=== PATIENT | male | born 1960 | race Caucasian/White ===

== ENCOUNTER 2017-10-31 10:41 | Emergency (ER) | payer OTHER ==
[~2017-10-31] VITALS: Ht 179.1 cm; Wt 84.4 kg
[~2017-10-31 10:41] MED LIST: MULT-506 PO
[2017-10-31 10:49] VITALS: TEMP 36.4; Ht 179.1 cm; Wt 84.4 kg
--- NOTE | 2017-10-31 12:04 | DIAGNOSTIC IMAGING REPORT ---
CHEST ONE VIEW PORTABLE CLINICAL HISTORY: Leg edema COMPARISON STUDY: No previous studies for comparison. FINDINGS: The heart is normal in size. There is left-sided pleural diaphragmatic scarring. There is no failure. There is no focal pulmonary consolidation. There are no significant pleural effusions.[ IMPRESSION: Left-sided pleural diaphragmatic scarring, likely chronic. No evidence of focal pulmonary consolidation Electronically signed by: Pankaj Mccallum M.D. 10/31/2017 12:03 PM Dictated Date/Time: 10/31/2017 12:02 PM
[2017-10-31 12:32] LABS: ALBUMIN 2.7 gm/dl (3.4-5.0); CREATININE 0.52 mg/dl (0.60-1.40); POTASSIUM 3.3 mmol/L (3.5-5.1)
[2017-10-31 12:34] LABS: HEMATOCRIT 33.5 % (42-52); HEMOGLOBIN 11.5 g/dL (14.0-18.0); MEAN CELL VOLUME 90.5 fL (80-100); MEAN CORPUSCULAR HEMOGLOBIN 31.1 pg (25-34); RED CELL DISTRIBUTION WIDTH CV 14.8 % (11.5-14.5); RED CELL DISTRIBUTION WIDTH SD 48.7 fL (36.4-46.3)
[2017-10-31 12:42] LABS: MEAN CORPUSCULAR HGB CONC 34.3 g/dl (32-36)
[2017-10-31 12:54] LABS: MEAN PLATELET VOLUME 8.6 fL (7.4-10.4); PLATELET COUNT 57 K/uL (130-400)
[2017-10-31 12:55] LABS: TOTAL PROTEIN 7.9 gm/dl (6.4-8.2)
--- NOTE | 2017-10-31 12:59 | EMERGENCY ROOM VISIT NOTE ---
History First contact with patient: 11:20 Chief Complaint: SWELLING TO EXTREMITY Stated Complaint: SWELLING FEET LEGS History of Present Illness The patient is a 56 year old male who presents to the Emergency Room with complaints of swelling of bilateral legs. The patient states that he has had intermittent swelling of the legs for the past 6 months. He states that typically this goes away on its own. He reports for the past 2 weeks, he has had constant swelling which has not improved. He has tried elevating his legs and soaking them in Epsom salts without relief. He states that the feet and calves are painful and rates his discomfort a 10/10. He states that the legs "feel like they are going to burst." The pain is worse with touching the legs and feet. The patient states that he has not seen a primary care provider in a few years. He has a history of hepatitis C. He denies any other medical problems. He denies chest pain, shortness of breath, abdominal pain, nausea, vomiting or fevers. He denies any drug use. He states that he drinks alcohol socially, but denies excessive alcohol use. Review of Systems A complete 10 point review of systems was reviewed with the patient with pertinent positives and negatives as per history of present illness. All else were negative. Past Medical/Surgical History Medical Problems: (1) Hepatitis C Family History Cancer Diabetes mellitus Hypertension Lung disease Seizures Social History Smoking Status: Current Every Day Smoker Alcohol Use: occasionally Housing Status: other (transition home) Occupation Status: disabled Current/Historical Medications Scheduled Cephalexin Monohydrate (Keflex), 500 MG PO QID Physical Exam Vital Signs Date Time Temp Pulse Resp B/P (MAP) Pulse Ox O2 Delivery O2 Flow Rate FiO2 10/31/17 13:11 90 18 141/76 95 Room Air 10/31/17 10:49 36.4 90 18 171/77 94 Room Air Physical Exam VITALS: Vitals are noted on the nurse's note and reviewed by myself. Vital signs stable. GENERAL: This is a 56-year-old male, in no acute distress, nondiaphoretic, well- developed well-nourished. HEAD: Normocephalic atraumatic. EARS: External auditory canals clear, tympanic membranes pearly simpson without erythema or effusion bilaterally. EYES: Pupils equal round and reactive to light and accommodation. MOUTH: Mucous membranes moist. NECK: Supple without nuchal rigidity. No lymphadenopathy. HEART: Regular rate and rhythm without murmurs gallops or rubs. LUNGS: Mild expiratory wheezes throughout. Otherwise clear to auscultation. ABDOMEN: Positive bowel sounds x 4. Soft, nontender without palpable masses. EXTREMITIES: 1+ pitting edema to bilateral lower extremities. Tenderness to palpation with light touch of bilateral feet and calves. There is mild erythema and warmth to bilateral lower legs. NEURO: Patient was alert and oriented to person place and time. Medical Decision & Procedures ER Provider Diagnostic Interpretation: CHEST ONE VIEW PORTABLE FINDINGS: The heart is normal in size. There is left-sided pleural diaphragmatic scarring. There is no failure. There is no focal pulmonary consolidation. There are no significant pleural effusions.[ IMPRESSION: Left-sided pleural diaphragmatic scarring, likely chronic. No evidence of focal pulmonary consolidation VENOUS DOPPLER LWR EXT BILA FINDINGS: Right: Common femoral vein: Patent. Greater saphenous vein: Patent. Deep femoral vein: Patent. Femoral vein: Patent. Popliteal vein: Patent. Calf veins: Patent. Left: Common femoral vein: Patent. Greater saphenous vein: Patent. Deep femoral vein: Patent. Femoral vein: Patent. Popliteal vein: Patent. Calf veins: Patent. Other: None. IMPRESSION: No evidence of deep venous thrombosis. Laboratory Results 10/31/17 12:00 Red Blood Count 3.70, Mean Corpuscular Volume 90.5, Mean Corpuscular Hemoglobin 31.1, Mean Corpuscular Hemoglobin Concent 34.3, Mean Platelet Volume 8.6, Neutrophils (%) (Auto) 45.0, Lymphocytes (%) (Auto) 39.4, Monocytes (%) (Auto) 12.2, Eosinophils (%) (Auto) 2.8, Basophils (%) (Auto) 0.6, Neutrophils # (Auto ) 0.81, Lymphocytes # (Auto) 0.71, Monocytes # (Auto) 0.22, Eosinophils # (Auto ) 0.05, Basophils # (Auto) 0.01 10/31/17 12:00 Test 10/31/17 12:00 10/31/17 14:15 White Blood Count 1.80 K/uL (4.8-10.8) Red Blood Count 3.70 M/uL (4.7-6.1) Hemoglobin 11.5 g/dL (14.0-18.0) Hematocrit 33.5 % (42-52) Mean Corpuscular Volume 90.5 fL (80-100) Mean Corpuscular Hemoglobin 31.1 pg (25-34) Mean Corpuscular Hemoglobin Concent 34.3 g/dl (32-36) Platelet Count 57 K/uL (130-400) Mean Platelet Volume 8.6 fL (7.4-10.4) Neutrophils (%) (Auto) 45.0 % Lymphocytes (%) (Auto) 39.4 % Monocytes (%) (Auto) 12.2 % Eosinophils (%) (Auto) 2.8 % Basophils (%) (Auto) 0.6 % Neutrophils # (Auto) 0.81 K/uL (1.4-6.5) Lymphocytes # (Auto) 0.71 K/uL (1.2-3.4) Monocytes # (Auto) 0.22 K/uL (0.11-0.59) Eosinophils # (Auto) 0.05 K/uL (0-0.5) Basophils # (Auto) 0.01 K/uL (0-0.2) RDW Standard Deviation 48.7 fL (36.4-46.3) RDW Coefficient of Variation 14.8 % (11.5-14.5) Immature Granulocyte % (Auto) 0.0 % Immature Granulocyte # (Auto) 0.00 K/uL (0.00-0.02) Platelet Estimate DECREASED Large Platelets 1+ Prothrombin Time 12.7 SECONDS (9.0-12.0) Prothromb Time International Ratio 1.2 (0.9-1.1) Activated Partial Thromboplast Time 30.8 SECONDS (21.0-31.0) Partial Thromboplastin Ratio 1.2 Anion Gap 8.0 mmol/L (3-11) Est Creatinine Clear Calc Drug Dose 164.4 ml/min Estimated GFR () 137.2 Estimated GFR (Non- 118.4 BUN/Creatinine Ratio 10.6 (10-20) Calcium Level 8.0 mg/dl (8.5-10.1) Total Bilirubin 2.1 mg/dl (0.2-1) Direct Bilirubin 0.8 mg/dl (0-0.2) Aspartate Amino Transf (AST/SGOT) 106 U/L (15-37) Alanine Aminotransferase (ALT/SGPT) 61 U/L (12-78) Alkaline Phosphatase 98 U/L (45-117) Pro-B-Type Natriuretic Peptide 27 pg/ml (0-900) Total Protein 7.9 gm/dl (6.4-8.2) Albumin 2.7 gm/dl (3.4-5.0) Lyme Disease IgG Antibody NEG (NEG) Lyme Disease IgM Antibody NEG (NEG) Medical Decision Differential diagnosis includes DVT, cellulitis, liver disease, kidney disease, peripheral vascular disease, among others. The patient is a 56-year-old male who presents today complaining of swelling of both of his legs. Labs revealed pancytopenia with ANC of 0.81. LFTs mildly elevated consistent with patient's history of hepatitis C. Labs are otherwise fairly unremarkable. BNP was negative. Ultrasound of bilateral legs was performed and shows no evidence of DVT. Patient does report that in the past he has seen "a cancer doctor" for low blood counts. He will certainly need close follow-up with primary care provider and hematology. Case management spoke with the patient and scheduled him an appointment within the next week with PCP. They will be able to make referral for hematology. He will be placed on Keflex in case the swelling is due to cellulitis, although I suspect it is more likely secondary to stasis dermatitis. He was instructed to return here for worsening or new/concerning symptoms. The patient was independently evaluated by Dr. Patrick, ED attending physician, who agreed with my assessment and treatment plan. Based on the patient's presentation and work up, I feel the patient is stable for outpatient treatment. The patient was educated to return to the emergency department for any worsening of their current condition or new/concerning symptoms. He will follow up with primary care. Medication Reconcilliation Current Medication List: was personally reviewed by me Blood Pressure Screening Patient's blood pressure: Elevated blood pressure Blood pressure disposition: Elevated BP felt to be situational Impression Primary Impression: Swelling of both lower extremities Departure Information Dispostion Home / Self-Care Condition GOOD Prescriptions Cephalexin Monohydrate (Keflex) 500 Mg Cap 500 MG PO QID for 10 Days, #40 CAP Prov: Tiffany Valdez .TANJA 10/31/17 Referrals No Doctor, Assigned (PCP) Patient Instructions My [facility] Additional Instructions You were prescribed Keflex to be taken as prescribed. This is an antibiotic. All antibiotics have the potential to cause diarrhea. Stop this medication and contact a medical provider if you were to develop any significant adverse side effects including: wheezing, shortness of breath, passing out, vomiting, or a diffuse rash. Always take antibiotics as directed and COMPLETE the ENTIRE course regardless of the improvement of your symptoms. Follow-up with the primary care provider as scheduled for you. Return to the emergency room with any fevers, worsening redness, or other worsening or new/concerning symptoms.
--- NOTE | 2017-10-31 13:00 | DIAGNOSTIC IMAGING REPORT ---
VENOUS DOPPLER LWR EXT BILA CLINICAL HISTORY: 56 years-old Male presenting with b/l leg swelling, calf pain. TECHNIQUE: Real-time grayscale and color and spectral Doppler ultrasound imaging of the veins of the bilateral lower extremities was performed. Compression and augmentation were also utilized. COMPARISON: None. FINDINGS: Right: Common femoral vein: Patent. Greater saphenous vein: Patent. Deep femoral vein: Patent. Femoral vein: Patent. Popliteal vein: Patent. Calf veins: Patent. Left: Common femoral vein: Patent. Greater saphenous vein: Patent. Deep femoral vein: Patent. Femoral vein: Patent. Popliteal vein: Patent. Calf veins: Patent. Other: None. IMPRESSION: No evidence of deep venous thrombosis. Electronically signed by: Rupesh Carvalho M.D. 10/31/2017 12:58 PM Dictated Date/Time: 10/31/2017 12:58 PM
[2017-10-31 13:01] LABS: BASO % 0.6 %; BASO ABS # 0.01 K/uL (0-0.2); EOS % 2.8 %; EOS ABS # 0.05 K/uL (0-0.5); LYMPH % 39.4 %; LYMPH ABS # 0.71 K/uL (1.2-3.4); MONO % 12.2 %; MONO ABS # 0.22 K/uL (0.11-0.59); NEUT ABS # 0.81 K/uL (1.4-6.5)
[2017-10-31 13:11] VITALS: BP 141/76; PULSE 90; O2SAT 95
[2017-10-31 13:36] LABS: INR 1.2 (0.9-1.1); PTT PATIENT 30.8 SECONDS (21.0-31.0)
--- NOTE | 2017-10-31 14:02 | EMERGENCY ROOM VISIT NOTE ---
ED Visit Note First contact with patient: 11:20 The patient was seen and examined with Tiffany Graves PA-C. I agree with the history, physical and findings. Please see the note for disposition and details.
[2017-10-31] MEDS ORDERED: CEPH500C PO (14:20)
== END 2017-10-31 14:46 | disposition home or self-care (01) ==
LOC: C.EDB 10:44 → C.EDC 14:46
DX: M79.89 Other specified soft tissue disorders (principal); B19.20 Unspecified viral hepatitis C without hepatic coma; Z80.9 Family history of malignant neoplasm, unspecified; Z83.3 Family history of diabetes mellitus; Z82.49 Family history of ischemic heart disease and other diseases of the circulatory system; Z83.6 Family history of other diseases of the respiratory system; F17.210 Nicotine dependence, cigarettes, uncomplicated

== ENCOUNTER 2018-11-05 18:06 | Inpatient (IN) ==
[2018-11-05] MEDS ORDERED: SODIUM CHLORIDE 0.9% 1000ML 1,000 ML IV SCH (19:00)
--- NOTE | 2018-11-05 19:15 | Emergency Department Note ---
Entered by Isis Vivar acting as a scribe for Reginaldo Teran DO History of Present Illness General Chief complaint: Weakness Stated complaint: WEAK, NOSE BLEEDS Time Seen by Provider: 11/05/18 18:48 Source: patient History of Present Illness Onset (ago): month(s) 1 Location: lower extremity (Weakness) Radiation: extremity Severity: similar to prior episodes Pain Consistency: + other (Worsening) Maximum Pain Intensity: 0 Quality: + other (Weakness) Exacerbated By: + movement Associated symptoms: + weakness and + other (Positive nosebleeds, abdominal pain, dizziness, insomnia. Negative black or bloody stool.) Treatments prior to arrival: none The patient is a 57 year old male who presents to the Emergency Room with complaints of worsening weakness starting 1 month ago. The patient reports that he has lower extremity weakness. He states that both of his legs hurt when he walks. He notes that he often has been walking up with nose bleeds in the morning. He adds that he is dizzy and has abdominal pain. The patient reports that he has been losing sleep at night because of his symptoms. He states that his appetite has been normal but that he has not been eating red meat. He notes that he last drank alcohol 4 days ago. He adds that exerting himself worsens his symptoms. He denies black or bloody schools. He denies taking any daily medications. 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 and A total of 10 systems reviewed and were otherwise negative Physical Exam Vital Signs Vital Signs - 24 hr 11/05/18 18:09 11/05/18 19:00 11/05/18 19:02 Temperature 36.8 C Temperature Source Oral Sepsis Recent Fever Within 48 Hours No Sepsis New/Unexplained Change in Mental Status No Sepsis Action Taken by Nursing No Action Required Pulse Rate 119 H 106 H Pulse Rate [Apical] 108 H Pulse Rate [Left Finger] Pulse Rate from SpO2 Sensor 107 H Pulse Rhythm [Left Finger] Pulse Strength [Left Finger] Respiratory Rate 20 18 17 Respiratory Effort / Characteristics Non-Labored Spontaneous Respiratory Depth Normal Respiratory Pattern Regular Blood Pressure 194/89 H 164/96 H Blood Pressure [Right Arm] 164/96 H Blood Pressure Mean 124 118 Blood Pressure Mean [Right Arm] 118 Blood Pressure Position [Right Arm] Pulse Oximetry 98 96 95 Oxygen Delivery Method Room Air Room Air 11/05/18 19:11 11/05/18 19:20 11/05/18 19:30 Temperature Temperature Source Sepsis Recent Fever Within 48 Hours Sepsis New/Unexplained Change in Mental Status Sepsis Action Taken by Nursing Pulse Rate 116 H 105 H 108 H Pulse Rate [Apical] Pulse Rate [Left Finger] Pulse Rate from SpO2 Sensor 113 H 106 H 110 H Pulse Rhythm [Left Finger] Pulse Strength [Left Finger] Respiratory Rate 18 23 22 Respiratory Effort / Characteristics Respiratory Depth Respiratory Pattern Blood Pressure 169/93 H Blood Pressure [Right Arm] Blood Pressure Mean 118 Blood Pressure Mean [Right Arm] Blood Pressure Position [Right Arm] Pulse Oximetry 98 96 96 Oxygen Delivery Method 11/05/18 19:57 11/05/18 20:00 11/05/18 20:10 Temperature Temperature Source Sepsis Recent Fever Within 48 Hours Sepsis New/Unexplained Change in Mental Status Sepsis Action Taken by Nursing Pulse Rate 112 H 107 H 107 H Pulse Rate [Apical] Pulse Rate [Left Finger] Pulse Rate from SpO2 Sensor 111 H 107 H 105 H Pulse Rhythm [Left Finger] Pulse Strength [Left Finger] Respiratory Rate 8 L 24 15 Respiratory Effort / Characteristics Respiratory Depth Respiratory Pattern Blood Pressure 177/92 H Blood Pressure [Right Arm] Blood Pressure Mean 120 Blood Pressure Mean [Right Arm] Blood Pressure Position [Right Arm] Pulse Oximetry 97 95 95 Oxygen Delivery Method 11/05/18 20:20 11/05/18 20:30 11/05/18 20:40 Temperature Temperature Source Sepsis Recent Fever Within 48 Hours Sepsis New/Unexplained Change in Mental Status Sepsis Action Taken by Nursing Pulse Rate 107 H 109 H 103 H Pulse Rate [Apical] Pulse Rate [Left Finger] Pulse Rate from SpO2 Sensor 107 H Pulse Rhythm [Left Finger] Pulse Strength [Left Finger] Respiratory Rate 15 24 17 Respiratory Effort / Characteristics Respiratory Depth Respiratory Pattern Blood Pressure 160/91 H Blood Pressure [Right Arm] Blood Pressure Mean 114 Blood Pressure Mean [Right Arm] Blood Pressure Position [Right Arm] Pulse Oximetry 95 Oxygen Delivery Method 11/05/18 20:50 11/05/18 21:00 11/05/18 21:10 Temperature Temperature Source Sepsis Recent Fever Within 48 Hours Sepsis New/Unexplained Change in Mental Status Sepsis Action Taken by Nursing Pulse Rate 100 H 103 H 103 H Pulse Rate [Apical] Pulse Rate [Left Finger] Pulse Rate from SpO2 Sensor 103 H 104 H Pulse Rhythm [Left Finger] Pulse Strength [Left Finger] Respiratory Rate 19 15 15 Respiratory Effort / Characteristics Respiratory Depth Respiratory Pattern Blood Pressure 177/98 H Blood Pressure [Right Arm] Blood Pressure Mean 124 Blood Pressure Mean [Right Arm] Blood Pressure Position [Right Arm] Pulse Oximetry 94 96 Oxygen Delivery Method 11/05/18 22:59 11/05/18 23:07 11/06/18 00:05 Temperature Temperature Source Sepsis Recent Fever Within 48 Hours Sepsis New/Unexplained Change in Mental Status Sepsis Action Taken by Nursing Pulse Rate Pulse Rate [Apical] 104 H 102 H 93 H Pulse Rate [Left Finger] Pulse Rate from SpO2 Sensor Pulse Rhythm [Left Finger] Pulse Strength [Left Finger] Respiratory Rate 13 16 16 Respiratory Effort / Characteristics Respiratory Depth Respiratory Pattern Blood Pressure Blood Pressure [Right Arm] 162/89 H 170/92 H 157/90 H Blood Pressure Mean Blood Pressure Mean [Right Arm] 113 118 112 Blood Pressure Position [Right Arm] Pulse Oximetry 96 97 96 Oxygen Delivery Method Room Air Room Air Room Air 11/06/18 01:30 Temperature 37.0 C Temperature Source Oral Sepsis Recent Fever Within 48 Hours Sepsis New/Unexplained Change in Mental Status Sepsis Action Taken by Nursing Pulse Rate Pulse Rate [Apical] Pulse Rate [Left Finger] 102 H Pulse Rate from SpO2 Sensor Pulse Rhythm [Left Finger] Regular Pulse Strength [Left Finger] Normal Respiratory Rate 18 Respiratory Effort / Characteristics Non-Labored Respiratory Depth Normal Respiratory Pattern Regular Blood Pressure Blood Pressure [Right Arm] 133/86 Blood Pressure Mean Blood Pressure Mean [Right Arm] 101 Blood Pressure Position [Right Arm] Lying Pulse Oximetry 96 Oxygen Delivery Method Room Air GENERAL: Patient is awake alert in no acute distress patient is resting comfortably and showing no signs of anxiety. There is an odor of alcohol in the room. EYES: The conjunctivae are injected bilaterally. The pupils are round and reactive. EARS, NOSE, MOUTH AND THROAT: The nose is without any evidence of any deformity. Mucous membranes are moist tongue is midline NECK: The neck is nontender and supple. RESPIRATORY: Normal respiratory effort is noted there is no evidence of wheezing rhonchi or rales CARDIOVASCULAR: Regular rate and rhythm noted there no murmurs rubs or gallops normal S1 normal S2 GASTROINTESTINAL: The abdomen is soft. Bowel sounds are present in all quadrants. Abdomen is nontender MUSCULOSKELETAL/EXTREMITIES: There is no evidence of gross deformity full range of motion is noted in the hips and shoulders SKIN: There is no obvious evidence of any rash. There are no petechiae, pallor or cyanosis noted. NEUROLOGIC: Patient is awake alert and oriented x3 strength is symmetric patellar reflexes are 2+ bilaterally Course 1849: Past medical records reviewed. The patient was evaluated in room A10, and a complete history and physical examination were performed. 2009: updated the patient at this time about his lab results and notified him that his magnesium is low. 2233: I reviewed the patient's case with Dr. Jesus Daniel hospitalist. He will evaluate the patient for further management. Reevaluation(s) Reevaluation #1: I reviewed the patient's case with Dr. Jesus Daniel hospi talist. He will evaluate the patient for further management. Time: 22:33 Administered Medications Lorazepam (Ativan) 2 mg in 4 mls @ 4 mls/min IV UD PRN; Protocol PRN Reason: EtOH Withdrawl AWSS Score 8,9 Stop: 12/05/18 22:51 Last Admin: 11/06/18 02:13 Dose: 4 mls/min Documented by: [id number] Magnesium Sulfate/Dextrose (Magnesium Sulfate / D5w) 1 gm in 100 mls @ 100 mls/hr IV Q1H CINDY Stop: 11/06/18 04:44 Last Admin: 11/06/18 02:13 Dose: 100 mls/hr Documented by: [id number] Multivitamins 10 ml/ Thiamine HCl 100 mg/ Folic Acid 1 mg/Potassium Chloride 20 meq/Sodium Chloride 1,021.2 mls @ 75 mls/hr IV .[id number] ONE Stop: 11/06/18 15:21 Last Admin: 11/06/18 02:15 Dose: 75 mls/hr Documented by: [id number] Nicotine (Nicoderm Cq) 14 mg TD QAM [facility] Stop: 12/06/18 00:00 Last Admin: 11/06/18 02:21 Dose: 14 mg Documented by: [id number] Discontinued Medications Clonidine HCl (Catapres) 0.1 mg PO NOW ONE Stop: 11/05/18 23:20 Last Admin: 11/05/18 23:57 Dose: 0.1 mg Documented by: [id number] Gabapentin (Neurontin) 1,200 mg PO TODAY@0200 [facility] Stop: 11/06/18 02:01 Last Admin: 11/06/18 02:18 Dose: 1,200 mg Documented by: [id number] Sodium Chloride (Nss 1000ml) 1,000 mls @ 999 mls/hr IV .Q1H1M CINDY Stop: 11/05/18 20:00 Last Infusion: 11/05/18 20:05 Dose: 0 mls/hr Documented by: [id number] Admin: 11/05/18 19:03 Dose: 999 mls/hr Documented by: [id number] Thiamine HCl 100 mg/ Syringe 10 mls @ 2 mls/min IV NOW STA Stop: 11/05/18 20:53 Last Admin: 11/05/18 21:36 Dose: 2 mls/min Documented by: [id number] Magnesium Sulfate/Dextrose (Magnesium Sulfate / D5w) 1 gm in 100 mls @ 100 mls/hr IV ONE ONE Stop: 11/05/18 21:48 Last Infusion: 11/05/18 22:11 Dose: 0 mls/hr Documented by: [id number] Admin: 11/05/18 21:07 Dose: 100 mls/hr Documented by: [id number] Lorazepam (Ativan) 2 mg in 4 mls @ 4 mls/min IV NOW STA Stop: 11/05/18 22:27 Last Admin: 11/05/18 22:37 Dose: 4 mls/min Documented by: [id number] Magnesium Oxide (Mag-Ox) 800 mg PO ONE ONE Stop: 11/06/18 20:51 Last Admin: 11/05/18 22:11 Dose: 800 mg Documented by: [id number] Admin: 11/05/18 21:36 Dose: 800 mg Documented by: [id number] Potassium Chloride (Klor-Con M20) 40 meq PO NOW STA Stop: 11/05/18 22:50 Last Admin: 11/05/18 23:24 Dose: Not Given Documented by: [id number] Potassium Chloride (Klor-Con M10) Confirm Administered Dose 40 meq PO .STK-MED ONE Stop: 11/05/18 23:05 Last Admin: 11/05/18 23:05 Dose: 40 meq Documented by: [id number] Medical Decision Making Differential Diagnosis Differential includes acute coronary syndrome, myocardial infarction, CVA, TIA, anemia, infection, pneumonia, UTI, pyelonephritis, poor nutrition, dehydration, electrolyte disturbance,hypoglycemia. Medical Records Attestation: I reviewed the patient's medical records. Home Medications Current Medication List: was personally reviewed by me Laboratory Data Attestation: I reviewed the patient's lab results. Result diagrams: 11/05/18 19:03 11/05/18 19:03 Lab Results 11/05/18 11/05/18 11/05/18 Range/Units 19:03 19:03 19:03 WBC 1.93 L (4.8-10.8) K/uL RBC 3.74 L (4.7-6.1) M/uL Hgb 11.0 L (14.0-18.0) g/dL Hct 33.0 L (42-52) % MCV 88.2 (80-100) fL MCH 29.4 (25-34) pg MCHC 33.3 (32-36) g/dL RDW Std Deviation 56.9 H (36.4-46.3) fL RDW Coeff of Jarrell 17.6 H (11.5-14.5) % Plt Count 20 L* (130-400) K/uL Immature Gran % (Auto) 0.5 % Neut % (Auto) 65.3 % Lymph % (Auto) 24.4 % [place] % (Auto) 8.3 % Eos % (Auto) 1.0 % Baso % (Auto) 0.5 % Immature Gran # (Auto) 0.01 (0.00-0.02) K/uL Neut # (Auto) 1.26 L (1.4-6.5) K/uL Lymph # (Auto) 0.47 L (1.2-3.4) K/uL [place] # (Auto) 0.16 (0.11-0.59) K/uL Eos # (Auto) 0.02 (0-0.5) K/uL Baso # (Auto) 0.01 (0-0.2) K/uL Platelet Estimate SIGNIFIC DECREASED (Normal) RBC Morphology Unremarkable PT 13.4 H (9.0-12.0) Seconds INR 1.3 H (0.9-1.1) Sodium (136-145) mmol/L Potassium (3.5-5.1) mmol/L Chloride (98-107) mmol/L Carbon Dioxide (21-32) mmol/L Anion Gap (3-11) BUN (7-18) mg/dl Creatinine (0.6-1.4) mg/dl Est Cr Clr Drug Dosing ml/min Est GFR ( Amer) Est GFR (Non-Af Amer) BUN/Creatinine Ratio (10-20) Glucose (70-99) mg/dl Calcium (8.5-10.1) mg/dl Magnesium (1.8-2.4) mg/dl Total Bilirubin (0.2-1) mg/dl AST (15-37) U/L ALT (12-78) U/L Alkaline Phosphatase (45-117) U/L Troponin I (0-0.045) ng/ml Total Protein (6.4-8.2) gm/dl Albumin (3.4-5.0) gm/dl Globulin (2.5-4.0) gm/dl Albumin/Globulin Ratio (0.9-2) TSH (0.300-4.500) uIu/ml Urine Color Urine Appearance (Clear) Urine pH (4.5-7.5) Ur Specific Eugene (1.000-1.030) Urine Protein (Negative) Urine Glucose (UA) (Negative) Urine Ketones (Negative) Urine Blood (Negative) Urine Nitrite (Negative) Urine Bilirubin (Negative) Urine Urobilinogen (Negative) Ur Leukocyte Esterase (Negative) Urine WBC (Auto) (0-5) /hpf Urine RBC (Auto) (0-4) /hpf U Hyaline Cast (Auto) (0-5) /lpf U Epithel Cells (Auto) (0-5) /lpf Urine Bacteria (Auto) (Negative) Ethyl Alcohol mg/dL 118.0 H (0-3) mg/dl 11/05/18 11/05/18 Range/Units 19:03 19:55 WBC (4.8-10.8) K/uL RBC (4.7-6.1) M/uL Hgb (14.0-18.0) g/dL Hct (42-52) % MCV (80-100) fL MCH (25-34) pg MCHC (32-36) g/dL RDW Std Deviation (36.4-46.3) fL RDW Coeff of Jarrell (11.5-14.5) % Plt Count (130-400) K/uL Immature Gran % (Auto) % Neut % (Auto) % Lymph % (Auto) % [place] % (Auto) % Eos % (Auto) % Baso % (Auto) % Immature Gran # (Auto) (0.00-0.02) K/uL Neut # (Auto) (1.4-6.5) K/uL Lymph # (Auto) (1.2-3.4) K/uL [place] # (Auto) (0.11-0.59) K/uL Eos # (Auto) (0-0.5) K/uL Baso # (Auto) (0-0.2) K/uL Platelet Estimate (Normal) RBC Morphology PT (9.0-12.0) Seconds INR (0.9-1.1) Sodium 141 (136-145) mmol/L Potassium 3.2 L (3.5-5.1) mmol/L Chloride 109 H (98-107) mmol/L Carbon Dioxide 24 (21-32) mmol/L Anion Gap 8.0 (3-11) BUN 7 (7-18) mg/dl Creatinine 0.54 L (0.6-1.4) mg/dl Est Cr Clr Drug Dosing 166.6 ml/min Est GFR ( Amer) 134.1 Est GFR (Non-Af Amer) 115.7 BUN/Creatinine Ratio 13.0 (10-20) Glucose 101 H (70-99) mg/dl Calcium 7.7 L (8.5-10.1) mg/dl Magnesium 1.1 L (1.8-2.4) mg/dl Total Bilirubin 2.6 H (0.2-1) mg/dl AST 178 H (15-37) U/L ALT 72 (12-78) U/L Alkaline Phosphatase 91 (45-117) U/L Troponin I < 0.015 (0-0.045) ng/ml Total Protein 8.6 H (6.4-8.2) gm/dl Albumin 2.8 L (3.4-5.0) gm/dl Globulin 5.8 H (2.5-4.0) gm/dl Albumin/Globulin Ratio 0.5 L (0.9-2) TSH 1.320 (0.300-4.500) uIu/ml Urine Color Dark Yellow Urine Appearance Clear (Clear) Urine pH 8.5 H (4.5-7.5) Ur Specific Eugene 1.019 (1.000-1.030) Urine Protein Negative (Negative) Urine Glucose (UA) Negative (Negative) Urine Ketones Trace H (Negative) Urine Blood Trace H (Negative) Urine Nitrite Negative (Negative) Urine Bilirubin Negative (Negative) Urine Urobilinogen Negative (Negative) Ur Leukocyte Esterase Negative (Negative) Urine WBC (Auto) 1-5 (0-5) /hpf Urine RBC (Auto) 10-30 H (0-4) /hpf U Hyaline Cast (Auto) 1-5 (0-5) /lpf U Epithel Cells (Auto) 0-5 (0-5) /lpf Urine Bacteria (Auto) Negative (Negative) Ethyl Alcohol mg/dL (0-3) mg/dl Imaging Data Radiologist's Impression: Radiology results as stated below per my review and the radiologist's interpretation: HEAD CT NONCONTRAST CT DOSE: 638.56 mGycm HISTORY: weakness TECHNIQUE: Multiaxial CT images of the head were performed without the use of intravenous contrast. Automated exposure control was utilized for this study. A dose lowering technique was utilized adhering to the principles of ALARA. Comparison: Near complete opacification of the right maxillary sinus. Mild mucosal thickening within the right ethmoid air cells and left maxillary sinus. The mastoid air cells are clear. Findings: The paranasal sinuses and mastoid air cells are clear. The calvarium and skull base are intact. The ventricles and sulci are within normal limits. There is no mass, hematoma, midline shift, or acute infarct. Impression: No acute intracranial abnormality. Electronically signed by: Paul Fox M.D. 11/05/2018 8:28 PM A[address]OMEN AND PELVIS CT WITHOUT CONTRAST CT DOSE: 951.22 mGycm HISTORY: Right and left flank pain. TECHNIQUE: Multiaxial CT images of the abdomen and pelvis were performed without contrast. A dose lowering technique was utilized adhering to the principles of ALARA. COMPARISON STUDY: None. FINDINGS: The lung bases are clear. No pneumoperitoneum. No pneumatosis. No acute fractures within the visualized osseous structures. Nodular contour to the liver consistent with cirrhosis. There is associated splenomegaly and upper abdominal varices consistent with portal hypertension. Layering hyperdense material within the gallbladder suggestive of sludge or small stones. The adrenal glands and pancreas are unremarkable. Calcified plaque within the normal caliber abdominal aorta. No retroperitoneal lymphadenopathy. There are few punctate stones within the lower poles of the kidneys. No hydronephrosis. No ure teral stones. No hydronephrosis. Normal bladder. Suboptimal evaluation for bowel pathology due to the lack of intravenous and oral contrast. However, there is no definite bowel wall thickening or obstruction. Normal appendix. IMPRESSION: 1. No definite bowel wall thickening or obstruction. 2. Normal appendix. 3. Bilateral nephrolithiasis. No ureteral stones. No hydronephrosis. 4. Cirrhosis with splenomegaly and upper abdominal varices. 5. Small amount of gallbladder sludge versus small stones. No gallbladder wall thickening. Electronically signed by: Paul Fox M.D. 11/05/2018 8:27 PM XR chest 1V portable HISTORY: weakness COMPARISON: Chest 09/12/2018. FINDINGS: No pneumothorax. No pleural effusions. The lungs are clear. The heart is normal in size. IMPRESSION: No acute process. Electronically signed by: Paul Fox M.D. 11/05/2018 8:30 PM ECG Data Attestation: I personally reviewed and interpreted this ECG as follows: Indication: weakness Rate (beats per minute): 107 Rhythm: sinus tachycardia Findings: no ST depression, no ST elevation and no ectopy Comparison ECG Date: from (09/12/18) Change: no significant change Blood Pressure Blood Pressure Findings: Elevated blood pressure Blood Pressure Disposition: further management by hospitalist LAURI Fine The patient is a 57-year-old male who presented to the emergency department for an evaluation of generalized weakness. The patient has a history of alcoholism and cirrhosis. He does have underlying pancytopenia. He denies having any falls but does have underlying thrombocytopenia. The patient was treated with IV fluids as well as Ativan. He was also treated with IV magnesium and IV thiamine. I discussed the patient's laboratory and radiographic studies with him. While he was in the emergency department he started to have signs of early alcohol withdrawal. The patient at this time does not have a formal place that he lives. I am very concerned with his overall disposition once he leaves our emergency department. For this reason I discussed his case with the on-call [facility] hospitalist. They have agreed to evaluate the patient in the emergency department for further management and disposition. The patient was reevaluated multiple times. Impression & Plan Weakness, Hypomagnesemia, Alcohol abuse, Pancytopenia Discharge Plan Visit Data *Final* Discharge Date/Time: 11/06/18 00:34 Chief Complaint: Weakness Stated Complaint: WEAK, NOSE BLEEDS ED Provider: Reginaldo Teran Discharge Problem: Weakness, Hypomagnesemia, Alcohol abuse, Pancytopenia Patient Disposition: Admitted As Inpatient Condition: Good Discharge Instructions Interventions: ED Discharge Assessment Last Done: 11/06/18 00:34 The scribe's documentation has been prepared under my direction and personally reviewed by me in its entirety. I confirm that the note above accurately reflects all work, treatment, procedures, and medical decision making performed by me.
[2018-11-05 19:26] LABS: INR 1.3 (0.9-1.1); Prothrombin Time 13.4 Seconds (9.0-12.0)
[2018-11-05 19:35] LABS: Alanine Aminotransferase 72 U/L (12-78); Albumin Level 2.8 gm/dl (3.4-5.0); Aspartate Aminotransferase 178 U/L (15-37); Blood Urea Nitrogen 7 mg/dl (7-18); Calcium 7.7 mg/dl (8.5-10.1); Carbon Dioxide 24 mmol/L (21-32); Chloride 109 mmol/L (98-107); Creatinine Clr Calc Pharmacy 166.6 ml/min; Est GFR (African American) 134.1; Est GFR (Non-African American) 115.7; Glucose 101 mg/dl (70-99); Magnesium 1.1 mg/dl (1.8-2.4); Potassium 3.2 mmol/L (3.5-5.1); Sodium 141 mmol/L (136-145)
[2018-11-05 19:46] LABS: Albumin Globulin Ratio 0.5 (0.9-2); Alkaline Phosphatase 91 U/L (45-117); Bilirubin,Total 2.6 mg/dl (0.2-1); Globulin 5.8 gm/dl (2.5-4.0); Total Protein 8.6 gm/dl (6.4-8.2); Troponin I < 0.015 ng/ml (0-0.045)
[2018-11-05 20:04] LABS: Mean Corpuscular Hgb Conc 33.3 g/dL (32-36); Mean Corpuscular Volume 88.2 fL (80-100); Platelet Count 20 K/uL (130-400); RDW Coefficient of Variation 17.6 % (11.5-14.5); RDW Standard Deviation 56.9 fL (36.4-46.3); Red Blood Count 3.74 M/uL (4.7-6.1); White Blood Count 1.93 K/uL (4.8-10.8)
[2018-11-05 20:09] LABS: Basophils # (auto) 0.01 K/uL (0-0.2); Basophils % (auto) 0.5 %; Eosinophils # (auto) 0.02 K/uL (0-0.5); Immature Granulocytes # (auto) 0.01 K/uL (0.00-0.02); Immature Granulocytes % (auto) 0.5 %; Lymphocytes # (auto) 0.47 K/uL (1.2-3.4); Lymphocytes % (auto) 24.4 %; Monocytes # (auto) 0.16 K/uL (0.11-0.59); Monocytes % (auto) 8.3 %; Neutrophils # (auto) 1.26 K/uL (1.4-6.5); Neutrophils % (auto) 65.3 %; Platelet Estimate SIGNIFIC DECREASED (Normal); RBC Morphology Unremarkable
[2018-11-05 20:23] LABS: Appearance Urine Clear (Clear); Bacteria Urine Automated Negative (Negative); Bilirubin Urine Negative (Negative); Blood Urine Trace (Negative); Color Urine Dark Yellow; Epithelial Cell Urine Auto 0-5 /lpf (0-5); Glucose Urine UA Negative (Negative); Ketones Urine Trace (Negative); Leukocyte Esterase Urine Negative (Negative); Nitrite Urine Negative (Negative); Protein Urine Negative (Negative); Specific Gravity Urine 1.019 (1.000-1.030); Urobilinogen Urine Negative (Negative); pH Urine 8.5 (4.5-7.5)
--- NOTE | 2018-11-05 20:28 | CT Scan Report ---
ABDOMEN AND PELVIS CT WITHOUT CONTRAST CT DOSE: 951.22 mGycm HISTORY: Right and left flank pain. TECHNIQUE: Multiaxial CT images of the abdomen and pelvis were performed without contrast. A dose lo wering technique was utilized adhering to the principles of ALARA. COMPARISON STUDY: None. FINDINGS: The lung bases are clear. No pneumoperitoneum. No pneumatosis. No acute fractures within th e visualized osseous structures. Nodular contour to the liver consistent with cirrhosis. There is ass ociated splenomegaly and upper abdominal varices consistent with portal hypertension. Layering hyperd ense material within the gallbladder suggestive of sludge or small stones. The adrenal glands and miller creas are unremarkable. Calcified plaque within the normal caliber abdominal aorta. No retroperitonea l lymphadenopathy. There are few punctate stones within the lower poles of the kidneys. No hydronephr osis. No ureteral stones. No hydronephrosis. Normal bladder. Suboptimal evaluation for bowel patholog y due to the lack of intravenous and oral contrast. However, there is no definite bowel wall thickeni ng or obstruction. Normal appendix. IMPRESSION: 1. No definite bowel wall thickening or obstruction. 2. Normal appendix. 3. Bilateral nephrolithiasis. No ureteral stones. No hydronephrosis. 4. Cirrhosis with splenomegaly and upper abdominal varices. 5. Small amount of gallbladder sludge versus small stones. No gallbladder wall thickening. Electronically signed by: Paul Fox M.D. 11/05/2018 8:27 PM
--- NOTE | 2018-11-05 20:30 | CT Scan Report ---
HEAD CT NONCONTRAST CT DOSE: 638.56 mGycm HISTORY: weakness TECHNIQUE: Multiaxial CT images of the head were performed without the use of intravenous contrast. A utomated exposure control was utilized for this study. A dose lowering technique was utilized adheri ng to the principles of ALARA. Comparison: Near complete opacification of the right maxillary sinus. Mild mucosal thickening within the right ethmoid air cells and left maxillary sinus. The mastoid air cells are clear. Findings: The paranasal sinuses and mastoid air cells are clear. The calvarium and skull base are int act. The ventricles and sulci are within normal limits. There is no mass, hematoma, midline shift, or acute infarct. Impression: No acute intracranial abnormality. Electronically signed by: Paul Fox M.D. 11/05/2018 8:28 PM
--- NOTE | 2018-11-05 20:32 | XRay Report ---
XR chest 1V portable HISTORY: weakness COMPARISON: Chest 09/12/2018. FINDINGS: No pneumothorax. No pleural effusions. The lungs are clear. The heart is normal in size. IMPRESSION: No acute process. Electronically signed by: Paul Fox M.D. 11/05/2018 8:30 PM
[2018-11-05] MEDS ORDERED: THIAMINE HCL 100 MG in SYRINGE 9 ML IV STA (20:49)
[2018-11-05] MEDS ORDERED: MAGNESIUM SULFATE / D5W 1 GM/100 ML BAG IV ONE (20:49)
[2018-11-05] MEDS: MAGNESIUM OXIDE 400 MG TAB PO ONE ×2 (21:36→22:11)
[2018-11-05] MEDS ORDERED: LORazepam 2 MG/4 ML VIAL IV STA (22:26)
[2018-11-05] MEDS ORDERED: POTASSIUM CHLORIDE 20 MEQ TABCR PO STA (22:49)
[2018-11-05] MEDS ORDERED: GABAPENTIN 1200MG ALCOHOL WITHDRAWAL LOAD PO STA (22:52)
[2018-11-05] MEDS ORDERED: LORazepam 3 MG/6 ML VIAL IV PRN (22:52)
[2018-11-05] MEDS ORDERED: LORazepam 2 MG/4 ML VIAL IV PRN (22:52)
[2018-11-05] MEDS ORDERED: LORazepam 1 MG/2 ML VIAL IV PRN (22:52)
[2018-11-05] MEDS ORDERED: ATIVAN IV ALCOHOL WITHDRAWL IV SCH (23:00)
[2018-11-05] MEDS ORDERED: POTASSIUM CHLORIDE 10 MEQ TABCR PO ONE (23:04)
[2018-11-05] MEDS ORDERED: cloNIDine HCl 0.1 MG TAB PO ONE (23:19)
--- NOTE | 2018-11-05 23:19 | History & Physical Report ---
Date of Service November 05, 2018 Assessment & Plan (1) Alcohol withdrawal: hypertension, not on home meds BP markedly elevated secondary to alcohol withdrawal hx HCV, from IVDU as per records Patient following with [facility]. New diagnosis of cirrhosis on CT likely secondary to HCV/alcohol abuse Epistaxis from chronic thrombocytopenia History chronic pancytopenia likely secondary to alcoholic cirrhosis Hemoglobin at baseline Hypokalemia, hypomagnesemia LE Claudication symptoms possibly from hypokalemia rule out PVD ongoing tobacco abuse Medical telemetry DT precautions Clonidine 1 dose now given elevated BP, tachycardia Initiate maintenance Lisinopril for BP control Platelet transfusion for severe thrombocytopenia causing epistaxis. Outpatient GI follow-up visit for new diagnosis of cirrhosis Replace electrolytes Nicotine patch [facility] PT OT eval DVT prophylaxis. SCDs RE thrombocytopenia, epistaxis Full code History of Present Illness Chief Complaint: Weakness, epistaxis Primary Care Provider: Dr. Moore History obtained from patient and records. Medical history significant for hypertension, HCV, chronic pancytopenia, ongoing tobacco/alcohol abuse, hx IVDU as per records. One month history of generalized weakness worsening in the last week. Patient complaining of generalized headache symptoms. Intermittent epistaxis episodes. No emesis. Generalized achy abdominal pain. No black/no bloody stools. Patient also complaining of bilateral achy leg pain especially on ambulation. Medical History as above History of alcohol withdrawal seizures, intubation for alcohol withdrawal as per patient Surgical History : Right wrist ganglion surgery, vasectomy, chest tube insertion Family History : Diabetes Personal/Social history : 1/2 pack daily, daily alcohol intake, past history IVDU, disabled Allergies Allergy/AdvReac Type Severity Reaction Status Date / Time No Known Allergies Allergy Unverified 11/05/18 21:08 Home Medications Home Medications Medication Instructions Recorded Confirmed Type magnesium oxide [MagOx] 400 mg PO BID #60 tab 11/05/18 Rx Past Med/Surg History Medical History Cirrhosis Hepatitis C (Acute) Social History Preferred Language: [place] 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 Beliefs That Will Affect Care: None Current Living Situation: Homeless Other Information That Helps Us Care for You: No Feels Safe at Home: Yes Safety Concerns: Feels Safe At This Time Smoking Status: Current every day smoker Hx Alcohol Use: Yes Hx Substance Use: No Review of Systems As per HPI, all 10 systems reviewed, all other ROS negative Physical Exam Vital Signs (Past 24 Hours): Last Vital Signs Temp 36.8 C 11/05/18 18:09 Pulse 102 H 11/05/18 23:07 Resp 16 11/05/18 23:07 BP 170/92 H 11/05/18 23:07 Pulse Ox 97 11/05/18 23:07 Physical Exam: GENERAL: Uncomfortable,, no respiratory distress, tremulous, alcoholic fetor SKIN: Pallor, warm, spider angiomata HEENT: Pale palpebral conjunctivae, no ptosis, dry buccal mucosa, dried clots per nostril NECK : Supple, no tenderness CHEST : CTA, no tenderness HEART : Tachycardic, no obvious murmurs ABDOMEN: Some distention, minimal epigastric tenderness EXTREMITIES : No LE swelling/tenderness, no other conspicuous deformities noted NEUROLOGIC : Coherent, no facial asymmetry, tremulous, gait and stance not assessed Results & Data Laboratory Results Laboratory Results WBC 1.93 K/uL (4.8-10.8) L 11/05/18 19:03 RBC 3.74 M/uL (4.7-6.1) L 11/05/18 19:03 Hgb 11.0 g/dL (14.0-18.0) L 11/05/18 19:03 Hct 33.0 % (42-52) L 11/05/18 19:03 MCV 88.2 fL (80-100) 11/05/18 19:03 MCH 29.4 pg (25-34) 11/05/18 19:03 MCHC 33.3 g/dL (32-36) 11/05/18 19:03 RDW Std Deviation 56.9 fL (36.4-46.3) H 11/05/18 19:03 RDW Coeff of Jarrell 17.6 % (11.5-14.5) H 11/05/18 19:03 Plt Count 20 K/uL (130-400) L* 11/05/18 19:03 Immature Gran % (Auto) 0.5 % 11/05/18 19:03 Neut % (Auto) 65.3 % 11/05/18 19:03 Lymph % (Auto) 24.4 % 11/05/18 19:03 [place] % (Auto) 8.3 % 11/05/18 19:03 Eos % (Auto) 1.0 % 11/05/18 19:03 Baso % (Auto) 0.5 % 11/05/18 19:03 Immature Gran # (Auto) 0.01 K/uL (0.00-0.02) 11/05/18 19:03 Neut # (Auto) 1.26 K/uL (1.4-6.5) L 11/05/18 19:03 Lymph # (Auto) 0.47 K/uL (1.2-3.4) L 11/05/18 19:03 [place] # (Auto) 0.16 K/uL (0.11-0.59) 11/05/18 19:03 Eos # (Auto) 0.02 K/uL (0-0.5) 11/05/18 19:03 Baso # (Auto) 0.01 K/uL (0-0.2) 11/05/18 19:03 Platelet Estimate SIGNIFIC DECREASED (Normal) 11/05/18 19:03 RBC Morphology Unremarkable 11/05/18 19:03 PT 13.4 Seconds (9.0-12.0) H 11/05/18 19:03 INR 1.3 (0.9-1.1) H 11/05/18 19:03 Sodium 141 mmol/L (136-145) 11/05/18 19:03 Potassium 3.2 mmol/L (3.5-5.1) L 11/05/18 19:03 Chloride 109 mmol/L (98-107) H 11/05/18 19:03 Carbon Dioxide 24 mmol/L (21-32) 11/05/18 19:03 Anion Gap 8.0 (3-11) 11/05/18 19:03 BUN 7 mg/dl (7-18) 11/05/18 19:03 Creatinine 0.54 mg/dl (0.6-1.4) L 11/05/18 19:03 Est Cr Clr Drug Dosing 166.6 ml/min 11/05/18 19:03 Est GFR ( Amer) 134.1 11/05/18 19:03 Est GFR (Non-Af Amer) 115.7 11/05/18 19:03 BUN/Creatinine Ratio 13.0 (10-20) 11/05/18 19:03 Glucose 101 mg/dl (70-99) H 11/05/18 19:03 Calcium 7.7 mg/dl (8.5-10.1) L 11/05/18 19:03 Magnesium 1.1 mg/dl (1.8-2.4) L 11/05/18 19:03 Total Bilirubin 2.6 mg/dl (0.2-1) H 11/05/18 19:03 AST 178 U/L (15-37) H 11/05/18 19:03 ALT 72 U/L (12-78) 11/05/18 19:03 Alkaline Phosphatase 91 U/L (45-117) 11/05/18 19:03 Troponin I < 0.015 ng/ml (0-0.045) 11/05/18 19:03 Total Protein 8.6 gm/dl (6.4-8.2) H 11/05/18 19:03 Albumin 2.8 gm/dl (3.4-5.0) L 11/05/18 19:03 Globulin 5.8 gm/dl (2.5-4.0) H 11/05/18 19:03 Albumin/Globulin Ratio 0.5 (0.9-2) L 11/05/18 19:03 TSH 1.320 uIu/ml (0.300-4.500) 11/05/18 19:03 Urine Color Dark Yellow 11/05/18 19:55 Urine Appearance Clear (Clear) 11/05/18 19:55 Urine pH 8.5 (4.5-7.5) H 11/05/18 19:55 Ur Specific [place] 1.019 (1.000-1.030) 11/05/18 19:55 Urine Protein Negative (Negative) 11/05/18 19:55 Urine Glucose (UA) Negative (Negative) 11/05/18 19:55 Urine Ketones Trace (Negative) H 11/05/18 19:55 Urine Blood Trace (Negative) H 11/05/18 19:55 Urine Nitrite Negative (Negative) 11/05/18 19:55 Urine Bilirubin Negative (Negative) 11/05/18 19:55 Urine Urobilinogen Negative (Negative) 11/05/18 19:55 Ur Leukocyte Esterase Negative (Negative) 11/05/18 19:55 Urine WBC (Auto) 1-5 /hpf (0-5) 11/05/18 19:55 Urine RBC (Auto) 10-30 /hpf (0-4) H 11/05/18 19:55 U Hyaline Cast (Auto) 1-5 /lpf (0-5) 11/05/18 19:55 U Epithel Cells (Auto) 0-5 /lpf (0-5) 11/05/18 19:55 Urine Bacteria (Auto) Negative (Negative) 11/05/18 19:55 Ethyl Alcohol mg/dL 118.0 mg/dl (0-3) H 11/05/18 19:03 Diagnostic Findings Chest x-ray: No acute process CT head: No acute intracranial process CT abdomen pelvis: 1. No definite bowel wall thickening or obstruction. 2. Normal appendix. 3. Bilateral nephrolithiasis. No ureteral stones. No hydronephrosis. 4. Cirrhosis with splenomegaly and upper abdominal varices. 5. Small amount of gallbladder sludge versus small stones. No gallbladder wall thickening. EKG as per my interpretation rate 105, sinus tachycardia, T wave flattening septal leads, PRWP
[2018-11-05] MEDS ORDERED: MoRPHine SULFATE 4 MG/ML 1 ML CARP\\VIAL IV PRN (23:23)
[2018-11-05] MEDS ORDERED: OXYCODONE HCL IR 5 MG TAB (IMMEDIATE RELEASE) PO PRN (23:23)
[2018-11-05] MEDS ORDERED: PROCHLORPERAZINE 5 MG in SYRINGE 4 ML IV PRN (23:23)
[2018-11-05] MEDS ORDERED: ACETAMINOPHEN 325 MG TAB PO PRN (23:23)
[2018-11-06] MEDS ORDERED: MULTI-VITAMIN INFUSION 10 ML, THIAMINE HCL 100 MG, FOLIC ACID 1 MG, POTASSIUM CHLORIDE ... IV ONE (01:45)
[2018-11-06] MEDS ORDERED: GABAPENTIN 600 MG TAB PO SCH (02:00)
[2018-11-06] MEDS: MAGNESIUM SULFATE / D5W 1 GM/100 ML BAG IV SCH ×3 (02:13→04:38)
[2018-11-06] MEDS: NICOTINE 14 MG/24 HR PATCH TD SCH (02:21)
[2018-11-06] MEDS ORDERED: SODIUM CHLORIDE 0.9% 250 ML IV PRN ×2 (03:52→08:44)
[2018-11-06] MEDS: LISINOPRIL 2.5 MG TAB PO SCH (04:43)
--- NOTE | 2018-11-06 06:49 | Ultrasound Report ---
BILATERAL ANKLE TO BRACHIAL INDICES CLINICAL HISTORY: Claudication. COMPARISON STUDY: No previous studies for comparison. TECHNIQUE: Bilateral ankle to brachial indices were obtained. FINDINGS: The right ankle to brachial index measured 1.18 when using posterior tibial artery and 1.09 when using the dorsalis pedis. The left ankle to brachial index measured 1.28 when using posterior t ibial artery 1.18 when using the dorsalis pedis. IMPRESSION: Normal bilateral ankle to brachial indices. Electronically signed by: Abraham Mar M.D. 11/06/2018 6:48 AM
[2018-11-06] MEDS: GABAPENTIN 600 MG TAB PO SCH ×3 (07:31→22:45)
[2018-11-06 08:01] LABS: Platelet Count 13 K/uL (130-400)
[2018-11-06 08:06] LABS: Est GFR (African American) 137.3; Est GFR (Non-African American) 118.5; Potassium 3.4 mmol/L (3.5-5.1)
[2018-11-06 08:07] LABS: Albumin Level 2.5 gm/dl (3.4-5.0); BUN Creatinine Ratio 13.6 (10-20); Calcium 7.6 mg/dl (8.5-10.1); Creatinine Clr Calc Pharmacy 168.7 ml/min; Eosinophils # (auto) 0.04 K/uL (0-0.5); Hematocrit (blood only) 30.8 % (42-52); Lymphocytes # (auto) 0.49 K/uL (1.2-3.4); Lymphocytes % (auto) 36.8 %; Magnesium 2.1 mg/dl (1.8-2.4); Mean Corpuscular Hgb Conc 32.5 g/dL (32-36); Mean Corpuscular Volume 88.5 fL (80-100); Monocytes # (auto) 0.24 K/uL (0.11-0.59); Neutrophils # (auto) 0.56 K/uL (1.4-6.5); Neutrophils % (auto) 42.2 %; Platelet Estimate SIGNIFIC DECREASED (Normal); RDW Coefficient of Variation 17.8 % (11.5-14.5); RDW Standard Deviation 57.3 fL (36.4-46.3); Red Blood Count 3.48 M/uL (4.7-6.1); White Blood Count 1.33 K/uL (4.8-10.8)
[2018-11-06 08:13] LABS: Albumin Globulin Ratio 0.4 (0.9-2); Bilirubin,Total 3.3 mg/dl (0.2-1); Globulin 5.7 gm/dl (2.5-4.0); Total Protein 8.2 gm/dl (6.4-8.2)
[2018-11-06] MEDS ORDERED: POTASSIUM CHLORIDE 10 MEQ TABCR PO STA (08:39)
[2018-11-06] MEDS ORDERED: MULTIVITAMIN TAB PO SCH (09:00)
[2018-11-06] MEDS ORDERED: FOLIC ACID 1 MG TAB PO SCH (09:00)
[2018-11-06] MEDS ORDERED: THIAMINE HCL 100 MG TAB PO SCH (09:00)
[2018-11-06] MEDS ORDERED: LACTATED RINGER'S 1,000 ML IV ONE (15:30)
--- NOTE | 2018-11-06 15:32 | Hospitalist Progress Note ---
Date of Service November 06, 2018 Assessment & Plan (1) Alcohol withdrawal: Alcohol use disorder Alcohol Withdrawal CT head:No acute intracranial abnormality. 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 Patient not interested in rehab placement Hypertension BP elevated likely secondary to alcohol withdrawal CT head:No acute intracranial abnormality Started on lisinopril Monitor BP H/O HCV due to IVDU as per records New diagnosis of cirrhosis on CT likely secondary to HCV/alcohol abuse Patient following with [facility] FU with GI upon discharge Pancytopenia Epistaxis due to chronic thrombocytopenia Likely due to alcoholic cirrhosis Monitor CBC Transfuse Platelets/PRBCs as needed Consider Hematology consult if needed Hypokalemia Hypomagnesemia Replace electrolytes as needed LE Claudication Normal bilateral ankle to brachial indices. 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 DVT Px: SCDs: Re: thrombocytopenia, epistaxis Code Status Full code Subjective Patient is seen and examined at bedside States feeling tired Drowsy this morning Denies chest pain, SOB, dizziness, nausea No bleeding issues currently Plan to transfuse 1 unit platelets Physical Exam Vital Signs (Past 24 Hours): Last Vital Signs Temp 36.8 C 11/06/18 11:41 Pulse 87 11/06/18 11:41 Resp 22 11/06/18 11:41 BP 155/73 H 11/06/18 11:41 Pulse Ox 95 11/06/18 11:41 Physical Exam: Physical Exam: Vitals signs as noted above General Appearance:Moderately built and nourished, no apparent distress Head: normocephalic, Atraumatic Eyes: normal inspection, EOMI Neck: supple, Trachea midline Respiratory/Chest: Normal breath sounds, CTA Cardiovascular: S1, S2, No murmur Abdomen/GI:Soft, Non tender, Bowel sounds present Extremities/Musculoskelatal:normal inspection, no edema Neurologic/Psych:AAOX3, grossly no focal neurological deficits Skin: normal color, warm Results & Data Laboratory Results Short CBC 11/05/18 11/06/18 Range/Units 19:03 07:12 WBC 1.93 L 1.33 L (4.8-10.8) K/uL Hgb 11.0 L 10.0 L (14.0-18.0) g/dL Hct 33.0 L 30.8 L (42-52) % Plt Count 20 L* 13 L* (130-400) K/uL BMP 11/05/18 11/06/18 19:03 07:12 Sodium 141 141 Potassium 3.2 L 3.4 L Chloride 109 H 109 H Carbon Dioxide 24 26 BUN 7 7 Creatinine 0.54 L 0.51 L Glucose 101 H 112 H Calcium 7.7 L 7.6 L Cardiac Enzymes 11/05/18 Range/Units 19:03 Troponin I < 0.015 (0-0.045) ng/ml Liver Function 11/05/18 11/06/18 Range/Units 19:03 07:12 Total Bilirubin 2.6 H 3.3 H (0.2-1) mg/dl AST 178 H 149 H (15-37) U/L ALT 72 63 (12-78) U/L Alkaline Phosphatase 91 82 (45-117) U/L Albumin 2.8 L 2.5 L (3.4-5.0) gm/dl Urine 11/05/18 Range/Units 19:55 Urine Color Dark Yellow Urine Appearance Clear (Clear) Urine pH 8.5 H (4.5-7.5) Ur Specific [place] 1.019 (1.000-1.030) Urine Protein Negative (Negative) Urine Glucose (UA) Negative (Negative)
[2018-11-07] MEDS: GABAPENTIN 600 MG TAB PO SCH ×2 (05:54→13:58)
[2018-11-07] MEDS: LISINOPRIL 2.5 MG TAB PO SCH (07:41)
[2018-11-07] MEDS: NICOTINE 14 MG/24 HR PATCH TD SCH (07:41)
[2018-11-07] MEDS: FOLIC ACID 1 MG TAB PO SCH (07:41)
[2018-11-07] MEDS: THIAMINE HCL 100 MG TAB PO SCH (07:41)
[2018-11-07] MEDS: MULTIVITAMIN TAB PO SCH (07:41)
[2018-11-07 08:29] LABS: Hematocrit (blood only) 32.3 % (42-52); Hemoglobin 10.7 g/dL (14.0-18.0); Mean Corpuscular Hgb Conc 33.1 g/dL (32-36); Mean Corpuscular Volume 89.2 fL (80-100); Platelet Count 20 K/uL (130-400); RDW Coefficient of Variation 17.9 % (11.5-14.5); RDW Standard Deviation 58.6 fL (36.4-46.3); Red Blood Count 3.62 M/uL (4.7-6.1); White Blood Count 1.67 K/uL (4.8-10.8)
[2018-11-07 08:31] LABS: Basophils # (auto) 0.01 K/uL (0-0.2); Basophils % (auto) 0.6 %; Eosinophils # (auto) 0.06 K/uL (0-0.5); Eosinophils % (auto) 3.6 %; Immature Granulocytes # (auto) 0.01 K/uL (0.00-0.02); Immature Granulocytes % (auto) 0.6 %; Lymphocytes # (auto) 0.51 K/uL (1.2-3.4); Lymphocytes % (auto) 30.5 %; Monocytes # (auto) 0.26 K/uL (0.11-0.59); Monocytes % (auto) 15.6 %; Neutrophils # (auto) 0.82 K/uL (1.4-6.5); Neutrophils % (auto) 49.1 %; Platelet Estimate SIGNIFIC DECREASED (Normal); RBC Morphology Unremarkable
[2018-11-07 08:32] LABS: BUN Creatinine Ratio 18.7 (10-20); Calcium 7.9 mg/dl (8.5-10.1); Creatinine Clr Calc Pharmacy 141.4 ml/min; Est GFR (African American) 132.1; Magnesium 1.6 mg/dl (1.8-2.4); Potassium 3.7 mmol/L (3.5-5.1)
[2018-11-07] MEDS ORDERED: MAGNESIUM SULFATE / D5W 1 GM/100 ML BAG IV ONE (10:00)
--- NOTE | 2018-11-07 15:51 | Hospitalist Progress Note ---
Date of Service November 07, 2018 Assessment & Plan (1) Alcohol withdrawal: Alcohol use disorder Alcohol Withdrawal CT head:No acute intracranial abnormality. 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 Patient not interested in rehab placement Monitor for withdrawal Hypertension BP elevated likely secondary to alcohol withdrawal CT head:No acute intracranial abnormality Continue lisinopril Monitor BP H/O HCV due to IVDU as per records New diagnosis of cirrhosis on CT likely secondary to HCV/alcohol abuse Patient following with [facility] FU with GI upon discharge Pancytopenia Chronic Epistaxis likely due to chronic thrombocytopenia Likely due to alcoholic cirrhosis Monitor CBC Transfuse Platelets/PRBCs as needed Consider Hematology consult if needed Hypokalemia Hypomagnesemia Replace electrolytes as needed LE Claudication Normal bilateral ankle to brachial indices. 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 DVT Px: SCDs: Re: thrombocytopenia, epistaxis Code Status Full code Disposition: PT/OT prior to discharge Subjective Patient is seen and examined at bedside More alert, awake today Reports intermittent abdominal cramps Reports chronic epistaxis Denies chest pain, SOB, dizziness No other complaints Physical Exam Vital Signs (Past 24 Hours): Last Vital Signs Temp 37.3 C 11/07/18 15:35 Pulse 93 H 11/07/18 15:35 Resp 18 11/07/18 15:35 BP 139/82 11/07/18 15:35 Pulse Ox 95 11/07/18 15:35 Constitutional: Physical Exam: Vitals signs as noted above General Appearance:Moderately built and nourished, no apparent distress Head: normocephalic, Atraumatic Eyes: normal inspection, EOMI Neck: supple, Trachea midline Respiratory/Chest: Normal breath sounds, CTA Cardiovascular: S1, S2, + murmur Abdomen/GI:Soft, Non tender, Bowel sounds present Extremities/Musculoskelatal:normal inspection, no edema Neurologic/Psych:AAOX3, grossly no focal neurological deficits Skin: normal color, warm Results & Data Laboratory Results Short CBC 11/07/18 Range/Units 07:33 WBC 1.67 L (4.8-10.8) K/uL Hgb 10.7 L (14.0-18.0) g/dL Hct 32.3 L (42-52) % Plt Count 20 L* D (130-400) K/uL BMP 11/07/18 07:33 Sodium 136 Potassium 3.7 Chloride 106 Carbon Dioxide 23 BUN 10 Creatinine 0.56 L Glucose 108 H Calcium 7.9 L
[2018-11-08] MEDS: GABAPENTIN 600 MG TAB PO SCH ×2 (05:35→17:30)
[2018-11-08] MEDS: NICOTINE 14 MG/24 HR PATCH TD SCH (08:56)
[2018-11-08] MEDS: FOLIC ACID 1 MG TAB PO SCH (08:57)
[2018-11-08] MEDS: LISINOPRIL 2.5 MG TAB PO SCH (08:57)
[2018-11-08] MEDS: MULTIVITAMIN TAB PO SCH (08:57)
[2018-11-08] MEDS: THIAMINE HCL 100 MG TAB PO SCH (08:57)
[2018-11-08 09:58] LABS: BUN Creatinine Ratio 17.9 (10-20); Calcium 8.1 mg/dl (8.5-10.1); Creatinine Clr Calc Pharmacy 116.5 ml/min; Est GFR (Non-African American) 105.3; Magnesium 1.5 mg/dl (1.8-2.4); Potassium 3.6 mmol/L (3.5-5.1)
[2018-11-08 10:02] LABS: Basophils # (auto) 0.01 K/uL (0-0.2); Basophils % (auto) 0.6 %; Eosinophils # (auto) 0.09 K/uL (0-0.5); Eosinophils % (auto) 5.1 %; Hematocrit (blood only) 33.2 % (42-52); Hemoglobin 11.2 g/dL (14.0-18.0); Lymphocytes % (auto) 28.2 %; Mean Corpuscular Hgb Conc 33.7 g/dL (32-36); Monocytes # (auto) 0.29 K/uL (0.11-0.59); Monocytes % (auto) 16.4 %; Neutrophils # (auto) 0.88 K/uL (1.4-6.5); Neutrophils % (auto) 49.7 %; Platelet Count 24 K/uL (130-400); Platelet Estimate Decreased (Normal); RDW Standard Deviation 58.2 fL (36.4-46.3); Red Blood Count 3.73 M/uL (4.7-6.1); White Blood Count 1.77 K/uL (4.8-10.8)
[2018-11-08] MEDS: MAGNESIUM SULFATE / D5W 1 GM/100 ML BAG IV SCH ×2 (12:20→13:27)
[2018-11-08] MEDS ORDERED: OXYMETAZOLINE 0.05% 30 ML BTL PRN (15:22)
[2018-11-08] MEDS ORDERED: MoRPHine SULFATE 4 MG/ML 1 ML CARP\\VIAL IV PRN (15:27)
[2018-11-08] MEDS ORDERED: OXYCODONE HCL IR 5 MG TAB (IMMEDIATE RELEASE) PO PRN (15:28)
--- NOTE | 2018-11-08 15:34 | Hospitalist Progress Note ---
Date of Service November 08, 2018 Assessment & Plan (1) Alcohol withdrawal: Alcohol use disorder Alcohol Withdrawal CT head:No acute intracranial abnormality. 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 Patient not interested in rehab placement Monitor for withdrawal Currently no signs of withdrawal Hypertension BP elevated likely secondary to alcohol withdrawal CT head:No acute intracranial abnormality Continue lisinopril Monitor BP H/O HCV due to IVDU as per records New diagnosis of cirrhosis on CT likely secondary to HCV/alcohol abuse Patient [place] [facility] [place] [facility] [place]U with GI upon discharge Pancytopenia Chronic Epistaxis likely due to chronic thrombocytopenia Likely due to alcoholic cirrhosis Monitor CBC Transfuse Platelets/PRBCs as needed Consider Hematology consult if needed Hb stable WBC and Platelet count slowly improving Hypokalemia Hypomagnesemia Replace electrolytes as needed LE Claudication Normal bilateral ankle to brachial indices. 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 DVT Px: SCDs: Re: thrombocytopenia, epistaxis Code Status Full code Disposition: PT/OT prior to discharge Subjective Patient is seen and examined at bedside Abdominal cramps improved Has intermittent nose bleeds Hb stable States feeling tired Denies chest pain, SOB, dizziness Physical Exam Vital Signs (Past 24 Hours): Last Vital Signs Temp 36.8 C 11/08/18 12:04 Pulse 85 11/08/18 12:04 Resp 16 11/08/18 12:04 BP 129/66 11/08/18 12:04 Pulse Ox 94 11/08/18 12:04 Physical Exam: Physical Exam: Vitals signs as noted above General Appearance:Moderately built and nourished, no apparent distress Head: normocephalic, Atraumatic Eyes: normal inspection, EOMI Neck: supple, Trachea midline Respiratory/Chest: Normal breath sounds, CTA Cardiovascular: S1, S2, + murmur Abdomen/GI:Soft, Non tender, Bowel sounds present Extremities/Musculoskelatal:normal inspection, no edema Neurologic/Psych:AAOX3, grossly no focal neurological deficits Skin: normal color, warm Results & Data Laboratory Results Short CBC 11/08/18 Range/Units 09:22 WBC 1.77 L (4.8-10.8) K/uL Hgb 11.2 L (14.0-18.0) g/dL Hct 33.2 L (42-52) % Plt Count 24 L* (130-400) K/uL BMP 11/08/18 09:22 Sodium 136 Potassium 3.6 Chloride 106 Carbon Dioxide 23 BUN 12 Creatinine 0.68 Glucose 208 H Calcium 8.1 L
[2018-11-09] MEDS: FOLIC ACID 1 MG TAB PO SCH (07:09)
[2018-11-09] MEDS: NICOTINE 14 MG/24 HR PATCH TD SCH (07:09)
[2018-11-09] MEDS: THIAMINE HCL 100 MG TAB PO SCH (07:09)
[2018-11-09] MEDS: LISINOPRIL 2.5 MG TAB PO SCH (07:09)
[2018-11-09] MEDS: MULTIVITAMIN TAB PO SCH (07:10)
[2018-11-09 07:24] LABS: Hematocrit (blood only) 34.9 % (42-52); Hemoglobin 11.4 g/dL (14.0-18.0); Mean Corpuscular Hgb Conc 32.7 g/dL (32-36); Mean Corpuscular Volume 89.7 fL (80-100); RDW Coefficient of Variation 18.7 % (11.5-14.5); RDW Standard Deviation 60.1 fL (36.4-46.3); Red Blood Count 3.89 M/uL (4.7-6.1); White Blood Count 2.45 K/uL (4.8-10.8)
[2018-11-09 07:46] LABS: Basophils # (auto) 0.01 K/uL (0-0.2); Basophils % (auto) 0.4 %; Eosinophils # (auto) 0.09 K/uL (0-0.5); Eosinophils % (auto) 3.7 %; Lymphocytes # (auto) 0.68 K/uL (1.2-3.4); Lymphocytes % (auto) 27.8 %; Mean Platelet Volume 8.5 fL (7.4-10.4); Monocytes # (auto) 0.52 K/uL (0.11-0.59); Monocytes % (auto) 21.2 %; Neutrophils # (auto) 1.15 K/uL (1.4-6.5); Neutrophils % (auto) 46.9 %; Platelet Count 33 K/uL (130-400); Rouleaux 1+
[2018-11-09 07:58] LABS: BUN Creatinine Ratio 22.6 (10-20); Calcium 8.4 mg/dl (8.5-10.1); Est GFR (African American) 131.2; Est GFR (Non-African American) 113.2; Magnesium 1.5 mg/dl (1.8-2.4); Potassium 3.6 mmol/L (3.5-5.1)
[2018-11-09] MEDS: MAGNESIUM SULFATE / D5W 1 GM/100 ML BAG IV SCH ×2 (09:17→10:18)
--- NOTE | 2018-11-09 13:29 | Hospitalist Progress Note ---
Date of Service November 09, 2018 Assessment & Plan (1) Alcohol withdrawal: Alcohol use disorder Alcohol Withdrawal CT head:No acute intracranial abnormality. Completed Gabapentin protocol Continue thiamine, folic acid Counselled to quit alcohol use Patient not interested in rehab placement Monitor for withdrawal Currently no signs of withdrawal Hypertension BP elevated likely secondary to alcohol withdrawal CT head:No acute intracranial abnormality Continue lisinopril BP stable now H/O HCV due to IVDU as per records New diagnosis of cirrhosis on CT likely secondary to HCV/alcohol abuse Patient following with [facility] [place] [facility] FU with GI upon discharge Pancytopenia Chronic Epistaxis likely due to chronic thrombocytopenia Likely due to alcoholic cirrhosis Monitor CBC Transfuse Platelets/PRBCs as needed Consider Hematology consult if needed Hb stable WBC and Platelet count slowly improving Hypokalemia Hypomagnesemia Replace electrolytes as needed LE Claudication Normal bilateral ankle to brachial indices. 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 DVT Px: SCDs: Re: thrombocytopenia, epistaxis Code Status Full code Disposition: Plan to discharge home today Subjective Patient is seen and examined at bedside Doing better today No new complaints Abdominal cramps resolved Nose bleeds improved Hb stable Denies chest pain, SOB, dizziness Physical Exam Vital Signs (Past 24 Hours): Last Vital Signs Temp 36.9 C 11/09/18 11:20 Pulse 69 11/09/18 11:20 Resp 20 11/09/18 11:20 BP 133/66 11/09/18 11:20 Pulse Ox 97 11/09/18 11:20 Physical Exam: Physical Exam: Vitals signs as noted above General Appearance:Moderately built and nourished, no apparent distress Head: normocephalic, Atraumatic Eyes: normal inspection, EOMI Neck: supple, Trachea midline Respiratory/Chest: Normal breath sounds, CTA Cardiovascular: S1, S2, + murmur Abdomen/GI:Soft, Non tender, Bowel sounds present Extremities/Musculoskelatal:normal inspection, no edema Neurologic/Psych:AAOX3, grossly no focal neurological deficits Skin: normal color, warm Results & Data Laboratory Results Short CBC 11/09/18 Range/Units 06:45 WBC 2.45 L (4.8-10.8) K/uL Hgb 11.4 L (14.0-18.0) g/dL Hct 34.9 L (42-52) % Plt Count 33 L (130-400) K/uL BMP 11/09/18 06:45 Sodium 135 L Potassium 3.6 Chloride 106 Carbon Dioxide 25 BUN 13 Creatinine 0.57 L Glucose 124 H Calcium 8.4 L
--- NOTE | 2018-11-09 13:55 | Discharge Summary ---
Date of Service November 09, 2018 Admission HPI Per Admitting Provider History obtained from patient and records. Medical history significant for hypertension, HCV, chronic pancytopenia, ongoing tobacco/alcohol abuse, hx IVDU as per records. One month history of generalized weakness worsening in the last week. Patient complaining of generalized headache symptoms. Intermittent epistaxis episodes. No emesis. Generalized achy abdominal pain. No black/no bloody stools. Patient also complaining of bilateral achy leg pain especially on ambulation. Medical History as above History of alcohol withdrawal seizures, intubation for alcohol withdrawal as per patient Surgical History : Right wrist ganglion surgery, vasectomy, chest tube insertion Family History : Diabetes Personal/Social history : 1/2 pack daily, daily alcohol intake, past history IVDU, disabled Admission Exam Per Admitting Provider GENERAL: Uncomfortable,, no respiratory distress, tremulous, alcoholic fetor SKIN: Pallor, warm, spider angiomata HEENT: Pale palpebral conjunctivae, no ptosis, dry buccal mucosa, dried clots per nostril NECK : Supple, no tenderness CHEST : CTA, no tenderness HEART : Tachycardic, no obvious murmurs ABDOMEN: Some distention, minimal epigastric tenderness EXTREMITIES : No LE swelling/tenderness, no other conspicuous deformities noted NEUROLOGIC : Coherent, no facial asymmetry, tremulous, gait and stance not assessed Principal Diagnosis Discharge Information Discharge Diagnosis Alcohol Withdrawal Pancytopenia Epistaxis Hypomagnesemia Discharge Goals Decrease discomfort,Improve disease control, Improve function Discharge Activity Limitations Resume your previous activity Discharge Data Allergies Allergy/AdvReac Type Severity Reaction Status Date / Time No Known Allergies Allergy Unverified 11/05/18 21:08 Consultations 11/05/18 22:27 ED Decision to Admit Stat 11/05/18 23:24 Consult Case Management - Discharge Planning Routine Procedures Performed CT ABD: 1. No definite bowel wall thickening or obstruction. 2. Normal appendix. 3. Bilateral nephrolithiasis. No ureteral stones. No hydronephrosis. 4. Cirrhosis with splenomegaly and upper abdominal varices. 5. Small amount of gallbladder sludge versus small stones. No gallbladder wall thickening. CT head: No acute intracranial abnormality. CXR: No acute process. Ankle Brachial Index: Normal bilateral ankle to brachial indices. Ordered Studies 11/05/18 18:51 CT abd pelvis wo con Stat CT head/brain wo con Stat 11/05/18 23:23 US ankle/brachial index comp Routine Hospital Course (1) Alcohol withdrawal: Alcohol use disorder Alcohol Withdrawal CT head:No acute intracranial abnormality. Completed Gabapentin protocol Continue thiamine, folic acid Counselled to quit alcohol use Patient not interested in rehab placement Monitor for withdrawal Currently no signs of withdrawal Hypertension BP elevated likely secondary to alcohol withdrawal CT head:No acute intracranial abnormality Continue lisinopril BP stable now H/O HCV due to IVDU as per records New diagnosis of cirrhosis on CT likely secondary to HCV/alcohol abuse Patient following with [facility] FU with GI upon discharge Pancytopenia Chronic Epistaxis likely due to chronic thrombocytopenia Likely due to alcoholic cirrhosis Monitor CBC Transfuse Platelets/PRBCs as needed Consider Hematology consult if needed Hb stable WBC and Platelet count slowly improving Hypokalemia Hypomagnesemia Replace electrolytes as needed LE Claudication Normal bilateral ankle to brachial indices. 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 DVT Px: SCDs: Re: thrombocytopenia, epistaxis Code Status Full code Disposition: Plan to discharge home today Total Time Total Time Spent Total Time Spent (In Minutes): 37 minutes Total Time Includes: Examination of the Patient, Discharge Planning, Medication Reconciliation, Communication With Other Providers and Other Discharge Plan Discharge Items Patient Disposition: Home - Self-Care Reason For Visit: ETOH WITHDRAWAL Discharge Diagnosis: Alcohol Withdrawal Pancytopenia Epistaxis Hypomagnesemia Condition: Good Discharge Goals: Decrease discomfort, Improve disease control and Improve function Activity: Resume your previous activity Exercise/Sports: Gradually increase as tolerated Non-emergency contact: Primary Care Provider Call non-emergency contact if: you have any medication questions, your symptoms worsen, your pain is not controlled, your pain is worsening, your pain is unusual for you, your pain is concerning for you and you have a fever Follow-up/Referrals: PCP,NO [Primary Care Provider] - Diet: Heart Healthy Other Ambulatory Orders: Complete Blood Count with Diff (Routine) Timeframe: 1 Week Location: Determined by Patient Ordered By: Philip Wellington Addtl Provider Instructions: Follow up with your Primary Care Physician on November 14, 2018 at 10:45AM 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 with your Weather[employer] Machine Operator for management of your Hepatitis C/Cirrhosis Follow up with your [employer] Manager as outpatient as advised Get blood test (Complete blood Count with differential) in 1 week and follow up with your Physician Seek immediate medical attention if your symptoms reoccur or worsen Prescriptions: New lisinopril 2.5 mg Tablet 2.5 mg PO QAM 30 Days Qty: 30 RF: 0 multivitamin [Daily-Liliana] Tablet 1 tab PO QAM 30 Days Qty: 30 RF: 0 thiamine HCl (vitamin B1) [Vitamin B-1] 100 mg Tablet 100 mg PO QAM 30 Days Qty: 30 RF: 0 magnesium oxide 400 mg (241.3 mg magnesium) Tablet 400 mg PO BID 14 Days Qty: 28 RF: 0 folic acid 1 mg Tablet 1 mg PO QAM 30 Days Qty: 30 RF: 0 Stand-Alone Forms: [facility] Discharge Orders: Discharge Order (Routine); Ordered 11/09/18 Ordered By: Philip Wellington Admission Data Admit Date/Time: 11/05/18 23:21 Attending Provider: Philip Welilngton Admit Provider: Duong Lee Primary Care Provider: PCP,NO Other Providers: Duong Lee Service: Telemetry Medical Other Interventions: Discharge Summary Assessment (RN) Last Done: 11/09/18 14:03 Pending Studies at Discharge: No DC Date/Time DO NOT enter until pt leaves facility: 11/09/18 15:05
[2018-11-09] MEDS ORDERED: GABAPENTIN 600 MG TAB PO SCH (18:00)
[2018-11-09] MEDS ORDERED: MAGNESIUM OXIDE 400 MG TAB PO SCH (21:00)
== END 2018-11-09 15:05 | disposition home or self-care (01) | DRG 809 ==
LOC: ED 18:06 → SUATTDRO 23:21 → 2N 23:21

== ENCOUNTER 2019-06-23 07:29 | Inpatient (IN) ==
--- OUTSIDE RECORDS SUMMARY | 2019-06-23 07:32 | External Medical Summary | Continuity of Care Document ---
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
[2019-06-23] MEDS ORDERED: ALBUT/IPRATROP 3MG/0.5MG NEB 3 ML VIAL INH STA (08:18)
[2019-06-23 08:34] LABS: Mean Corpuscular Hgb Conc 30.4 g/dL (32-36); Mean Platelet Volume 8.6 fL (7.4-10.4); Platelet Count 66 K/uL (130-400)
[2019-06-23 08:37] LABS: Hematocrit (blood only) 19.4 % (42-52); Hemoglobin 5.9 g/dL (14.0-18.0); Mean Corpuscular Hemoglobin 27.1 pg (25-34); RDW Coefficient of Variation 17.2 % (11.5-14.5); Red Blood Count 2.18 M/uL (4.7-6.1); White Blood Count 3.56 K/uL (4.8-10.8)
[2019-06-23] MEDS ORDERED: SODIUM CHLORIDE 0.9% 250 ML IV PRN ×2 (08:37→18:03)
--- NOTE | 2019-06-23 08:39 | XRay Report ---
XR chest 1V portable HISTORY: Dyspnea COMPARISON: Chest 11/05/2018. FINDINGS: Suture material within the left lung apex is again noted. There is mild elevation of the ri ght hemidiaphragm. There are low lung volumes. The heart is normal in size. No pleural effusions. No pneumothorax. No evidence for pulmonary edema. No focal lung consolidations to suggest pneumonia. IMPRESSION: Low lung volumes with mild elevation of the right hemidiaphragm. Otherwise, no acute process within t he chest. Electronically signed by: Paul Fox M.D. 06/23/2019 8:37 AM
[2019-06-23] MEDS ORDERED: PANTOprazole 80 MG in DEXTROSE 5% 100 ML IV STA (08:42)
[2019-06-23 08:43] LABS: Albumin Level 2.5 gm/dl (3.4-5.0); BUN Creatinine Ratio 15.9 (10-20); Calcium 7.8 mg/dl (8.5-10.1); Creatinine Clr Calc Pharmacy 163.1 ml/min; Est GFR (African American) 129.3; Est GFR (Non-African American) 111.6; INR 1.3 (0.9-1.1); Magnesium 1.7 mg/dl (1.8-2.4); Partial Thromboplastin Ratio 1.1; Partial Thromboplastin Time 28.9 Seconds (21.0-31.0); Potassium 3.5 mmol/L (3.5-5.1); Prothrombin Time 13.5 Seconds (9.0-12.0)
[2019-06-23 08:48] LABS: Albumin Globulin Ratio 0.5 (0.9-2); Bilirubin,Total 1.6 mg/dl (0.2-1); Globulin 4.9 gm/dl (2.5-4.0); Total Protein 7.4 gm/dl (6.4-8.2); Troponin I 0.022 ng/ml (0-0.045)
[2019-06-23 08:50] LABS: Basophils # (auto) 0.02 K/uL (0-0.2); Basophils % (auto) 0.6 %; Eosinophils # (auto) 0.09 K/uL (0-0.5); Eosinophils % (auto) 2.5 %; Immature Granulocytes # (auto) 0.01 K/uL (0.00-0.02); Immature Granulocytes % (auto) 0.3 %; Lymphocytes % (auto) 25.3 %; Monocytes # (auto) 0.53 K/uL (0.11-0.59); Monocytes % (auto) 14.9 %; Neutrophils # (auto) 2.01 K/uL (1.4-6.5); Neutrophils % (auto) 56.4 %; Polychromasia 1+
[2019-06-23] MEDS: PANTOprazole 40 MG in DEXTROSE 5% 100 ML IV SCH ×3 (09:25→18:51)
[2019-06-23] MEDS ORDERED: FUROSEMIDE 40 MG in SYRINGE 0 ML IV ONE (10:08)
--- NOTE | 2019-06-23 11:01 | History & Physical Report ---
Date of Service June 23, 2019 Assessment & Plan (1) Abdominal pain: This is a 58-year-old male who has a significant past medical history of chronic hepatitis C, alcohol abuse and dependence with history of withdrawal, pancytopenia, tobacco abuse, hypertension who presents to [facility] ED secondary to shortness of breath and 30 pound weight gain x2 days. In ED patient remained hemodynamically stable H&H 5.9 and 19.4, otherwise pancytopenic with W BC 3.56, platelets 66, INR 1.3 CMP reveals sodium 137, K3.5, BUN 9, creatinine 0.58, glucose 128, magnesium 1.7, albumin 2.5, corrected calcium 9.2 LFTs reveal total bili 1.6, AST 62, ALT 37, alk phos 106, ammonia 43.6, troponin 0.022 CXR: No acute abnormalities In ED pt started on protonix bolus & gtt, ordered transfusion 2 units PRBC On exam pt with significant abdominal distension, abdominal pain CT abdomen/pelvis ordrered: results reviewed 1. Cirrhotic liver disease with splenomegaly and stigmata of portal venous hypertension. 2. Interval development of moderate abdominal pelvic ascites. 3. 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 4. Multifocal wall thickening throughout the colon may be secondary to portal colopathy versus a nonspecific colitis. Correlate clinically. 5. Nonobstructing bilateral nephrolithiasis. 6. Additional findings as above. ddx: decompensated cirrhosis, SBO, acute appendicitis, ruptured/perf diverticulitis, pancreatitis, variceal bleed, PUD, perforated ulcer admit to PCU GI consulted - appreciate their input await results of CT abd/pelvis obtain Hep C RNA, UA and drug tox screen, lipase Empirically tx with IV rocephin 2g daily GI to perform therapeutic and diagnostic paracentesis with albumin to initiate diuresis after SBP r/o (2) Decompensated hepatic cirrhosis: Decompensated in setting of Chronic Hepatitis C, ETOH abuse, IVDA CT scan abd/pelvis pending GI on board with elevated INR 1.3, T bili 1.6, AST 62 NH3 43.6 - no s/sx of hepatic encephalopathy Meld 11 low NA diet (3) Anemia: H/H 5.9 & 19.4 likely in setting of UGIB vs variceal bleed given report of melena, black emesis 1 week ago continue protonix bolus/gtt Octreotide gtt Transfuse 2 units PRBC with Lasix 40mg IV in between units repeat H/H GI consulted keep npo for now (4) Superior mesenteric vein thrombosis: Per CT Scan Nonocclusive thrombus of the superior mesenteric vein. Will discuss case with vascular; however pt poor candidate for any intervention given presumed GIB/low plt (5) Anasarca: pt with multi comorbidities including cirrhosis, hypoalbuminemia ? if in setting of decompensated cirrhosis vs acute abd process vs lymphatic obs process CT scan abd/pelvis pending obtain echocardiogram (6) Pancytopenia: this is not new for pt he has not followed up with out pt referral WBC 3.56, H&H 5.9 and 19.4, platelets 66 WBC and platelets improved from prior Need to address acute issues as above; however he will need hematology evaluation eventually or at discharge (7) HTN (hypertension): blood pressure stable previously on lisinopril, but has discontinued on own past 3 weeks (8) Hypomagnesemia: replete with IV mag sulfate repeat mag in a.m. (9) Alcohol abuse: Daily ETOH Use hx of withdrawl AWSS protocol with gabapentin taper prn lorazepam (10) Hyperglycemia: glucose 127 in ED obtain A1C in am (11) Hepatitis C: Hepatitis C pt noncompliant with outpatient follow up GI consulted (12) History of drug use: last used Methamphetamines 3 weeks ago hx of IVDA and cocaine use (13) Tobacco abuse: nicotine patch smoking cessation encouraged (14) DVT prophylaxis: SCD/TEDS no chemical prophlyaxis in setting of thrombocytopenia and GIB concerns Disposition: admit to PCU Follow up: PCP Dr. Moore upon discharge, he will also need appropriate GI follow up and Hematology Pt was seen and examined in collaboration with Dr. Nunez please see addendum Starting 06/24/19 pt will be followed by Dr. Boyle History of Present Illness Chief Complaint: Shortness of breath and 30 pound weight gain x2 days. Primary Care Provider: Harrison Moore MD This is a 58-year-old male who has a significant past medical history of c hronic hepatitis C, alcohol abuse and dependence with history of withdrawal, pancytopenia, tobacco abuse, hypertension who presents to [facility] ED secondary to shortness of breath and 30 pound weight gain x2 days. Patient has been unwell over the past 1 week. Approximately 1 week ago he developed nausea, vomiting and diarrhea that lasted 2 days. His vomiting was black in nature and diarrhea was dark and tarry. Symptoms resolved mostly after 2 days. Significant decreased appetite during that time, but this has since resolved. Since then he has been experiencing significant lower extremity, scrotal and abdominal swelling. Further complains of shortness of breath at rest and with exertion secondary to the swelling. Over the past 2 days he noticed a 30 pound weight gain. Baseline weight is 178, and states this morning he was 208. Complains of significant diffuse abdominal pain, 5/10 at rest, 8/10 with movement, worse with walking, touch, improved with rest. States he has to shuffle his gait because of pain. Complains of significant scrotal swelling, "I can't see my penis." Denies any recent fever, but is always chilled. Denies any lightheadedness, dizziness, syncope, chest pain, hemoptysis, cough, current nausea, vomiting, diarrhea. Over the past 5 days he has been having intermittent constipation and diarrhea, but stool is normal color. He has been taking magnesium citrate or Imodium based on symptoms. Complains of decreased urinary output, but denies dysuria, hematuria, increased urgency with urination. He has not been compliant with medical follow-up with GI or PCP. Last hospitalized October/2018 secondary to alcohol withdrawal. During the hospitalization he was noted to be pancytopenic and was referred to outpatient heme/onc evaluation. He did not follow through with this. Currently has not been taking any medications, including his prescribed lisinopril. Has been complaining of intermittent epistaxis. Allergies Allergy/AdvReac Type Severity Reaction Status Date / Time No Known Allergies Allergy Unverified 06/23/19 08:08 Home Medications Home Medications Medication Instructions Recorded Confirmed Type folic acid 1 mg PO DAILY 06/23/19 06/23/19 History lisinopril 2.5 mg PO DAILY 06/23/19 06/23/19 History loperamide [Imodium A-D] 2 mg PO Q3H PRN 06/23/19 06/23/19 History magnesium citrate 0 ml PO DAILY PRN 06/23/19 06/23/19 History magnesium oxide 400 mg PO DAILY 06/23/19 06/23/19 History magnesium salicylate-caffeine 2 tab PO Q6H 06/23/19 06/23/19 History [Diurex] multivitamin [Daily-Liliana] 1 tab PO DAILY 06/23/19 06/23/19 History thiamine HCl (vitamin B1) [Vitamin 100 mg PO DAILY 06/23/19 06/23/19 History B-1] Past Med/Surg History Medical History Tobacco abuse (Chronic) HTN (hypertension) (Chronic) Hypomagnesemia (Acute) Alcohol abuse (Chronic) Pancytopenia (Chronic) Cirrhosis (Chronic) Hepatitis C (Chronic) Surgical History History of chest tube placement (Chronic) History of vasectomy (Chronic) History of ganglion cyst (Chronic) Family History Brother HIV (human immunodeficiency virus infection) Brother Homicide Social History Preferred Language: Thai Communication Ability: Effective Carriage Rider Required: No Beliefs That Will Affect Care: None marital status: Single Current Living Situation: Other Current Living Situation Comment: LIVES WITH "2 ROOMMATES" Other Information That Helps Us Care for You: No Feels Safe at Home: Yes Safety Concerns: Feels Safe At This Time Smoking Status: Light tobacco smoker Tobacco Type: cigarettes ; Cigarettes Per Day: 5 ; Do You Dip or Chew Tobacco: No ; Hx Alcohol Use: Yes Alcohol type: beer and hard liquor Alcohol Intake Frequency: Daily Hx Substance Use: Yes substance use type: marijuana, crack/cocaine and IV drugs Last Used Substance: Unknown Last Used Substance Other:: 2 yrs ago Review of Systems Review of Systems: All systems reviewed & are unremarkable except as noted in HPI & below Physical Exam Physical Exam: Constitutional: ill appearing, unkempt male, vitals as above, NAD, sitting up in bed, pleasant, able to conversing easily Head: Normocephalic, Atraumatic Eyes: PERRL, conjunctivae normal, anicteric sclerae ENMT: external ear and nose normal, oropharynx dry mucous membranes Neck: trachea midline, no thyromegaly normal visual inspection Respiratory: normal respiratory effort, lungs clear to auscultation, no wheeze, rales, rhonchi. Normal insp/exp effort, no accessory muscle use Cardiovascular: RRR, 2/6 GAGE precordia murmur, significant +2 b/l lower extremity edema extending to proximal thigh and groin, no erythema, warmth, negative homans sign, no edema Vessels: no JVD or carotid bruit Chest: normal inspection of chest Abdomen: Significant abdominal distension, firm, BS noted x 4, tender to palpation throughout with rigidity, rebound, RLQ worse, + s/sx of peritonitis, Musculoskeletal: no cyanosis or clubbing, extremities motor strength 5/5 Skin: no rashes, warm and dry normal turgor Neurologic: PERRL, EOMI, accommodation nl, no face palsy, no dysarthria CN's II-XI intact bilaterally and moves all extremities , no asterixis Psychiatric: A+Ox3, no signs of hepatic encephalopathy, euthymic affect Lymphatic: no cervical or axillary lymphadenopathy : + Significant b/l scrotal swelling Results & Data Vital Signs (Past 12 Hours) Vital Signs Temp Pulse Pulse Resp BP BP Pulse Ox 06/23/19 10:41 36.7 C 98 H 18 140/72 06/23/19 10:26 36.6 C 101 H 20 125/83 97 06/23/19 10:22 36.8 C 95 H 18 127/80 97 06/23/19 10:08 36.7 C 98 H 16 131/79 97 06/23/19 09:08 99 H 16 121/64 97 06/23/19 08:33 97 06/23/19 08:28 101 H 18 97 06/23/19 07:50 98 06/23/19 07:37 36.8 C 109 H 28 H 129/63 97 Laboratory Results Short CBC 06/23/19 Range/Units 07:50 WBC 3.56 L (4.8-10.8) K/uL Hgb 5.9 L* (14.0-18.0) g/dL Hct 19.4 L* (42-52) % Plt Count 66 L (130-400) K/uL BMP 06/23/19 07:50 Sodium 137 Potassium 3.5 Chloride 106 Carbon Dioxide 22 BUN 9 Creatinine 0.58 L Glucose 128 H Calcium 7.8 L Cardiac Enzymes 06/23/19 Range/Units 07:50 Troponin I 0.022 (0-0.045) ng/ml Liver Function 06/23/19 Range/Units 07:50 Total Bilirubin 1.6 H (0.2-1) mg/dl AST 62 H (15-37) U/L ALT 37 (12-78) U/L Alkaline Phosphatase 106 (45-117) U/L Albumin 2.5 L (3.4-5.0) gm/dl Diagnostic Findings CXR: IMPRESSION: Low lung volumes with mild elevation of the right hemidiaphragm. Otherwise, no acute process within the chest. CT scan abd/pelvis: IMPRESSION: 1. Cirrhotic liver disease with splenomegaly and stigmata of portal venous hypertension. 2. Interval development of moderate abdominal pelvic ascites. 3. 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 4. Multifocal wall thickening throughout the colon may be secondary to portal colopathy versus a nonspecific colitis. Correlate clinically. 5. Nonobstructing bilateral nephrolithiasis. 6. Additional findings as above. Medications Administered Short CBC 06/23/19 Range/Units 07:50 WBC 3.56 L (4.8-10.8) K/uL Hgb 5.9 L* (14.0-18.0) g/dL Hct 19.4 L* (42-52) % Plt Count 66 L (130-400) K/uL BMP 06/23/19 07:50 Sodium 137 Potassium 3.5 Chloride 106 Carbon Dioxide 22 BUN 9 Creatinine 0.58 L Glucose 128 H Calcium 7.8 L Cardiac Enzymes 06/23/19 Range/Units 07:50 Troponin I 0.022 (0-0.045) ng/ml Liver Function 06/23/19 Range/Units 07:50 Total Bilirubin 1.6 H (0.2-1) mg/dl AST 62 H (15-37) U/L ALT 37 (12-78) U/L Alkaline Phosphatase 106 (45-117) U/L Albumin 2.5 L (3.4-5.0) gm/dl Code Status & VTE Plan Code Status DNR VTE Prophylaxis Plan VTE Prophylaxis will be ordered: Yes Supervising Physician Co-Signing Physician Notes I have seen and examined the patient and have discussed the case with the provider above. I agree with the assessment and plan as stated with some exceptions. Please see my supplemental communication note for details. DO Enrique (1) Hepatitis C Hepatic coma status: without hepatic coma Viral hepatitis chronicity: chronic Qualified Code(s): B18.2 - Chronic viral hepatitis C
--- NOTE | 2019-06-23 11:23 | Gastrointestinal Consultation ---
Date of Consultation June 23, 2019 Assessment & Plan (1) Volume overload: (2) Hepatitis C: (3) History of drug use: (4) Cirrhosis: Pt is a 58 y/o male w hx of HCV, IVDU, cirrhosis who presented w volume overload, symptoms of weight gain, abd, leg, scrotum distension. He continues to drink ETOH and last used meth 3 weeks ago. He does have hx of pancytopenia, on presentation was acutely anemic and reported black emesis/stools 8 days ago. Last BM a few hours ago light brown. MELD 11. - OK for CL diet (2g Na), but keep NPO after midnight for possible EGD eval tomorrow - PPI bolus and gtt - Octreotide bolus and gtt, will DC tomorrow if no continued signs of GI bleeding - CT abd/pelvis reviewed: cirrhosis w splenomegaly, portal HTN, ascites, nonocclusive thrombus of SMV, wall thickening of colon ? non specific colitis - Monitor H/H and transfuse prn - U/S paracentesis w fluid analysis to r/o SBP; replete w Albumin 25% 50g IV. Will give Ceftriaxone IV for SBP coverage in setting of possible GI bleeding - Once SBP ruled out, will start on diuretics - Strict ETOH and illicit drugs - Will need education for 2g Na diet - Recommend Heme/Onc consult while inpt for pancytopenia eval - Will help schedule f/u GI appt upon his DC Supervising Physician Co-Signing Physician Notes Attending attestation I have seen, examined this patient, and agree with the findings and above by our mid-level provider SHA Rosen, with the following additions -Patient with with hep C/alcohol decompensated cirrhosis. -Now presenting with volume overload, abdominal pain, in the setting of pancytopenia. He denies any acute evidence of any GI bleeding, no signs of hematemesis or hematochezia. Certainly with a low blood count now but seems to be related to volume overload as well as chronic pancytopenia. -Would press forward with diagnostic paracentesis to rule out SBP, transfusion with diuresis, -Okay in the interim to continue PPI and octreotide overnight, however will need to determine timing of endoscopy based upon clinical scenario and status tomorrow. Sitting in bed watching television without distress, abdomen is distended but soft and mild tenderness. History of Present Illness Reason for Consultation: Anemia, volume overload, hx of cirrhosis, HCV Requesting Physician: Dr. Gali Lou Attending Physician: Dr. Lew Soriano History of Present Illness Pt is a 58 y/o male who presented to ED w c/o 30 lbs weight gain, leg, scrotum, abdominal swelling. He has hx of HCV Genotype 1a, cirrhosis, hx of IVDU (cocaine). He last used methamphatamine 3 weeks ago, and continues to drink ETOH on regular basis, in fact was admitted in October for ETOH withdrawal. He also has hx of pancytopenia, been referred to Heme/Onc however had not been showing for a ppts. Pt reports 8 days ago he had n/v, black emesis and stools. He denies use of iron supplements or bismuth products. He became constipated a few days ago and started to take Magnesium Citrate. Last BM few hours prior to ED visit and he report it as being light brown. He is having generalized abd pain, worse on RLQ on my exam. He hasn't had any more n/v currently. Upon eval his H/H was 5.9/19, Plt 66, INR 1.3. BUN/Cr 9/0.58, LFTs: Tbili 1.6, AST 62, ALT 37, AP 106. NH3 43. He is about to get CT abd/pelvis. He admits to be taking vitamins mostly at home. Was obtaining OTC "water pill" for his swelling. Otherwise using Imodium when he was having liquid black stools and then Mg Citrate when he was constipated. Denies NSAIDs. He is currently living in [facility] some hale inf[facility]ary. He used to live in [place], and report "may move back to the [place]". Allergies Allergy/AdvReac Type Severity Reaction Status Date / Time No Known Allergies Allergy Unverified 06/23/19 08:08 Home Medications Home Medications Medication Instructions Recorded Confirmed Type folic acid 1 mg PO DAILY 06/23/19 06/23/19 History lisinopril 2.5 mg PO DAILY 06/23/19 06/23/19 History loperamide [Imodium A-D] 2 mg PO Q3H PRN 06/23/19 06/23/19 History magnesium citrate 0 ml PO DAILY PRN 06/23/19 06/23/19 History magnesium oxide 400 mg PO DAILY 06/23/19 06/23/19 History magnesium salicylate-caffeine 2 tab PO Q6H 06/23/19 06/23/19 History [Diurex] multivitamin [Daily-Liliana] 1 tab PO DAILY 06/23/19 06/23/19 History thiamine HCl (vitamin B1) [Vitamin 100 mg PO DAILY 06/23/19 06/23/19 History B-1] Patient History Medical History Tobacco abuse (Chronic) HTN (hypertension) (Chronic) Hypomagnesemia (Acute) Alcohol abuse (Chronic) Pancytopenia (Chronic) Cirrhosis (Chronic) Hepatitis C (Chronic) Surgical History History of chest tube placement (Chronic) History of vasectomy (Chronic) History of ganglion cyst (Chronic) Family History Brother HIV (human immunodeficiency virus infection) Brother Homicide Social History Preferred Language: Albanian Communication Ability: Effective Personal Loan Specialist Required: No Beliefs That Will Affect Care: None marital status: Single Current Living Situation: Other Current Living Situation Comment: LIVES WITH "2 ROOMMATES" Other Information That Helps Us Care for You: No Feels Safe at Home: Yes Safety Concerns: Feels Safe At This Time Smoking Status: Light tobacco smoker Tobacco Type: cigarettes ; Cigarettes Per Day: 5 ; Do You Dip or Chew Tobacco: No ; Hx Alcohol Use: Yes Alcohol type: beer and hard liquor Alcohol Intake Frequency: Daily Hx Substance Use: Yes substance use type: marijuana, crack/cocaine and IV drugs Last Used Substance: Unknown Last Used Substance Other:: 2 yrs ago Review of Systems Review of Systems: All systems reviewed & are unremarkable except as noted in HPI & below Physical Exam Constitutional: WD/WN, vitals as above well groomed, cooperative and comfo rtable Eyes: PERRL, conjunctivae normal, anicteric sclerae ENMT: external ear and nose normal, oropharynx normal Respiratory: normal respiratory effort; no respiratory distress and does not use accessory muscles Cardiovascular: RRR, no murmur, no edema Gastrointestinal (Abdomen): Inspection/Auscultation: + abdomen distended and normal bowel sounds Percussion/Palpation: + abdomen tender (RLQ ) Skin: no rashes, warm and dry no jaundice Neurologic: Motor/Sensory: no asterixis Psychiatric: A+Ox3, euthymic affect Lymphatic: + lymphedema (+ 1 pitting edema bilateral LE) Results & Data Vital Signs (Past 12 Hours) Vital Signs Temp Pulse Pulse Resp BP BP Pulse Ox 06/23/19 11:11 36.7 C 100 H 20 117/66 97 06/23/19 10:41 36.7 C 98 H 18 140/72 06/23/19 10:26 36.6 C 101 H 20 125/83 97 06/23/19 10:22 36.8 C 95 H 18 127/80 97 06/23/19 10:08 36.7 C 98 H 16 131/79 97 06/23/19 09:08 99 H 16 121/64 97 06/23/19 08:33 97 06/23/19 08:28 101 H 18 97 06/23/19 07:50 98 06/23/19 07:37 36.8 C 109 H 28 H 129/63 97 (1) Hepatitis C Hepatic coma status: without hepatic coma Viral hepatitis chronicity: chronic Qualified Code(s): B18.2 - Chronic viral hepatitis C
[2019-06-23] MEDS ORDERED: IOVERSOL 100ml IV PRN (11:27)
--- NOTE | 2019-06-23 11:56 | CT Scan Report ---
ABDOMEN AND PELVIS CT WITH IV CONTRAST CT DOSE: 1121.96 mGy.cm HISTORY: Acute generalized abdominal pain with distention abd pain, distension TECHNIQUE: Multiaxial CT images of the abdomen and pelvis were performed following the IV administrat ion of 94 cc of Optiray 320, A dose lowering technique was utilized adhering to the principles of AL CECILIA. COMPARISON STUDY: CT abdomen and pelvis 11/05/2018 FINDINGS: There are a few pleural-based nodular opacities of the lingula measuring up to 4 to 5 mm suggestive o f scarring/atelectasis. No pneumatosis or pneumoperitoneum. Coronary arterial calcifications are note d. The imaged inferior cardiac chambers are mildly enlarged. Cirrhotic morphology of the liver. Splenomegaly measures up to 16.7 cm in length. Unremarkable gallbl adder. No biliary ductal dilation. Pancreas and adrenal glands are unremarkable. Upper abdominal vari neto. Recanalization of the umbilical vein. Ill-defined area of decreased attenuation involves the ant erior aspect of the superior mesenteric vein on image 40 series 2 suggestive of nonocclusive thrombus . 4 mm nonobstructing calculus of the inferior pole left kidney. 4 mm nonobstructing calculus of the interpolar right kidney. No ureteral calculi or obstructive uropathy. Circumferential wall thickening of the urinary bladder. Prostamegaly. Extensive calcified plaque of the abdominal aorta without aneu rysm. Mildly prominent bilateral inguinal chain lymph nodes. No bowel obstruction. Colonic diverticulosis without acute diverticulitis. Multifocal wall thickening throughout the colon. Noninflamed appendix. Moderate abdominopelvic ascites. Diffuse body wall edema . The bones appear to be intact. No acute fracture. IMPRESSION: 1. Cirrhotic liver disease with splenomegaly and stigmata of portal venous hypertension. 2. Interval development of moderate abdominal pelvic ascites. 3. 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 4. Multifocal wall thickening throughout the colon may be secondary to portal colopathy versus a nons pecific colitis. Correlate clinically. 5. Nonobstructing bilateral nephrolithiasis. 6. Additional findings as above. Electronically signed by: John Marshall M.D. 06/23/2019 11:55 AM
[2019-06-23] MEDS ORDERED: ALUMINUM/MAGNESIUM SUSP 30 ML UDC PO PRN (12:01)
[2019-06-23] MEDS ORDERED: LORazepam 1 MG TAB PO PRN (12:01)
[2019-06-23] MEDS ORDERED: MAGNESIUM HYDROXIDE SUSP 30 ML UDC PO PRN (12:01)
[2019-06-23] MEDS ORDERED: MAGNESIUM SULFATE / D5W 1 GM/100 ML BAG IV ONE (12:01)
[2019-06-23] MEDS ORDERED: POLYETHYLENE (MIRALAX) 17 GM PACK PO PRN (12:01)
[2019-06-23] MEDS ORDERED: ONDANSETRON INJ 2 MG/ML 2 ML VIAL IV PRN (12:01)
[2019-06-23] MEDS ORDERED: GABAPENTIN 1200MG ALCOHOL WITHDRAWAL LOAD PO STA (12:01)
[2019-06-23] MEDS ORDERED: GABAPENTIN 600 MG TAB PO ONE (12:15)
[2019-06-23] MEDS ORDERED: ALBUMIN HUMAN 25% 12.5 GM/50 ML VIAL IV ONE (12:24)
[2019-06-23] MEDS: NICOTINE 14 MG/24 HR PATCH TD SCH (12:29)
[2019-06-23] MEDS ORDERED: OCTREOTIDE ACETATE 50 MCG in SYRINGE 9.5 ML IV STA (12:33)
[2019-06-23 12:51] LABS: Thyroid Stimulating Hormone 2.23 uIu/ml (0.300-4.500)
--- NOTE | 2019-06-23 12:52 | Communication Note ---
Date of Service: June 23, 2019 58-year-old alcoholic cirrhotic with chronic hepatitis C presents with acute weight gain approximately 20 to 30 pounds in the last 5 days and abdominal pain that is generalized and is come along with the increase in abdominal girth. He denies any fevers, chills. He does report dark bloody emesis a few days ago that has resolved. Around the same time he had dark sticky black stools, also resolved. He has evidence of varices on imaging and this is chronic from his portal hypertension. He has been placed on Protonix drip for his presumed upper GI bleed. He is currently hemodynamically stable and has been tolerating food until presentation. No overt bleeding is present at this time but his H&H is down to 5.9/19.4. He has chronic leukopenia and thrombocytopenia likely related to cirrhosis and he is an alcoholic, which is toxic to the bone marrow. Bone marrow suppression may also be contributing to pancytopenia. He denies any other overt infectious symptoms, however if infection is present this may also contribute to leukopenia. He has been appropriately started on ceftriaxone to cover empiric SBP and infectious prophylaxis in the setting of recent/active variceal bleed. His INR is 1.3, bilirubin is 1.6, improved from prior measurements, AST 62, ALT 37. He is mentating normally. CT scan of the abdomen pelvis revealed cirrhosis, splenomegaly, portal venous hypertension. 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 Although anticoagulation is contraindicated at this time, appreciate vascular opinion on this thrombus. Multifocal wall thickening throughout the colon is present secondary to portal colopathy versus nonspecific colitis. His last bowel movement was yesterday and was reportedly normal by patient. Chest x-ray is clear. Physical exam reveals a hemodynamically stable patient with a blood pressure 140/78 and pulse 70. He is oxygenating 97% on room air and is afebrile. He is mentating normally. Lungs are clear to auscultation bilaterally. JVD is present. He has a diffusely tender abdomen that is distended. Heart sounds are normal with no evidence of murmur, gallops, rubs. There is 2+ pitting edema up to the level of the mid [place] bilaterally. Overall, he appears uncomfortable secondary to his distended abdomen. Exam is complicated by the fact that he has to urinate. GI is consulted and has seen the patient. He will continue on a clear diet as EGD is being considered for tomorrow. Ceftriaxone has been started for empiric coverage of SBP and in the setting of recent possible variceal bleed. He is receiving 2 units of blood with Lasix given in between units. A Mason catheter is ordered to track accurate output. Four bags of 25% albumin have been ordered. He has been placed on an alcohol withdrawal protocol including gabapentin and as needed Ativan as his last drink was yesterday. Octreotide has been started. He continues on the Protonix drip. NicoDerm patch has been placed as he is an active smoker. Magnesium supplementation is being given. He will receive a paracentesis today which will be diagnostic and therapeutic. We will reassess his pain level and treat accordingly. Max dose Tylenol this patient should be no more than 2000 mg in 24 hours. DO Enrique. Returned after repeat labwork revealed H/H with inappropriate rise after two units (02/13-->6.6/). No blood per rectum reported. Lactate remains 3.4 from 3.5. Another two units of blood ordered. Additional Lasix to give in between units as the first dose appeared to take the edge of his abdominal discomfort and the paracentesis could not be performed. Repeat H/H after next two units. Trend lactate until normal. Monitor clinical response to treatment. Pt declined Mason but is using urinal. Lungs are clear to auscultation on recheck. DO Enrique
[2019-06-23 12:53] LABS: Hematocrit (blood only) 19.4 % (42-52); Mean Corpuscular Hemoglobin 27.3 pg (25-34); Mean Corpuscular Hgb Conc 30.9 g/dL (32-36); Mean Corpuscular Volume 88.2 fL (80-100); Mean Platelet Volume 8.6 fL (7.4-10.4); Platelet Count 42 K/uL (130-400); RDW Coefficient of Variation 17.3 % (11.5-14.5); RDW Standard Deviation 55.6 fL (36.4-46.3); White Blood Count 2.05 K/uL (4.8-10.8)
[2019-06-23] MEDS ORDERED: OCTREOTIDE ACETATE 100 MCG in SYRINGE 9 ML IV ONE (13:00)
[2019-06-23 13:22] LABS: Basophils # (auto) 0.01 K/uL (0-0.2); Basophils % (auto) 0.5 %; Eosinophils # (auto) 0.05 K/uL (0-0.5); Eosinophils % (auto) 2.4 %; Immature Granulocytes # (auto) 0.01 K/uL (0.00-0.02); Immature Granulocytes % (auto) 0.5 %; Lymphocytes # (auto) 0.57 K/uL (1.2-3.4); Lymphocytes % (auto) 27.8 %; Monocytes # (auto) 0.33 K/uL (0.11-0.59); Monocytes % (auto) 16.1 %; Neutrophils # (auto) 1.08 K/uL (1.4-6.5); Neutrophils % (auto) 52.7 %; RBC Morphology Unremarkable
[2019-06-23] MEDS ORDERED: PERFLUTREN LIPID MICROSPHERE (DEFINITY) IV ONE (13:38)
[2019-06-23] MEDS: cefTRIAXone SODIUM 2,000 MG in DEXTROSE 5% 50 ML IV SCH (14:00)
[2019-06-23] MEDS: OCTREOTIDE ACETATE 500 MCG in 0.9 % SODIUM CHLORIDE 100 ML IV SCH ×2 (14:00→23:03)
[2019-06-23] MEDS: ALBUMIN 25% 50 ML IV SCH ×4 (14:09→17:02)
--- NOTE | 2019-06-23 14:17 | Emergency Department Note ---
Entered by Norm Garcia acting as a scribe for History of Present Illness General Chief complaint: Shortness of Breath/Dyspnea Stated complaint: SOB,FEVER,NAUSEA Source: patient History of Present Illness Provider complaint: Shortness of breath Onset (ago): day(s) 3 Location: chest Pain Consistency: + constant and + now resolved Maximum Pain Intensity: 8 Current Pain Intensity: 8 Associated symptoms: + denies other symptoms (Urinary symptoms), + nausea/vomiting and + other (Weight gain) The patient is a 58 year old male w/ PMHx of alcohol withdrawal, Hep C, Cirrhosis, Pancytopenia, and Alcohol abuse who presents to the ED w/ CC of constant shortness of breath that started over the past 3 days. The patient reports that 10 days ago his symptoms started with black colored emesis and black tarry stool. The patient states these symptoms lasted for a couple of days and it has since resolved. The patient adds that over the past 3 days he has gained 30 LBS of fluid, noting he normally weighs 178LBS but today upon arrival to the ED he weighed 222LBS. The patient adds that lying down is uncomfortable for him, but it does not worsen his SOB. The patient denies any history of CHF. The patient does admit to drinking alcohol occasionally, but notes when he does he only has half a beer. The patient denies any urinary symptoms. Home Medications Home Medications Medication Instructions Recorded Confirmed Type folic acid 1 mg PO DAILY 06/23/19 06/23/19 History lisinopril 2.5 mg PO DAILY 06/23/19 06/23/19 History loperamide [Imodium A-D] 2 mg PO Q3H PRN 06/23/19 06/23/19 History magnesium citrate 0 ml PO DAILY PRN 06/23/19 06/23/19 History magnesium oxide 400 mg PO DAILY 06/23/19 06/23/19 History magnesium salicylate-caffeine 2 tab PO Q6H 06/23/19 06/23/19 History [Diurex] multivitamin [Daily-Liliana] 1 tab PO DAILY 06/23/19 06/23/19 History thiamine HCl (vitamin B1) [Vitamin 100 mg PO DAILY 06/23/19 06/23/19 History B-1] Allergies Allergy/AdvReac Type Severity Reaction Status Date / Time No Known Allergies Allergy Unverified 06/23/19 08:08 Past Med/Surg History Medical History Tobacco abuse (Chronic) HTN (hypertension) (Chronic) Hypomagnesemia (Acute) Alcohol abuse (Chronic) Pancytopenia (Chronic) Cirrhosis (Chronic) Hepatitis C (Chronic) Surgical History History of chest tube placement (Chronic) History of vasectomy (Chronic) History of ganglion cyst (Chronic) Family History Brother HIV (human immunodeficiency virus infection) Brother Homicide Social History Preferred Language: Citizen Of [place] Communication Ability: Effective [employer] Required: No Beliefs That Will Affect Care: None marital status: Single Current Living Situation: Other Current Living Situation Comment: LIVES WITH "2 ROOMMATES" Other Information That Helps Us Care for You: No Feels Safe at Home: Yes Safety Concerns: Feels Safe At This Time Smoking Status: Light tobacco smoker Tobacco Type: cigarettes ; Cigarettes Per Day: 5 ; Do You Dip or Chew Tobacco: No ; Hx Alcohol Use: Yes Alcohol type: beer and hard liquor Alcohol Intake Frequency: Daily Hx Substance Use: Yes substance use type: marijuana, crack/cocaine and IV drugs Last Used Substance: Unknown Last Used Substance Other:: 2 yrs ago Review of Systems See HPI for pertinent positives & negatives. and A total of 10 systems reviewed and were otherwise negative Physical Exam Vital Signs Vital Signs - 24 hr 06/23/19 07:37 06/23/19 07:50 06/23/19 08:28 Temperature 36.8 C Temperature Source Oral Sepsis Recent Fever Within 48 Hours No Sepsis New/Unexplained Change in Mental Status No Sepsis Action Taken by Nursing No Action Required Pulse Rate 109 H Pulse Rate [Apical] 101 H Pulse Rhythm Regular Pulse Strength Normal Respiratory Rate 28 H 18 Respiratory Effort / Characteristics Non-Labored Spontaneous Non-Labored Spontaneous Respiratory Depth Normal Respiratory Pattern Regular Blood Pressure 129/63 Blood Pressure [Right Arm] Blood Pressure Mean 85 Blood Pressure Mean [Right Arm] Blood Pressure Position Sitting Pulse Oximetry 97 98 97 Oxygen Delivery Method Room Air Room Air Room Air 06/23/19 08:33 06/23/19 09:08 06/23/19 10:08 Temperature 36.7 C Temperature Source Oral Sepsis Recent Fever Within 48 Hours Sepsis New/Unexplained Change in Mental Status Sepsis Action Taken by Nursing Pulse Rate 98 H Pulse Rate [Apical] 99 H Pulse Rhythm Pulse Strength Respiratory Rate 16 16 Respiratory Effort / Characteristics Non-Labored Respiratory Depth Normal Respiratory Pattern Blood Pressure 131/79 Blood Pressure [Right Arm] 121/64 Blood Pressure Mean 96 Blood Pressure Mean [Right Arm] 83 Blood Pressure Position Pulse Oximetry 97 97 97 Oxygen Delivery Method Room Air Room Air 06/23/19 10:22 Temperature 36.8 C Temperature Source Oral Sepsis Recent Fever Within 48 Hours Sepsis New/Unexplained Change in Mental Status Sepsis Action Taken by Nursing Pulse Rate 95 H Pulse Rate [Apical] Pulse Rhythm Pulse Strength Respiratory Rate 18 Respiratory Effort / Characteristics Respiratory Depth Respiratory Pattern Blood Pressure 127/80 Blood Pressure [Right Arm] Blood Pressure Mean 95 Blood Pressure Mean [Right Arm] Blood Pressure Position Pulse Oximetry 97 Oxygen Delivery Method GENERAL: Sitting up in bed, ill appearing, disheveled, talking in full sentences. EYE EXAM: normal conjunctiva. OROPHARYNX: no exudate, no erythema, lips, buccal mucosa, and tongue normal and mucous membranes are moist NECK: supple, no nuchal rigidity, no adenopathy, non-tender. Positive JVD. LUNGS: Diminished breath sounds bilaterally. Clear to auscultation. Normal chest wall mechanics HEART: no murmurs, S1 normal and S2 normal ABDOMEN: abdomen soft but distended, non-tender, normo-active bowel, sounds, no masses, no rebound or guarding. BACK: Back is symmetrical on inspection and there is no deformity, no midline tenderness, no CVA tenderness. SKIN: no rashes and no bruising UPPER EXTREMITIES: upper extremities are grossly normal. LOWER EXTREMITIES: Pitting edema bilaterally tracking up the lower back. NEURO EXAM: Normal sensorium, cranial nerves II-XII grossly intact, normal speech, no gross weakness of arms, no gross weakness of legs. Course ED COURSE: Vital signs were reviewed and showed hypertension. The patients medical record was reviewed The above diagnostic studies were performed and reviewed. ED treatments and interventions as stated above. 0812: The patient was evaluated in room A12B. A complete history and physical examination was performed. 0903: I spoke to Dr. [facility] [place] about the patient's case. He is going to accept the patient for further evaluation. 0907: Upon reevaluation, the patient is resting in bed. The patient consented for a blood transfusion. I discussed my findings with the patient and he understands and agrees with the treatment plan. Based on the patients age, coexisting illnesses, exam and lab findings the decision to treat as an inpatient was made. The patient remained stable while under my care. The patient will be evaluated for further management. Consultations Consultation #1: I spoke to Dr. Lou [facility] about the patient's case. He is going to accept the patient for further evaluation. Time: 09:03 Administered Medications Pantoprazole Sodium 40 mg/ (Dextrose) 100 mls @ 20 mls/hr IV Q5H CINDY Stop: 06/26/19 08:59 Last Admin: 06/23/19 09:25 Dose: 20 mls/hr Documented by: [id number] Nicotine (Nicoderm Cq) 14 mg TD QAM CINDY Stop: 07/24/19 08:59 Last Admin: 06/23/19 12:29 Dose: 14 mg Documented by: [id number] Discontinued Medications Albuterol (Duoneb) 3 ml INH NOW STA Stop: 06/23/19 08:19 Last Admin: 06/23/19 08:28 Dose: 3 ml Documented by: [id number] Gabapentin (Neurontin) 1,200 mg PO TODAY@1215 ONE Stop: 06/23/19 12:16 Last Admin: 06/23/19 12:29 Dose: 1,200 mg Documented by: [id number] Pantoprazole Sodium 80 mg/ (Dextrose) 120 mls @ 480 mls/hr IV NOW STA Stop: 06/23/19 08:56 Last Infusion: 06/23/19 09:23 Dose: 0 mls/hr Documented by: [id number] Admin: 06/23/19 09:08 Dose: 480 mls/hr Documented by: [id number] Furosemide 40 mg/ Syringe 4 mls @ 4 mls/min IV ONE ONE Stop: 06/23/19 10:09 Last Admin: 06/23/19 12:28 Dose: 4 mls/min Documented by: [id number] Magnesium Sulfate/Dextrose (Magnesium Sulfate / D5w) 1 gm in 100 mls @ 100 mls/hr IV ONE ONE Stop: 06/23/19 13:00 Last Infusion: 06/23/19 13:51 Dose: 0 mls/hr Documented by: [id number] Admin: 10/28/19 12:29 Dose: 100 mls/hr Documented by: [id number] Ioversol (Optiray 320 100ml) 94 ml IV ONCE PRN PRN Reason: Interaction Checking Stop: 06/27/19 11:26 Last Admin: 06/23/19 11:28 Dose: 94 ml Documented by: [id number] Perflutren Lipid Microsphere (Definity) 2 ml IV ONCE ONE Stop: 06/23/19 13:39 Last Admin: 06/23/19 13:39 Dose: 2 ml Documented by: [id number] Medical Decision Making Differential Diagnosis Differential: Diverticulitis, AVM, Coagulopathy, Colitis, Malignancy, Upper GI bleed, Fissure, Hemorrhoids, pneumonia, bronchitis, COPD/Asthma exacerbation, pneumothorax, pulmonary embolism, congestive heart failure, acute coronary syndrome, amongst others. Medical Records Attestation: I reviewed the patient's medical records. Home Medications Current Medication List: was personally reviewed by me Laboratory Data Attestation: I reviewed the patient's lab results. Result diagrams: 06/23/19 12:24 06/23/19 07:50 Lab Results 06/23/19 06/23/19 06/23/19 Range/Units 07:50 07:50 07:50 WBC 3.56 L (4.8-10.8) K/uL RBC 2.18 L (4.7-6.1) M/uL Hgb 5.9 L* (14.0-18.0) g/dL Hct 19.4 L* (42-52) % MCV 89.0 (80-100) fL MCH 27.1 (25-34) pg MCHC 30.4 L (32-36) g/dL RDW Std Deviation 56.0 H (36.4-46.3) fL RDW Coeff of Jarrell 17.2 H (11.5-14.5) % Plt Count 66 L (130-400) K/uL MPV 8.6 (7.4-10.4) fL Immature Gran % (Auto) 0.3 % Neut % (Auto) 56.4 % Lymph % (Auto) 25.3 % [place] % (Auto) 14.9 % Eos % (Auto) 2.5 % Baso % (Auto) 0.6 % Immature Gran # (Auto) 0.01 (0.00-0.02) K/uL Neut # (Auto) 2.01 (1.4-6.5) K/uL Lymph # (Auto) 0.90 L (1.2-3.4) K/uL [place] # (Auto) 0.53 (0.11-0.59) K/uL Eos # (Auto) 0.09 (0-0.5) K/uL Baso # (Auto) 0.02 (0-0.2) K/uL Polychromasia 1+ PT 13.5 H (9.0-12.0) Seconds INR 1.3 H (0.9-1.1) APTT 28.9 (21.0-31.0) Seconds PTT Ratio 1.1 Sodium 137 (136-145) mmol/L Potassium 3.5 (3.5-5.1) mmol/L Chloride 106 (98-107) mmol/L Carbon Dioxide 22 (21-32) mmol/L Anion Gap 9.0 (3-11) BUN 9 (7-18) mg/dl Creatinine 0.58 L (0.6-1.4) mg/dl Est Cr Clr Drug Dosing 163.1 ml/min Est GFR ( Amer) 129.3 Est GFR (Non-Af Amer) 111.6 BUN/Creatinine Ratio 15.9 (10-20) Glucose 128 H (70-99) mg/dl Calcium 7.8 L (8.5-10.1) mg/dl Magnesium 1.7 L (1.8-2.4) mg/dl Total Bilirubin 1.6 H (0.2-1) mg/dl AST 62 H (15-37) U/L ALT 37 (12-78) U/L Alkaline Phosphatase 106 (45-117) U/L Ammonia (11-32) umol/L Troponin I 0.022 (0-0.045) ng/ml Total Protein 7.4 (6.4-8.2) gm/dl Albumin 2.5 L (3.4-5.0) gm/dl Globulin 4.9 H (2.5-4.0) gm/dl Albumin/Globulin Ratio 0.5 L (0.9-2) Lipase (73-393) U/L TSH (0.300-4.500) uIu/ml Blood Type Antibody Screen Crossmatch 06/23/19 06/23/19 06/23/19 Range/Units 07:50 08:45 08:45 WBC (4.8-10.8) K/uL RBC (4.7-6.1) M/uL Hgb (14.0-18.0) g/dL Hct (42-52) % MCV (80-100) fL MCH (25-34) pg MCHC (32-36) g/dL RDW Std Deviation (36.4-46.3) fL RDW Coeff of Jarrell (11.5-14.5) % Plt Count (130-400) K/uL MPV (7.4-10.4) fL Immature Gran % (Auto) % Neut % (Auto) % Lymph % (Auto) % [place] % (Auto) % Eos % (Auto) % Baso % (Auto) % Immature Gran # (Auto) (0.00-0.02) K/uL Neut # (Auto) (1.4-6.5) K/uL Lymph # (Auto) (1.2-3.4) K/uL [place] # (Auto) (0.11-0.59) K/uL Eos # (Auto) (0-0.5) K/uL Baso # (Auto) (0-0.2) K/uL Polychromasia PT (9.0-12.0) Seconds INR (0.9-1.1) APTT (21.0-31.0) Seconds PTT Ratio Sodium (136-145) mmol/L Potassium (3.5-5.1) mmol/L Chloride (98-107) mmol/L Carbon Dioxide (21-32) mmol/L Anion Gap (3-11) BUN (7-18) mg/dl Creatinine (0.6-1.4) mg/dl Est Cr Clr Drug Dosing ml/min Est GFR ( Amer) Est GFR (Non-Af Amer) BUN/Creatinine Ratio (10-20) Glucose (70-99) mg/dl Calcium (8.5-10.1) mg/dl Magnesium (1.8-2.4) mg/dl Total Bilirubin (0.2-1) mg/dl AST (15-37) U/L ALT (12-78) U/L Alkaline Phosphatase (45-117) U/L Ammonia 43.6 H (11-32) umol/L Troponin I (0-0.045) ng/ml Total Protein (6.4-8.2) gm/dl Albumin (3.4-5.0) gm/dl Globulin (2.5-4.0) gm/dl Albumin/Globulin Ratio (0.9-2) Lipase 328 (73-393) U/L TSH 2.230 (0.300-4.500) uIu/ml Blood Type A Negative Antibody Screen NEGATIVE Crossmatch See Detail Imaging Data Radiologist's Impression: Radiology results as stated below per my review and the radiologist's interpretation: XR chest 1V portable HISTORY: Dyspnea COMPARISON: Chest 11/05/2018. FINDINGS: Suture material within the left lung apex is again noted. There is mild elevation of the right hemidiaphragm. There are low lung volumes. The heart is normal in size. No pleural effusions. No pneumothorax. No evidence for pulmonary edema. No focal lung consolidations to suggest pneumonia. IMPRESSION: Low lung volumes with mild elevation of the right hemidiaphragm. Otherwise, no acute process within the chest. Electronically signed by: Paul Fox M.D. 06/23/2019 8:37 AM ABDOMEN AND PELVIS CT WITH IV CONTRAST CT DOSE: 1121.96 mGy.cm HISTORY: Acute generalized abdominal pain with distention abd pain, distension TECHNIQUE: Multiaxial CT images of the abdomen and pelvis were performed following the IV administration of 94 cc of Optiray 320, A dose lowering technique was utilized adhering to the principles of ALARA. COMPARISON STUDY: CT abdomen and pelvis 11/05/2018 FINDINGS: There are a few pleural-based nodular opacities of the lingula measuring up to 4 to 5 mm suggestive of scarring/atelectasis. No pneumatosis or pneumoperitoneum. Coronary arterial calcifications are noted. The imaged inferior cardiac chambers are mildly enlarged. Cirrhotic morphology of the liver. Splenomegaly measures up to 16.7 cm in length. Unremarkable gallbladder. No biliary ductal dilation. Pancreas and adr enal glands are unremarkable. Upper abdominal varices. Recanalization of the umbilical vein. Ill-defined area of decreased attenuation involves the anterior aspect of the superior mesenteric vein on image 40 series 2 suggestive of nonocclusive thrombus. 4 mm nonobstructing calculus of the inferior pole left kidney. 4 mm nonobstructing calculus of the interpolar right kidney. No ureteral calculi or obstructive uropathy. Circumferential wall thickening of the urinary bladder. Prostamegaly. Extensive calcified plaque of the abdominal aorta without aneurysm. Mildly prominent bilateral inguinal chain lymph nodes. No bowel obstruction. Colonic diverticulosis without acute diverticulitis. Multifocal wall thickening throughout the colon. Noninflamed appendix. Moderate abdominopelvic ascites. Diffuse body wall edema. The bones appear to be intact. No acute fracture. IMPRESSION: 1. Cirrhotic liver disease with splenomegaly and stigmata of portal venous hypertension. 2. Interval development of moderate abdominal pelvic ascites. 3. 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 4. Multifocal wall thickening throughout the colon may be secondary to portal colopathy versus a nonspecific colitis. Correlate clinically. 5. Nonobstructing bilateral nephrolithiasis. 6. Additional findings as above. Electronically signed by: John Marshall M.D. 06/23/2019 11:55 AM ECG Data Attestation: I personally reviewed and interpreted this ECG as follows: Indication: SOB/dyspnea Rate (beats per minute): 104 Rhythm: sinus tachycardia Findings: + other (Normal axis, QTC normal) and + nonspecific-ST abn (Anterior); no PVC Blood Pressure Blood Pressure Findings: Elevated blood pressure Blood Pressure Disposition: further management by hospitalist [facility] Narrative Patient is a 58-year-old male who presents the ER for vomiting blood 10 days ago followed by several days of black dark tarry stool which is now both resolved. Patient admits to previous history of alcohol abuse but nothing recently. IV was established blood work was obtained. Rectal was heme-negative although no stool obtained. Labs show pancytopenia with a hemoglobin of 5.9. Platelets were low at 66 which is actually improved from previous. INR at 1.3. BMP was unremarkable. Bilirubin was slightly elevated 1.6. Ammonia was elevated at 43. Troponin was negative. TSH and lipase is unremarkable. Patient was typed and crossed for 4 units. He was ordered 2 units while in the ER. He was placed on Protonix drip and bolus although no recent dark tarry stools, heme negative and now no vomiting of blood I do favor that this is likely an upper GI bleed secondary to cirrhosis with his anasarca. He was updated bedside and admitted to the hospitalist for further work-up. Impression & Plan Acute upper GI bleed, Anasarca, Symptomatic anemia Critical Care Time Critical Care Time: Yes Total Critical Care Time: 40 I have personally spent greater than 40 minutes of critical care time in the direct management of this patient. This includes bedside care, interpretation of diagnostic studies, and testing, discussion with consultants, patient, and family members, and other required patient management activities. This 40 minutes is in excess of all separately billable procedures. Discharge Plan Visit Data *Final* Discharge Date/Time: 06/23/19 11:02 Chief Complaint: Shortness of Breath/Dyspnea Stated Complaint: SOB,FEVER,NAUSEA ED Provider: Jassi Paul Discharge Problem: Acute upper GI bleed, Anasarca, Symptomatic anemia Patient Disposition: Admitted As Inpatient Discharge Instructions Interventions: ED Discharge Assessment Last Done: 06/23/19 11:02 The scribe's documentation has been prepared under my direction and personally reviewed by me in its entirety. I confirm that the note above accurately reflects all work, treatment, procedures, and medical decision making performed by me.
--- NOTE | 2019-06-23 15:38 | Ultrasound Report ---
US abdomen ltd ascites CLINICAL HISTORY: ascites COMPARISON STUDY: Abdomen and pelvis CT 06/23/2019. FINDINGS: Transabdominal scanning of the abdomen was performed with collections representative images submitted. Scattered ascites seen throughout the abdomen. However, the radiologist could not find an adequate wi ndow for safe access with the paracentesis catheter. Therefore, the paracentesis was not performed. IMPRESSION: Scattered ascites seen throughout the abdomen. Electronically signed by: Paul Fox M.D. 06/23/2019 3:37 PM
[2019-06-23] MEDS: GABAPENTIN 600 MG TAB PO SCH ×2 (17:03→23:04)
[2019-06-23 17:50] LABS: Hemoglobin 6.6 g/dL (14.0-18.0)
[2019-06-23 18:11] LABS: Appearance Urine Clear (Clear); Bacteria Urine Automated Negative (Negative); Bilirubin Urine Negative (Negative); Blood Urine 2+ (Negative); Color Urine Yellow; Epithelial Cell Urine Auto 0-5 /lpf (0-5); Glucose Urine UA Negative (Negative); Ketones Urine Negative (Negative); Leukocyte Esterase Urine Negative (Negative); Nitrite Urine Negative (Negative); Protein Urine Negative (Negative); Specific Gravity Urine 1.022 (1.000-1.030); Urobilinogen Urine Negative (Negative)
[2019-06-23 18:46] LABS: Amphetamines+Metham, Urine Neg (Neg); Barbiturates, Urine Neg (Neg); Benzodiazepine, Urine Neg (Neg); Cocaine, Urine Neg (Neg); MDMA (Ecstacy), Urine Neg (Neg); Methadone, Urine Neg (Neg); Opiate, Urine Neg (Neg); Phencyclidine, Urine Neg (Neg)
[2019-06-23] MEDS ORDERED: FUROSEMIDE 40 MG/4 ML VIAL IV SCH (19:30)
[2019-06-24] MEDS: PANTOprazole 40 MG in DEXTROSE 5% 100 ML IV SCH ×2 (00:33→05:07)
--- NOTE | 2019-06-24 00:50 | Surgery Consultation ---
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 was not present a month ago and will most likely will need anticoagulation but the timing of this could be reevaluated after the patient stabilizes and hopefully his parameters will improve to tolerate this there is nothing acute that needs to be done at this point I would continue with blood transfusion low clinically his color is quite good I represent a hemoglobin of 6.4 less drawn at 5:00 in the evening I would suspect that this is much higher at this time and is stated he is getting his fourth unit of blood Is abdominal ascites which is quite tight and if our radiologist are not able to create a window to sufficiently drain it may need to be transferred to a tertiary center interventional radiologist to decompress him Oncology at this time on board to evaluate his pancytopenia I try calling Dr. Nunez after my evaluation of the patient but apparently she was gone for the evening according to the nurses I will discuss the case with Dr. Gonsalez and will follow along History of Present Illness Attending Physician: Claudia Nunez, DO I was called by Dr. Nunez at approximately 11:30 at night stating that she had put a consult for general surgery approximately hour before and that had not heard back I talked to the entry service approximately 1/2-hour ago regarding a consult that they gave me for decubiti on a different patient Looking at the consultation list there is no consult placed for general surgery Schedule with Dr. Nunez was regarding an elevated lactate level and a thrombus of the superior mesenteric vein and the question was since the patient had some abdominal pain whether he may have an ischemic component on a CAT scan of the abdomen that showed some colitis I came up to set the patient 12 10 in the morning and discussed the case with the nurse who is attending him Apparently the patient has had abdominal pain since last admission off and on since he is been in this unit he has had no GI bleeding and the only abdominal complaint that he has has had is in the epigastric area Gastroenterology is on board and there considering an EGD tomorrow Laboratory studies were reviewed including the last hemoglobin which is 6.4 the patient is presently on his fourth unit of blood and there is no evidence of any active bleeding Other issues include pancytopenia platelets about 42,000 His past history is quite extensive including cirrhosis varices abdominal distention with ascites that apparently the radiologist were not able to get a a window appropriately to drain Allergies Allergy/AdvReac Type Severity Reaction Status Date / Time No Known Allergies Allergy Unverified 06/23/19 08:08 Home Medications Home Medications Medication Instructions Recorded Confirmed Type folic acid 1 mg PO DAILY 06/23/19 06/23/19 History lisinopril 2.5 mg PO DAILY 06/23/19 06/23/19 History loperamide [Imodium A-D] 2 mg PO Q3H PRN 06/23/19 06/23/19 History magnesium citrate 0 ml PO DAILY PRN 06/23/19 06/23/19 History magnesium oxide 400 mg PO DAILY 06/23/19 06/23/19 History magnesium salicylate-caffeine 2 tab PO Q6H 06/23/19 06/23/19 History [Diurex] multivitamin [Daily-Liliana] 1 tab PO DAILY 06/23/19 06/23/19 History thiamine HCl (vitamin B1) [Vitamin 100 mg PO DAILY 06/23/19 06/23/19 History B-1] Patient History Medical History Tobacco abuse (Chronic) HTN (hypertension) (Chronic) Hypomagnesemia (Acute) Alcohol abuse (Chronic) Pancytopenia (Chronic) Cirrhosis (Chronic) Hepatitis C (Chronic) Surgical History History of chest tube placement (Chronic) History of vasectomy (Chronic) History of ganglion cyst (Chronic) Family History Brother HIV (human immunodeficiency virus infection) Brother Homicide Social History Preferred Language: Slovak Communication Ability: Effective [employer] Required: No Beliefs That Will Affect Care: None marital status: Single Current Living Situation: Other Current Living Situation Comment: LIVES WITH "2 ROOMMATES" Other Information That Helps Us Care for You: No Feels Safe at Home: Yes Safety Concerns: Feels Safe At This Time Smoking Status: Light tobacco smoker Tobacco Type: cigarettes ; Cigarettes Per Day: 5 ; Do You Dip or Chew Tobacco: No ; Hx Alcohol Use: Yes Alcohol type: beer and hard liquor Alcohol Intake Frequency: Daily Hx Substance Use: Yes substance use type: marijuana, crack/cocaine and IV drugs Last Used Substance: Unknown Last Used Substance Other:: 2 yrs ago Physical Exam Physical Exam: Is asleep at this time is less pressure noted with his heart rate between 90 and 100 if he awakens when he awakens he appears coherent and is not complaining of significant abdominal pain The abdomen is diffusely distended tight but nontender no abdominal wall stigmata noted extremities +2 pedal edema Results & Data Vital Signs (Past 12 Hours) Vital Signs Temp Pulse Pulse Resp BP BP Pulse Ox 06/24/19 00:32 37.3 C 95 H 20 135/87 97 06/23/19 23:30 36.7 C 100 H 19 157/72 H 98 06/23/19 23:15 36.9 C 108 H 22 126/73 97 06/23/19 22:57 37.2 C 108 H 22 138/81 95 06/23/19 22:36 36.8 C 101 H 22 128/75 97 06/23/19 22:05 36.8 C 96 H 19 120/72 96 06/23/19 21:05 36.9 C 96 H 16 136/79 99 06/23/19 20:05 36.9 C 101 H 19 143/78 H 97 06/23/19 20:00 102 H 06/23/19 19:46 36.9 C 100 H 18 144/77 H 100 06/23/19 19:35 36.7 C 106 H 17 152/74 H 96 06/23/19 19:20 36.9 C 106 H 18 152/74 H 96 06/23/19 19:03 36.9 C 103 H 18 135/74 98 06/23/19 16:00 98 H 06/23/19 15:43 36.9 C 96 H 21 135/74 98 06/23/19 14:46 36.8 C 98 H 122/72 97 06/23/19 14:41 36.7 C 98 H 19 120/53 L 97 06/23/19 14:36 36.7 C 95 H 18 126/73 96 06/23/19 14:05 36.2 C L 105 H 19 138/78 98 06/23/19 13:41 36.7 C 100 H 20 131/77 98 06/23/19 13:36 36.8 C 104 H 19 145/72 H 99 06/23/19 13:11 36.7 C 100 H 19 142/79 H 98 06/23/19 12:56 36.7 C 92 H 18 138/79 96 06/23/19 12:40 36.8 C 70 18 139/78 97 PG Care Time/CCT Total # of Minutes Spent Total Time Spent with Patient: Total time spent is greater than 50% in coordination of care (as documented) at patient's floor/unit and/or counseling patient:
[2019-06-24] MEDS ORDERED: cloNIDine HCl 0.1 MG TAB PO ONE (02:33)
[2019-06-24] MEDS: POTASSIUM CHLORIDE / WTR 10 MEQ/100 ML PLCT IV SCH ×4 (02:58→06:01)
[2019-06-24 03:33] LABS: Hematocrit (blood only) 22.2 % (42-52); Hemoglobin 7.2 g/dL (14.0-18.0); Mean Corpuscular Hemoglobin 27.4 pg (25-34); Mean Corpuscular Hgb Conc 32.4 g/dL (32-36); Mean Corpuscular Volume 84.4 fL (80-100); RDW Coefficient of Variation 16.7 % (11.5-14.5); RDW Standard Deviation 51.5 fL (36.4-46.3); Red Blood Count 2.63 M/uL (4.7-6.1); White Blood Count 1.94 K/uL (4.8-10.8)
[2019-06-24 03:51] LABS: Albumin Level 2.6 gm/dl (3.4-5.0); BUN Creatinine Ratio 10.4 (10-20); Calcium 7.3 mg/dl (8.5-10.1); Creatinine Clr Calc Pharmacy 141.2 ml/min; Est GFR (African American) 121.9; Est GFR (Non-African American) 105.2; Magnesium 1.6 mg/dl (1.8-2.4); Potassium 3.2 mmol/L (3.5-5.1)
[2019-06-24 03:55] LABS: Albumin Globulin Ratio 0.6 (0.9-2); Bilirubin,Total 3.6 mg/dl (0.2-1); Globulin 4.6 gm/dl (2.5-4.0); Total Protein 7.2 gm/dl (6.4-8.2)
[2019-06-24] MEDS ORDERED: MAGNESIUM SULFATE / D5W 1 GM/100 ML BAG IV ONE (04:05)
[2019-06-24 04:19] LABS: Mean Platelet Volume 9.2 fL (7.4-10.4); Platelet Count 37 K/uL (130-400)
[2019-06-24] MEDS: LACTULOSE SYRUP 30 GM/45 ML UDP PO SCH ×3 (04:19→21:04)
[2019-06-24 04:22] LABS: Basophils # (auto) 0.01 K/uL (0-0.2); Basophils % (auto) 0.5 %; Eosinophils # (auto) 0.07 K/uL (0-0.5); Eosinophils % (auto) 3.6 %; Lymphocytes # (auto) 0.42 K/uL (1.2-3.4); Lymphocytes % (auto) 21.6 %; Monocytes # (auto) 0.35 K/uL (0.11-0.59); Neutrophils # (auto) 1.09 K/uL (1.4-6.5); Neutrophils % (auto) 56.3 %; RBC Morphology Unremarkable
[2019-06-24 06:21] LABS: Estimated Average Glucose 94 mg/dl; Hemoglobin A1C 4.9 % (4.5-5.6)
[2019-06-24] MEDS: GABAPENTIN 600 MG TAB PO SCH ×3 (07:20→23:36)
[2019-06-24] MEDS: MULTIVITAMIN TAB PO SCH (07:20)
[2019-06-24] MEDS: FOLIC ACID 1 MG TAB PO SCH (07:20)
[2019-06-24] MEDS: THIAMINE HCL 100 MG TAB PO SCH (07:20)
[2019-06-24] MEDS: NICOTINE 14 MG/24 HR PATCH TD SCH (07:46)
[2019-06-24] MEDS: cefTRIAXone SODIUM 2,000 MG in DEXTROSE 5% 50 ML IV SCH (08:00)
[2019-06-24 08:12] LABS: Hematocrit (blood only) 23.8 % (42-52); Hemoglobin 7.7 g/dL (14.0-18.0)
--- NOTE | 2019-06-24 09:13 | Gastroenterology Progress Note ---
Date of Service June 24, 2019 Assessment & Plan (1) Volume overload: (2) Hepatitis C: (3) History of drug use: (4) Cirrhosis: Pt is a 58 y/o male w hx of HCV, IVDU, cirrhosis who presented w volume overload, symptoms of weight gain, abd, leg, scrotum distension. He continues to drink ETOH and last used meth 3 weeks ago. He does have hx of pancytopenia, on presentation was acutely anemic and reported black emesis/stools 8 days ago. Last BM this AM claudio in color. MELD 11. He received 4U PRBC yesterday w mild response on blood ct. Remains pancytopenic w/o obvious signs of GI bleeding. He is hemodynamically stable. Abd less tender. Unfortunately paracentesis unable to be done as there wasn't a safe window for cathether placement. - OK to start CL diet today. - PPI gtt stopped, start Protonix 40mg PO BID - DC Octreotide gtt - Continue Ceftriaxone 2g IV for now - Start Lasix 40mg PO daily, Spironolactone 100mg daily - CT abd/pelvis reviewed: cirrhosis w splenomegaly, portal HTN, ascites, nonocclusive thrombus of SMV, wall thickening of colon ? non specific colitis - Monitor H/H and transfuse prn. Will continue to eval for possible endoscopic eval to r/o GI bleeding - Strict ETOH and illicit drugs - Will need education for 2g Na diet - Recommend Heme/Onc consult while inpt for pancytopenia eval - Will help schedule f/u GI appt upon his DC Supervising Physician Co-Signing Physician Notes Attending attestation I have seen, examined this patient, and agree with the findings and above by our mid-level provider SHA Rosen, with the following additions -Patient with no signs of GI bleeding. Is having brown stools. Has pancytopenia and certainly has concerns for marrow failure likely due to advanced liver disease. However, his meld is only at 14. -Now has abdominal pain, no acute abdomen, do not think is related to the small non-occlusive SMV clot at PV (typical location for Cirrhosis). -Would hold anticoagulation -Repeat Lipase -Having tachypnea, but looks comfortable, concern for possible WD -Attempt para, continue abx, repeat CT, repeat Lipase -Watch for signs of withdrawl -npo after MN, was planning on EGD/Colon for anemia, but will hold while has pain and inlight of no signs of bleeding. Subjective Pt w/o acute events overnights. Abd pain improved. He denies any n/v. He had BM this AM, stool was claudio in color. No signs of bleeding He received total of 4U PRBC, mild response on H/H 7.7/23. Noted WBC dropped to 1.9, Plt 37 U/S paracentesis not done yesterday as there wasn't a safe window in the abdomen to advance catheter Review of Systems Review of Systems: All systems reviewed & are unremarkable except as noted in HPI & below Physical Exam Constitutional: WD/WN, vitals as above well groomed, cooperative and comfortable Eyes: PERRL, conjunctivae normal, anicteric sclerae ENMT: external ear and nose normal, oropharynx normal Respiratory: normal respiratory effort; no respiratory distress and does not use accessory muscles Auscultation: + wheezes (fine expiratory wheezing) Cardiovascular: RRR, no murmur, no edema Gastrointestinal (Abdomen): Inspection/Auscultation: + abdomen distended and normal bowel sounds Percussion/Palpation: + abdomen tender (mild TTP LUQ) Skin: no rashes, warm and dry + jaundice Neurologic: Motor/Sensory: no asterixis Psychiatric: A+Ox3, euthymic affect Lymphatic: + lymphedema (+ 1 pitting edema bilateral LE) Results & Data Vital Signs (Past 12 Hours) Vital Signs Temp Pulse Pulse Resp BP BP Pulse Ox 06/24/19 07:08 36.4 C L 93 H 20 107/64 95 06/24/19 03:56 136/78 06/24/19 03:06 36.8 C 92 H 21 125/66 96 06/24/19 02:39 101 H 06/24/19 02:28 36.7 C 109 H 22 162/80 H 97 06/24/19 01:28 37.1 C 96 H 22 116/66 98 06/24/19 00:32 37.3 C 95 H 20 135/87 97 06/23/19 23:30 36.7 C 100 H 19 157/72 H 98 06/23/19 23:15 36.9 C 108 H 22 126/73 97 06/23/19 22:57 37.2 C 108 H 22 138/81 95 06/23/19 22:36 36.8 C 101 H 22 128/75 97 06/23/19 22:05 36.8 C 96 H 19 120/72 96 (1) Hepatitis C Hepatic coma status: without hepatic coma Viral hepatitis chronicity: chronic Qualified Code(s): B18.2 - Chronic viral hepatitis C
[2019-06-24] MEDS: FUROSEMIDE 40 MG TAB PO SCH (09:55)
[2019-06-24] MEDS: SPIRONOLACTONE 100 MG TAB PO SCH (09:55)
[2019-06-24] MEDS: PANTOprazole 40 MG TAB PO SCH ×2 (09:55→21:05)
--- NOTE | 2019-06-24 09:59 | Consultation ---
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 Recommend anticoagulation when able. No indications for vascular surigcal intervention at this time. Patient was seen by PA and chart reviewed. Agree with exam and treatment plan of the Vascular PA. Present on Admission?: Yes History of Present Illness Reason for Consultation: SMV thrombosis Attending Physician: Jamee Boyle MD History of Present Illness 58 yo m with multiple medical problems, including hepatic cirrhosis, Hepatitis C, ETOH abuse, HTN, and pancytopenia, admitted with acute GI bleeding and decompensation of cirrhosis, seenin consultation today for SMV thrombus noted on CT scan. Pt is poor historian. States abd pain improved, but not gone today. Denies GASPAR, fever, chills, chest pain, SOB, N/V, rest pain, claudication, other complaints. CT scan demonstrates nonocclusive thrombus of SMV. Allergies Allergy/AdvReac Type Severity Reaction Status Date / Time No Known Allergies Allergy Unverified 06/23/19 08:08 Home Medications Home Medications Medication Instructions Recorded Confirmed Type folic acid 1 mg PO DAILY 06/23/19 06/23/19 History lisinopril 2.5 mg PO DAILY 06/23/19 06/23/19 History loperamide [Imodium A-D] 2 mg PO Q3H PRN 06/23/19 06/23/19 History magnesium citrate 0 ml PO DAILY PRN 06/23/19 06/23/19 History magnesium oxide 400 mg PO DAILY 06/23/19 06/23/19 History magnesium salicylate-caffeine 2 tab PO Q6H 06/23/19 06/23/19 History [Diurex] multivitamin [Daily-Liliana] 1 tab PO DAILY 06/23/19 06/23/19 History thiamine HCl (vitamin B1) [Vitamin 100 mg PO DAILY 06/23/19 06/23/19 History B-1] Patient History Medical History Tobacco abuse (Chronic) HTN (hypertension) (Chronic) Hypomagnesemia (Acute) Alcohol abuse (Chronic) Pancytopenia (Chronic) Cirrhosis (Chronic) Hepatitis C (Chronic) Surgical History History of chest tube placement (Chronic) History of vasectomy (Chronic) History of ganglion cyst (Chronic) Family History Brother HIV (human immunodeficiency virus infection) Brother Homicide Social History Preferred Language: Zambian Communication Ability: Effective Legal Services Professional Required: No Beliefs That Will Affect Care: None marital status: Single Current Living Situation: Other Current Living Situation Comment: LIVES WITH "2 ROOMMATES" Other Information That Helps Us Care for You: No Feels Safe at Home: Yes Safety Concerns: Feels Safe At This Time Smoking Status: Light tobacco smoker Tobacco Type: cigarettes ; Cigarettes Per Day: 5 ; Do You Dip or Chew Tobacco: No ; Hx Alcohol Use: Yes Alcohol type: beer and hard liquor Alcohol Intake Frequency: Daily Hx Substance Use: Yes substance use type: marijuana, crack/cocaine and IV drugs Last Used Substance: Unknown Last Used Substance Other:: 2 yrs ago Review of Systems Review of Systems: All systems reviewed & are unremarkable except as noted in HPI & below Physical Exam Constitutional: WD/WN, vitals as above + disheveled, cooperative and comfortable; + not healthy appearing and not in distress Eyes: PERRL, conjunctivae normal, anicteric sclerae ENMT: external ear and nose normal, oropharynx normal Ears: no hearing impairment Neck: normal visual inspection and trachea midline Respiratory: normal respiratory effort, lungs clear to auscultation Cardiovascular: Rate/Rhythm: regular rate and regular rhythm Vessels: femoral pulses present, brachial pulses present and radial pulses present; no carotid bruit and + abnormal peripheral pulses Gastrointestinal (Abdomen): Inspection/Auscultation: abdomen normal to inspection and + abdomen distended Percussion/Palpation: + ascites and + abdomen firm; abdomen nontender Musculoskeletal: no cyanosis or clubbing, extremities motor strength 5/5 Skin: no rashes, warm and dry Neurologic: awake; no focal motor deficits and not confused Psychiatric: A+Ox3, euthymic affect Eye Contact: + fair eye contact Results & Data Vital Signs (Past 12 Hours) Vital Signs Temp Pulse Pulse Resp BP BP Pulse Ox 06/24/19 07:08 36.4 C L 93 H 20 107/64 95 10/29/19 03:56 136/78 06/24/19 03:06 36.8 C 92 H 21 125/66 96 06/24/19 02:39 101 H 06/24/19 02:28 36.7 C 109 H 22 162/80 H 97 06/24/19 01:28 37.1 C 96 H 22 116/66 98 06/24/19 00:32 37.3 C 95 H 20 135/87 97 06/23/19 23:30 36.7 C 100 H 19 157/72 H 98 06/23/19 23:15 36.9 C 108 H 22 126/73 97 06/23/19 22:57 37.2 C 108 H 22 138/81 95 06/23/19 22:36 36.8 C 101 H 22 128/75 97 06/23/19 22:05 36.8 C 96 H 19 120/72 96
[2019-06-24] MEDS ORDERED: SODIUM CHLORIDE 0.65% NA SOLN 45 ML (OCEAN) ONE (10:35)
[2019-06-24] MEDS ORDERED: NURSING DECISION MEDICATION ONE (10:37)
[2019-06-24] MEDS ORDERED: SODIUM CHLORIDE 0.65% NA SOLN 45 ML (OCEAN) PRN (10:39)
--- NOTE | 2019-06-24 13:17 | Hospitalist Progress Note ---
Date of Service June 24, 2019 Assessment & Plan (1) Abdominal pain: This is a 58-year-old male who has a significant past medical history of chronic hepatitis C, alcohol abuse and dependence with history of withdrawal, pancytopenia, tobacco abuse, hypertension who presents to [facility] ED secondary to shortness of breath and 30 pound weight gain x2 days. Presented with significant ascites/volume overload secondary to decompensated hepatic cirrhosis Not encephalopathic CT abdomen/pelvis ordrered: results reviewed 1. Cirrhotic liver disease with splenomegaly and stigmata of portal venous hypertension. 2. Interval development of moderate abdominal pelvic ascites. 3. 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 Abdomen ultrasound: Showed ascites, but adequate window /ascitic fluid pocket could not be found for safe access for paracenthesis catheter repeat abdomen USG ordered today (2) Decompensated hepatic cirrhosis: Decompensated in setting of Chronic Hepatitis C, ETOH abuse, IVDA presented with vol overload appreciate input from GI with elevated INR 1.3, T bili 1.6, AST 62 NH3 43.6 - no s/sx of hepatic encephalopathy Meld score [address] abdomen /pelvis as above Started on Lasix 40 mg daily, Aldactone milligrams daily Rocephin 2 g IV daily for SBP prophylaxis Patient is counseled for strict alcohol abstinence (3) Anemia: H/H 5.9 & 19.4 likely in setting of UGIB vs variceal bleed given report of melena, black emesis 1 week ago Status post 4 units of PRBC transfusion No evidence of active GI bleed noted, Appreciate input from GI Protonix drip, octreotide drip discontinued Patient is started on clear liquid diet, Monitor H&H, Plan for possible EGD during this admission (4) Superior mesenteric vein thrombosis: CT abdomen pelvis: 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 Patient is not a anticoagulation candidate secondary to coagulopathy(alcoholic liver disease)/thrombocytopenia/anemia-evidence for bleeding Vascular surgery consulted, appreciate input Recommend anticoagulation when bleeding risk is minimum No indication for vascular surgical intervention at this time (5) Anasarca: pt with multi comorbidities including cirrhosis, hypoalbuminemia in a setting of decompensated cirrhosis CT scan abd/pelvis as above Continue diuretics as per GI Echo shows hyperdynamic LV with ejection fraction more than 70%, congestive of intravascular volume depletion (6) Pancytopenia: Due to Advanced liver disease? Follow CBC daily monitor for bleeding complication Peripheral blood smear ordered (7) HTN (hypertension): blood pressure stable Added on Lasix and Aldactone for Anasarca/Volume overload from decompensated alcoholic liver disease (8) Hypomagnesemia: Replaced, continue to monitor electrolytes (9) Alcohol abuse: Daily ETOH Use No sign of withdrawal AWSS protocol with gabapentin taper-has not required any dose Patient is counseled repeatedly by myself and GI team for strict alcohol abstinence in the setting of advanced alcoholic liver disease/cirrhosis (10) Hepatitis C: hx of Hepatitis C/IVDA pt noncompliant with outpatient follow up GI consulted (11) History of drug use: last used Methamphetamines 3 weeks ago hx of IVDA and cocaine use (12) Tobacco abuse: nicotine patch smoking cessation encouraged (13) DVT prophylaxis: SCD/TEDS no chemical prophlyaxis in setting of thrombocytopenia and GIB concerns DISPOSITION : cont to monitor in telemetry increase risk for hemodynamic compromise and GI bleed due to advanced liver disease /alcoholic cirrosis Follow up: PCP Dr. Moore upon discharge, he will also need appropriate GI follow up and Hematology Subjective Patient complains of being very uncomfortable, shortness of breath secondary to distended abdomen Unable to have a paracentesis yesterday, as there was no safe pocket to introduce catheter secondary to overlying bowel loops No dark stool, no hematemesis or melena Denies of any nausea vomiting Afebrile Physical Exam Constitutional: WD/WN, vitals as above + ill appearing, + disheveled, comfortable and + in distress (Distention, shortness of) Eyes: sclerae not anicteric (Bilateral icteric sclera) ENMT: external ear and nose normal, oropharynx normal Neck: trachea midline Respiratory: Auscultation: + wheezes (fine expiratory wheezing) Cardiovascular: Rate/Rhythm: regular rate and regular rhythm Gastrointestinal (Abdomen): Inspection/Auscultation: + abdomen distended (Significantly distended with positive ascites) Percussion/Palpation: + ascites and + abdomen firm; abdomen nontender Musculoskeletal: no cyanosis or clubbing, extremities motor strength 5/5 Skin: + jaundice Neurologic: awake; no focal motor deficits and not confused Motor/Sensory: no asterixis Psychiatric: A+Ox3, euthymic affect Eye Contact: + fair eye contact Lymphatic: + lymphedema (+ 1 pitting edema bilateral LE) Results & Data Vital Signs (Past 12 Hours) Vital Signs Temp Pulse Pulse Resp BP BP Pulse Ox 06/24/19 12:51 90 132/71 97 06/24/19 11:12 36.9 C 88 19 123/83 99 06/24/19 07:08 36.4 C L 93 H 20 107/64 95 06/24/19 03:56 136/78 06/24/19 03:06 36.8 C 92 H 21 125/66 96 06/24/19 02:39 101 H 06/24/19 02:28 36.7 C 109 H 22 162/80 H 97 06/24/19 01:28 37.1 C 96 H 22 116/66 98 (1) Hepatitis C Hepatic coma status: without hepatic coma Viral hepatitis chronicity: chronic Qualified Code(s): B18.2 - Chronic viral hepatitis C
[2019-06-24 13:42] LABS: Potassium 3.1 mmol/L (3.5-5.1)
[2019-06-24 13:43] LABS: Magnesium 1.6 mg/dl (1.8-2.4)
[2019-06-24] MEDS ORDERED: POTASSIUM CHLORIDE 20 MEQ TABCR PO STA (14:24)
[2019-06-24] MEDS: MAGNESIUM SULFATE / D5W 1 GM/100 ML BAG IV SCH ×2 (16:24→17:14)
--- NOTE | 2019-06-24 16:27 | Ultrasound Report ---
PARACENTESIS UNDER ULTRASOUND GUIDANCE CLINICAL HISTORY: ALCOHOLIC CIRRHOSIS /ASCITES COMPARISON STUDY: No previous studies for comparison. FINDINGS: The risks, benefits, and alternatives to the procedure were discussed with the patient. [facility] [email or web address] informed consent was obtained. Following real-time ultrasound localization, the skin was prepped and draped. Following local anesthesia with Xylocaine, the sheath paracentesis needle was inserted a nd approximately 0.6 liters of straw-colored fluid was removed by vacuum suction. A right lower quadr ant approach was utilized. Fluid was sent for laboratory analysis. The patient tolerated the procedure well and left the department in satisfactory condition. IMPRESSION: Successful ultrasound-guided paracentesis with removal of approximately 0.6 liters of asc itic fluid. Fluid was sent for laboratory analysis as specified by the referring clinician. Electronically signed by: Pankaj Mccallum M.D. 06/24/2019 4:26 PM
[2019-06-24 16:41] LABS: Albumin Peritoneal Fluid < 0.6 g/dl; Glucose Peritoneal Fluid 122 mg/dl
[2019-06-24 16:48] LABS: LDH Peritoneal Fluid 72 U/L; Total Protein Peritoneal Fluid 0.9 g/dl; Triglyceride Peritoneal Fluid 6 mg/dl
[2019-06-24 17:17] LABS: Appearance Peritoneal Fluid CLEAR; Basophils, Fluid 0 %; Color Peritoneal Fluid YELLOW; Eosinophils, Fluid 0 %; Lymphocytes, Fluid 19 %; Mono,Macrophage,Mesothelial 76 %; Neutrophils, Fluid 5 %; RBC Peritoneal Fluid (A) < 3000 /uL; WBC Peritoneal Fluid (A) 188 /ul (0-300)
[2019-06-24] MEDS: ACETAMINOPHEN SOL 650 MG/20.3 ML UDC PO PRN ×2 (17:21→23:51)
[2019-06-24] MEDS ORDERED: LORazepam 0.5 MG TAB PO STA (22:19)
[2019-06-25 07:50] LABS: Albumin Level 2.4 gm/dl (3.4-5.0); BUN Creatinine Ratio 8.3 (10-20); Calcium 7.7 mg/dl (8.5-10.1); Creatinine Clr Calc Pharmacy 135.8 ml/min; Est GFR (African American) 120.4; Est GFR (Non-African American) 103.9; Magnesium 1.8 mg/dl (1.8-2.4); Potassium 3.2 mmol/L (3.5-5.1)
[2019-06-25 08:01] LABS: Bilirubin Direct 1.6 mg/dl (0-0.2); Bilirubin,Total 3.1 mg/dl (0.2-1); Total Protein 6.9 gm/dl (6.4-8.2)
[2019-06-25 08:46] LABS: Basophils # (auto) 0.01 K/uL (0-0.2); Basophils % (auto) 0.6 %; Eosinophils # (auto) 0.07 K/uL (0-0.5); Eosinophils % (auto) 4.3 %; Hematocrit (blood only) 23.6 % (42-52); Hemoglobin 7.4 g/dL (14.0-18.0); Lymphocytes # (auto) 0.42 K/uL (1.2-3.4); Lymphocytes % (auto) 25.6 %; Mean Corpuscular Hemoglobin 27.3 pg (25-34); Mean Corpuscular Hgb Conc 31.4 g/dL (32-36); Mean Corpuscular Volume 87.1 fL (80-100); Mean Platelet Volume 8.8 fL (7.4-10.4); Monocytes # (auto) 0.33 K/uL (0.11-0.59); Monocytes % (auto) 20.1 %; Neutrophils % (auto) 49.4 %; Platelet Count 33 K/uL (130-400); RBC Morphology Unremarkable; RDW Coefficient of Variation 16.8 % (11.5-14.5); RDW Standard Deviation 53.5 fL (36.4-46.3); Red Blood Count 2.71 M/uL (4.7-6.1); White Blood Count 1.64 K/uL (4.8-10.8)
[2019-06-25 08:54] LABS: Neutrophils # (auto) 0.81 K/uL (1.4-6.5)
--- NOTE | 2019-06-25 09:11 | Gastroenterology Progress Note ---
Date of Service June 25, 2019 Assessment & Plan (1) Volume overload: (2) Hepatitis C: (3) History of drug use: (4) Cirrhosis: Pt is a 58 y/o male w hx of HCV, IVDU, cirrhosis who presented w volume overload, symptoms of weight gain, abd, leg, scrotum distension. He continues to drink ETOH and last used meth 3 weeks ago. He does have hx of pancytopenia, on presentation was acutely anemic and reported black emesis/stools 8 days ago. MELD 11. He's passing claudio colored stools, stool occult blood negative. Blood ct stable after 4U prbc transfusion on 06/23. He is having nausea, epigastric pain and some hemoptysis this AM. Diagnostic paracentesis done yesterday w/o signs of sbp though he's been on Ceftriaxone prior. - Obtain CXR - Continue to defer endoscopic eval for now. [place] diet started. - Protonix 40mg PO BID - Continue Ceftriaxone 2g IV for now - Lasix 40mg PO daily, Spironolactone 100mg daily - CT abd/pelvis reviewed: cirrhosis w splenomegaly, portal HTN, ascites, nonocclusive thrombus of SMV, wall thickening of colon ? non specific colitis - Monitor H/H and transfuse prn. - Strict ETOH and illicit drugs - Wheel Molder consulted to provide education for 2g Na diet - Heme/Onc consulted for pancytopenia eval - Will help schedule f/u GI appt upon his DC Supervising Physician Co-Signing Physician Notes Attending attestation I have seen, examined this patient, and agree with the findings and above by our mid-level provider SHA Rosen, with the following additions -No signs of bleeding, patient doing okay, having some dyspnea and still is volume overloaded. -IV diuresis optimization for anticipated EGD for screening for varices as well as other lesions that would contribute to anemia. -On discussion with him today in regards to compliance, should likely receive anticoagulation for his SMV thrombus, however he has been quite nonadherent to medical treatment in the past, given his high risk and disease state think that proving that he can follow-up as an outpatient routinely prior to initiation of anticoagulation. This will also be decided upon after EGD tomorrow. Subjective Pt c/o hemoptysis. Having mild epigastric pain and admitted to have nausea w/o vomiting. Said mostly nauseated because he's not eating. Denies BMs. Stool occult blood negative, blood ct stable. He had diagnostic paracentesis done yesterday w 0.6L ascites fluid removed, total WBC 188 though he's been on antibx previously Review of Systems Review of Systems: All systems reviewed & are unremarkable except as noted in HPI & below Physical Exam Constitutional: WD/WN, vitals as above well groomed, cooperative and comfortable Eyes: PERRL, conjunctivae normal, anicteric sclerae ENMT: external ear and nose normal, oropharynx normal Cardiovascular: RRR, no murmur, no edema Gastrointestinal (Abdomen): Inspection/Auscultation: + abdomen distended and normal bowel sounds Percussion/Palpation: + abdomen tender (epigastric) Skin: no rashes, warm and dry + jaundice Neurologic: Motor/Sensory: no asterixis Psychiatric: A+Ox3, euthymic affect Lymphatic: + lymphedema (+ 1 pitting edema bilateral LE) Results & Data Vital Signs (Past 12 Hours) Vital Signs Temp Pulse Pulse Resp BP Pulse Ox 06/25/19 07:47 36.6 C 90 18 121/64 95 06/25/19 03:30 36.8 C 94 H 19 127/70 96 06/25/19 00:00 80 06/24/19 23:58 36.7 C 85 19 134/76 98 (1) Hepatitis C Hepatic coma status: without hepatic coma Viral hepatitis chronicity: chronic Qualified Code(s): B18.2 - Chronic viral hepatitis C
[2019-06-25] MEDS: SPIRONOLACTONE 100 MG TAB PO SCH (09:37)
[2019-06-25] MEDS: NICOTINE 14 MG/24 HR PATCH TD SCH (09:37)
[2019-06-25] MEDS: THIAMINE HCL 100 MG TAB PO SCH (09:37)
[2019-06-25] MEDS: MULTIVITAMIN TAB PO SCH (09:37)
[2019-06-25] MEDS: FUROSEMIDE 40 MG TAB PO SCH (09:38)
[2019-06-25] MEDS: PANTOprazole 40 MG TAB PO SCH ×2 (09:38→20:52)
[2019-06-25] MEDS: LACTULOSE SYRUP 30 GM/45 ML UDP PO SCH ×3 (09:38→20:52)
[2019-06-25] MEDS: FOLIC ACID 1 MG TAB PO SCH (09:38)
[2019-06-25] MEDS: cefTRIAXone SODIUM 2,000 MG in DEXTROSE 5% 50 ML IV SCH (09:49)
--- NOTE | 2019-06-25 11:07 | XRay Report ---
XR chest 2V PA/lateral CLINICAL HISTORY: hemoptysis COMPARISON STUDY: Chest CT September 12, 2018. Chest radiograph June 23, 2019. FINDINGS: There is no pneumothorax or pleural effusion. No evidence for pneumonia or pulmonary edema. Lung volumes are diminished. This is unchanged. Cardiomediastinal silhouette is stable. Appearance o f chest is unchanged. IMPRESSION: Low lung volumes. No acute cardiopulmonary findings. Electronically signed by: Abraham Mar M.D. 06/25/2019 11:05 AM
[2019-06-25] MEDS ORDERED: GABAPENTIN 600 MG TAB PO SCH (12:00)
[2019-06-25] MEDS ORDERED: FUROSEMIDE 40 MG in SYRINGE 0 ML IV ONE (13:05)
[2019-06-25] MEDS ORDERED: ALBUMIN 25% 50 ML IV ONE (13:05)
[2019-06-25] MEDS ORDERED: POTASSIUM CHLORIDE 20 MEQ TABCR PO STA (13:06)
[2019-06-25] MEDS ORDERED: SODIUM CHLORIDE 0.9% 250 ML IV PRN (13:22)
[2019-06-25] MEDS: POTASSIUM CHLORIDE / WTR 10 MEQ/100 ML PLCT IV SCH ×4 (13:53→16:57)
--- NOTE | 2019-06-25 16:43 | Hospitalist Progress Note ---
Date of Service June 25, 2019 Assessment & Plan (1) Abdominal pain: Symptom has resolved, Possible secondary to ascites/anasarca Ordered for IV Lasix with IV albumin GI following: Scheduled for EGD tomorrow for evaluation of esophageal varices/gastric ulcer- other reason that may cause potential GI bleed This is a 58-year-old male who has a significant past medical history of chronic hepatitis C, alcohol abuse and dependence with history of withdrawal, pancytopenia, tobacco abuse, hypertension who presents to [facility] ED secondary to shortness of breath and 30 pound weight gain x2 days. Presented with significant ascites/volume overload secondary to decompensated hepatic cirrhosis Not encephalopathic CT abdomen/pelvis ordrered: results reviewed 1. Cirrhotic liver disease with splenomegaly and stigmata of portal venous hypertension. 2. Interval development of moderate abdominal pelvic ascites. 3. 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 Abdomen ultrasound: Showed ascites, but adequate window /ascitic fluid pocket could not be found for safe access for paracenthesis catheter Repeat ultrasound guided paracentesis done 06/24/2019: Drainage of approximately 600 mL of ascitic fluid Patient reports of symptomatic improvement, abdominal pain and shortness of breath after paracentesis (2) Decompensated hepatic cirrhosis: Decompensated in setting of Chronic Hepatitis C, ETOH abuse, IVDA presented with vol overload appreciate input from GI with elevated INR 1.3, T bili 1.6, AST 62 NH3 43.6 - no s/sx of hepatic encephalopathy Meld score [address] abdomen /pelvis as above Started on Lasix 40 mg daily, Aldactone 100 mg daily We will order extra dose of 40 mg IV Lasix with 25% albumin Rocephin 2 g IV daily for SBP prophylaxis Patient is counseled for strict alcohol abstinence (3) Anemia: H/H 5.9 & 19.4 likely in setting of UGIB vs variceal bleed given report of melena, black emesis 1 week ago Status post 4 units of PRBC transfusion No evidence of active GI bleed noted, Appreciate input from GI Protonix drip, octreotide drip discontinued Patient is started on clear liquid diet, No further episode of active GI bleeding noted Scheduled for EGD tomorrow a.m. 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 Patient is not a anticoagulation candidate secondary to coagulopathy(alcoholic liver disease)/thrombocytopenia/anemia-evidence for bleeding Vascular surgery consulted, appreciate input No indication for vascular surgical intervention at this time (5) Anasarca: pt with multi comorbidities including cirrhosis, hypoalbuminemia in a setting of decompensated cirrhosis CT scan abd/pelvis as above Continue diuretics as per GI Echo shows hyperdynamic LV with ejection fraction more than 70%, congestive of intravascular volume depletion (6) Pancytopenia: Possible secondary to hepatitis C/with advanced alcoholic liver disease Patient been followed by hematology oncology Dr. Douglas as outpatient Does report of having intermittent blood transfusion Follow CBC (7) HTN (hypertension): blood pressure stable Added on Lasix and Aldactone for Anasarca/Volume overload from decompensated alcoholic liver disease (8) Hypomagnesemia: Replaced, continue to monitor electrolytes (9) Alcohol abuse: Daily ETOH Use No sign of withdrawal AWSS protocol with gabapentin taper-has not required any dose To discontinue gabapentin Patient is counseled repeatedly by myself and GI team for strict alcohol abstinence in the setting of advanced alcoholic liver disease/cirrhosis (10) Hepatitis C: hx of Hepatitis C/IVDA pt noncompliant with outpatient follow up GI consulted (11) History of drug use: last used Methamphetamines 3 weeks ago hx of IVDA and cocaine use History of hep C, (12) Tobacco abuse: nicotine patch smoking cessation encouraged (13) DVT prophylaxis: SCD/TEDS no chemical prophlyaxis in setting of thrombocytopenia and GIB concerns DISPOSITION : Stable to transfer to medical telemetry Will need continued cardiac monitoring as patient has increase risk for hemodynamic compromise and GI bleed due to advanced liver disease /alcoholic cirrosis Follow up: PCP Dr. Moore upon discharge, he will also need appropriate GI follow up and Hematology He needs skilled rehab after discharge to hospital, PT OT evaluation consulted Service consult for discharge plan Subjective Feels a little bit better today Status post drainage of approximately 600 mL of ascitic fluid yesterday Still have abdominal distention but less shortness of breath less discomfort No fever or chills No hematemesis or melena Physical Exam Constitutional: WD/WN, vitals as above + ill appearing, + disheveled, comfortable and + in distress (Distention, shortness of) Eyes: PERRL, conjunctivae normal, anicteric sclerae sclerae not anicteric (Bilateral icteric sclera) ENMT: external ear and nose normal, oropharynx normal Ears: no hearing impairment Neck: trachea midline Respiratory: normal respiratory effort, lungs clear to auscultation normal respiratory effort; no respiratory distress and does not use accessory muscles Auscultation: + wheezes (fine expiratory wheezing) Cardiovascular: RRR, no murmur, no edema Rate/Rhythm: regular rate and regular rhythm Vessels: femoral pulses present, brachial pulses present and radial pulses present; no carotid bruit and + abnormal peripheral pulses Gastrointestinal (Abdomen): normal bowel sounds, soft, nontender, no hepatosplenomegaly Inspection/Auscultation: + abdomen distended (Significantly distended with positive ascites) Percussion/Palpation: + ascites and + abdomen firm; abdomen nontender Musculoskeletal: no cyanosis or clubbing, extremities motor strength 5/5 Skin: no rashes, warm and dry + jaundice Neurologic: awake; no focal motor deficits and not confused Motor/Sensory: no asterixis Psychiatric: A+Ox3, euthymic affect Eye Contact: + fair eye contact Lymphatic: + lymphedema (+ 1 pitting edema bilateral LE) Results & Data Vital Signs (Past 12 Hours) Vital Signs Temp Pulse Pulse Resp BP Pulse Ox 06/25/19 15:22 36.8 C 85 18 125/64 99 06/25/19 11:47 37.0 C 90 19 151/84 H 95 06/25/19 08:00 86 06/25/19 07:47 36.6 C 90 18 121/64 95 (1) Hepatitis C Hepatic coma status: without hepatic coma Viral hepatitis chronicity: chronic Qualified Code(s): B18.2 - Chronic viral hepatitis C
[2019-06-25] MEDS ORDERED: LORazepam 0.5 MG TAB PO STA (20:17)
[2019-06-26 07:13] LABS: Albumin Level 2.5 gm/dl (3.4-5.0); BUN Creatinine Ratio 8.2 (10-20); Bilirubin Direct 1.5 mg/dl (0-0.2); Creatinine Clr Calc Pharmacy 148.7 ml/min; Est GFR (Non-African American) 107.9; Magnesium 1.6 mg/dl (1.8-2.4); Potassium 3.3 mmol/L (3.5-5.1)
[2019-06-26 07:15] LABS: Bilirubin,Total 2.7 mg/dl (0.2-1); Total Protein 6.8 gm/dl (6.4-8.2)
[2019-06-26] MEDS: FOLIC ACID 1 MG TAB PO SCH (08:12)
[2019-06-26] MEDS: PANTOprazole 40 MG TAB PO SCH ×2 (08:12→19:31)
[2019-06-26] MEDS: MULTIVITAMIN TAB PO SCH (08:12)
[2019-06-26] MEDS: NICOTINE 14 MG/24 HR PATCH TD SCH (08:12)
[2019-06-26] MEDS: LACTULOSE SYRUP 30 GM/45 ML UDP PO SCH ×3 (08:12→19:31)
[2019-06-26] MEDS: SPIRONOLACTONE 100 MG TAB PO SCH (08:12)
[2019-06-26] MEDS: FUROSEMIDE 40 MG TAB PO SCH (08:12)
[2019-06-26] MEDS: THIAMINE HCL 100 MG TAB PO SCH (08:13)
[2019-06-26] MEDS: cefTRIAXone SODIUM 2,000 MG in DEXTROSE 5% 50 ML IV SCH (08:15)
--- NOTE | 2019-06-26 10:59 | Anesthesiology Consultation ---
Date of Service June 26, 2019 The patient received a platelet transfusion preoperatively. Assessment & Plan (1) Encounter for pre-operative examination: Chart Review Chart Review: Acceptable Risk for Surgery and Patient NOT seen in Pre Admission Testing Consults Requested none History Surgery Operation Date: 06/26/19 08:30 Proposed Procedures p Esophagogastroduodenoscopy Dr Bo Soriano Height/Weight Height: 5 ft 10 in Weight: 98.7 kg Allergies Allergy/AdvReac Type Severity Reaction Status Date / Time No Known Allergies Allergy Unverified 06/23/19 08:08 Medications Home Medications Medication Instructions Recorded Confirmed Last Taken folic acid 1 mg PO DAILY 06/23/19 06/23/19 06/02/19 lisinopril 2.5 mg PO DAILY 06/23/19 06/23/19 06/02/19 loperamide [Imodium A-D] 2 mg PO Q3H PRN 06/23/19 06/23/19 06/22/19 magnesium citrate 0 ml PO DAILY PRN 06/23/19 06/23/19 06/18/19 magnesium oxide 400 mg PO DAILY 06/23/19 06/23/19 06/02/19 magnesium salicylate-caffeine 2 tab PO Q6H 06/23/19 06/23/19 06/21/19 [Diurex] multivitamin [Daily-Liliana] 1 tab PO DAILY 06/23/19 06/23/19 06/02/19 thiamine HCl (vitamin B1) [Vitamin 100 mg PO DAILY 06/23/19 06/23/19 06/02/19 B-1] Active Medications Generic Name Dose Route Start Last Admin Trade Name Gita PRN Reason Stop Dose Admin Acetaminophen 650 mg 06/24/19 12:22 06/24/19 23:51 Tylenol PO 07/24/19 12:21 650 mg Q6 PRN Administration Pain Folic Acid 1 mg 06/24/19 09:00 06/26/19 08:12 Folvite PO 07/24/19 08:59 Not Given DAILY CINDY Furosemide 40 mg 06/24/19 09:15 06/26/19 08:12 Lasix PO 07/24/19 09:14 Not Given QAM CINDY Ceftriaxone Sodium 2,000 mg/ 70 mls @ 100 mls/hr 06/23/19 13:00 06/26/19 08:59 Dextrose IV 07/03/19 12:59 Infused DAILY CINDY Infusion Protocol Lactulose 30 gm 06/24/19 04:05 06/26/19 08:12 Chronulac PO 07/24/19 04:04 Not Given TID CINDY Miscellaneous 1 ea 06/23/19 21:00 06/25/19 20:53 Remove Nicoderm Patch N/A 07/23/19 20:59 1 ea HS CINDY Administration Multivitamins 1 tab 06/24/19 09:00 06/26/19 08:12 Multivitamin Tab PO 07/24/19 08:59 Not Given DAILY CINDY Nicotine 14 mg 06/24/19 09:00 06/26/19 08:12 Nicoderm Cq TD 07/24/19 08:59 14 mg QAM CINDY Administration Pantoprazole Sodium 40 mg 06/24/19 09:15 06/26/19 08:12 Protonix PO 07/24/19 09:14 Not Given BID CINDY Spironolactone 100 mg 06/24/19 09:15 06/26/19 08:12 Aldactone PO 07/24/19 09:14 Not Given QAM CINDY Thiamine HCl 100 mg 06/24/19 09:00 06/26/19 08:13 Vitamin B-1 PO 07/24/19 08:59 Not Given DAILY CINDY NPO Date Last Intake of Fluids: 06/25/19 Time Last Intake of Fluids: 23:55 Date Last Intake of Solids: 06/25/19 Time Last Intake of Solids: 23:55 Past Medical History Medical History Tobacco abuse (Chronic) HTN (hypertension) (Chronic) Hypomagnesemia (Acute) Alcohol abuse (Chronic) Pancytopenia (Chronic) Cirrhosis (Chronic) Hepatitis C (Chronic) Thrombocytopenia Past Family History Family History Brother HIV (human immunodeficiency virus infection) Brother Homicide Past Surgical History Surgical History History of chest tube placement (Chronic) History of vasectomy (Chronic) History of ganglion cyst (Chronic) Social History Smoking Status: Light tobacco smoker tobacco type: cigarettes Smoking cigarettes per day: 5 Do You Dip or Chew Tobacco: No Hx Alcohol Use: Yes Alcohol type: beer and hard liquor alcohol intake frequency: a few times a week Hx Substance Use: Yes substance use type: marijuana, crack/cocaine and IV drugs Last Used Substance: Unknown Last Used Substance Other:: 2 yrs ago Physical Exam Vital Signs Last Vital Signs Temp 36.8 C 06/26/19 11:00 Pulse 94 H 06/26/19 11:00 Resp 18 06/26/19 11:00 BP 155/83 H 06/26/19 11:00 Pulse Ox 96 06/26/19 11:00 Testing Laboratory Results 06/25/19 07:02 06/26/19 06:15 PT 13.5 Seconds (9.0-12.0) H 06/23/19 07:50 INR 1.3 (0.9-1.1) H 06/23/19 07:50 APTT 28.9 Seconds (21.0-31.0) 06/23/19 07:50 Hemoglobin A1c 4.9 % (4.5-5.6) 06/23/19 17:07 Urine Color Yellow 06/23/19 17:40 Urine Appearance Clear (Clear) 06/23/19 17:40 Urine pH 6.0 (4.5-7.5) 06/23/19 17:40 Ur Specific Braggs 1.022 (1.000-1.030) 06/23/19 17:40 Urine Protein Negative (Negative) 06/23/19 17:40 Urine Glucose (UA) Negative (Negative) 06/23/19 17:40 Urine Ketones Negative (Negative) 06/23/19 17:40 Urine Nitrite Negative (Negative) 06/23/19 17:40 Ur Leukocyte Esterase Negative (Negative) 06/23/19 17:40 Urine WBC (Auto) 1-5 /hpf (0-5) 06/23/19 17:40 Urine RBC (Auto) 10-30 /hpf (0-4) H 06/23/19 17:40 U Hyaline Cast (Auto) 1-5 /lpf (0-5) 06/23/19 17:40 U Epithel Cells (Auto) 0-5 /lpf (0-5) 06/23/19 17:40 Urine Bacteria (Auto) Negative (Negative) 06/23/19 17:40 Blood Type A Negative 06/23/19 08:45 Antibody Screen NEGATIVE 06/23/19 08:45 06/24/19 Unknown Gram Stain - Final Peritoneal Fluid Aerobic and Anaerobic Culture - Preliminary No growth to date. Electrocardiogram Date: 06/25/19 Findings: + NSR @ (88) and + NSST changes prolong QT Chest X-Ray Date: 06/25/19 Findings: + NAD low volume Echocardiogram Date: 06/25/19 EF: 70
--- NOTE | 2019-06-26 11:30 | Gastroenterology Progress Note ---
Date of Service June 26, 2019 Assessment & Plan (1) Volume overload: (2) Hepatitis C: (3) History of drug use: (4) Cirrhosis: Pt is a 58 y/o male w hx of HCV, IVDU, ETOH cirrhosis continuing to drink ETOH who presented w abdominal pain, volume overload with SOB, pancytopenic, CT with non occlusive thrombus of the superior mesenteric vein. No gross GI bleeding. EGD today to assess risk for bleeding with anticoagulation. Supervising Physician Co-Signing Physician Notes Attending attestation I have seen, examined this patient, and agree with the findings and above by our mid-level provider SHA Neumann, with the following additions -No signs of GI bleeding. -Still not overall that net negative -EGD today after CBC results to assess varices, any signs and or concerns with anticoaguation, assuming he will show up as outpt -Continue IV diuresis, replete K and Mag -Further recs after EGD today. -Will need f/u with Hepatology at D/C Subjective Pt up walking around the room. Feels well. Anxious to go home. Pt admitted for fluid overload. Pt admits to increased alcohol intake. Imaging with cirrhosis, enlarging ascites. Imaging with Nonocclusive thrombus of the superior mesenteric vein Pancytopenic: WBC 1.64, Hb 7.4, Hct 23, BUN platelets 42. Received a unit of platelets. Will have EGD today to assess bleeding risk with anticoagulatioin. Review of Systems Constitutional: no fever, no chills, no fatigue and no weakness Eyes: no problem reported Ear, Nose, Mouth, Throat: no problem reported Respiratory: no cough, no chest congestion and no dyspnea Cardiovascular: + dyspnea (much improved after paracentesis); no chest pain and no palpitations Gastrointestinal: + abdominal pain (improved since admission) Genitourinary: no dysuria Musculoskeletal: no problem reported Integumentary: no rash and no change in skin color Neurologic: no unsteadiness, no falls and no confusion Psychiatric: no behavioral changes and no depression Endocrine: no fatigue, no polydipsia, no polyphagia and no polyuria Hematologic / Lymphatic: no easy bleeding Allergy / Immunological: no cough, no dyspnea and no rash Physical Exam Constitutional: WD/WN, vitals as above Eyes: PERRL, conjunctivae normal, anicteric sclerae ENMT: external ear and nose normal, oropharynx normal poor dentition Neck: trachea midline, no thyromegaly Respiratory: normal respiratory effort, lungs clear to auscultation Cardiovascular: Rate/Rhythm: regular rate and regular rhythm 2/6 systolic murmur Gastrointestinal (Abdomen): Inspection/Auscultation: + abdomen distended (softly) Percussion/Palpation: abdomen nontender Skin: no rashes, warm and dry Neurologic: PERRL, EOMI, accommodation nl, no face palsy, no dysarthria Psychiatric: A+Ox3, euthymic affect Lymphatic: no cervical or axillary lymphadenopathy Results & Data Vital Signs (Past 12 Hours) Vital Signs Temp Pulse Pulse Resp BP BP BP 06/26/19 11:22 36.8 C 96 H 23 120/89 06/26/19 11:00 36.8 C 94 H 18 155/83 H 06/26/19 10:30 37.0 C 85 18 106/73 06/26/19 10:00 36.8 C 83 18 113/63 06/26/19 09:45 36.8 C 87 18 127/70 06/26/19 09:30 36.8 C 85 18 115/72 06/26/19 07:47 91 H 06/26/19 07:34 36.8 C 85 18 137/76 06/26/19 05:05 92 H 06/26/19 04:40 37.2 C 92 H 20 130/68 06/26/19 00:39 36.8 C 97 H 21 153/82 H Pulse Ox 06/26/19 11:22 97 06/26/19 11:00 96 06/26/19 10:30 98 06/26/19 10:00 98 06/26/19 09:45 96 06/26/19 09:30 95 06/26/19 07:47 06/26/19 07:34 97 06/26/19 05:05 06/26/19 04:40 97 06/26/19 00:39 98 Laboratory Results Fluid analysis with 188 WBC, 5% neutrophils Diagnostic Findings CT 06/23 1. Cirrhotic liver disease with splenomegaly and stigmata of portal venous hypertension. 2. Interval development of moderate abdominal pelvic ascites. 3. 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 4. Multifocal wall thickening throughout the colon may be secondary to portal colopathy versus a nonspecific colitis. Correlate clinically. 5. Nonobstructing bilateral nephrolithiasis. 6. Additional findings as above. (1) Hepatitis C Hepatic coma status: without hepatic coma Viral hepatitis chronicity: chronic Qualified Code(s): B18.2 - Chronic viral hepatitis C
[2019-06-26 11:46] LABS: Hepatitis C Vira RNA (Log) PCR 5.75 LOG IU/ML (<1.18)
[2019-06-26 11:48] LABS: Hematocrit (blood only) 22.3 % (42-52); Hemoglobin 7.3 g/dL (14.0-18.0); Mean Corpuscular Hemoglobin 28.2 pg (25-34); Mean Corpuscular Volume 86.1 fL (80-100); RDW Coefficient of Variation 16.7 % (11.5-14.5); RDW Standard Deviation 52.1 fL (36.4-46.3); Red Blood Count 2.59 M/uL (4.7-6.1); White Blood Count 1.64 K/uL (4.8-10.8)
[2019-06-26 11:52] LABS: Mean Corpuscular Hgb Conc 32.7 g/dL (32-36); Platelet Count 32 K/uL (130-400)
[2019-06-26] MEDS ORDERED: FUROSEMIDE 40 MG in SYRINGE 0 ML IV ONE (12:20)
[2019-06-26] MEDS ORDERED: ALBUMIN 25% 50 ML IV ONE (12:22)
[2019-06-26] MEDS ORDERED: POTASSIUM CHLORIDE 20 MEQ TABCR PO STA (12:23)
--- NOTE | 2019-06-26 16:22 | Hospitalist Progress Note ---
Date of Service June 26, 2019 Assessment & Plan (1) Abdominal pain: Symptom has resolved, Possible secondary to ascites/anasarca/post paracentesis of 600 mm of ascitic fluid on 06/24 Continue IV Lasix with IV albumin GI following: Input Marked thrombocytopenia noted this morning platelet count 32 Given 1 single donor unit of platelet transfusion by GI, with no improvement of platelet count EGD was canceled secondary to high bleeding risk, no evidence of gross GI bleeding This is a 58-year-old male who has a significant past medical history of chronic hepatitis C, alcohol abuse and dependence with history of withdrawal, pancytopenia, tobacco abuse, hypertension who presents to [facility] ED secondary to shortness of breath and 30 pound weight gain x2 days. Presented with significant ascites/volume overload secondary to decompensated hepatic cirrhosis Not encephalopathic CT abdomen/pelvis ordrered: results reviewed 1. Cirrhotic liver disease with splenomegaly and stigmata of portal venous hypertension. 2. Interval development of moderate abdominal pelvic ascites. 3. 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 Abdomen ultrasound: Showed ascites, but adequate window /ascitic fluid pocket could not be found for safe access for paracenthesis catheter Repeat ultrasound guided paracentesis done 06/24/2019: Drainage of approximately 600 mL of ascitic fluid Patient reports of symptomatic improvement, abdominal pain and shortness of breath after paracentesis (2) Pancytopenia: Possible secondary to hepatitis C/with advanced alcoholic liver disease Peripheral blood film 06/25/2019: Neutropenia noted, differential does show predominance of mature segmented neutrophils without left shift or dysplasia. 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 No pathologic features suggestive of hematologic malignancy noted on peripheral smear Reviewed patient's clinic records in [facility]-referral was made to follow- up with hematology oncology clinic for pancytopenia Patient had numerous no-show Hematology oncology could not reach patient via telephone multiple times, later was sent regarding appointments-patient never replied or reached back Discussed with on-call hematology oncology team regarding patient's CBC, blood count, peripheral smear Will be a difficult treatment option secondary to noncompliance, (3) Decompensated hepatic cirrhosis: Decompensated in setting of Chronic Hepatitis C, ETOH abuse, IVDA presented with vol overload appreciate input from GI with elevated INR 1.3, T bili 1.6, AST 62 NH3 43.6 - no s/sx of hepatic encephalopathy Meld score [address] abdomen /pelvis as above , Aldactone 100 mg daily We will continue with 40 mg IV Lasix with 25% albumin Rocephin 2 g IV daily for SBP prophylaxis Patient is counseled for strict alcohol abstinence (4) Anemia: H/H 5.9 & 19.4 likely in setting of UGIB vs variceal bleed given report of melena, black emesis 1 week ago Status post 4 units of PRBC transfusion Post transfusion hemoglobin marginally improved to 7.47.3 has been stable since No evidence of active GI bleed noted, Appreciate input from GI Protonix drip, octreotide drip discontinued Diet advanced tolerating well No further episode of active GI bleeding noted Scheduled for EGD today canceled for thrombocytopenia Follow H&H (5) Superior mesenteric vein thrombosis: CT abdomen pelvis: 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 Patient is not a anticoagulation candidate secondary to coagulopathy(alcoholic liver disease)/thrombocytopenia/anemia-evidence for bleeding Vascular surgery consulted, appreciate input No indication for vascular surgical intervention at this time (6) Anasarca: pt with multi comorbidities including cirrhosis, hypoalbuminemia in a setting of decompensated cirrhosis CT scan abd/pelvis as above Continue diuresis with Aldactone 100 mg, IV Lasix with albumin daily Echo shows hyperdynamic LV with ejection fraction more than 70%, congestive of intravascular volume depletion (7) HTN (hypertension): blood pressure stable Added on Lasix and Aldactone for Anasarca/Volume overload from decompensated alcoholic liver disease (8) Hypomagnesemia: Replaced, continue to monitor electrolytes (9) Alcohol abuse: Daily ETOH Use No sign of withdrawal AWSS protocol with gabapentin taper-has not required any dose Augmentin discontinued, for concern of sedation Patient is counseled repeatedly by myself and GI team for strict alcohol abstinence in the setting of advanced alcoholic liver disease/cirrhosis (10) Hepatitis C: hx of Hepatitis C/IVDA pt noncompliant with outpatient follow up GI following (11) History of drug use: last used Methamphetamines 3 weeks ago hx of IVDA and cocaine use History of hep C, (12) Tobacco abuse: nicotine patch smoking cessation encouraged (13) DVT prophylaxis: SCD/TEDS no chemical prophlyaxis in setting of thrombocytopenia and GIB concerns DISPOSITION : Will need continued cardiac monitoring as patient has increase risk for hemodynamic compromise and GI bleed due to advanced liver disease /alcoholic cirrosis Follow up: PCP Dr. Moore upon discharge, he will also need appropriate GI follow up and Hematology He needs skilled rehab after discharge to hospital, PT OT evaluation consulted Service consult for discharge plan Subjective EGD canceled today for progressive thrombocytopenia, no improvement after giving 1 unit of platelet transfusion Diet resumed-tolerating well, No fever or chills, Patient denies of any complaint of shortness of breath, no abdominal pain, still have moderate ascites Physical Exam Constitutional: WD/WN, vitals as above + ill appearing Eyes: PERRL, conjunctivae normal, anicteric sclerae ENMT: external ear and nose normal, oropharynx normal Neck: trachea midline Respiratory: normal respiratory effort, lungs clear to auscultation normal respiratory effort; does not use accessory muscles Cardiovascular: RRR, no murmur, no edema Rate/Rhythm: regular rate and regular rhythm Vessels: radial pulses present; + abnormal peripheral pulses Gastrointestinal (Abdomen): Inspection/Auscultation: + abdomen distended (Significantly distended with positive ascites) Percussion/Palpation: + ascites and + abdomen firm; abdomen nontender Musculoskeletal: no cyanosis or clubbing, extremities motor strength 5/5 Skin: + jaundice Neurologic: awake; no focal motor deficits and not confused Motor/Sensory: no asterixis Psychiatric: A+Ox3, euthymic affect Eye Contact: + fair eye contact Lymphatic: + lymphedema (+ 1 pitting edema bilateral LE) Results & Data Vital Signs (Past 12 Hours) Vital Signs Temp Pulse Pulse Resp BP BP BP 06/26/19 15:48 36.7 C 69 18 160/78 H 06/26/19 11:39 36.8 C 94 H 18 150/80 H 06/26/19 11:22 36.8 C 96 H 23 120/89 06/26/19 11:00 36.8 C 94 H 18 155/83 H 06/26/19 10:30 37.0 C 85 18 106/73 06/26/19 10:00 36.8 C 83 18 113/63 06/26/19 09:45 36.8 C 87 18 127/70 06/26/19 09:30 36.8 C 85 18 115/72 06/26/19 07:47 91 H 06/26/19 07:34 36.8 C 85 18 137/76 06/26/19 05:05 92 H 06/26/19 04:40 37.2 C 92 H 20 130/68 Pulse Ox 06/26/19 15:48 95 06/26/19 11:39 96 06/26/19 11:22 97 06/26/19 11:00 96 06/26/19 10:30 98 06/26/19 10:00 98 06/26/19 09:45 96 06/26/19 09:30 95 06/26/19 07:47 06/26/19 07:34 97 06/26/19 05:05 06/26/19 04:40 97 (1) Hepatitis C Hepatic coma status: without hepatic coma Viral hepatitis chronicity: chronic Qualified Code(s): B18.2 - Chronic viral hepatitis C
[2019-06-26] MEDS ORDERED: DiphenhydrAMINE 2%/ZINC 0.1% CREAM 28GM TUBE EXT PRN (18:42)
[2019-06-26] MEDS ORDERED: LORazepam 0.5 MG TAB PO STA (23:28)
[2019-06-27] MEDS ORDERED: GABAPENTIN 600 MG TAB PO SCH
--- NOTE | 2019-06-27 07:25 | Gastroenterology Progress Note ---
Date of Service June 27, 2019 Assessment & Plan (1) Cirrhosis: Mr. Balbuena is a 58 yr old male with HCV/ETOH cirrhosis complicated by ascites, pancytopenia (likely from bone marrow suppression from the cirrhosis). He has a non obstructing celiac artery thrombus. Large volume paracentesis with albumin after. Needs OP hepatology f/u with Dr. Kerns. appt given for August though we are trying to move this up. When pt presents for OP f/u will consider premedication with multiplata then have pt undergo EGD and colonoscopy. If no increased risk of bleeding then could consider anticoagulation. 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 Recommend OP: Diuretics: Furosemide 20 daily, Spironolactone 100 daily. Will need OP CMP in one week to verify continued normal kidney function. Low dose betablocker for prevention of variceal bleding as upper abdomen and esophageal varices were suggested on imaging. BID PPI. No clear indication for antibiotics (no evidence of SBP in diagnostic tap). Present on Admission?: Yes (2) Hepatitis C: Present on Admission?: Yes Supervising Physician Co-Signing Physician Notes Attending attestation I have seen, examined this patient, and agree with the findings and above by our mid-level provider SHA Isidro, with the following additions. -Patient less edematous today, no signs of bleeding. Will need outpatient follow-up arranged. Subjective Mr. Montero is a 58 yr old with ETOH cirrhosis, complicated by pancytopenia, platelets 32, new ascites, nonocclusive thrombus of the superior mesenteric vein. He continues to drink alcohol and is a smoker. In the past, has not followed up for OP management. EGD was planned for anemia and to assess risk for bleeding in light of plans to start anticoagulation/screening for varices. However, EGD was canceled yesterday for progressive thrombocytopenia, no improvement after giving 1 unit of platelets. Today: Hb 5.9 + 4 RBCs ->7.3 today. BUN today 5. Pt up walking around in the room. States wants to do home but requests paracentesis prior. Review of Systems Review of Systems: ROS: Gen: Denies weakness, fevers, weight loss Eyes: No eye redness, or pain, no recent vision changes Resp: Mild, chronic cough or months, no worsening. Cardio: No palpitations/irregular beats, no chest pain GI: Mild abdominal discomfort from ascites, no pain. No nausea/vomiting. BMs are green. : Denies pain on urination, hematuria or dark urine. Skin: No jaundice, itching or new rashes Physical Exam Constitutional: WD/WN, vitals as above Eyes: PERRL, conjunctivae normal, anicteric sclerae ENMT: external ear and nose normal, oropharynx normal Neck: trachea midline, no thyromegaly Respiratory: normal respiratory effort, lungs clear to auscultation Cardiovascular: Rate/Rhythm: regular rate and regular rhythm Heart Sounds: + murmur (2-3/6 systolic) Extremities: + edema (1+ bilateral lower leg edema, improved since admisison) Gastrointestinal (Abdomen): Inspection/Auscultation: + abdomen distended (moderate ascites - similar to time of admission ) Percussion/Palpation: abdomen soft; abdomen nontender Skin: no rashes, warm and dry no jaundice Neurologic: PERRL, EOMI, accommodation nl, no face palsy, no dysarthria Psychiatric: Speech: normal rate/rhythm/volume of speech Lymphatic: no cervical or axillary lymphadenopathy Results & Data Vital Signs (Past 12 Hours) Vital Signs Temp Pulse Pulse Resp BP BP Pulse Ox 06/27/19 04:21 36.6 C 74 18 143/83 H 98 06/27/19 04:13 36.9 C 102 H 18 136/78 97 06/26/19 23:22 37.2 C 94 H 19 137/75 97 06/26/19 23:20 100 H 06/26/19 19:45 37.0 C 97 H 20 125/70 98 Laboratory Results Ascitic fluid analysis: gram stain (-), 188 WBCs, 5% neutrophils, SAAG high: 2.5-0.6 = 1.9. Hb 5.9 + 4 RBCs ->6.6 today BUN 15 today Diagnostic Findings CTA 06/23: 1. Cirrhotic liver disease with splenomegaly and stigmata of portal venous hypertension. 2. Interval development of moderate abdominal pelvic ascites. 3. 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 4. Multifocal wall thickening throughout the colon may be secondary to portal colopathy versus a nonspecific colitis. Correlate clinically. 5. Nonobstructing bilateral nephrolithiasis. 6. Additional findings as above. Abd US 06/23: Scattered ascites seen throughout the abdomen. Paracentesis US 06/24: Successful ultrasound-guided paracentesis with removal of approximately 0.6 liters of ascitic fluid. Medications Administered Cefrtriaxone Pantoprazole 40 po BID (1) Hepatitis C Hepatic coma status: without hepatic coma Viral hepatitis chronicity: chronic Qualified Code(s): B18.2 - Chronic viral hepatitis C
[2019-06-27] MEDS: POTASSIUM CHLORIDE 20 MEQ TABCR PO SCH (08:30)
[2019-06-27] MEDS: PANTOprazole 40 MG TAB PO SCH ×2 (08:30→20:48)
[2019-06-27] MEDS: NICOTINE 14 MG/24 HR PATCH TD SCH (08:30)
[2019-06-27] MEDS: LACTULOSE SYRUP 30 GM/45 ML UDP PO SCH ×3 (08:30→20:48)
[2019-06-27] MEDS: MULTIVITAMIN TAB PO SCH (08:30)
[2019-06-27] MEDS: SPIRONOLACTONE 100 MG TAB PO SCH (08:30)
[2019-06-27] MEDS: FOLIC ACID 1 MG TAB PO SCH (08:30)
[2019-06-27] MEDS: THIAMINE HCL 100 MG TAB PO SCH (08:30)
[2019-06-27] MEDS: cefTRIAXone SODIUM 2,000 MG in DEXTROSE 5% 50 ML IV SCH (08:34)
[2019-06-27] MEDS: MAGNESIUM SULFATE / D5W 1 GM/100 ML BAG IV SCH ×2 (13:42→14:41)
--- NOTE | 2019-06-27 16:11 | Ultrasound Report ---
US paracentesis abd w/image CLINICAL HISTORY: 58 years-old Male with ascites. Cirrhosis with recurrent ascites COMPARISON: Ultrasound-guided paracentesis 06/24/2019 PROCEDURE: The procedure was explained to the patient in the care including the benefits and possible risks/complications. The patient gave verbal understanding and written consent was obtained. A time -out was performed prior to the start of the procedure. The patient was placed on the ultrasound table in the supine position. Using ultrasound guidance, an appropriate procedure site in the right lower abdomen was marked. This area was then prepped and drap ed in the usual sterile fashion. Local anesthesia was achieved within 1% lidocaine. An 8-Maori cente sis catheter was then inserted. Approximately 2.5 liters of clear, yellowish fluid was removed for th erapeutic purposes only. The catheter was removed and external pressure was held to achieve hemostasis. A sterile dressing was applied to the procedure site. The patient tolerated the procedure well without immediate complicati ons. IMPRESSION: Successful ultrasound-guided paracentesis with removal of 2.5 L ascitic fluid. The above report was generated using voice recognition software. It may contain grammatical, syntax o r spelling errors. Electronically signed by: John Marshall M.D. 06/27/2019 4:10 PM
[2019-06-27] MEDS: ALBUMIN 25% 50 ML IV SCH ×2 (16:20→17:43)
[2019-06-27] MEDS ORDERED: ALBUMIN 25% 50 ML IV SCH (17:30)
--- NOTE | 2019-06-27 18:34 | Hospitalist Progress Note ---
Date of Service June 27, 2019 Assessment & Plan (1) Abdominal pain: Symptom has resolved, Repeat paracentesis today with removal of 2.5 L of ascitic fluid Patient is given IV albumin post paracentesis Possible secondary to ascites/anasarca/post paracentesis of 600 mm of ascitic fluid on 06/24 We will repeat another dose of IV Lasix 40 mg with IV albumin in the morning GI following: Input No plan for EGD this admission secondary to thrombocytopenia, increased bleeding risk Meant to add beta-yehuda/and gonadal 40 mg daily added to prevent variceal bleed: As upper abdomen and esophageal varices are suggested in CT abdomen pelvis Continue Protonix 40 mg twice daily Patient will be discharged with Lasix, Aldactone 100 mg daily Outpatient follow-up with pathology scheduled This is a 58-year-old male who has a significant past medical history of chronic hepatitis C, alcohol abuse and dependence with history of withdrawal, pancytopenia, tobacco abuse, hypertension who presents to [facility] ED secondary to shortness of breath and 30 pound weight gain x2 days. Presented with significant ascites/volume overload secondary to decompensated hepatic cirrhosis Not encephalopathic CT abdomen/pelvis ordrered: results reviewed 1. Cirrhotic liver disease with splenomegaly and stigmata of portal venous hypertension. 2. Interval development of moderate abdominal pelvic ascites. 3. 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 Abdomen ultrasound: Showed ascites, but adequate window /ascitic fluid pocket could not be found for safe access for paracenthesis catheter ascitic fluid analysis shows no evidence of SBP IV Rocephin discontinued Discussed with GI Patient will not need to be on antibiotics/rifaximin for SBP prophylaxis (2) Pancytopenia: Possible secondary to hepatitis C/with advanced alcoholic liver disease Peripheral blood film 06/25/2019: Neutropenia noted, differential does show predominance of mature segmented neutrophils without left shift or dysplasia. 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 No pathologic features suggestive of hematologic malignancy noted on peripheral smear Reviewed patient's clinic records in [facility]-referral was made to follow- up with hematology oncology clinic for pancytopenia Patient had numerous no-show Hematology oncology could not reach patient via telephone multiple times, later was sent regarding appointments-patient never replied or reached back Discussed with on-call hematology oncology team regarding patient's CBC, blood count, peripheral smear Will be a difficult treatment option secondary to noncompliance, (3) Decompensated hepatic cirrhosis: Decompensated in setting of Chronic Hepatitis C, ETOH abuse, IVDA presented with vol overload appreciate input from GI with elevated INR 1.3, T bili 1.6, AST 62 NH3 43.6 - no s/sx of hepatic encephalopathy Meld score [address] abdomen /pelvis as above , Aldactone 100 mg daily We will continue with 40 mg IV Lasix with 25% albumin Patient is counseled for strict alcohol abstinence Will be discussed with Lasix, Aldactone, low-dose beta-yehuda for variceal bleeding prophylaxis Will need close follow-up with pathologist as an outpatient (4) Anemia: H/H 5.9 & 19.4 likely in setting of UGIB vs variceal bleed given report of melena, black emesis 1 week ago Status post 4 units of PRBC transfusion Post transfusion hemoglobin marginally improved to 7.47.3 has been stable since No evidence of active GI bleed noted, Appreciate input from GI Protonix drip, octreotide drip discontinued Diet advanced tolerating well No further episode of active GI bleeding noted Continue PPI twice daily (5) Superior mesenteric vein thrombosis: CT abdomen pelvis: 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 Patient is not a anticoagulation candidate secondary to coagulopathy(alcoholic liver disease)/thrombocytopenia/anemia-evidence for bleeding Vascular surgery consulted, appreciate input No indication for vascular surgical intervention at this time (6) Anasarca: pt with multi comorbidities including cirrhosis, hypoalbuminemia in a setting of decompensated cirrhosis CT scan abd/pelvis as above Continue diuresis with Aldactone 100 mg, IV Lasix with albumin daily Echo shows hyperdynamic LV with ejection fraction more than 70%, congestive of intravascular volume depletion (7) HTN (hypertension): blood pressure stable Added on Lasix and Aldactone for Anasarca/Volume overload from decompensated alcoholic liver disease (8) Hypomagnesemia: Replaced, continue to monitor electrolytes (9) Alcohol abuse: Daily ETOH Use No sign of withdrawal AWSS protocol with gabapentin taper-has not required any dose Augmentin discontinued, for concern of sedation Patient is counseled repeatedly by myself and GI team for strict alcohol abstinence in the setting of advanced alcoholic liver disease/cirrhosis (10) Hepatitis C: hx of Hepatitis C/IVDA pt noncompliant with outpatient follow up GI following (11) History of drug use: last used Methamphetamines 3 weeks ago hx of IVDA and cocaine use History of hep C, (12) Tobacco abuse: nicotine patch smoking cessation encouraged (13) DVT prophylaxis: SCD/TEDS no chemical prophlyaxis in setting of thrombocytopenia and GIB concerns DISPOSITION : Follow up: PCP Dr. Moore upon discharge, he will also need appropriate GI follow up and Hematology Patient refuses to go to skilled rehab, wants to return home with home health when medically stable Subjective Status post paracentesis with removal of 2.5 L of ascitic fluid Feels much better today, abdominal less distended Movement of shortness of breath, no orthopnea no dyspnea on exertion No nausea vomiting no cough Tolerating diet well Not have any fever or chills Patient is adamant about not going to any rehab Wants to be discharged home when medically stable Physical Exam Constitutional: WD/WN, vitals as above + ill appearing Eyes: PERRL, conjunctivae normal, anicteric sclerae sclerae not anicteric (Bilateral icteric sclera) ENMT: external ear and nose normal, oropharynx normal Ears: no hearing impairment Neck: trachea midline Respiratory: normal respiratory effort, lungs clear to auscultation does not use accessory muscles Cardiovascular: RRR, no murmur, no edema Rate/Rhythm: regular rate and regular rhythm Vessels: radial pulses present; + abnormal peripheral pulses Gastrointestinal (Abdomen): normal bowel sounds, soft, nontender, no hepatosplenomegaly Percussion/Palpation: + ascites and + abdomen firm; abdomen nontender Musculoskeletal: no cyanosis or clubbing, extremities motor strength 5/5 Skin: no rashes, warm and dry + jaundice Neurologic: awake; no focal motor deficits and not confused Motor/Sensory: no asterixis Psychiatric: A+Ox3, euthymic affect Eye Contact: + fair eye contact Lymphatic: + lymphedema (+ 1 pitting edema bilateral LE) Results & Data Vital Signs (Past 12 Hours) Vital Signs Temp Pulse Pulse Resp BP BP Pulse Ox 06/27/19 16:49 37.1 C 95 H 20 142/74 H 100 06/27/19 14:00 98 H 06/27/19 12:00 36.8 C 90 20 153/74 H 99 06/27/19 10:18 100 H 06/27/19 08:00 37.1 C 98 H 20 122/72 97 (1) Hepatitis C Hepatic coma status: without hepatic coma Viral hepatitis chronicity: chronic Qualified Code(s): B18.2 - Chronic viral hepatitis C
[2019-06-27] MEDS ORDERED: LOPERAMIDE HCL 2 MG CAP PO PRN (18:37)
[2019-06-27] MEDS ORDERED: [UNRECOGNIZED DRUG - OTHER] PO SCH (18:45)
[2019-06-27] MEDS ORDERED: ALBUMIN 25% 50 ML IV ONE (18:45)
[2019-06-27] MEDS ORDERED: FUROSEMIDE 40 MG in SYRINGE 0 ML IV ONE (18:45)
[2019-06-27] MEDS ORDERED: LORazepam 0.5 MG TAB PO STA (21:10)
[2019-06-28 06:02] LABS: Hemoglobin 7.4 g/dL (14.0-18.0); Mean Corpuscular Hemoglobin 28.5 pg (25-34); Mean Corpuscular Hgb Conc 32.2 g/dL (32-36); Mean Corpuscular Volume 88.5 fL (80-100); RDW Coefficient of Variation 16.9 % (11.5-14.5); RDW Standard Deviation 54.1 fL (36.4-46.3); White Blood Count 1.51 K/uL (4.8-10.8)
[2019-06-28 06:45] LABS: Albumin Level 2.3 gm/dl (3.4-5.0); BUN Creatinine Ratio 10.8 (10-20); Calcium 7.8 mg/dl (8.5-10.1); Creatinine Clr Calc Pharmacy 144.1 ml/min; Est GFR (African American) 123.4; Est GFR (Non-African American) 106.5; Magnesium 1.5 mg/dl (1.8-2.4); Potassium 3.6 mmol/L (3.5-5.1)
[2019-06-28 06:48] LABS: Mean Platelet Volume 9.3 fL (7.4-10.4); Platelet Count 33 K/uL (130-400)
[2019-06-28 06:50] LABS: Albumin Globulin Ratio 0.5 (0.9-2); Bilirubin,Total 1.8 mg/dl (0.2-1); Globulin 4.2 gm/dl (2.5-4.0); Total Protein 6.5 gm/dl (6.4-8.2)
[2019-06-28] MEDS: POTASSIUM CHLORIDE 20 MEQ TABCR PO SCH (08:17)
[2019-06-28] MEDS: THIAMINE HCL 100 MG TAB PO SCH (08:17)
[2019-06-28] MEDS: FOLIC ACID 1 MG TAB PO SCH (08:17)
[2019-06-28] MEDS: LACTULOSE SYRUP 30 GM/45 ML UDP PO SCH ×2 (08:17→12:56)
[2019-06-28] MEDS: SPIRONOLACTONE 100 MG TAB PO SCH (08:17)
[2019-06-28] MEDS: NICOTINE 14 MG/24 HR PATCH TD SCH (08:18)
[2019-06-28] MEDS: PANTOprazole 40 MG TAB PO SCH (08:18)
[2019-06-28] MEDS: MULTIVITAMIN TAB PO SCH (08:18)
[2019-06-28] MEDS ORDERED: ALBUMIN 25% 50 ML IV ONE (09:00)
[2019-06-28] MEDS ORDERED: FUROSEMIDE 40 MG in SYRINGE 0 ML IV ONE (09:00)
[2019-06-28] MEDS ORDERED: NADOLOL 40 MG TAB PO SCH (09:00)
[2019-06-28] MEDS ORDERED: MAGNESIUM OXIDE 400 MG TAB PO SCH (09:00)
[2019-06-28] MEDS ORDERED: MAGNESIUM OXIDE 400 MG TAB PO ONE (13:25)
--- NOTE | 2019-06-28 13:26 | Discharge Summary ---
Date of Service June 28, 2019 Admission HPI Per Admitting Provider This is a 58-year-old male who has a significant past medical history of chronic hepatitis C, alcohol abuse and dependence with history of withdrawal, pancytopenia, tobacco abuse, hypertension who presents to [facility] ED secondary to shortness of breath and 30 pound weight gain x2 days. Patient has been unwell over the past 1 week. Approximately 1 week ago he developed nausea, vomiting and diarrhea that lasted 2 days. His vomiting was black in nature and diarrhea was dark and tarry. Symptoms resolved mostly after 2 days. Significant decreased appetite during that time, but this has since resolved. Since then he has been experiencing significant lower extremity, scrotal and abdominal swelling. Further complains of shortness of breath at rest and with exertion secondary to the swelling. Over the past 2 days he noticed a 30 pound weight gain. Baseline weight is 178, and states this morning he was 208. Complains of significant diffuse abdominal pain, 5/10 at rest, 8/10 with movement, worse with walking, touch, improved with rest. States he has to shuffle his gait because of pain. Complains of significant scrotal swelling, "I can't see my penis." Denies any recent fever, but is always chilled. Denies any lightheadedness, dizziness, syncope, chest pain, hemoptysis, cough, current nausea, vomiting, diarrhea. Over the past 5 days he has been having intermittent constipation and diarrhea, but stool is normal color. He has been taking magnesium citrate or Imodium based on symptoms. Complains of decreased urinary output, but denies dysuria, hematuria, increased urgency with urination. He has not been compliant with medical follow-up with GI or PCP. Last hospitalized October/2018 secondary to alcohol withdrawal. During the hospitalization he was noted to be pancytopenic and was referred to outpatient heme/onc evaluation. He did not follow through with this. Currently has not been taking any medications, including his prescribed lisinopril. Has been complaining of intermittent epistaxis. Principal Diagnosis Alcoholic Liver Disease/Anemia/Volume Overload Ascites(fluid in the abdomen) - Secondary to Cirrhosis of Liver Discharge Exam Constitutional WD/WN, vitals as above + ill appearing Eyes PERRL, conjunctivae normal, anicteric sclerae sclerae not anicteric (Bilateral icteric sclera) ENMT external ear and nose normal, oropharynx normal Ears: no hearing impairment Neck trachea midline Respiratory normal respiratory effort, lungs clear to auscultation does not use accessory muscles Auscultation: + wheezes (fine expiratory wheezing) Cardiovascular RRR, no murmur, no edema Rate/Rhythm: regular rate and regular rhythm Vessels: radial pulses present; + abnormal peripheral pulses Gastrointestinal (Abdomen) normal bowel sounds, soft, nontender, no hepatosplenomegaly Inspection/Auscultation: + abdomen distended (Significantly distended with positive ascites) Percussion/Palpation: + ascites and + abdomen firm; abdomen nontender Musculoskeletal no cyanosis or clubbing, extremities motor strength 5/5 Skin no rashes, warm and dry + jaundice Neurologic awake; no focal motor deficits and not confused Motor/Sensory: no asterixis Psychiatric A+Ox3, euthymic affect Eye Contact: + fair eye contact Lymphatic + lymphedema (+ 1 pitting edema bilateral LE) Discharge Data Allergies Allergy/AdvReac Type Severity Reaction Status Date / Time No Known Allergies Allergy Unverified 06/23/19 08:08 Consultations 06/23/19 09:02 ED Decision to Admit Stat 06/23/19 12:01 Consult Case Management - Discharge Planning Routine Consult Gastroenterology Routine 06/23/19 15:10 Consult Vascular Surgery Routine 06/24/19 11:28 Consult General Surgery Routine 06/25/19 09:11 Consult Hematology Routine Procedures Performed Operation Date: 06/26/19 08:30 <No data on this case meets the specified criteria> Ordered Studies 06/23/19 09:53 CT abd pelvis IV con only Stat 06/23/19 12:24 US abdomen ltd ascites Routine 06/24/19 13:11 US paracentesis abd w/image Routine 06/27/19 14:35 US paracentesis abd w/image Routine Hospital Course (1) Abdominal pain: Symptom has resolved, Repeat paracentesis today with removal of 2.5 L of ascitic fluid Patient is given IV albumin post paracentesis Presents with volume overload/anasarca/tense ascites possible secondary to ascites/anasarca/post paracentesis of 600 mm of ascitic fluid on 06/24 GI following: Input No plan for EGD this admission secondary to thrombocytopenia, increased bleeding risk beta-yehuda/Nadolol 40 mg daily added to prevent variceal bleed: As upper abdomen and esophageal varices are suggested in CT abdomen pelvis Continue Protonix 40 mg twice daily Patient will be discharged with Lasix, Aldactone 100 mg daily Outpatient follow-up with pathology scheduled This is a 58-year-old male who has a significant past medical history of chronic hepatitis C, alcohol abuse and dependence with history of withdrawal, pancytopenia, tobacco abuse, hypertension who presents to [facility] ED secondary to shortness of breath and 30 pound weight gain x2 days. Presented with significant ascites/volume overload secondary to decompensated hepatic cirrhosis Not encephalopathic CT abdomen/pelvis ordrered: results reviewed 1. Cirrhotic liver disease with splenomegaly and stigmata of portal venous hypertension. 2. Interval development of moderate abdominal pelvic ascites. 3. 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 Abdomen ultrasound: Showed ascites, but adequate window /ascitic fluid pocket could not be found for safe access for paracenthesis catheter ascitic fluid analysis shows no evidence of SBP IV Rocephin discontinued Discussed with GI Patient will not need to be on antibiotics/rifaximin for SBP prophylaxis (2) Pancytopenia: Possible secondary to hepatitis C/with advanced alcoholic liver disease Peripheral blood film 06/25/2019: Neutropenia noted, differential does show predominance of mature segmented neutrophils without left shift or dysplasia. 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 No pathologic features suggestive of hematologic malignancy noted on peripheral smear Reviewed patient's clinic records in [facility]-referral was made to follow- up with hematology oncology clinic for pancytopenia Patient had numerous no-show Hematology oncology could not reach patient via telephone multiple times, later was sent regarding appointments-patient never replied or reached back Discussed with on-call hematology oncology team regarding patient's CBC, blood count, peripheral smear Will be a difficult treatment option secondary to noncompliance, Stable to be discharged home today, patient is advised to avoid aspirin, NSAIDs, for bleeding risk Outpatient lab work CBC in 1 week (3) Decompensated hepatic cirrhosis: Decompensated in setting of Chronic Hepatitis C, ETOH abuse, IVDA presented with vol overload appreciate input from GI with elevated INR 1.3, T bili 1.6, AST 62 NH3 43.6 - no s/sx of hepatic encephalopathy Meld score [address] abdomen /pelvis as above , And is discharged home today with Aldactone 100 mg daily/Lasix 40 mg daily Patient is counseled for strict alcohol abstinence Will be discussed with Lasix, Aldactone, low-dose beta-yehuda for variceal bleeding prophylaxis Will need close follow-up with pathologist as an outpatient (4) Anemia: H/H 5.9 & 19.4 likely in setting of UGIB vs variceal bleed given report of melena, black emesis 1 week ago Status post 4 units of PRBC transfusion Post transfusion hemoglobin marginally improved to 7.47.3 has been stable since No evidence of active GI bleed noted, Appreciate input from GI Protonix drip, octreotide drip discontinued Diet advanced tolerating well No further episode of active GI bleeding noted Continue PPI twice daily (5) Superior mesenteric vein thrombosis: CT abdomen pelvis: 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 Patient is not a anticoagulation candidate secondary to coagulopathy(alcoholic liver disease)/thrombocytopenia/anemia-evidence for bleeding Vascular surgery consulted, appreciate input No indication for vascular surgical intervention at this time (6) Anasarca: pt with multi comorbidities including cirrhosis, hypoalbuminemia in a setting of decompensated cirrhosis CT scan abd/pelvis as above Continue diuresis with Aldactone 100 mg, 640 mg daily Echo shows hyperdynamic LV with ejection fraction more than 70%, congestive of intravascular volume depletion (7) HTN (hypertension): blood pressure stable Added on Lasix and Aldactone for Anasarca/Volume overload from decompensated alcoholic liver disease (8) Hypomagnesemia: Replaced, continue to monitor electrolytes (9) Alcohol abuse: Daily ETOH Use No sign of withdrawal AWSS protocol with gabapentin taper-has not required any dose Augmentin discontinued, for concern of sedation Patient is counseled repeatedly by myself and GI team for strict alcohol abstinence in the setting of advanced alcoholic liver disease/cirrhosis (10) Hepatitis C: hx of Hepatitis C/IVDA pt noncompliant with outpatient follow up GI following (11) History of drug use: last used Methamphetamines 3 weeks ago hx of IVDA and cocaine use History of hep C, (12) Tobacco abuse: nicotine patch smoking cessation encouraged (13) DVT prophylaxis: SCD/TEDS no chemical prophlyaxis in setting of thrombocytopenia and GIB concerns DISPOSITION : Follow up: PCP Dr. Moore upon discharge, he will also need appropriate GI follow up and Hematology Patient refuses to go to skilled rehab, wants to return home with home health Patient is stable to be discharged home today Total Time Total Time Spent Total Time Spent (In Minutes): Approximately 45 minutes Total Time Includes: Examination of the Patient, Discharge Planning and Medication Reconciliation Discharge Plan Discharge Items Patient Disposition: Home - Home Health Services Reason For Visit: UGIB, DECOMPENSATED CIRRHOSIS Discharge Diagnosis: Alcoholic Liver Disease/Anemia/Volume Overload Ascites(fluid in the abdomen) - Secondary to Cirrhosis of Liver Activity: Resume your previous activity Non-emergency contact: Primary Care Provider Call non-emergency contact if: you have any medication questions Follow-up/Referrals: Lew Soriano [Physician] - (Follow-up with metal grinder in 2-3 weeks) Harrison Moore MD [Primary Care Provider] - (HOSPITAL FOLLOW UP WITH DR MOORE IN A WEEK , OFFICE WILL CALL WITH APPOINTMENT ) Diet: Low Sodium (2gm) Ambulatory Orders: Complete Blood Count no Diff (Routine) Timeframe: 1 Week Location: Determined by Patient Ordered By: Jamee Boyle Comprehensive Metabolic Panel (Routine) Timeframe: 1 Day Location: Determined by Patient Ordered By: Jamee Boyle Prothrombin Time INR (Routine) Timeframe: 1 Week Location: Determined by Patient Ordered By: Jamee Boyle Addtl Attending Provider Instructions: You have very advanced liver disease for prolonged alcohol abuse/hepatitis C -Causing you to decrease all your blood cell counts-put you at risk for increased bleeding/infection due to immunocompromised status It is very important for you to completely quit drinking alcohol Complete abstinence-to preserve remaining liver function Avoid sodium in your diet: Will cause worsening of your abdominal swelling, lower extremity swelling Is very important for you to follow-up with gastroenterology/leasing assistant(liver specialist) for further management of your liver failure Do not take aspirin-will cause you to have increased bleeding risk Not to take Advil Aleve/ibuprofen/Motrin/meloxicam/naproxen-cause you to have gastric ulcer, bleeding renal failure Pending Studies at Discharge: Yes Studies:: Lab work: Complete blood count in 1 week Comprehensive metabolic panel: Includes your chemistry and liver function test in 1 week Anticoagulation profile in 1 week to assess for your bleeding risk Is very important for you to quit smoking to prevent further lungs complication- COPD/coronary artery disease-heart attack New medications: 1. Lasix 40 mg by mouth daily: Water pill to reduce disposition of your abdomen, lower extremity swelling 2. Potassium tablet 20 M EQ daily 3. Lactulose 30 mL by mouth 3 times daily-adjust dose to have 23 soft bowel movement a day(prevents you to have toxic chemicals/ammonia buildup-which can cause confusion/coma -1 of the serious symptom of worsening of liver function/liver failure 4. Nadolol 40 mg 1 tablet daily-for high blood pressure/prevention of GI bleed 5. Protonix 40 mg 1 tablet twice daily-for acid reflux/prevention of gastric ulcer, GI bleed 6. Aldactone 100 mg 1 tablet daily-WATER PILL -to reduce abdominal and lower extremity swelling 7. Nicotine patch, apply daily Stand-Alone Forms: My [facility] [employer], Smoking Cessation Medications and DC Order Prescriptions: New spironolactone 100 mg Tablet 100 mg PO QAM 30 Days Qty: 30 RF: 0 pantoprazole 40 mg Tablet,Delayed Release (Dr/Ec) 40 mg PO BID 30 Days Qty: 60 RF: 0 nadolol 40 mg Tablet 40 mg PO QAM 30 Days Qty: 30 RF: 0 nicotine 7 mg/24 hr Patch 24 Hour 14 mg transdermal QAM 30 Days Qty: 30 RF: 0 lactulose 20 gram/30 mL Solution 30 ml PO TID 30 Days Qty: 2700 RF: 0 furosemide [Lasix] 40 mg tablet 40 mg PO DAILY Qty: 30 RF: 3 potassium chloride 20 mEq tablet extended release 20 meq PO DAILY Qty: 30 RF: 3 Continued multivitamin [Daily-Liliana] tablet 1 tab PO DAILY RF: 0 loperamide [Imodium A-D] 2 mg Capsule 2 mg PO Q3H PRN (Reason: Diarrhea) RF: 0 thiamine HCl (vitamin B1) [Vitamin B-1] 100 mg tablet 100 mg PO DAILY RF: 0 magnesium oxide 400 mg (241.3 mg magnesium) tablet 400 mg PO DAILY RF: 0 folic acid 1 mg tablet 1 mg PO DAILY RF: 0 Discontinued magnesium citrate Solution PO DAILY PRN (Reason: Constipation) RF: 0 lisinopril 2.5 mg tablet 2.5 mg PO DAILY RF: 0 Diurex 162.5-50 mg Tablet 2 tab PO Q6H RF: 0 Discharge Orders: Discharge Order (Routine); Ordered 06/28/19 Ordered By: Jamee Boyle Admission Data Admit Date/Time: 06/23/19 10:23 Attending Provider: Jamee Boyle Admit Provider: Claudia Nunez Primary Care Provider: Harrison Moore Other Providers: Lew Soriano ; Hi Sharp ; Kameron Douglas Eugene J ; Gali Lou I. Other Interventions: Discharge Summary Assessment (RN) Last Done: 06/28/19 13:41 DC Date/Time DO NOT enter until pt leaves facility: 06/28/19 14:08
[2019-06-28] MEDS ORDERED: MAGNESIUM SULFATE / D5W 1 GM/100 ML BAG IV ONE (13:33)
== END 2019-06-28 14:08 | disposition home health service (06) | DRG 432 ==
LOC: ED 07:29 → SUATTDRO 10:23 → 2S 10:23 → 2N 06-25 16:17

== ENCOUNTER 2020-06-20 09:41 | Inpatient (IN) ==
[2020-06-20] MEDS ORDERED: FUROSEMIDE 40 MG/4 ML VIAL IV STA (09:56)
[2020-06-20 10:51] LABS: Appearance Urine Cloudy (Clear); Bacteria Urine Automated Negative (Negative); Bilirubin Urine Negative (Negative); Blood Urine Negative (Negative); Color Urine Yellow; Epithelial Cell Urine Auto 0-5 /lpf (0-5); Glucose Urine UA Negative (Negative); Ketones Urine Negative (Negative); Leukocyte Esterase Urine Negative (Negative); Nitrite Urine Negative (Negative); Protein Urine Negative (Negative); RBC Urine Automated 0-4 /hpf (0-4); Specific Gravity Urine 1.008 (1.000-1.030); Urobilinogen Urine Negative (Negative); WBC Urine Automated 0 /hpf (0-5); pH Urine 7.5 (4.5-7.5)
[2020-06-20 10:52] LABS: INR 1.3 (0.9-1.1); Partial Thromboplastin Time 26.8 Seconds (21.0-31.0); Prothrombin Time 13.4 Seconds (9.0-12.0)
[2020-06-20 10:57] LABS: Alanine Aminotransferase 44 U/L (12-78); Albumin Level 2.3 gm/dl (3.4-5.0); Aspartate Aminotransferase 82 U/L (15-37); BUN Creatinine Ratio 13.3 (10-20); Blood Urea Nitrogen 7 mg/dl (7-18); Calcium 7.8 mg/dl (8.5-10.1); Carbon Dioxide 32 mmol/L (21-32); Chloride 99 mmol/L (98-107); Creatinine Clr Calc Pharmacy 161.1 ml/min; Est GFR (African American) 132.3; Est GFR (Non-African American) 114.1; Glucose 125 mg/dl (70-99); Magnesium 1.5 mg/dl (1.8-2.4); Potassium 2.5 mmol/L (3.5-5.1); Sodium 137 mmol/L (136-145)
[2020-06-20 11:00] LABS: Albumin Globulin Ratio 0.4 (0.9-2); Alkaline Phosphatase 143 U/L (45-117); Bilirubin,Total 1.7 mg/dl (0.2-1); Globulin 5.3 gm/dl (2.5-4.0); Total Protein 7.6 gm/dl (6.4-8.2); Troponin I < 0.015 ng/ml (0-0.045)
[2020-06-20 11:02] LABS: Anisocytosis Present; Basophils # (auto) 0.01 K/uL (0-0.2); Basophils % (auto) 0.5 %; Eosinophils # (auto) 0.07 K/uL (0-0.5); Eosinophils % (auto) 3.3 %; Hemoglobin 7.7 g/dL (14.0-18.0); Lymphocytes # (auto) 0.44 K/uL (1.2-3.4); Lymphocytes % (auto) 20.6 %; Mean Corpuscular Hemoglobin 30.4 pg (25-34); Mean Corpuscular Hgb Conc 32.1 g/dL (32-36); Mean Corpuscular Volume 94.9 fL (80-100); Mean Platelet Volume 9.2 fL (7.4-10.4); Monocytes # (auto) 0.53 K/uL (0.11-0.59); Monocytes % (auto) 24.8 %; Neutrophils # (auto) 1.09 K/uL (1.4-6.5); Neutrophils % (auto) 50.8 %; Platelet Count 52 K/uL (130-400); Platelet Estimate Decreased (Normal); Polychromasia 1+; RDW Coefficient of Variation 17.7 % (11.5-14.5); RDW Standard Deviation 61.4 fL (36.4-46.3); Red Blood Count 2.53 M/uL (4.7-6.1); White Blood Count 2.14 K/uL (4.8-10.8)
--- NOTE | 2020-06-20 11:09 | XRay Report ---
XR chest 1V portable HISTORY: Dyspnea COMPARISON: Chest 06/25/2019. FINDINGS: There are low lung volumes. No pneumothorax. No pleural effusions. Suture material within t he left lung apex is again noted. The heart remains stable in size. No new focal lung consolidations to suggest pneumonia. No evidence for pulmonary edema. IMPRESSION: No significant change compared to the prior study. No acute process. ACT 112: Negative or not required by law. Electronically signed by: Paul Fox M.D. 06/20/2020 11:08 AM
[2020-06-20] MEDS: POTASSIUM CHLORIDE / WTR 10 MEQ/100 ML PLCT IV SCH ×2 (11:32→12:46)
[2020-06-20] MEDS: MAGNESIUM SULFATE / D5W 1 GM/100 ML BAG IV SCH ×3 (11:46→22:31)
--- NOTE | 2020-06-20 13:12 | History & Physical Report ---
Date of Service June 20, 2020 Assessment & Plan (1) Ascites: Admission and Anticipated Discharge Date Admission Date: 59-year-old male with history of liver cirrhosis with portal hypertension bicytopenia, chronic hepatitis C, alcoholism, smoker Presenting with abdominal distention and weight gain of 30 pounds x 3 days. Ascites history of liver cirrhosis with portal hypertension and pancytopenia Patient missed his diuretics for the past week due to problems with feeling his medicines with the pharmacy Usually on Lasix 40 mg daily, spironolactone 100 mg daily Start Lasix 40 mg IV twice a day, resume usual spironolactone 100 mg daily Magnesium and potassium replacement noted below Paracentesis scheduled for tomorrow-5 L, with albumin 5% 50 mg 1 hour before, and 1 hour after GI service consulted, discussed case with Dr. Danilo Holcomb Pancytopenia Currently patient's WBC, hemoglobin, platelet count seems to be at baseline ANC is 1500, neutropenic precautions Hypokalemia and hypomagnesemia Likely secondary to alcoholism Replace with IV potassium and magnesium Repeat at 4 PM Possible Covid exposure Covid screen Alcoholism Last drink was last night Alcohol level 111 Start alcohol withdrawal protocol, with as needed Ativan start Gabapentin taper tomorrow Smoker Nicotine patch ordered Nebs q6h DVT prophylaxis SCDs for now given history of portal hypertension, GI bleed CODE STATUS Full code per patient Disposition Patient lives in an apartment Plan of care discussed with patient in detail at length All questions were answered He is understanding, agreeable, comfortable with the plan of care Juno Marrero MD History of Present Illness 59-year-old male with history of liver cirrhosis with portal hypertension, pancytopenia, chronic hepatitis C, alcoholism, smoking Presenting with abdominal distention and weight gain times few days. Patient follows with [facility] gastroenterology clinic and is usually on Lasix 40 mg daily, spironolactone 1 mg daily with potassium and magnesium supplementation. Since last week, the patient had problems filling his medications including his diuretics. Patient noted progressive abdominal distention for the past few days and has gained 30 pounds within the past few days based on his daily weights. Denies confusion, excessive sleeping, abdominal pain, nausea vomiting, problems with urination or bowel movement. Because of increasing abdominal distention and 30 pound weight gain, patient proceeded to the ER for evaluation. At the ER, patient was received with stable vital signs, saturating well on room air. Potassium noted to be 2.5 and magnesium 1.5 and was given IV potassium and magnesium. On exam patient seen sitting up in bed, comfortable, not in distress, cheerful, speaking sentences with no accessory muscle use or effort. He is saturating 97% on room air. Reports mild dyspnea, which he attributes to the abdominal distention. He adds that there was a person who tested positive for COVID-19 in his apartment building, and that he has been feeling occasional subjective fevers, and some body aches for the past 3 days. Denies other symptoms Admits to drinking 2-3 bottles of beer about 2-3 times per week. Last drink was last night. He also admits to smoking 6 cigarettes/day. Denies illicit drug use. Primary Care Provider: Harrison Moore MD Allergies Allergy/AdvReac Type Severity Reaction Status Date / Time No Known Allergies Allergy Unverified 06/20/20 11:11 Home Medications Home Medications Medication Instructions Recorded Confirmed Type folic acid 1 mg PO QAM 06/23/19 06/20/20 History loperamide [Imodium A-D] 2 mg PO Q3H PRN 06/23/19 06/20/20 History magnesium oxide 400 mg PO QAM 06/23/19 06/20/20 History multivitamin [Daily-Liliana] 1 tab PO QAM 06/23/19 06/20/20 History cyanocobalamin (vitamin B-12) 1,000 mcg PO QAM 06/20/20 06/20/20 History [Vitamin B-12] furosemide [Lasix] 40 mg PO QAM 06/20/20 06/20/20 History nadolol 40 mg PO QAM 06/20/20 06/20/20 History pantoprazole 40 mg PO QAM 06/20/20 06/20/20 History potassium chloride 20 meq PO QAM 06/20/20 06/20/20 History spironolactone 100 mg PO QAM 06/20/20 06/20/20 History Past Med/Surg History Medical History (Updated 06/20/20 @ 13:06 by Juno Marrero MD) Alcohol abuse Cirrhosis Hepatitis C HTN (hypertension) Hypomagnesemia Pancytopenia Thrombocytopenia Tobacco abuse Surgical History History of chest tube placement History of ganglion cyst History of vasectomy Family History Brother HIV (human immunodeficiency virus infection) Brother Homicide Social History Smoking Status: Light tobacco smoker Cigarettes Per Day: 5; Second Hand Exposure: No; Do You Dip or Chew Tobacco: No; Tobacco Cessation Education Requested by Patient: No Hx Alcohol Use: Yes Alcohol type: beer and hard liquor Hx Substance Use: Yes Last Used Substance: Unknown Last Used Substance Other:: 2 yrs ago Preferred Language: Sami Communication Ability: Effective Director Microbiology Required: No Beliefs That Will Affect Care: None marital status: Single Current Living Situation: Other Current Living Situation Comment: 2 roommates Other Information That Helps Us Care for You: No Feels Safe at Home: Yes Safety Concerns: Feels Safe At This Time Assistive Devices: Glasses Review of Systems Review of Systems: All systems reviewed & are unremarkable except as noted in Subjective Physical Exam Physical Exam: General- oriented x 3, not in distress, speaks in sentences with no effort or accessory muscle use Head- atraumatic Eyes- PERRL, EOMI, anicteric ENT- oropharynx clear Neck- supple, no JVD, no adenopathy, no thyromegaly; carotids +2/2, no bruits appreciated Lungs-mild scattered wheeze bilaterally, but with good air entry bilaterally, no crackles Heart- normal rate, regular rhythm; no murmur, no gallop, no rub appreciated Abdomen- normal bowel sounds, distended with significant ascites, but not tense, soft, nontender, no masses or hepatosplenomegaly Extremities- no pretibial edema, no calf tenderness; peripheral pulses intact Neuro- alert, oriented x 3; CN 2-12 grossly intact; motor 5/5 bilaterally;sensation 100% on all extremities; no other gross focal neurologic deficits Skin- warm & dry Results & Data Results & Data ([facility]) Vital Signs (Past 12 Hours) Vital Signs Temp Pulse Resp BP BP Pulse Ox 06/20/20 11:53 97 06/20/20 11:30 134/68 94 06/20/20 11:20 103 H 23 06/20/20 11:10 104 H 26 H 06/20/20 11:00 107 H 17 96 06/20/20 10:50 105 H 22 95 06/20/20 10:40 106 H 20 96 06/20/20 10:30 109 H 20 94 06/20/20 10:20 108 H 21 96 06/20/20 10:10 109 H 23 95 06/20/20 10:00 108 H 18 96 06/20/20 09:55 111 H 21 97 06/20/20 09:46 36.7 C 111 H 23 160/88 H 97 Laboratory Results Laboratory Results - last 24 hr 06/20/20 06/20/20 06/20/20 10:10 10:10 10:10 WBC 2.14 L RBC 2.53 L Hgb 7.7 L Hct 24.0 L MCV 94.9 MCH 30.4 MCHC 32.1 RDW Std Deviation 61.4 H RDW Coeff of Jarrell 17.7 H Plt Count 52 L MPV 9.2 Immature Gran % (Auto) 0.0 Neut % (Auto) 50.8 Lymph % (Auto) 20.6 [place] % (Auto) 24.8 Eos % (Auto) 3.3 Baso % (Auto) 0.5 Neut # (Auto) 1.09 L Lymph # (Auto) 0.44 L [place] # (Auto) 0.53 Eos # (Auto) 0.07 Baso # (Auto) 0.01 Immature Gran # (Auto) 0.00 Platelet Estimate Decreased L Polychromasia 1+ Anisocytosis Present PT 13.4 H INR 1.3 H APTT 26.8 PTT Ratio 1.0 Sodium 137 Potassium 2.5 L* Chloride 99 Carbon Dioxide 32 Anion Gap 5.0 BUN 7 Creatinine 0.54 L Est Cr Clr Drug Dosing 161.1 Est GFR ( Amer) 132.3 Est GFR (Non-Af Amer) 114.1 BUN/Creatinine Ratio 13.3 Glucose 125 H Lactate Calcium 7.8 L Magnesium 1.5 L Total Bilirubin 1.7 H AST 82 H ALT 44 Alkaline Phosphatase 143 H Troponin I < 0.015 Total Protein 7.6 Albumin 2.3 L Globulin 5.3 H Albumin/Globulin Ratio 0.4 L Urine Color Urine Appearance Urine pH Ur Specific [place] Urine Protein Urine Glucose (UA) Urine Ketones Urine Blood Urine Nitrite Urine Bilirubin Urine Urobilinogen Ur Leukocyte Esterase Urine WBC (Auto) Urine RBC (Auto) U Hyaline Cast (Auto) U Epithel Cells (Auto) Urine Bacteria (Auto) Ethyl Alcohol mg/dL 06/20/20 06/20/20 06/20/20 10:18 10:39 11:42 WBC RBC Hgb Hct MCV MCH MCHC RDW Std Deviation RDW Coeff of Jarrell Plt Count MPV Immature Gran % (Auto) Neut % (Auto) Lymph % (Auto) [place] % (Auto) Eos % (Auto) Baso % (Auto) Neut # (Auto) Lymph # (Auto) [place] # (Auto) Eos # (Auto) Baso # (Auto) Immature Gran # (Auto) Platelet Estimate Polychromasia Anisocytosis PT INR APTT PTT Ratio Sodium Potassium Chloride Carbon Dioxide Anion Gap BUN Creatinine Est Cr Clr Drug Dosing Est GFR ( Amer) Est GFR (Non-Af Amer) BUN/Creatinine Ratio Glucose Lactate 1.9 Calcium Magnesium Total Bilirubin AST ALT Alkaline Phosphatase Troponin I Total Protein Albumin Globulin Albumin/Globulin Ratio Urine Color Yellow Urine Appearance Cloudy A Urine pH 7.5 Ur Specific [place] 1.008 Urine Protein Negative Urine Glucose (UA) Negative Urine Ketones Negative Urine Blood Negative Urine Nitrite Negative Urine Bilirubin Negative Urine Urobilinogen Negative Ur Leukocyte Esterase Negative Urine WBC (Auto) 0 Urine RBC (Auto) 0-4 U Hyaline Cast (Auto) 1-5 U Epithel Cells (Auto) 0-5 Urine Bacteria (Auto) Negative Ethyl Alcohol mg/dL 111.0 H Code Status & VTE Plan Code Status Full code as per patient VTE Prophylaxis Plan VTE Prophylaxis will be ordered: Yes
--- NOTE | 2020-06-20 15:25 | Emergency Department Note ---
History of Present Illness General Chief complaint: Shortness of Breath/Dyspnea Stated complaint: sob Time Seen by Provider: 06/20/20 09:43 Source: patient and EMS Mode of arrival: ambulatory Limitations: no limitations History of Present Illness Provider complaint: Shortness of breath, weight gain Maximum Pain Intensity: 5 This patient is a 59-year-old male who presents to the emergency department with complaints of increasing abdominal girth, fluid retention. Patient states he has a history of liver failure and has not had his diuretics or other medicines for about 6 days. He states he called his primary care physician for refills but has not heard back. The patient states he "had a moura beer today" but did not have any significant alcohol intake otherwise. He states it is becoming hard to breathe. He thinks he may have had a fever but has not checked his temperature. He denies any sweats or chills. Patient denies any vomiting or bleeding from the rectum. Patient denies cough. Patient states he follows with [facility] gastro[facility]ology. Home Medications Home Medications Medication Instructions Recorded Confirmed Type loperamide [Imodium A-D] 2 mg PO Q3H PRN 06/23/19 06/20/20 History multivitamin [Daily-Liliana] 1 tab PO QAM 06/23/19 06/20/20 History cyanocobalamin (vitamin B-12) 1,000 mcg PO QAM 06/20/20 06/20/20 History [Vitamin B-12] doxycycline hyclate 100 mg PO BID #14 cap 06/22/20 Rx folic acid 1 mg PO QAM #30 tab 06/22/20 Rx furosemide [Lasix] 40 mg PO QAM #30 tab 06/22/20 Rx magnesium oxide 400 mg PO QAM #60 tab 06/22/20 Rx nadolol 40 mg PO QAM #30 tab 06/22/20 Rx pantoprazole 40 mg PO QAM #30 tab 06/22/20 Rx potassium chloride 20 meq PO DAILY #30 tab 06/22/20 Rx spironolactone 100 mg PO QAM #30 tab 06/22/20 Rx Allergies Allergy/AdvReac Type Severity Reaction Status Date / Time No Known Allergies Allergy Unverified 06/20/20 11:11 Past Med/Surg History Medical History Alcohol abuse Cirrhosis Hepatitis C HTN (hypertension) Hypomagnesemia Pancytopenia Thrombocytopenia Tobacco abuse Surgical History History of chest tube placement History of ganglion cyst History of vasectomy Family History Brother HIV (human immunodeficiency virus infection) Brother Homicide Social History Smoking Status: Light tobacco smoker Cigarettes Per Day: 5; Second Hand Exposure: No; Do You Dip or Chew Tobacco: No; Tobacco Cessation Education Requested by Patient: No Hx Alcohol Use: Yes Alcohol type: beer and hard liquor Hx Substance Use: Yes Last Used Substance: Unknown Last Used Substance Other:: 2 yrs ago Preferred Language: Slovenian Communication Ability: Effective Director Dietetics Department Required: No Beliefs That Will Affect Care: None marital status: Single Current Living Situation: Other Current Living Situation Comment: 2 roommates Other Information That Helps Us Care for You: No Feels Safe at Home: Yes Safety Concerns: Feels Safe At This Time Assistive Devices: None Review of Systems See HPI for pertinent positives & negatives. and A total of 10 systems reviewed and were otherwise negative Physical Exam Vital Signs Vital Signs - 24 hr 06/20/20 09:46 06/20/20 09:55 06/20/20 10:00 Temperature 36.7 C Temperature Source Oral Pulse Rate 111 H 111 H 108 H Pulse Rate from SpO2 Sensor 113 H 111 H 108 H Pulse Rhythm Regular Pulse Strength Normal Respiratory Rate 23 21 18 Respiratory Effort / Characteristics Grunting Short of Breath SOB on Exertion Respiratory Depth Shallow Respiratory Pattern Grunting Blood Pressure 160/88 H Blood Pressure [Right Arm] Blood Pressure Mean 94 Blood Pressure Mean [Right Arm] Blood Pressure Position Sitting Blood Pressure Position [Right Arm] Pulse Oximetry 97 97 96 Oxygen Delivery Method Room Air Oxygen Flow Rate 98 Sepsis Recent Fever Within 48 Hours No Sepsis New/Unexplained Change in Mental Status No Sepsis Action Taken by Nursing No Action Required 06/20/20 10:10 06/20/20 10:20 06/20/20 10:30 Temperature Temperature Source Pulse Rate 109 H 108 H 109 H Pulse Rate from SpO2 Sensor 109 H 108 H 109 H Pulse Rhythm Pulse Strength Respiratory Rate 23 21 20 Respiratory Effort / Characteristics Respiratory Depth Respiratory Pattern Blood Pressure Blood Pressure [Right Arm] Blood Pressure Mean Blood Pressure Mean [Right Arm] Blood Pressure Position Blood Pressure Position [Right Arm] Pulse Oximetry 95 96 94 Oxygen Delivery Method Oxygen Flow Rate Sepsis Recent Fever Within 48 Hours Sepsis New/Unexplained Change in Mental Status Sepsis Action Taken by Nursing 06/20/20 10:40 06/20/20 10:50 06/20/20 11:00 Temperature Temperature Source Pulse Rate 106 H 105 H 107 H Pulse Rate from SpO2 Sensor 106 H 106 H 106 H Pulse Rhythm Pulse Strength Respiratory Rate 20 22 17 Respiratory Effort / Characteristics Respiratory Depth Respiratory Pattern Blood Pressure Blood Pressure [Right Arm] Blood Pressure Mean Blood Pressure Mean [Right Arm] Blood Pressure Position Blood Pressure Position [Right Arm] Pulse Oximetry 96 95 96 Oxygen Delivery Method Oxygen Flow Rate Sepsis Recent Fever Within 48 Hours Sepsis New/Unexplained Change in Mental Status Sepsis Action Taken by Nursing 06/20/20 11:10 06/20/20 11:20 06/20/20 11:29 Temperature Temperature Source Pulse Rate 104 H 103 H 109 H Pulse Rate from SpO2 Sensor 109 H Pulse Rhythm Pulse Strength Respiratory Rate 26 H 23 16 Respiratory Effort / Characteristics Respiratory Depth Respiratory Pattern Blood Pressure 134/68 Blood Pressure [Right Arm] Blood Pressure Mean 81 Blood Pressure Mean [Right Arm] Blood Pressure Position Blood Pressure Position [Right Arm] Pulse Oximetry 94 Oxygen Delivery Method Oxygen Flow Rate Sepsis Recent Fever Within 48 Hours Sepsis New/Unexplained Change in Mental Status Sepsis Action Taken by Nursing 06/20/20 11:30 06/20/20 11:31 06/20/20 11:40 Temperature Temperature Source Pulse Rate 109 H 108 H Pulse Rate from SpO2 Sensor 109 H 108 H Pulse Rhythm Pulse Strength Respiratory Rate 18 21 Respiratory Effort / Characteristics Respiratory Depth Respiratory Pattern Blood Pressure Blood Pressure [Right Arm] 134/68 Blood Pressure Mean Blood Pressure Mean [Right Arm] 90 Blood Pressure Position Blood Pressure Position [Right Arm] Lying Pulse Oximetry 94 96 97 Oxygen Delivery Method Room Air Oxygen Flow Rate Sepsis Recent Fever Within 48 Hours Sepsis New/Unexplained Change in Mental Status Sepsis Action Taken by Nursing 06/20/20 11:50 06/20/20 11:53 06/20/20 12:00 Temperature Temperature Source Pulse Rate 102 H 104 H Pulse Rate from SpO2 Sensor 105 H 104 H Pulse Rhythm Pulse Strength Respiratory Rate 18 25 H Respiratory Effort / Characteristics Respiratory Depth Respiratory Pattern Blood Pressure Blood Pressure [Right Arm] Blood Pressure Mean Blood Pressure Mean [Right Arm] Blood Pressure Position Blood Pressure Position [Right Arm] Pulse Oximetry 97 97 96 Oxygen Delivery Method Room Air Oxygen Flow Rate Sepsis Recent Fever Within 48 Hours Sepsis New/Unexplained Change in Mental Status Sepsis Action Taken by Nursing 06/20/20 12:10 06/20/20 12:20 06/20/20 12:30 Temperature Temperature Source Pulse Rate 105 H 109 H 108 H Pulse Rate from SpO2 Sensor 105 H 109 H 108 H Pulse Rhythm Pulse Strength Respiratory Rate 19 22 20 Respiratory Effort / Characteristics Respiratory Depth Respiratory Pattern Blood Pressure Blood Pressure [Right Arm] Blood Pressure Mean Blood Pressure Mean [Right Arm] Blood Pressure Position Blood Pressure Position [Right Arm] Pulse Oximetry 95 96 96 Oxygen Delivery Method Oxygen Flow Rate Sepsis Recent Fever Within 48 Hours Sepsis New/Unexplained Change in Mental Status Sepsis Action Taken by Nursing 06/20/20 12:40 06/20/20 12:50 06/20/20 13:00 Temperature Temperature Source Pulse Rate 113 H 113 H 115 H Pulse Rate from SpO2 Sensor Pulse Rhythm Pulse Strength Respiratory Rate 28 H 27 H 25 H Respiratory Effort / Characteristics Respiratory Depth Respiratory Pattern Blood Pressure Blood Pressure [Right Arm] Blood Pressure Mean Blood Pressure Mean [Right Arm] Blood Pressure Position Blood Pressure Position [Right Arm] Pulse Oximetry Oxygen Delivery Method Oxygen Flow Rate Sepsis Recent Fever Within 48 Hours Sepsis New/Unexplained Change in Mental Status Sepsis Action Taken by Nursing 06/20/20 13:10 06/20/20 13:20 06/20/20 13:30 Temperature Temperature Source Pulse Rate 107 H 105 H 105 H Pulse Rate from SpO2 Sensor 107 H 105 H 105 H Pulse Rhythm Pulse Strength Respiratory Rate 29 H 21 23 Respiratory Effort / Characteristics Respiratory Depth Respiratory Pattern Blood Pressure Blood Pressure [Right Arm] Blood Pressure Mean Blood Pressure Mean [Right Arm] Blood Pressure Position Blood Pressure Position [Right Arm] Pulse Oximetry 93 94 96 Oxygen Delivery Method Oxygen Flow Rate Sepsis Recent Fever Within 48 Hours Sepsis New/Unexplained Change in Mental Status Sepsis Action Taken by Nursing 06/20/20 13:40 06/20/20 13:44 06/20/20 13:50 Temperature Temperature Source Pulse Rate 105 H 108 H 110 H Pulse Rate from SpO2 Sensor 105 H 111 H Pulse Rhythm Pulse Strength Respiratory Rate 31 H 16 21 Respiratory Effort / Characteristics Respiratory Depth Respiratory Pattern Blood Pressure 128/64 Blood Pressure [Right Arm] Blood Pressure Mean 74 Blood Pressure Mean [Right Arm] Blood Pressure Position Blood Pressure Position [Right Arm] Pulse Oximetry 92 98 Oxygen Delivery Method Oxygen Flow Rate Sepsis Recent Fever Within 48 Hours Sepsis New/Unexplained Change in Mental Status Sepsis Action Taken by Nursing 06/20/20 14:00 06/20/20 14:10 06/20/20 14:20 Temperature Temperature Source Pulse Rate 108 H 103 H 103 H Pulse Rate from SpO2 Sensor 108 H 104 H 103 H Pulse Rhythm Pulse Strength Respiratory Rate 22 22 28 H Respiratory Effort / Characteristics Respiratory Depth Respiratory Pattern Blood Pressure Blood Pressure [Right Arm] Blood Pressure Mean Blood Pressure Mean [Right Arm] Blood Pressure Position Blood Pressure Position [Right Arm] Pulse Oximetry 95 94 94 Oxygen Delivery Method Oxygen Flow Rate Sepsis Recent Fever Within 48 Hours Sepsis New/Unexplained Change in Mental Status Sepsis Action Taken by Nursing 06/20/20 14:30 06/20/20 14:40 06/20/20 14:50 Temperature Temperature Source Pulse Rate 104 H 106 H 106 H Pulse Rate from SpO2 Sensor 104 H 98 H 106 H Pulse Rhythm Pulse Strength Respiratory Rate 28 H 23 20 Respiratory Effort / Characteristics Respiratory Depth Respiratory Pattern Blood Pressure Blood Pressure [Right Arm] Blood Pressure Mean Blood Pressure Mean [Right Arm] Blood Pressure Position Blood Pressure Position [Right Arm] Pulse Oximetry 92 95 93 Oxygen Delivery Method Oxygen Flow Rate Sepsis Recent Fever Within 48 Hours Sepsis New/Unexplained Change in Mental Status Sepsis Action Taken by Nursing 06/20/20 15:00 06/20/20 15:10 Temperature Temperature Source Pulse Rate 107 H 110 H Pulse Rate from SpO2 Sensor 107 H 110 H Pulse Rhythm Pulse Strength Respiratory Rate 25 H 22 Respiratory Effort / Characteristics Respiratory Depth Respiratory Pattern Blood Pressure Blood Pressure [Right Arm] Blood Pressure Mean Blood Pressure Mean [Right Arm] Blood Pressure Position Blood Pressure Position [Right Arm] Pulse Oximetry 96 95 Oxygen Delivery Method Oxygen Flow Rate Sepsis Recent Fever Within 48 Hours Sepsis New/Unexplained Change in Mental Status Sepsis Action Taken by Nursing Vital signs reviewed. General: Chronically ill-appearing 59-year-old male, in no significant distress. HEENT: Minimal if any scleral icterus, PERRLA, neck supple. Atraumatic. Cardiovascular: Regular rate and rhythm, no extra sounds. Pulmonary: Breath sounds at the bases bilaterally, increased work of breathing. Abdomen: Distended, firm, nontender, nondistended, positive bowel sounds. Musculoskeletal: Atraumatic, moderate peripheral edema. Neurologic: Patient awake alert and oriented x 3 Skin: Warm, dry, no rash Course Administered Medications Cyanocobalamin (Cyanocobalamin 500 Mcg Tablet (Vitamin B-12)) 1,000 mcg PO [facility] Stop: 07/21/20 08:59 Last Admin: 06/22/20 08:48 Dose: 1,000 mcg Documented by: [id number] Admin: 06/21/20 11:41 Dose: 1,000 mcg Documented by: [id number] Folic Acid (Folic Acid 1 Mg Tab) 1 mg PO [facility] Stop: 07/20/20 16:35 Last Admin: 06/22/20 08:46 Dose: 1 mg Documented by: [id number] Admin: 06/21/20 09:10 Dose: 1 mg Documented by: [id number] Admin: 06/20/20 17:24 Dose: 1 mg Documented by: [id number] Furosemide (Furosemide 40 Mg Tab) 40 mg PO [facility] Stop: 07/22/20 08:59 Last Admin: 06/22/20 08:47 Dose: 40 mg Documented by: [id number] Gabapentin (Gabapentin 400 Mg Cap) 400 mg PO Q8H [facility] Stop: 06/22/20 22:01 Last Admin: 06/22/20 13:10 Dose: 400 mg Documented by: [id number] Admin: 06/22/20 06:44 Dose: 400 mg Documented by: [id number] Ipratropium Simpson (Ipratropium Simpson Neb Soln 0.02% 2.5 Ml Vial) 0.5 mg INH Q6R [facility] Stop: 07/21/20 00:59 Last Admin: 06/22/20 13:27 Dose: 0.5 mg Documented by: [id number] Admin: 06/22/20 07:04 Dose: 0.5 mg Documented by: [id number] Admin: 06/22/20 00:37 Dose: 0.5 mg Documented by: [id number] Admin: 06/21/20 19:46 Dose: 0.5 mg Documented by: [id number] Admin: 06/21/20 14:02 Dose: 0.5 mg Documented by: [id number] Admin: 06/21/20 07:27 Dose: 0.5 mg Documented by: [id number] Admin: 06/21/20 00:38 Dose: 0.5 mg Documented by: [id number] Ipratropium Simpson (Ipratropium Simpson Neb Soln 0.02% 2.5 Ml Vial) 0.5 mg INH Q4H PRN PRN Reason: Shortness Of Breath Or Wheezing Stop: 07/20/20 19:44 Last Admin: 06/20/20 20:35 Dose: 0.5 mg Documented by: [id number] Levalbuterol HCl (Levalbuterol 1.25mg/0.5ml Neb) 1.25 mg INH Q6R [facility] Stop: 07/21/20 00:59 Last Admin: 06/22/20 13:27 Dose: 1.25 mg Documented by: [id number] Admin: 06/22/20 07:05 Dose: 1.25 mg Documented by: [id number] Admin: 06/22/20 00:36 Dose: 1.25 mg Documented by: [id number] Admin: 06/21/20 19:46 Dose: 1.25 mg Documented by: [id number] Admin: 06/21/20 14:03 Dose: 1.25 mg Documented by: [id number] Admin: 06/21/20 07:27 Dose: 1.25 mg Documented by: [id number] Admin: 06/21/20 00:38 Dose: 1.25 mg Documented by: [id number] Levalbuterol HCl (Levalbuterol 1.25mg/0.5ml Neb) 1.25 mg INH Q4H PRN PRN Reason: Shortness Of Breath Or Wheezing Stop: 07/20/20 19:44 Last Admin: 06/20/20 20:35 Dose: 1.25 mg Documented by: [id number] Magnesium Oxide (Magnesium Oxide 400 Mg Tab) 400 mg PO BID [facility] Stop: 07/20/20 16:35 Last Admin: 06/22/20 08:48 Dose: 400 mg Documented by: [id number] Admin: 06/21/20 20:59 Dose: 400 mg Documented by: [id number] Admin: 06/21/20 09:09 Dose: 400 mg Documented by: [id number] Admin: 06/20/20 20:25 Dose: 400 mg Documented by: [id number] Admin: 06/20/20 17:24 Dose: 400 mg Documented by: [id number] Miscellaneous (Remove Nicoderm Patch) 1 ea N/A DAILY@[id number] [facility] Stop: 07/21/20 08:58 Last Admin: 06/22/20 08:49 Dose: 1 ea Documented by: [id number] Admin: 06/21/20 09:08 Dose: 1 ea Documented by: [id number] [facility]: 07/20/20 16:35 Last Admin: 06/22/20 08:46 Dose: 1 tab Documented by: [id number] Admin: 06/21/20 09:09 Dose: 1 tab Documented by: [id number] Admin: 06/20/20 17:24 Dose: 1 tab Documented by: [id number] Nadolol (Nadolol 40 Mg Tab) 40 mg PO [facility] Stop: 07/20/20 16:35 Last Admin: 06/22/20 08:46 Dose: 40 mg Documented by: [id number] Admin: 06/21/20 09:10 Dose: 40 mg Documented by: [id number] Admin: 06/20/20 17:24 Dose: 40 mg Documented by: [id number] Nicotine (Nicotine 14 Mg/24 Hr Patch) 14 mg TD [facility] Stop: 07/20/20 16:35 Last Admin: 06/22/20 08:45 Dose: 14 mg Documented by: [id number] Admin: 06/21/20 09:10 Dose: 14 mg Documented by: [id number] Admin: 06/20/20 17:26 Dose: 14 mg Documented by: [id number] Pantoprazole Sodium (Pantoprazole 40 Mg Tab) 40 mg PO [facility] Stop: 07/20/20 16:35 Last Admin: 06/22/20 08:45 Dose: 40 mg Documented by: [id number] Admin: 06/21/20 09:09 Dose: 40 mg Documented by: [id number] Admin: 06/20/20 17:24 Dose: 40 mg Documented by: [id number] Potassium Chloride (Potassium Chloride 20 Meq Tabcr) 20 meq PO [facility] Stop: 07/22/20 08:59 Last Admin: 06/22/20 08:47 Dose: 20 meq Documented by: [id number] Spironolactone (Spironolactone 100 Mg Tab) 100 mg PO [facility] Stop: 07/20/20 16:35 Last Admin: 06/22/20 08:46 Dose: 100 mg Documented by: [id number] Admin: 06/21/20 09:10 Dose: 100 mg Documented by: [id number] Admin: 06/20/20 17:25 Dose: 100 mg Documented by: [id number] Thiamine HCl (Thiamine Hcl 100 Mg Tab) 100 mg PO QAM [facility] Stop: 07/21/20 08:59 Last Admin: 06/22/20 08:47 Dose: 100 mg Documented by: [id number] Admin: 06/21/20 09:56 Dose: 100 mg Documented by: [id number] Discontinued Medications Cyanocobalamin (Cyanocobalamin 500 Mcg Tablet (Vitamin B-12)) 1,000 mcg PO 1700 ONE Stop: 06/20/20 17:01 Last Admin: 06/20/20 17:25 Dose: 1,000 mcg Documented by: [id number] Furosemide (Furosemide 40 Mg/4 Ml Vial) 40 mg IV NOW STA Stop: 06/20/20 09:57 Last Admin: 06/20/20 10:29 Dose: 40 mg Documented by: [id number] Gabapentin (Gabapentin 400 Mg Cap) 800 mg PO NOW ONE Stop: 06/21/20 09:31 Last Admin: 06/21/20 09:56 Dose: 800 mg Documented by: [id number] Gabapentin (Gabapentin 400 Mg Cap) 400 mg PO Q6H [facility] Stop: 06/21/20 22:01 Last Admin: 06/21/20 20:59 Dose: 400 mg Documented by: [id number] Admin: 06/21/20 16:14 Dose: 400 mg Documented by: [id number] Potassium Chloride (K Abdi / Wtr) 10 meq in 100 mls @ 100 mls/hr IV Q1H [facility] Stop: 06/20/20 13:14 Last Infusion: 06/20/20 13:52 Dose: 0 mls/hr Documented by: [id number] Admin: 06/20/20 12:46 Dose: 100 mls/hr Documented by: [id number] Infusion: 06/20/20 12:32 Dose: 100 mls/hr Documented by: [id number] Admin: 06/20/20 11:32 Dose: 100 mls/hr Documented by: [id number] Magnesium Sulfate/Dextrose (Magnesium Sulfate / D5w) 1 gm in 100 mls @ 100 mls/hr IV Q1H [facility] Stop: 06/20/20 13:10 Last Infusion: 06/20/20 13:52 Dose: 0 mls/hr Documented by: [id number] Admin: 06/20/20 12:50 Dose: 100 mls/hr Documented by: [id number] Infusion: 06/20/20 12:46 Dose: 100 mls/hr Documented by: [id number] Admin: 06/20/20 11:46 Dose: 100 mls/hr Documented by: [id number] Albumin Human (Albumin 25%) 12.5 gm in 50 mls @ 75 mls/hr IV Q1H [facility] Stop: 06/21/20 11:39 Last Admin: 06/21/20 11:18 Dose: Not Given Documented by: [id number] Admin: 06/21/20 11:18 Dose: Not Given Documented by: [id number] Infusion: 06/21/20 10:49 Dose: 0 mls/hr Documented by: [id number] Infusion: 06/21/20 10:10 Dose: 75 mls/hr Documented by: [id number] Admin: 06/21/20 10:05 Dose: 50 mls/hr Documented by: [id number] Infusion: 06/21/20 10:05 Dose: 50 mls/hr Documented by: [id number] Admin: 06/21/20 09:13 Dose: 50 mls/hr Documented by: [id number] Furosemide 40 mg/ Syringe 4 mls @ 4 mls/min IV [id number] [facility] Stop: 07/20/20 16:59 Last Admin: 06/21/20 09:29 Dose: 4 mls/min Documented by: [id number] Admin: 06/20/20 17:29 Dose: 4 mls/min Documented by: [id number] Albumin Human (Albumin 25%) 12.5 gm in 50 mls @ 50 mls/hr IV Q1H [facility] Stop: 06/21/20 13:59 Last Infusion: 06/21/20 13:42 Dose: 0 mls/hr Documented by: [id number] Admin: 06/21/20 12:41 Dose: 50 mls/hr Documented by: [id number] Infusion: 06/21/20 12:38 Dose: 50 mls/hr Documented by: [id number] Admin: 06/21/20 11:38 Dose: 50 mls/hr Documented by: [id number] Magnesium Sulfate/Dextrose (Magnesium Sulfate / D5w) 1 gm in 100 mls @ 50 mls/hr IV Q2H [facility] Stop: 06/21/20 02:29 Last Infusion: 06/21/20 02:28 Dose: 0 mls/hr Documented by: [id number] Admin: 06/21/20 00:27 Dose: 50 mls/hr Documented by: [id number] Infusion: 06/21/20 00:27 Dose: 50 mls/hr Documented by: [id number] Admin: 06/20/20 22:31 Dose: 50 mls/hr Documented by: [id number] Potassium Chloride (K Abdi / Wtr) 10 meq in 100 mls @ 100 mls/hr IV Q1H [facility] Stop: 06/21/20 10:59 Last Infusion: 06/21/20 12:02 Dose: 0 mls/hr Documented by: [id number] Admin: 06/21/20 10:32 Dose: 100 mls/hr Documented by: [id number] Infusion: 06/21/20 10:29 Dose: 100 mls/hr Documented by: [id number] Admin: 06/21/20 09:29 Dose: 100 mls/hr Documented by: [id number] Lorazepam (Lorazepam 1 Mg Tab) 1 mg PO ONE PRN; Protocol PRN Reason: EtoH Withdrawal AWSS 6-10 Last Admin: 06/20/20 20:30 Dose: 1 mg Documented by: [id number] Magnesium Oxide (Magnesium Oxide 400 Mg Tab) 400 mg PO BID [facility] Stop: 07/20/20 20:59 Last Admin: 06/20/20 21:05 Dose: 400 mg Documented by: [id number] Potassium Chloride (Potassium Chloride 20 Meq Tabcr) 60 meq PO NOW STA Stop: 06/20/20 16:37 Last Admin: 06/20/20 17:25 Dose: 60 meq Documented by: [id number] Potassium Chloride (Potassium Chloride 20 Meq Tabcr) 60 meq PO NOW STA Stop: 06/20/20 20:41 Last Admin: 06/20/20 21:05 Dose: 60 meq Documented by: [id number] Potassium Chloride (Potassium Chloride 20 Meq Tabcr) 40 meq PO BID [facility] Stop: 07/21/20 08:59 Last Admin: 06/21/20 09:10 Dose: 40 meq Documented by: [id number] Potassium Chloride (Potassium Chloride 20 Meq Tabcr) 20 meq PO ONE ONE Stop: 06/22/20 09:30 Last Admin: 06/22/20 13:09 Dose: 20 meq Documented by: [id number] Medical Decision Making Differential Diagnosis The differential diagnosis of this patient's presentation includes decompensated ESLD, portal vein thrombosis, renal failure, SBP, fluid overload, medication noncompliance, alcohol intoxication, electrolyte disturbance, thrombocytopenia Medical Records Attestation: I reviewed the patient's medical records. Home Medications Current Medication List: was personally reviewed by me Laboratory Data Attestation: I reviewed the patient's lab results. Result diagrams: 06/22/20 06:23 06/22/20 06:23 Lab Results 06/20/20 06/20/20 06/20/20 Range/Units 10:10 10:10 10:10 WBC 2.14 L (4.8-10.8) K/uL RBC 2.53 L (4.7-6.1) M/uL Hgb 7.7 L (14.0-18.0) g/dL Hct 24.0 L (42-52) % MCV 94.9 (80-100) fL MCH 30.4 (25-34) pg MCHC 32.1 (32-36) g/dL RDW Std Deviation 61.4 H (36.4-46.3) fL RDW Coeff of Jarrell 17.7 H (11.5-14.5) % Plt Count 52 L (130-400) K/uL MPV 9.2 (7.4-10.4) fL Immature Gran % (Auto) 0.0 % Neut % (Auto) 50.8 % Lymph % (Auto) 20.6 % [place] % (Auto) 24.8 % Eos % (Auto) 3.3 % Baso % (Auto) 0.5 % Neut # (Auto) 1.09 L (1.4-6.5) K/uL Lymph # (Auto) 0.44 L (1.2-3.4) K/uL [place] # (Auto) 0.53 (0.11-0.59) K/uL Eos # (Auto) 0.07 (0-0.5) K/uL Baso # (Auto) 0.01 (0-0.2) K/uL Immature Gran # (Auto) 0.00 (0.00-0.02) K/uL Platelet Estimate Decreased L (Normal) Polychromasia 1+ Anisocytosis Present PT 13.4 H (9.0-12.0) Seconds INR 1.3 H (0.9-1.1) APTT 26.8 (21.0-31.0) Seconds PTT Ratio 1.0 Sodium 137 (136-145) mmol/L Potassium 2.5 L* (3.5-5.1) mmol/L Chloride 99 (98-107) mmol/L Carbon Dioxide 32 (21-32) mmol/L Anion Gap 5.0 (3-11) BUN 7 (7-18) mg/dl Creatinine 0.54 L (0.6-1.4) mg/dl Est Cr Clr Drug Dosing 161.1 ml/min Est GFR ( Amer) 132.3 Est GFR (Non-Af Amer) 114.1 BUN/Creatinine Ratio 13.3 (10-20) Glucose 125 H (70-99) mg/dl Lactate (0.4-2.0) mmol/L Calcium 7.8 L (8.5-10.1) mg/dl Magnesium 1.5 L (1.8-2.4) mg/dl Total Bilirubin 1.7 H (0.2-1) mg/dl AST 82 H (15-37) U/L ALT 44 (12-78) U/L Alkaline Phosphatase 143 H (45-117) U/L Troponin I < 0.015 (0-0.045) ng/ml Total Protein 7.6 (6.4-8.2) gm/dl Albumin 2.3 L (3.4-5.0) gm/dl Globulin 5.3 H (2.5-4.0) gm/dl Albumin/Globulin Ratio 0.4 L (0.9-2) Urine Color Urine Appearance (Clear) Urine pH (4.5-7.5) Ur Specific [place] (1.000-1.030) Urine Protein (Negative) Urine Glucose (UA) (Negative) Urine Ketones (Negative) Urine Blood (Negative) Urine Nitrite (Negative) Urine Bilirubin (Negative) Urine Urobilinogen (Negative) Ur Leukocyte Esterase (Negative) Urine WBC (Auto) (0-5) /hpf Urine RBC (Auto) (0-4) /hpf U Hyaline Cast (Auto) (0-5) /lpf U Epithel Cells (Auto) (0-5) /lpf Urine Bacteria (Auto) (Negative) Ethyl Alcohol mg/dL (0-3) mg/dl 06/20/20 06/20/20 06/20/20 Range/Units 10:18 10:39 11:42 WBC (4.8-10.8) K/uL RBC (4.7-6.1) M/uL Hgb (14.0-18.0) g/dL Hct (42-52) % MCV (80-100) fL MCH (25-34) pg MCHC (32-36) g/dL RDW Std Deviation (36.4-46.3) fL RDW Coeff of Jarrell (11.5-14.5) % Plt Count (130-400) K/uL MPV (7.4-10.4) fL Immature Gran % (Auto) % Neut % (Auto) % Lymph % (Auto) % [place] % (Auto) % Eos % (Auto) % Baso % (Auto) % Neut # (Auto) (1.4-6.5) K/uL Lymph # (Auto) (1.2-3.4) K/uL [place] # (Auto) (0.11-0.59) K/uL Eos # (Auto) (0-0.5) K/uL Baso # (Auto) (0-0.2) K/uL Immature Gran # (Auto) (0.00-0.02) K/uL Platelet Estimate (Normal) Polychromasia Anisocytosis PT (9.0-12.0) Seconds INR (0.9-1.1) APTT (21.0-31.0) Seconds PTT Ratio Sodium (136-145) mmol/L Potassium (3.5-5.1) mmol/L Chloride (98-107) mmol/L Carbon Dioxide (21-32) mmol/L Anion Gap (3-11) BUN (7-18) mg/dl Creatinine (0.6-1.4) mg/dl Est Cr Clr Drug Dosing ml/min Est GFR ( Amer) Est GFR (Non-Af Amer) BUN/Creatinine Ratio (10-20) Glucose (70-99) mg/dl Lactate 1.9 (0.4-2.0) mmol/L Calcium (8.5-10.1) mg/dl Magnesium (1.8-2.4) mg/dl Total Bilirubin (0.2-1) mg/dl AST (15-37) U/L ALT (12-78) U/L Alkaline Phosphatase (45-117) U/L Troponin I (0-0.045) ng/ml Total Protein (6.4-8.2) gm/dl Albumin (3.4-5.0) gm/dl Globulin (2.5-4.0) gm/dl Albumin/Globulin Ratio (0.9-2) Urine Color Yellow Urine Appearance Cloudy A (Clear) Urine pH 7.5 (4.5-7.5) Ur Specific [place] 1.008 (1.000-1.030) Urine Protein Negative (Negative) Urine Glucose (UA) Negative (Negative) Urine Ketones Negative (Negative) Urine Blood Negative (Negative) Urine Nitrite Negative (Negative) Urine Bilirubin Negative (Negative) Urine Urobilinogen Negative (Negative) Ur Leukocyte Esterase Negative (Negative) Urine WBC (Auto) 0 (0-5) /hpf Urine RBC (Auto) 0-4 (0-4) /hpf U Hyaline Cast (Auto) 1-5 (0-5) /lpf U Epithel Cells (Auto) 0-5 (0-5) /lpf Urine Bacteria (Auto) Negative (Negative) Ethyl Alcohol mg/dL 111.0 H (0-3) mg/dl Imaging Data Radiologist's Impression: XR chest 1V portable HISTORY: Dyspnea COMPARISON: Chest 06/25/2019. FINDINGS: There are low lung volumes. No pneumothorax. No pleural effusions. Suture material within the left lung apex is again noted. The heart remains stable in size. No new focal lung consolidations to suggest pneumonia. No evidence for pulmonary edema. IMPRESSION: No significant change compared to the prior study. No acute process. ACT 112: Negative or not required by law. Electronically signed by: Paul Fox M.D. 06/20/2020 11:08 AM Dictated: 06/20/20 1106 Transcribed: 06/20/20 110 ECG Data Attestation: I personally reviewed and interpreted this ECG as follows: Indication: + SOB/dyspnea and + tachycardia Rate (beats per minute): 108 Rhythm: + sinus tachycardia ECG Intervals/blocks: + Prolonged QT (482) ECG [place]: + Normal ECG ST segments: + Nonspecific ST abnormalities (lateral) Blood Pressure Blood Pressure Findings: Elevated blood pressure Blood Pressure Disposition: further management by hospitalist LAURI Narrative This pt was evaluated and appeared to be in no significant distress. IV access was obtained and lab work was drawn. An order was placed for cardiac monitoring and the pt is noted to be in a ST at 108 bpm. Pt is clearly fluid overloaded, as he noted no diuretics for several days. He was given 40 mg IV lasix. Lab work reveals a creat of 0.54 with K of 2.5. IV potassium was initiated. Pt case was d/w the hospitalist service for further management. Impression & Plan Decompensation of cirrhosis of liver, Fluid excess, Abdominal ascites Discharge Plan Visit Data Chief Complaint: Shortness of Breath/Dyspnea Stated Complaint: sob ED Provider: Shey Larson Discharge Problem: Decompensation of cirrhosis of liver, Fluid excess, Abdominal ascites Patient Disposition: Admitted As Inpatient Discharge Instructions Interventions: ED Discharge Assessment Last Done: 06/20/20 17:41 Discharge Problem: Fluid excess Qualifiers: Hypervolemia type: other Qualified Code(s): E87.79 - Other fluid overload Abdominal ascites Qualifiers: Ascites type: due to alcoholic cirrhosis Qualified Code(s): K70.31 - Alcoholic cirrhosis of liver with ascites
[2020-06-20] MEDS ORDERED: LORazepam 1 MG TAB PO PRN (16:36)
[2020-06-20] MEDS ORDERED: FUROSEMIDE 40 MG/4 ML VIAL IV SCH (16:36)
[2020-06-20] MEDS ORDERED: POTASSIUM CHLORIDE 20 MEQ TABCR PO STA ×2 (16:36→20:40)
[2020-06-20] MEDS ORDERED: CYANOCOBALAMIN 500 MCG TABLET (VITAMIN B-12) PO ONE (17:00)
[2020-06-20 17:23] LABS: Potassium 2.7 mmol/L (3.5-5.1)
[2020-06-20] MEDS: PANTOprazole 40 MG TAB PO SCH (17:24)
[2020-06-20] MEDS: MAGNESIUM OXIDE 400 MG TAB PO SCH ×2 (17:24→20:25)
[2020-06-20] MEDS: FOLIC ACID 1 MG TAB PO SCH (17:24)
[2020-06-20] MEDS: MULTIVITAMIN TAB PO SCH (17:24)
[2020-06-20] MEDS: nadoloL 40 MG TAB PO SCH (17:24)
[2020-06-20 17:25] LABS: Magnesium 1.7 mg/dl (1.8-2.4)
[2020-06-20] MEDS: SPIRONOLACTONE 100 MG TAB PO SCH (17:25)
[2020-06-20] MEDS: NICOTINE 14 MG/24 HR PATCH TD SCH (17:26)
[2020-06-20] MEDS: FUROSEMIDE 40 MG in SYRINGE 0 ML IV SCH (17:29)
--- NOTE | 2020-06-20 18:01 | History & Physical Report ---
Date of Service June 20, 2020 Assessment & Plan (1) Ascites: Admission and Anticipated Discharge Date Admission Date: June 20, 2020 History of Present Illness 59-year-old male with history of cirrhosis, portal hypertension, # Primary Care Provider: Harrison Moore MD Allergies Allergy/AdvReac Type Severity Reaction Status Date / Time No Known Allergies Allergy Unverified 06/20/20 11:11 Home Medications Home Medications Medication Instructions Recorded Confirmed Type folic acid 1 mg PO QAM 06/23/19 06/20/20 History loperamide [Imodium A-D] 2 mg PO Q3H PRN 06/23/19 06/20/20 History magnesium oxide 400 mg PO QAM 06/23/19 06/20/20 History multivitamin [Daily-Liliana] 1 tab PO QAM 06/23/19 06/20/20 History cyanocobalamin (vitamin B-12) 1,000 mcg PO QAM 06/20/20 06/20/20 History [Vitamin B-12] furosemide [Lasix] 40 mg PO QAM 06/20/20 06/20/20 History nadolol 40 mg PO QAM 06/20/20 06/20/20 History pantoprazole 40 mg PO QAM 06/20/20 06/20/20 History potassium chloride 20 meq PO QAM 06/20/20 06/20/20 History spironolactone 100 mg PO QAM 06/20/20 06/20/20 History Past Med/Surg History Medical History Alcohol abuse Cirrhosis Hepatitis C HTN (hypertension) Hypomagnesemia Pancytopenia Thrombocytopenia Tobacco abuse Surgical History History of chest tube placement History of ganglion cyst History of vasectomy Family History Brother HIV (human immunodeficiency virus infection) Brother Homicide Social History Smoking Status: Light tobacco smoker Cigarettes Per Day: 5; Second Hand Exposure: No; Do You Dip or Chew Tobacco: No; Tobacco Cessation Education Requested by Patient: No Hx Alcohol Use: Yes Alcohol type: beer and hard liquor Hx Substance Use: Yes Last Used Substance: Unknown Last Used Substance Other:: 2 yrs ago Preferred Language: Croatian Communication Ability: Effective Electric Organ Checker Required: No Beliefs That Will Affect Care: None marital status: Single Current Living Situation: Other Current Living Situation Comment: 2 roommates Other Information That Helps Us Care for You: No Feels Safe at Home: Yes Safety Concerns: Feels Safe At This Time Assistive Devices: Glasses Results & Data Results & Data ([facility]) Vital Signs (Past 12 Hours) Vital Signs Temp Pulse Pulse Resp BP BP Pulse Ox 06/20/20 17:31 37.1 C 105 H 18 164/74 H 96 06/20/20 16:05 84 22 134/85 97 06/20/20 16:00 108 H 24 95 06/20/20 15:50 106 H 18 92 06/20/20 15:40 106 H 23 06/20/20 15:30 95 H 19 93 06/20/20 15:20 101 H 32 H 96 06/20/20 15:10 110 H 22 95 06/20/20 15:00 107 H 25 H 96 06/20/20 14:50 106 H 20 93 06/20/20 14:40 106 H 23 95 06/20/20 14:30 104 H 28 H 92 06/20/20 14:20 103 H 28 H 94 06/20/20 14:10 103 H 22 94 06/20/20 14:00 108 H 22 95 06/20/20 13:50 110 H 21 98 06/20/20 13:44 108 H 16 128/64 06/20/20 13:40 105 H 31 H 92 06/20/20 13:30 105 H 23 96 06/20/20 13:20 105 H 21 94 06/20/20 13:10 107 H 29 H 93 06/20/20 13:00 115 H 25 H 06/20/20 12:50 113 H 27 H 06/20/20 12:40 113 H 28 H 06/20/20 12:30 108 H 20 96 06/20/20 12:20 109 H 22 96 06/20/20 12:10 105 H 19 95 06/20/20 12:00 104 H 25 H 96 06/20/20 11:53 97 06/20/20 11:50 102 H 18 97 06/20/20 11:40 108 H 21 97 06/20/20 11:31 109 H 18 96 06/20/20 11:30 134/68 94 06/20/20 11:29 109 H 16 134/68 94 06/20/20 11:20 103 H 23 06/20/20 11:10 104 H 26 H 06/20/20 11:00 107 H 17 96 06/20/20 10:50 105 H 22 95 06/20/20 10:40 106 H 20 96 06/20/20 10:30 109 H 20 94 06/20/20 10:20 108 H 21 96 06/20/20 10:10 109 H 23 95 06/20/20 10:00 108 H 18 96 06/20/20 09:55 111 H 21 97 06/20/20 09:46 36.7 C 111 H 23 160/88 H 97 Code Status & VTE Plan VTE Prophylaxis Plan VTE Prophylaxis will be ordered: Yes
[2020-06-20] MEDS ORDERED: XOPENEX/ATROVENT 1.25mg/0.5MG NEB COMBO NEB PRN (19:35)
[2020-06-20] MEDS ORDERED: IPRATROPIUM BROMIDE NEB SOLN 0.02% 2.5 ML VIAL INH PRN (19:45)
[2020-06-20] MEDS ORDERED: XOPENEX/ATROVENT 1.25mg/0.5MG NEB COMBO NEB SCH (19:45)
[2020-06-20] MEDS ORDERED: LEVALBUTEROL 1.25MG/0.5ML NEB INH PRN (19:45)
[2020-06-20] MEDS ORDERED: MAGNESIUM OXIDE 400 MG TAB PO SCH (21:00)
[2020-06-21] MEDS: MAGNESIUM SULFATE / D5W 1 GM/100 ML BAG IV SCH (00:27)
[2020-06-21] MEDS: LEVALBUTEROL 1.25MG/0.5ML NEB INH SCH ×4 (00:38→19:46)
[2020-06-21] MEDS: IPRATROPIUM BROMIDE NEB SOLN 0.02% 2.5 ML VIAL INH SCH ×4 (00:38→19:46)
--- NOTE | 2020-06-21 06:19 | Electrocardiogram Report ---
Test Reason : Blood Pressure : / mmHG Vent. Rate : 108 BPM Atrial Rate : 108 BPM P-R Int : 190 ms QRS Dur : 086 ms QT Int : 360 ms P-R-T Axes : 058 020 054 degrees QTc Int : 482 ms Sinus tachycardia Prolonged QT When compared with ECG of 25-JUN-2019 06:44, Nonspecific T wave abnormality no longer evident in Anterolateral leads Confirmed by Zaid Piper ([id number]) on 06/21/2020 6:18:45 AM Referred By: REFERRED SELF Confirmed By:Zaid Piper
[2020-06-21 07:22] LABS: Hematocrit (blood only) 22.8 % (42-52); Hemoglobin 7.1 g/dL (14.0-18.0); Mean Corpuscular Hemoglobin 29.6 pg (25-34); Mean Corpuscular Hgb Conc 31.1 g/dL (32-36); RDW Coefficient of Variation 17.3 % (11.5-14.5); RDW Standard Deviation 60.6 fL (36.4-46.3); White Blood Count 1.71 K/uL (4.8-10.8)
[2020-06-21 07:57] LABS: Mean Platelet Volume 9.8 fL (7.4-10.4); Platelet Count 48 K/uL (130-400)
[2020-06-21 08:00] LABS: Albumin Level 1.9 gm/dl (3.4-5.0); BUN Creatinine Ratio 18.7 (10-20); Bilirubin Direct 1.4 mg/dl (0-0.2); Calcium 7.5 mg/dl (8.5-10.1); Creatinine Clr Calc Pharmacy 174.6 ml/min; Est GFR (African American) 137.7; Est GFR (Non-African American) 118.8; Magnesium 2.1 mg/dl (1.8-2.4); Potassium 3.2 mmol/L (3.5-5.1)
[2020-06-21 08:05] LABS: Bilirubin,Total 3.2 mg/dl (0.2-1); Total Protein 6.7 gm/dl (6.4-8.2)
[2020-06-21 08:34] LABS: Basophils # (auto) 0.01 K/uL (0-0.2); Basophils % (auto) 0.6 %; Eosinophils # (auto) 0.08 K/uL (0-0.5); Eosinophils % (auto) 4.7 %; Lymphocytes # (auto) 0.38 K/uL (1.2-3.4); Lymphocytes % (auto) 22.2 %; Monocytes % (auto) 23.4 %; Neutrophils # (auto) 0.84 K/uL (1.4-6.5); Neutrophils % (auto) 49.1 %; RBC Morphology Unremarkable
[2020-06-21] MEDS ORDERED: GABAPENTIN 800MG ALCOHOL WITHDRAWAL LOAD PO STA (08:48)
[2020-06-21] MEDS ORDERED: POTASSIUM CHLORIDE 20 MEQ TABCR PO SCH (09:00)
[2020-06-21] MEDS: MAGNESIUM OXIDE 400 MG TAB PO SCH ×2 (09:09→20:59)
[2020-06-21] MEDS: PANTOprazole 40 MG TAB PO SCH (09:09)
[2020-06-21] MEDS: MULTIVITAMIN TAB PO SCH (09:09)
[2020-06-21] MEDS: NICOTINE 14 MG/24 HR PATCH TD SCH (09:10)
[2020-06-21] MEDS: FOLIC ACID 1 MG TAB PO SCH (09:10)
[2020-06-21] MEDS: nadoloL 40 MG TAB PO SCH (09:10)
[2020-06-21] MEDS: SPIRONOLACTONE 100 MG TAB PO SCH (09:10)
[2020-06-21] MEDS: ALBUMIN 25% 12.5 GM/50 ML VIAL IV SCH ×5 (09:13→12:41)
[2020-06-21] MEDS: FUROSEMIDE 40 MG in SYRINGE 0 ML IV SCH (09:29)
[2020-06-21] MEDS: POTASSIUM CHLORIDE / WTR 10 MEQ/100 ML PLCT IV SCH ×2 (09:29→10:32)
[2020-06-21] MEDS ORDERED: GABAPENTIN 400 MG CAP PO ONE (09:30)
--- NOTE | 2020-06-21 09:33 | Gastrointestinal Consultation ---
Date of Consultation June 21, 2020 Assessment & Plan (1) Cirrhosis: (2) Hepatitis C: (3) Alcohol abuse: (4) Ascites: Pt is a 59 y/o male w HCV, ETOH abuse, cirrhosis currently presented w volume overload + ascites secondary to missing diuretics. MELD 15. - Restart diuretics: currently on Lasix IV 40mg BID + Spironolactone 100mg daily - U/S guided paracentesis w fluid analysis, cx - 2g Na diet - ETOH cessation advised - He had several no shows to GI appt; will offer f/u after he is discharged home - GI to sign off; pls recall prn Supervising Physician Co-Signing Physician Notes I performed a history and physical examination of the patient today, including specifically on physical exam - soft abdomen. I have discussed the patient's management with the advanced practitioner. Please refer to the nurse practitioner's note for the documented findings and plan of care. Patient with fluid overload and decompensated cirrhosis with ascites due to missing PO diuretics. Feels better now and had a tap done. Resume PO meds. Follow up as OP. Recall Gi if needed. History of Present Illness Reason for Consultation: Cirrhosis, volume overload/ascites Requesting Physician: Dr. Philip Wellington Attending Physician: Dr. Raysa Cabrera History of Present Illness Pt is a 59 y/o male w hx of HCV, ETOH abuse, cirrhosis w portal HTN, ascites, pancytopenia who presented w c/o abd distension and weight gain of 30 lbs in last 3-4 days. He admitted to have missed taking his diuretics and anti hypertensive meds for about a week. He does have some trouble breathing due to abd distension. Last paracentesis I have on records was about 1 year ago. He continues to drink small amt of beer, smokes tobacco, ? marijuana uses. He tries to avoid sodium in diet, using Mrs. Clemens. He denies other symptoms such as confusion, CP, SOB, abd pain, n/v, fever, chills, leg edema. Bowels move 1-2x a day w/o rectal bleeding or dark tarry stools. Allergies Allergy/AdvReac Type Severity Reaction Status Date / Time No Known Allergies Allergy Unverified 06/20/20 11:11 Home Medications Home Medications Medication Instructions Recorded Confirmed Type folic acid 1 mg PO QAM 06/23/19 06/20/20 History loperamide [Imodium A-D] 2 mg PO Q3H PRN 06/23/19 06/20/20 History magnesium oxide 400 mg PO QAM 06/23/19 06/20/20 History multivitamin [Daily-Liliana] 1 tab PO QAM 06/23/19 06/20/20 History cyanocobalamin (vitamin B-12) 1,000 mcg PO QAM 06/20/20 06/20/20 History [Vitamin B-12] furosemide [Lasix] 40 mg PO QAM 06/20/20 06/20/20 History nadolol 40 mg PO QAM 06/20/20 06/20/20 History pantoprazole 40 mg PO QAM 06/20/20 06/20/20 History potassium chloride 20 meq PO QAM 06/20/20 06/20/20 History spironolactone 100 mg PO QAM 06/20/20 06/20/20 History Patient History Medical History Alcohol abuse Cirrhosis Hepatitis C HTN (hypertension) Hypomagnesemia Pancytopenia Thrombocytopenia Tobacco abuse Surgical History History of chest tube placement History of ganglion cyst History of vasectomy Family History Brother HIV (human immunodeficiency virus infection) Brother Homicide Social History Smoking Status: Light tobacco smoker Cigarettes Per Day: 5; Second Hand Exposure: No; Do You Dip or Chew Tobacco: No; Tobacco Cessation Education Requested by Patient: No Hx Alcohol Use: Yes Alcohol type: beer and hard liquor Hx Substance Use: Yes Last Used Substance: Unknown Last Used Substance Other:: 2 yrs ago Preferred Language: Greenlandic Communication Ability: Effective Tool Planer Set Up Operator Required: No Beliefs That Will Affect Care: None marital status: Single Current Living Situation: Other Current Living Situation Comment: 2 roommates Other Information That Helps Us Care for You: No Feels Safe at Home: Yes Safety Concerns: Feels Safe At This Time Assistive Devices: None Review of Systems Review of Systems: All systems reviewed & are unremarkable except as noted in HPI & below Physical Exam Constitutional: WD/WN, vitals as above well groomed, cooperative and comfortable Eyes: PERRL, conjunctivae normal, anicteric sclerae ENMT: external ear and nose normal, oropharynx normal Respiratory: normal respiratory effort, lungs clear to auscultation Cardiovascular: RRR, no murmur, no edema Gastrointestinal (Abdomen): Inspection/Auscultation: + abdomen distended and + hypoactive bowel sounds Percussion/Palpation: abdomen nontender Skin: no rashes, warm and dry no jaundice Neurologic: Motor/Sensory: no asterixis Psychiatric: A+Ox3, euthymic affect Lymphatic: no lymphedema Results & Data ([facility]) Vital Signs (Past 12 Hours) Vital Signs Temp Pulse Pulse Resp BP Pulse Ox 06/21/20 07:46 36.7 C 75 19 104/55 L 92 06/21/20 07:29 77 81 18 92 06/21/20 04:00 36.6 C 81 18 94/54 L 92 06/21/20 00:38 83 20 90 06/20/20 23:34 36.7 C 83 18 95/51 L 91 06/20/20 22:47 85 (1) Hepatitis C Hepatic coma status: without hepatic coma Viral hepatitis chronicity: chronic Qualified Code(s): B18.2 - Chronic viral hepatitis C
[2020-06-21] MEDS: THIAMINE HCL 100 MG TAB PO SCH (09:56)
[2020-06-21] MEDS ORDERED: Nursing to Pharmacy Communication SCH (10:45)
[2020-06-21] MEDS: CYANOCOBALAMIN 500 MCG TABLET (VITAMIN B-12) PO SCH (11:41)
--- NOTE | 2020-06-21 12:06 | Ultrasound Report ---
ULTRASOUND GUIDED DIAGNOSTIC AND THERAPEUTIC PARACENTESIS CLINICAL HISTORY: Ascites. COMPARISON STUDY: Ultrasound guided paracentesis June 27, 2019. PROCEDURE: The risks, benefits, and alternatives to the procedure were discussed with the patient inc luding the risk of bleeding, infection and injury to adjacent structures. The patient agreed to the procedure and informed written consent was obtained. Following real-time ultrasound localization, the skin of the right lower quadrant was prepped and draped. Following local anesthesia with Xylocaine, the sheath paracentesis needle was inserted and approximately 2 liters of straw-colored fluid was rem zachary by vacuum suction. The patient tolerated the procedure well and no immediate complications were evident. IMPRESSION: Ultrasound-guided paracentesis with removal of 2 liters of ascites. 1 L of ascites was s ent to the laboratory for analysis as ordered. ACT 112: Negative or not required by law. Electronically signed by: Abraham Mar M.D. 06/21/2020 12:04 PM
[2020-06-21 12:42] LABS: Albumin Peritoneal Fluid < 0.6 g/dl; Glucose Peritoneal Fluid 152 mg/dl
[2020-06-21 12:47] LABS: LDH Peritoneal Fluid 62 U/L
[2020-06-21 13:19] LABS: Appearance Peritoneal Fluid HAZY; Basophils, Fluid 1 %; Color Peritoneal Fluid YELLOW; Eosinophils, Fluid 0 %; Lymphocytes, Fluid 24 %; Mono,Macrophage,Mesothelial 72 %; Neutrophils, Fluid 3 %; RBC Peritoneal Fluid (A) < 3000 /uL; WBC Peritoneal Fluid (A) 311 /ul (0-300)
--- NOTE | 2020-06-21 15:36 | Hospitalist Progress Note ---
Date of Service June 21, 2020 Assessment & Plan (1) Ascites: Ascites/Volume overload H/O liver cirrhosis with portal hypertension H/O Hepatitis C H/O Alcohol use disorder Missed home diuretics for about a week. S/P abdominal paracentesis--2 liters removed Cultures:pending Received IV Lasix and Albumin Resume home diuretics--Lasix, Spironolactone Low sodium diet, fluid restriction Continue nadolol Appreciate GI Input Table Saw Operator to quit alcohol use Needs follow up with GI upon discharge Pancytopenia Secondary to above Monitor CBC No acute bleeding issues Neutropenic precautions Consider antibiotics if develops fever Hypokalemia Hypomagnesemia Likely secondary to alcoholism Replace electrolytes as needed Alcoholism Alcohol level 111 On gabapentin protocol Continue thiamine, folic acid Monitor for withdrawal Counseled to quit drinking Tobacco use disorder Nicotine patch Table Saw Operator to quit smoking DVT Px: SCDs Re: Thrombocytopenia, H/O GI bleed CODE STATUS Full code Disposition Expect to discharge home when medically stable Admission and Anticipated Discharge Date Admission Date: June 20, 2020 Subjective Patient is seen and examined at bedside Reports abdominal discomfort and bloating associated with dyspnea Also states having generalized weakness Denies chest pain, nausea, vomiting, dizziness Had Abd paracentesis today Review of Systems Review of Systems: All systems reviewed & are unremarkable except as noted in HPI & below Physical Exam Physical Exam: Physical Exam: Vitals signs as noted above General Appearance:Moderately built and nourished, no apparent distress Head: normocephalic, Atraumatic Eyes: normal inspection, EOMI Neck: supple, Trachea midline Respiratory/Chest: Normal breath sounds, CTA Cardiovascular: S1, S2, + murmur Abdomen/GI:Soft, mild tender, distended, Bowel sounds present Extremities/Musculoskelatal:normal inspection, no edema Neurologic/Psych:AAOX3, grossly no focal neurological deficits Skin: normal color, warm Results & Data Results & Data ([facility]) Vital Signs (Past 12 Hours) Vital Signs Temp Pulse Pulse Resp BP Pulse Ox 06/21/20 15:16 36.6 C 71 20 99/59 L 96 06/21/20 14:48 71 06/21/20 14:03 73 18 96 06/21/20 11:49 36.6 C 72 14 103/65 96 06/21/20 07:46 36.7 C 75 19 104/55 L 92 06/21/20 07:29 77 81 18 92 06/21/20 04:00 36.6 C 81 18 94/54 L 92 Laboratory Results Short CBC 06/21/20 Range/Units 06:54 WBC 1.71 L (4.8-10.8) K/uL Hgb 7.1 L (14.0-18.0) g/dL Hct 22.8 L (42-52) % Plt Count 48 L (130-400) K/uL BMP 06/20/20 06/20/20 06/21/20 16:49 19:50 06:54 Sodium 136 Potassium 2.7 L 2.9 L 3.2 L Chloride 100 Carbon Dioxide 33 H BUN 9 Creatinine 0.49 L Glucose 107 H Calcium 7.5 L Liver Function 06/21/20 Range/Units 06:54 Total Bilirubin 3.2 H D (0.2-1) mg/dl Direct Bilirubin 1.4 H (0-0.2) mg/dl AST 66 H (15-37) U/L ALT 35 (12-78) U/L Alkaline Phosphatase 106 (45-117) U/L Albumin 1.9 L (3.4-5.0) gm/dl
[2020-06-21] MEDS: GABAPENTIN 400 MG CAP PO SCH ×2 (16:14→20:59)
[2020-06-22] MEDS: LEVALBUTEROL 1.25MG/0.5ML NEB INH SCH ×3 (00:36→13:27)
[2020-06-22] MEDS: IPRATROPIUM BROMIDE NEB SOLN 0.02% 2.5 ML VIAL INH SCH ×3 (00:37→13:27)
[2020-06-22] MEDS ORDERED: BENZONATATE 100 MG CAPSULE PO PRN (02:57)
[2020-06-22] MEDS: GABAPENTIN 400 MG CAP PO SCH ×2 (06:44→13:10)
[2020-06-22 06:48] LABS: Hematocrit (blood only) 22.5 % (42-52); Hemoglobin 7.2 g/dL (14.0-18.0); Mean Corpuscular Hemoglobin 30.1 pg (25-34); Mean Corpuscular Volume 94.1 fL (80-100); RDW Coefficient of Variation 17.1 % (11.5-14.5); RDW Standard Deviation 59.2 fL (36.4-46.3); Red Blood Count 2.39 M/uL (4.7-6.1); White Blood Count 1.68 K/uL (4.8-10.8)
[2020-06-22 07:00] LABS: Mean Platelet Volume 10.1 fL (7.4-10.4); Platelet Count 50 K/uL (130-400)
[2020-06-22 07:12] LABS: BUN Creatinine Ratio 20.5 (10-20); Calcium 7.6 mg/dl (8.5-10.1); Creatinine Clr Calc Pharmacy 157.6 ml/min; Est GFR (African American) 132.3; Est GFR (Non-African American) 114.1; Magnesium 1.8 mg/dl (1.8-2.4); Potassium 3.4 mmol/L (3.5-5.1)
[2020-06-22 07:26] LABS: Basophils # (auto) 0.01 K/uL (0-0.2); Basophils % (auto) 0.6 %; Eosinophils # (auto) 0.06 K/uL (0-0.5); Eosinophils % (auto) 3.6 %; Giant Platelets 1+; Lymphocytes # (auto) 0.48 K/uL (1.2-3.4); Lymphocytes % (auto) 28.6 %; Monocytes # (auto) 0.35 K/uL (0.11-0.59); Monocytes % (auto) 20.8 %; Neutrophils # (auto) 0.78 K/uL (1.4-6.5); Neutrophils % (auto) 46.4 %; Polychromasia 1+
[2020-06-22] MEDS: NICOTINE 14 MG/24 HR PATCH TD SCH (08:45)
[2020-06-22] MEDS: PANTOprazole 40 MG TAB PO SCH (08:45)
[2020-06-22] MEDS: SPIRONOLACTONE 100 MG TAB PO SCH (08:46)
[2020-06-22] MEDS: nadoloL 40 MG TAB PO SCH (08:46)
[2020-06-22] MEDS: FOLIC ACID 1 MG TAB PO SCH (08:46)
[2020-06-22] MEDS: MULTIVITAMIN TAB PO SCH (08:46)
[2020-06-22] MEDS: THIAMINE HCL 100 MG TAB PO SCH (08:47)
[2020-06-22] MEDS: CYANOCOBALAMIN 500 MCG TABLET (VITAMIN B-12) PO SCH (08:48)
[2020-06-22] MEDS: MAGNESIUM OXIDE 400 MG TAB PO SCH (08:48)
[2020-06-22] MEDS ORDERED: COUGH DROP (SUGAR FREE) LOZ 24 LOZ/1 BOX BUCCAL PRN (08:50)
[2020-06-22] MEDS ORDERED: FUROSEMIDE 40 MG TAB PO SCH (09:00)
[2020-06-22] MEDS ORDERED: POTASSIUM CHLORIDE 20 MEQ TABCR PO SCH (09:00)
[2020-06-22] MEDS ORDERED: POTASSIUM CHLORIDE 20 MEQ TABCR PO ONE (09:29)
--- NOTE | 2020-06-22 14:45 | Hospitalist Progress Note ---
Date of Service June 22, 2020 Assessment & Plan (1) Ascites: Ascites/Volume overload H/O liver cirrhosis with portal hypertension H/O Hepatitis C H/O Alcohol use disorder Missed home diuretics for about a week. 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 to quit alcohol use Needs follow up with GI upon discharge Continue current management Acute bronchitis Pancytopenia Secondary to above Monitor CBC No acute bleeding issues Neutropenic precautions Started on doxycycline Hypokalemia Hypomagnesemia Likely secondary to alcoholism Replace electrolytes as needed Alcoholism Alcohol level 111 On gabapentin protocol Continue thiamine, folic acid Monitor for withdrawal Counseled to quit drinking Tobacco use disorder Nicotine patch Chief Sustainability Officer to quit smoking DVT Px: SCDs Re: Thrombocytopenia, H/O GI bleed CODE STATUS Full code Disposition Plan to discharge home today Admission and Anticipated Discharge Date Admission Date: June 20, 2020 Subjective Patient is seen and examined at bedside Reports having cough with yellowish expectoration Abdominal distention, bloating improved Prefers to pick get discharged Discussed with gastroenterology today Denies chest pain, nausea, vomiting, dizziness Review of Systems Review of Systems: All systems reviewed & are unremarkable except as noted in HPI & below Physical Exam Physical Exam: Physical Exam: Vitals signs as noted above General Appearance:Moderately built and nourished, no apparent distress Head: normocephalic, Atraumatic Eyes: normal inspection, EOMI Neck: supple, Trachea midline Respiratory/Chest: Normal breath sounds, CTA Cardiovascular: S1, S2, + murmur Abdomen/GI:Soft, non tender, mildly distended, Bowel sounds present Extremities/Musculoskelatal:normal inspection, no edema Neurologic/Psych:AAOX3, grossly no focal neurological deficits Skin: normal color, warm Results & Data Results & Data ([facility]) Vital Signs (Past 12 Hours) Vital Signs Temp Pulse Pulse Resp BP Pulse Ox 06/22/20 13:27 72 16 97 06/22/20 11:35 36.7 C 78 16 100/62 98 06/22/20 07:44 83 06/22/20 07:06 80 18 99 06/22/20 07:05 37.2 C 82 20 132/70 97 06/22/20 03:24 37.0 C 81 20 100/67 95 Laboratory Results Short CBC 06/22/20 Range/Units 06:23 WBC 1.68 L (4.8-10.8) K/uL Hgb 7.2 L (14.0-18.0) g/dL Hct 22.5 L (42-52) % Plt Count 50 L (130-400) K/uL BMP 06/22/20 06:23 Sodium 137 Potassium 3.4 L Chloride 103 Carbon Dioxide 30 BUN 11 Creatinine 0.54 L Glucose 108 H Calcium 7.6 L
--- NOTE | 2020-06-22 14:53 | Discharge Summary ---
Date of Service June 22, 2020 Admission HPI Per Admitting Provider History of Present Illness 59-year-old male with history of liver cirrhosis with portal hypertension, pancytopenia, chronic hepatitis C, alcoholism, smoking Presenting with abdominal distention and weight gain times few days. Patient follows with [facility] gastroenterology clinic and is usually on Lasix 40 mg daily, spironolactone 1 mg daily with potassium and magnesium supplementation. Since last week, the patient had problems filling his medications including his diuretics. Patient noted progressive abdominal distention for the past few days and has gained 30 pounds within the past few days based on his daily weights. Denies confusion, excessive sleeping, abdominal pain, nausea vomiting, problems with urination or bowel movement. Because of increasing abdominal distention and 30 pound weight gain, patient proceeded to the ER for evaluation. At the ER, patient was received with stable vital signs, saturating well on room air. Potassium noted to be 2.5 and magnesium 1.5 and was given IV potassium and magnesium. On exam patient seen sitting up in bed, comfortable, not in distress, cheerful, speaking sentences with no accessory muscle use or effort. He is saturating 97% on room air. Reports mild dyspnea, which he attributes to the abdominal distention. He adds that there was a person who tested positive for COVID-19 in his apartment building, and that he has been feeling occasional subjective fevers, and some body aches for the past 3 days. Denies other symptoms Admits to drinking 2-3 bottles of beer about 2-3 times per week. Last drink was last night. He also admits to smoking 6 cigarettes/day. Denies illicit drug use. Admission Exam Per Admitting Provider Physical Exam Physical Exam: General- oriented x 3, not in distress, speaks in sentences with no effort or accessory muscle use Head- atraumatic Eyes- PERRL, EOMI, anicteric ENT- oropharynx clear Neck- supple, no JVD, no adenopathy, no thyromegaly; carotids +2/2, no bruits appreciated Lungs-mild scattered wheeze bilaterally, but with good air entry bilaterally, no crackles Heart- normal rate, regular rhythm; no murmur, no gallop, no rub appreciated Abdomen- normal bowel sounds, distended with significant ascites, but not tense, soft, nontender, no masses or hepatosplenomegaly Extremities- no pretibial edema, no calf tenderness; peripheral pulses intact Neuro- alert, oriented x 3; CN 2-12 grossly intact; motor 5/5 bilaterally;sensation 100% on all extremities; no other gross focal neurologic deficits Skin- warm & dry Principal Diagnosis Ascites/Volume overload Pancytopenia Acute bronchitis Hypokalemia Hypomagnesemia Alcohol use Discharge Data Allergies Allergy/AdvReac Type Severity Reaction Status Date / Time No Known Allergies Allergy Unverified 06/20/20 11:11 Consultations 06/20/20 11:19 ED Decision to Admit Stat 06/20/20 16:36 Consult Gastroenterology Routine Procedures Performed CXR No significant change compared to the prior study. No acute process. Paracentesis Ultrasound-guided paracentesis with removal of 2 liters of ascites. 1 L of ascites was sent to the laboratory for analysis as ordered. Ordered Studies 06/21/20 09:00 US paracentesis abd w/image Routine Hospital Course (1) Ascites: Ascites/Volume overload H/O liver cirrhosis with portal hypertension H/O Hepatitis C H/O Alcohol use disorder Missed home diuretics for about a week. S/P abdominal paracentesis--2 liters removed Cultures:pending Received IV Lasix and Albumin Resume home diuretics--Lasix, Spironolactone Low sodium diet, fluid restriction Continue nadolol Appreciate GI Input Client Consultant to quit alcohol use Needs follow up with GI upon discharge Continue current management Acute bronchitis Pancytopenia Secondary to above Monitor CBC No acute bleeding issues Neutropenic precautions Started on doxycycline Hypokalemia Hypomagnesemia Likely secondary to alcoholism Replace electrolytes as needed Alcoholism Alcohol level 111 On gabapentin protocol Continue thiamine, folic acid Monitor for withdrawal Counseled to quit drinking Tobacco use disorder Nicotine patch Client Consultant to quit smoking DVT Px: SCDs Re: Thrombocytopenia, H/O GI bleed CODE STATUS Full code Disposition Plan to discharge home today Total Time Total Time Spent Total Time Spent (In Minutes): 40 minutes Total Time Includes: Examination of the Patient, Discharge Planning, Medication Reconciliation, Communication With Other Providers and Other Discharge Plan Discharge Items Patient Disposition: Home - Home Health Services Reason For Visit: VOLUME OVERLOAD - ASCITES, HYPOKALEMIA Discharge Diagnosis: Ascites/Volume overload Pancytopenia Acute bronchitis Hypokalemia Hypomagnesemia Alcohol use Activity: Resume your previous activity Exercise/Sports: Gradually increase as tolerated Non-emergency contact: Primary Care Provider and Operating Room Surgical Technician Call non-emergency contact if: you have any medication questions, your symptoms worsen, your pain is not controlled, your pain is worsening, your pain is unusual for you, your pain is concerning for you and you have a fever Follow-up/Referrals: Harrison Moore MD [Primary Care Provider] - (Date & Time 06/28/2020 3:00 PM Provider Harrison Moore MD [facility] ) Diet: Low Sodium (2gm) Fluids: 2000ml (8 cups) Addtl Attending Provider Instructions: Follow-up with your primary care physician Dr. Moore on 06/28/2020 3:00 PM Follow-up with your bed operator as recommended Complete antibiotic course doxycycline as prescribed Take your medications regularly Quit drinking alcohol as advised Seek immediate medical attention if your symptoms reoccur or worsen Pending Studies at Discharge: No Stand-Alone Forms: My [facility], Smoking Cessation Medications and DC Order Prescriptions: New doxycycline hyclate 100 mg Capsule 100 mg PO BID Qty: 14 RF: 0 potassium chloride 20 mEq tablet extended release 20 meq PO DAILY Qty: 30 RF: 0 Continued multivitamin [Daily-Liliana] tablet 1 tab PO QAM RF: 0 loperamide [Imodium A-D] 2 mg Capsule 2 mg PO Q3H PRN (Reason: Diarrhea) RF: 0 cyanocobalamin (vitamin B-12) [Vitamin B-12] 1,000 mcg Tablet 1,000 mcg PO QAM RF: 0 furosemide [Lasix] 40 mg tablet 40 mg PO QAM Qty: 30 RF: 0 spironolactone 100 mg tablet 100 mg PO QAM Qty: 30 RF: 0 magnesium oxide 400 mg (241.3 mg magnesium) tablet 400 mg PO QAM Qty: 60 RF: 0 pantoprazole 40 mg tablet,delayed release (DR/EC) 40 mg PO QAM Qty: 30 RF: 0 nadolol 40 mg tablet 40 mg PO QAM Qty: 30 RF: 0 folic acid 1 mg tablet 1 mg PO QAM Qty: 30 RF: 0 Discontinued potassium chloride 20 mEq tablet extended release 20 meq PO QAM RF: 0 Discharge Orders: Discharge Order (Routine); Ordered 06/22/20 Ordered By: Philip Wellington Admission Data Admit Date/Time: 06/20/20 12:51 Attending Provider: Philip Wellington Admit Provider: Juno Marrero Primary Care Provider: Harrison Moore Other Providers: Juno Marrero ; Raysa Cabrera ; [facility] Other Interventions: Discharge Summary Assessment (RN) Last Done: 06/22/20 15:10
[2020-06-22] MEDS ORDERED: DOXYCYCLINE HYCLATE 100 MG CAP PO SCH (21:00)
[2020-06-23] MEDS ORDERED: GABAPENTIN 400 MG CAP PO SCH (10:00)
[2020-06-24 12:12] LABS: Albumin 2.5 g/dL (3.8-4.8); Alpha 1 Globulin 0.3 g/dL (0.2-0.3); Alpha 2 Globulin 0.5 g/dL (0.5-0.9); Beta-1-Globulin 0.4 g/dL (0.4-0.6); Beta-2-Globulin 0.2 g/dL (0.2-0.5); Gamma Globulin 2.3 g/dL (0.8-1.7); Monoclonal Protein Band 1 DNR g/dL (NONE DETECTED); Monoclonal Protein Band 2 DNR g/dL (NONE DETECTED); Monoclonal Protein Band 3 DNR g/dL (NONE DETECTED); Total Protein 6.1 g/dL (6.1-8.1)
[2020-06-24] MEDS ORDERED: GABAPENTIN 400 MG CAP PO SCH (22:00)
== END 2020-06-22 16:30 | disposition home health service (06) | DRG 948 ==
LOC: ED 09:41 → 2S 12:51 → SUATTDRO 12:51 → 2S 17:41 → 2W 06-21 15:01

== ENCOUNTER 2021-01-24 03:42 | Inpatient (IN) ==
[2021-01-24] MEDS ORDERED: PANTOprazole 80 MG in DEXTROSE 5% 100 ML IV ONE (03:51)
[2021-01-24] MEDS ORDERED: FAMOTIDINE 20MG IV PUSH 20 MG/5 ML SYR IV STA (03:51)
[2021-01-24] MEDS ORDERED: OCTREOTIDE ACETATE 50 MCG in SYRINGE 9.5 ML IV STA (03:59)
[2021-01-24] MEDS ORDERED: SODIUM CHLORIDE 0.9% 1000ML 1,000 ML IV SCH ×2 (04:00)
[2021-01-24] MEDS ORDERED: PIPERACILL/TAZOBAC CONSULT ACTIVE PRN (04:02)
[2021-01-24] MEDS ORDERED: PIPERACILLIN/TAZOBACTAM 4.5 GM/120 ML BAG IV ONE (04:02)
[2021-01-24] MEDS ORDERED: SODIUM CHLORIDE 0.9% 1000ML 1,000 ML IV ONE (04:04)
[2021-01-24] MEDS ORDERED: MULTI-VITAMIN INFUSION 10 ML, THIAMINE HCL 100 MG, FOLIC ACID 1 MG in SODIUM CHLORIDE 0... IV ONE (04:10)
[2021-01-24] MEDS ORDERED: VANCOMYCIN CONSULT ACTIVE PRN (04:25)
[2021-01-24 04:28] LABS: Appearance Urine Cloudy (Clear); Bacteria Urine Automated Negative (Negative); Bilirubin Urine 2+ (Negative); Blood Urine 1+ (Negative); Color Urine Dark Yellow; Epithelial Cell Urine Auto 20-30 /lpf (0-5); Glucose Urine UA Negative (Negative); Ketones Urine Negative (Negative); Leukocyte Esterase Urine Trace (Negative); Nitrite Urine Positive (Negative); Protein Urine 1+ (Negative); Specific Gravity Urine 1.016 (1.000-1.030); Urobilinogen Urine Negative (Negative)
--- NOTE | 2021-01-24 04:33 | Emergency Department Note ---
History of Present Illness General Chief complaint: Altered Mental Status Stated complaint: ALTERED MENTAL STATUS/FEVER Time Seen by Provider: 01/24/21 03:45 History of Present Illness This 60-year-old alcoholic presents to the ER complaining of altered mental status Location: Generalized Quality: Confused Severity: Severe Duration: Unknown Timing: Patient was found by the roommate Context: Roommate called EMS Modifying factors: better with unknown; worse with unknown Patient is altered and history is obtained from EMS. EMS states the roommate called them as he found him on the ground confused and had coffee-ground emesis. There is an empty bottle of alcohol next to him. Patient is a known alcoholic. Unknown how long patient was down. Home Medications Medication Instructions Recorded Confirmed Type loperamide [Imodium A-D] 2 mg PO Q3H PRN 06/23/19 06/20/20 History multivitamin [Daily-Liliana] 1 tab PO QAM 06/23/19 06/20/20 History cyanocobalamin (vitamin B-12) 1,000 mcg PO QAM 06/20/20 06/20/20 History [Vitamin B-12] doxycycline hyclate 100 mg PO BID #14 cap 06/22/20 Rx folic acid 1 mg PO QAM #30 tab 06/22/20 Rx furosemide [Lasix] 40 mg PO QAM #30 tab 06/22/20 Rx magnesium oxide 400 mg PO QAM #60 tab 06/22/20 Rx nadolol 40 mg PO QAM #30 tab 06/22/20 Rx pantoprazole 40 mg PO QAM #30 tab 06/22/20 Rx potassium chloride 20 meq PO DAILY #30 tab 06/22/20 Rx spironolactone 100 mg PO QAM #30 tab 06/22/20 Rx Allergies Allergy/AdvReac Type Severity Reaction Status Date / Time No Known Allergies Allergy Unverified 06/20/20 11:11 Past Med/Surg History Medical History (Updated 01/24/21 @ 04:59 by Rose Marquez PA-C) Alcohol abuse Cirrhosis Hepatitis C HTN (hypertension) Hypomagnesemia Pancytopenia Thrombocytopenia Tobacco abuse Surgical History History of chest tube placement History of ganglion cyst History of vasectomy Family History Brother HIV (human immunodeficiency virus infection) Brother Homicide Social History Smoking Status: Current every day smoker Tobacco Type: Cigarettes Cigarettes Per Day: 5; Second Hand Exposure: No; Hx Alcohol Use: Yes Alcohol type: beer and hard liquor Hx Substance Use: Yes Last Used Substance: Unknown Last Used Substance Other:: 2 yrs ago Preferred Language: Turkish Communication Ability: Effective [employer] Required: No Beliefs That Will Affect Care: None marital status: Single Current Living Situation: Other Current Living Situation Comment: 2 roommates Feels Safe at Home: Yes Assistive Devices: None Review of Systems Unobtainable due to reduced consciousness Physical Exam Vital Signs Vital Signs - 24 hr 01/24/21 03:46 Temperature 37.6 C H Temperature Source Rectal Pulse Rate 126 H Pulse Rhythm Regular Pulse Strength Normal Respiratory Rate 26 H Respiratory Effort / Characteristics Non-Labored Spontaneous Respiratory Pattern Tachypnea Blood Pressure 128/62 Blood Pressure Mean 84 Blood Pressure Position Lying Pulse Oximetry 98 Oxygen Delivery Method Room Air Sepsis Recent Fever Within 48 Hours No Sepsis New/Unexplained Change in Mental Status Yes Sepsis Action Taken by Nursing Physician Notified VITALS: Vitals are noted on the nurse's note and reviewed by myself. Vital signs febrile and tachycardic. GENERAL: Confused ill-appearing jaundiced male in acute distress SKIN: The skin was without rashes, erythema, edema, or bruising. There is no tenting of the skin. Capillary reflex less than 2 seconds. HEAD: Normocephalic atraumatic. EARS: External auditory canals clear EYES: Pupils equal round and reactive to light and accommodation. Conjunctivae without injection, sclerae with icterus. Extraocular movements intact. NOSE: Patent, turbinates without inflammation or discharge. MOUTH: Mucous membranes dry with coffee-ground emesis in the mouth that is guaiac positive. Pharynx without erythema or exudate. Uvula midline. Airway patent. Tongue does not deviate. NECK: Supple without nuchal rigidity. No lymphadenopathy. No thyromegaly. Cervical spine is nontender. No JVD. HEART: Tachycardic rate and rhythm LUNGS: Clear to auscultation bilaterally without wheezes, rales or rhonchi. No retractions or accessory muscle use. ABDOMEN: Positive bowel sounds x 4. Normal tympanic percussion. Soft, nontender, distended with fluid wave present, positive for ascites, without masses or organomegaly. Branch sign negative. No guarding or rebound tenderness. No CVA tenderness Rectal exam: Black stool guaiac positive. MUSCULOSKELETAL: No muscle atrophy, erythema, or edema noted. NEURO: Patient was confused and unable to follow commands. He was moving all extremities. Course Administered Medications Octreotide Acetate 500 mcg/ (Sodium Chloride) 105 mls @ 10.5 mls/hr IV .Q10H CINDY Stop: 02/23/21 03:59 Last Admin: 01/24/21 05:09 Dose: 50 mcg/hr, 10.5 mls/hr Documented by: [id number] Discontinued Medications Sodium Chloride (Nss 1000ml) 1,000 mls @ 999 mls/hr IV .Q1H1M CINDY Stop: 01/24/21 05:00 Last Admin: 01/24/21 05:16 Dose: 999 mls/hr Documented by: [id number] Sodium Chloride (Nss 1000ml) 1,000 mls @ 999 mls/hr IV .Q1H1M CINDY Stop: 01/24/21 05:00 Last Admin: 01/24/21 05:18 Dose: 999 mls/hr Documented by: [id number] Famotidine (Pepcid 20mg Iv Push) 20 mg in 5 mls @ 2.5 mls/min IV NOW STA Stop: 01/24/21 03:52 Last Admin: 01/24/21 05:03 Dose: 2.5 mls/min Documented by: [id number] Pantoprazole Sodium 80 mg/ (Dextrose) 100 mls @ 400 mls/hr IV NOW ONE Stop: 01/24/21 04:05 Last Admin: 01/24/21 04:54 Dose: 400 mls/hr Documented by: [id number] Octreotide Acetate 50 mcg/ (Syringe) 10 mls @ 3 mls/min IV ONE STA Stop: 01/24/21 04:02 Last Admin: 01/24/21 05:05 Dose: 3 mls/min Documented by: [id number] Piperacillin Sod/Tazobactam Sod (Zosyn) 4.5 gm in 120 mls @ 240 mls/hr IV NOW ONE Stop: 01/24/21 04:31 Last Admin: 01/24/21 05:17 Dose: 240 mls/hr Documented by: [id number] Sodium Chloride (Nss 1000ml) 1,000 mls @ 999 mls/hr IV .Q1H1M ONE Stop: 01/24/21 05:04 Last Admin: 01/24/21 05:12 Dose: 999 mls/hr Documented by: [id number] Multivitamins 10 ml/ Thiamine HCl 100 mg/ Folic Acid 1 mg/Sodium Chloride 1,011.2 mls @ 1,011.2 mls/hr IV .Q1H ONE Stop: 01/24/21 05:09 Last Admin: 01/24/21 04:55 Dose: 1,011.2 mls/hr Documented by: [id number] Critical Care Time Critical Care Time: Yes Total Critical Care Time: 75 I have personally spent 75 minutes of critical care time in the direct management of this patient. This includes bedside care, interpretation of diagnostic studies, and testing, discussion with consultants, patient, and family members, and other required patient management activities. This 75 minutes is in excess of all separately billable procedures. Medical Decision Making Medical Records Attestation: I reviewed the patient's medical records. Home Medications Current Medication List: was personally reviewed by me Laboratory Data Attestation: I reviewed the patient's lab results. Result diagrams: 01/24/21 04:03 01/24/21 04:03 Lab Results 01/24/21 01/24/21 01/24/21 Range/Units 03:54 04:03 04:03 WBC 15.41 H (4.8-10.8) K/uL RBC 2.43 L (4.7-6.1) M/uL Hgb 7.6 L (14.0-18.0) g/dL Hct 23.5 L (42-52) % MCV 96.7 (80-100) fL MCH 31.3 (25-34) pg MCHC 32.3 (32-36) g/dL RDW Std Deviation 79.6 H (36.4-46.3) fL RDW Coeff of Jarrell 22.5 H (11.5-14.5) % Plt Count 80 L (130-400) K/uL MPV 11.5 H (7.4-10.4) fL Absolute Nucleated RBC 0.25 H (0-0) K/uL Nucleated RBC % (auto) 1.6 % Neutrophils % (Manual) 82.6 % Lymphocytes % (Manual) 4.3 % Monocytes % (Manual) 12.2 % Myelocytes % (Man) 0.9 % Neutrophils # (Manual) 12.73 H (1.4-6.5) K/uL Total Absolute Neuts 12.73 H (1.4-6.5) K/uL Lymphocytes # (Manual) 0.66 L (1.2-3.4) K/uL Total Abs Lymphocytes 0.66 L (1.2-3.4) K/uL Monocytes # (Manual) 1.88 H (0.11-0.59) K/uL Myelocytes # (Manual) 0.14 H (0-0) K/uL Toxic Vacuolation 1+ Platelet Estimate Decreased L (Normal) PT (9.0-12.0) Seconds INR (0.9-1.1) APTT (21.0-31.0) Seconds PTT Ratio ABG pH (7.35-7.45) ABG pCO2 (35-46) mmHg ABG pO2 (80-95) mmHg ABG HCO3 (19-24) mmol/L ABG O2 Saturation (90-95) % ABG Base Excess (-9-1.8) mEq/L Jalil Test (Pos) Barometric Pressure mm/Hg Oxygen Given Sodium (136-145) mmol/L Potassium (3.5-5.1) mmol/L Chloride (98-107) mmol/L Carbon Dioxide (21-32) mmol/L Anion Gap (3-11) BUN (7-18) mg/dl Creatinine (0.6-1.4) mg/dl Est Cr Clr Drug Dosing ml/min Est GFR ( Amer) ml/min Est GFR (Non-Af Amer) ml/min BUN/Creatinine Ratio (10-20) Glucose (70-99) mg/dl POC Glucose 82 (70-99) mg/dl Osmolality (280-300) mOsm/kg Lactate (0.4-2.0) mmol/L Calcium (8.5-10.1) mg/dl Magnesium (1.8-2.4) mg/dl Total Bilirubin (0.2-1) mg/dl AST (15-37) U/L ALT (12-78) U/L Alkaline Phosphatase (45-117) U/L Ammonia (11-32) umol/L Total Creatine Kinase (39-308) U/L Troponin I (0-0.045) ng/ml Total Protein (6.4-8.2) gm/dl Albumin (3.4-5.0) gm/dl Globulin (2.5-4.0) gm/dl Albumin/Globulin Ratio (0.9-2) Lipase (73-393) U/L Procalcitonin (0-0.5) ng/ml TSH (0.300-4.500) uIu/ml Free T4 (0.8-1.6) ng/dl Urine Color Urine Appearance (Clear) Urine pH (4.5-7.5) Ur Specific [place] (1.000-1.030) Urine Protein (Negative) Urine Glucose (UA) (Negative) Urine Ketones (Negative) Urine Blood (Negative) Urine Nitrite (Negative) Urine Bilirubin (Negative) Urine Urobilinogen (Negative) Ur Leukocyte Esterase (Negative) Urine WBC (Auto) (0-5) /hpf Urine RBC (Auto) (0-4) /hpf U Hyaline Cast (Auto) (0-5) /lpf U Epithel Cells (Auto) (0-5) /lpf Urine Bacteria (Auto) (Negative) Urine Osmolality (500-800) mOsm/kg Salicylates (2.8-20) mg/dl Urine Opiates Screen (Neg) Ur Methadone, Qual (Neg) Acetaminophen (10-30) ug/ml Urine Barbiturates (Neg) Ur Phencyclidine (PCP) (Neg) U Amphetamin/Meth Scrn (Neg) MDMA (Ecstasy) Screen (Neg) U Benzodiazepines Scrn (Neg) Ur Cocaine Metabolite (Neg) U Marijuana (THC) Screen (Neg) Ethyl Alcohol mg/dL (0-3) mg/dl COVID-19 Eval Order SARS-CoV-2 (PCR) (Negative) Blood Type Cancelled Antibody Screen Cancelled Crossmatch 01/24/21 01/24/21 01/24/21 Range/Units 04:03 04:03 04:03 WBC (4.8-10.8) K/uL RBC (4.7-6.1) M/uL Hgb (14.0-18.0) g/dL Hct (42-52) % MCV (80-100) fL MCH (25-34) pg MCHC (32-36) g/dL RDW Std Deviation (36.4-46.3) fL RDW Coeff of Jarrell (11.5-14.5) % Plt Count (130-400) K/uL MPV (7.4-10.4) fL Absolute Nucleated RBC (0-0) K/uL Nucleated RBC % (auto) % Neutrophils % (Manual) % Lymphocytes % (Manual) % Monocytes % (Manual) % Myelocytes % (Man) % Neutrophils # (Manual) (1.4-6.5) K/uL Total Absolute Neuts (1.4-6.5) K/uL Lymphocytes # (Manual) (1.2-3.4) K/uL Total Abs Lymphocytes (1.2-3.4) K/uL Monocytes # (Manual) (0.11-0.59) K/uL Myelocytes # (Manual) (0-0) K/uL Toxic Vacuolation Platelet Estimate (Normal) PT 19.8 H (9.0-12.0) Seconds INR 2.1 H (0.9-1.1) APTT 50.2 H* (21.0-31.0) Seconds PTT Ratio 1.9 ABG pH (7.35-7.45) ABG pCO2 (35-46) mmHg ABG pO2 (80-95) mmHg ABG HCO3 (19-24) mmol/L ABG O2 Saturation (90-95) % ABG Base Excess (-9-1.8) mEq/L Jalil Test (Pos) Barometric Pressure mm/Hg Oxygen Given Sodium 129 L (136-145) mmol/L Potassium 4.2 (3.5-5.1) mmol/L Chloride 93 L (98-107) mmol/L Carbon Dioxide 22 (21-32) mmol/L Anion Gap 14.0 H (3-11) BUN 70 H (7-18) mg/dl Creatinine 2.51 H (0.6-1.4) mg/dl Est Cr Clr Drug Dosing 28.9 ml/min Est GFR ( Amer) 30.8 ml/min Est GFR (Non-Af Amer) 26.6 ml/min BUN/Creatinine Ratio 27.8 H (10-20) Glucose 67 L (70-99) mg/dl POC Glucose (70-99) mg/dl Osmolality (280-300) mOsm/kg Lactate 7.6 H* (0.4-2.0) mmol/L Calcium 7.0 L (8.5-10.1) mg/dl Magnesium 2.3 (1.8-2.4) mg/dl Total Bilirubin 7.6 H (0.2-1) mg/dl AST 214 H (15-37) U/L ALT 54 (12-78) U/L Alkaline Phosphatase 145 H (45-117) U/L Ammonia (11-32) umol/L Total Creatine Kinase 667 H (39-308) U/L Troponin I 0.140 H* (0-0.045) ng/ml Total Protein 6.2 L (6.4-8.2) gm/dl Albumin 1.3 L (3.4-5.0) gm/dl Globulin 4.9 H (2.5-4.0) gm/dl Albumin/Globulin Ratio 0.3 L (0.9-2) Lipase 123 (73-393) U/L Procalcitonin (0-0.5) ng/ml TSH 0.212 L (0.300-4.500) uIu/ml Free T4 1.13 (0.8-1.6) ng/dl Urine Color Urine Appearance (Clear) Urine pH (4.5-7.5) Ur Specific [place] (1.000-1.030) Urine Protein (Negative) Urine Glucose (UA) (Negative) Urine Ketones (Negative) Urine Blood (Negative) Urine Nitrite (Negative) Urine Bilirubin (Negative) Urine Urobilinogen (Negative) Ur Leukocyte Esterase (Negative) Urine WBC (Auto) (0-5) /hpf Urine RBC (Auto) (0-4) /hpf U Hyaline Cast (Auto) (0-5) /lpf U Epithel Cells (Auto) (0-5) /lpf Urine Bacteria (Auto) (Negative) Urine Osmolality (500-800) mOsm/kg Salicylates (2.8-20) mg/dl Urine Opiates Screen (Neg) Ur Methadone, Qual (Neg) Acetaminophen (10-30) ug/ml Urine Barbiturates (Neg) Ur Phencyclidine (PCP) (Neg) U Amphetamin/Meth Scrn (Neg) MDMA (Ecstasy) Screen (Neg) U Benzodiazepines Scrn (Neg) Ur Cocaine Metabolite (Neg) U Marijuana (THC) Screen (Neg) Ethyl Alcohol mg/dL (0-3) mg/dl COVID-19 Eval Order SARS-CoV-2 (PCR) (Negative) Blood Type Antibody Screen Crossmatch 01/24/21 01/24/21 01/24/21 Range/Units 04:03 04:03 04:03 WBC (4.8-10.8) K/uL RBC (4.7-6.1) M/uL Hgb (14.0-18.0) g/dL Hct (42-52) % MCV (80-100) fL MCH (25-34) pg MCHC (32-36) g/dL RDW Std Deviation (36.4-46.3) fL RDW Coeff of Jarrell (11.5-14.5) % Plt Count (130-400) K/uL MPV (7.4-10.4) fL Absolute Nucleated RBC (0-0) K/uL Nucleated RBC % (auto) % Neutrophils % (Manual) % Lymphocytes % (Manual) % Monocytes % (Manual) % Myelocytes % (Man) % Neutrophils # (Manual) (1.4-6.5) K/uL Total Absolute Neuts (1.4-6.5) K/uL Lymphocytes # (Manual) (1.2-3.4) K/uL Total Abs Lymphocytes (1.2-3.4) K/uL Monocytes # (Manual) (0.11-0.59) K/uL Myelocytes # (Manual) (0-0) K/uL Toxic Vacuolation Platelet Estimate (Normal) PT (9.0-12.0) Seconds INR (0.9-1.1) APTT (21.0-31.0) Seconds PTT Ratio ABG pH (7.35-7.45) ABG pCO2 (35-46) mmHg ABG pO2 (80-95) mmHg ABG HCO3 (19-24) mmol/L ABG O2 Saturation (90-95) % ABG Base Excess (-9-1.8) mEq/L Jalil Test (Pos) Barometric Pressure mm/Hg Oxygen Given Sodium (136-145) mmol/L Potassium (3.5-5.1) mmol/L Chloride (98-107) mmol/L Carbon Dioxide (21-32) mmol/L Anion Gap (3-11) BUN (7-18) mg/dl Creatinine (0.6-1.4) mg/dl Est Cr Clr Drug Dosing ml/min Est GFR ( Amer) ml/min Est GFR (Non-Af Amer) ml/min BUN/Creatinine Ratio (10-20) Glucose (70-99) mg/dl POC Glucose (70-99) mg/dl Osmolality (280-300) mOsm/kg Lactate (0.4-2.0) mmol/L Calcium (8.5-10.1) mg/dl Magnesium (1.8-2.4) mg/dl Total Bilirubin (0.2-1) mg/dl AST (15-37) U/L ALT (12-78) U/L Alkaline Phosphatase (45-117) U/L Ammonia 62.0 H (11-32) umol/L Total Creatine Kinase (39-308) U/L Troponin I (0-0.045) ng/ml Total Protein (6.4-8.2) gm/dl Albumin (3.4-5.0) gm/dl Globulin (2.5-4.0) gm/dl Albumin/Globulin Ratio (0.9-2) Lipase (73-393) U/L Procalcitonin 27.59 H (0-0.5) ng/ml TSH (0.300-4.500) uIu/ml Free T4 (0.8-1.6) ng/dl Urine Color Urine Appearance (Clear) Urine pH (4.5-7.5) Ur Specific [place] (1.000-1.030) Urine Protein (Negative) Urine Glucose (UA) (Negative) Urine Ketones (Negative) Urine Blood (Negative) Urine Nitrite (Negative) Urine Bilirubin (Negative) Urine Urobilinogen (Negative) Ur Leukocyte Esterase (Negative) Urine WBC (Auto) (0-5) /hpf Urine RBC (Auto) (0-4) /hpf U Hyaline Cast (Auto) (0-5) /lpf U Epithel Cells (Auto) (0-5) /lpf Urine Bacteria (Auto) (Negative) Urine Osmolality (500-800) mOsm/kg Salicylates (2.8-20) mg/dl Urine Opiates Screen (Neg) Ur Methadone, Qual (Neg) Acetaminophen (10-30) ug/ml Urine Barbiturates (Neg) Ur Phencyclidine (PCP) (Neg) U Amphetamin/Meth Scrn (Neg) MDMA (Ecstasy) Screen (Neg) U Benzodiazepines Scrn (Neg) Ur Cocaine Metabolite (Neg) U Marijuana (THC) Screen (Neg) Ethyl Alcohol mg/dL (0-3) mg/dl COVID-19 Eval Order SARS-CoV-2 (PCR) (Negative) Blood Type Antibody Screen Crossmatch 01/24/21 01/24/21 01/24/21 Range/Units 04:03 04:10 04:10 WBC (4.8-10.8) K/uL RBC (4.7-6.1) M/uL Hgb (14.0-18.0) g/dL Hct (42-52) % MCV (80-100) fL MCH (25-34) pg MCHC (32-36) g/dL RDW Std Deviation (36.4-46.3) fL RDW Coeff of Jarrell (11.5-14.5) % Plt Count (130-400) K/uL MPV (7.4-10.4) fL Absolute Nucleated RBC (0-0) K/uL Nucleated RBC % (auto) % Neutrophils % (Manual) % Lymphocytes % (Manual) % Monocytes % (Manual) % Myelocytes % (Man) % Neutrophils # (Manual) (1.4-6.5) K/uL Total Absolute Neuts (1.4-6.5) K/uL Lymphocytes # (Manual) (1.2-3.4) K/uL Total Abs Lymphocytes (1.2-3.4) K/uL Monocytes # (Manual) (0.11-0.59) K/uL Myelocytes # (Manual) (0-0) K/uL Toxic Vacuolation Platelet Estimate (Normal) PT (9.0-12.0) Seconds INR (0.9-1.1) APTT (21.0-31.0) Seconds PTT Ratio ABG pH (7.35-7.45) ABG pCO2 (35-46) mmHg ABG pO2 (80-95) mmHg ABG HCO3 (19-24) mmol/L ABG O2 Saturation (90-95) % ABG Base Excess (-9-1.8) mEq/L Jalil Test (Pos) Barometric Pressure mm/Hg Oxygen Given Sodium (136-145) mmol/L Potassium (3.5-5.1) mmol/L Chloride (98-107) mmol/L Carbon Dioxide (21-32) mmol/L Anion Gap (3-11) BUN (7-18) mg/dl Creatinine (0.6-1.4) mg/dl Est Cr Clr Drug Dosing ml/min Est GFR ( Amer) ml/min Est GFR (Non-Af Amer) ml/min BUN/Creatinine Ratio (10-20) Glucose (70-99) mg/dl POC Glucose (70-99) mg/dl Osmolality (280-300) mOsm/kg Lactate (0.4-2.0) mmol/L Calcium (8.5-10.1) mg/dl Magnesium (1.8-2.4) mg/dl Total Bilirubin (0.2-1) mg/dl AST (15-37) U/L ALT (12-78) U/L Alkaline Phosphatase (45-117) U/L Ammonia (11-32) umol/L Total Creatine Kinase (39-308) U/L Troponin I (0-0.045) ng/ml Total Protein (6.4-8.2) gm/dl Albumin (3.4-5.0) gm/dl Globulin (2.5-4.0) gm/dl Albumin/Globulin Ratio (0.9-2) Lipase (73-393) U/L Procalcitonin (0-0.5) ng/ml TSH (0.300-4.500) uIu/ml Free T4 (0.8-1.6) ng/dl Urine Color Dark Yellow Urine Appearance Cloudy A (Clear) Urine pH 5.0 (4.5-7.5) Ur Specific [place] 1.016 (1.000-1.030) Urine Protein 1+ H (Negative) Urine Glucose (UA) Negative (Negative) Urine Ketones Negative (Negative) Urine Blood 1+ H (Negative) Urine Nitrite Positive A (Negative) Urine Bilirubin 2+ H (Negative) Urine Urobilinogen Negative (Negative) Ur Leukocyte Esterase Trace H (Negative) Urine WBC (Auto) 10-30 H (0-5) /hpf Urine RBC (Auto) 5-10 H (0-4) /hpf U Hyaline Cast (Auto) 10-30 H (0-5) /lpf U Epithel Cells (Auto) 20-30 H (0-5) /lpf Urine Bacteria (Auto) Negative (Negative) Urine Osmolality (500-800) mOsm/kg Salicylates (2.8-20) mg/dl Urine Opiates Screen Neg (Neg) Ur Methadone, Qual Neg (Neg) Acetaminophen (10-30) ug/ml Urine Barbiturates Neg (Neg) Ur Phencyclidine (PCP) Neg (Neg) U Amphetamin/Meth Scrn Neg (Neg) MDMA (Ecstasy) Screen Neg (Neg) U Benzodiazepines Scrn Neg (Neg) Ur Cocaine Metabolite Neg (Neg) U Marijuana (THC) Screen Neg (Neg) Ethyl Alcohol mg/dL < 3.0 (0-3) mg/dl COVID-19 Eval Order SARS-CoV-2 (PCR) (Negative) Blood Type Antibody Screen Crossmatch 01/24/21 01/24/21 01/24/21 Range/Units 04:10 04:16 04:16 WBC (4.8-10.8) K/uL RBC (4.7-6.1) M/uL Hgb (14.0-18.0) g/dL Hct (42-52) % MCV (80-100) fL MCH (25-34) pg MCHC (32-36) g/dL RDW Std Deviation (36.4-46.3) fL RDW Coeff of Jarrell (11.5-14.5) % Plt Count (130-400) K/uL MPV (7.4-10.4) fL Absolute Nucleated RBC (0-0) K/uL Nucleated RBC % (auto) % Neutrophils % (Manual) % Lymphocytes % (Manual) % Monocytes % (Manual) % Myelocytes % (Man) % Neutrophils # (Manual) (1.4-6.5) K/uL Total Absolute Neuts (1.4-6.5) K/uL Lymphocytes # (Manual) (1.2-3.4) K/uL Total Abs Lymphocytes (1.2-3.4) K/uL Monocytes # (Manual) (0.11-0.59) K/uL Myelocytes # (Manual) (0-0) K/uL Toxic Vacuolation Platelet Estimate (Normal) PT (9.0-12.0) Seconds INR (0.9-1.1) APTT (21.0-31.0) Seconds PTT Ratio ABG pH (7.35-7.45) ABG pCO2 (35-46) mmHg ABG pO2 (80-95) mmHg ABG HCO3 (19-24) mmol/L ABG O2 Saturation (90-95) % ABG Base Excess (-9-1.8) mEq/L Jalil Test (Pos) Barometric Pressure mm/Hg Oxygen Given Sodium (136-145) mmol/L Potassium (3.5-5.1) mmol/L Chloride (98-107) mmol/L Carbon Dioxide (21-32) mmol/L Anion Gap (3-11) BUN (7-18) mg/dl Creatinine (0.6-1.4) mg/dl Est Cr Clr Drug Dosing ml/min Est GFR ( Amer) ml/min Est GFR (Non-Af Amer) ml/min BUN/Creatinine Ratio (10-20) Glucose (70-99) mg/dl POC Glucose (70-99) mg/dl Osmolality (280-300) mOsm/kg Lactate (0.4-2.0) mmol/L Calcium (8.5-10.1) mg/dl Magnesium (1.8-2.4) mg/dl Total Bilirubin (0.2-1) mg/dl AST (15-37) U/L ALT (12-78) U/L Alkaline Phosphatase (45-117) U/L Ammonia (11-32) umol/L Total Creatine Kinase (39-308) U/L Troponin I (0-0.045) ng/ml Total Protein (6.4-8.2) gm/dl Albumin (3.4-5.0) gm/dl Globulin (2.5-4.0) gm/dl Albumin/Globulin Ratio (0.9-2) Lipase (73-393) U/L Procalcitonin (0-0.5) ng/ml TSH (0.300-4.500) uIu/ml Free T4 (0.8-1.6) ng/dl Urine Color Urine Appearance (Clear) Urine pH (4.5-7.5) Ur Specific [place] (1.000-1.030) Urine Protein (Negative) Urine Glucose (UA) (Negative) Urine Ketones (Negative) Urine Blood (Negative) Urine Nitrite (Negative) Urine Bilirubin (Negative) Urine Urobilinogen (Negative) Ur Leukocyte Esterase (Negative) Urine WBC (Auto) (0-5) /hpf Urine RBC (Auto) (0-4) /hpf U Hyaline Cast (Auto) (0-5) /lpf U Epithel Cells (Auto) (0-5) /lpf Urine Bacteria (Auto) (Negative) Urine Osmolality 317 L (500-800) mOsm/kg Salicylates (2.8-20) mg/dl Urine Opiates Screen (Neg) Ur Methadone, Qual (Neg) Acetaminophen (10-30) ug/ml Urine Barbiturates (Neg) Ur Phencyclidine (PCP) (Neg) U Amphetamin/Meth Scrn (Neg) MDMA (Ecstasy) Screen (Neg) U Benzodiazepines Scrn (Neg) Ur Cocaine Metabolite (Neg) U Marijuana (THC) Screen (Neg) Ethyl Alcohol mg/dL (0-3) mg/dl COVID-19 Eval Order Covid19 at [facility] SARS-CoV-2 (PCR) NEGATIVE (Negative) Blood Type Antibody Screen Crossmatch 01/24/21 01/24/21 01/24/21 Range/Units 04:48 04:50 05:06 WBC (4.8-10.8) K/uL RBC (4.7-6.1) M/uL Hgb (14.0-18.0) g/dL Hct (42-52) % MCV (80-100) fL MCH (25-34) pg MCHC (32-36) g/dL RDW Std Deviation (36.4-46.3) fL RDW Coeff of Jarrell (11.5-14.5) % Plt Count (130-400) K/uL MPV (7.4-10.4) fL Absolute Nucleated RBC (0-0) K/uL Nucleated RBC % (auto) % Neutrophils % (Manual) % Lymphocytes % (Manual) % Monocytes % (Manual) % Myelocytes % (Man) % Neutrophils # (Manual) (1.4-6.5) K/uL Total Absolute Neuts (1.4-6.5) K/uL Lymphocytes # (Manual) (1.2-3.4) K/uL Total Abs Lymphocytes (1.2-3.4) K/uL Monocytes # (Manual) (0.11-0.59) K/uL Myelocytes # (Manual) (0-0) K/uL Toxic Vacuolation Platelet Estimate (Normal) PT (9.0-12.0) Seconds INR (0.9-1.1) APTT (21.0-31.0) Seconds PTT Ratio ABG pH 7.45 (7.35-7.45) ABG pCO2 30 L (35-46) mmHg ABG pO2 74 L (80-95) mmHg ABG HCO3 21 (19-24) mmol/L ABG O2 Saturation 94.0 (90-95) % ABG Base Excess -2.8 (-9-1.8) mEq/L Jalil Test POS (Pos) Barometric Pressure 735.7 mm/Hg Oxygen Given ROOM AIR Sodium (136-145) mmol/L Potassium (3.5-5.1) mmol/L Chloride (98-107) mmol/L Carbon Dioxide (21-32) mmol/L Anion Gap (3-11) BUN (7-18) mg/dl Creatinine (0.6-1.4) mg/dl Est Cr Clr Drug Dosing ml/min Est GFR ( Amer) ml/min Est GFR (Non-Af Amer) ml/min BUN/Creatinine Ratio (10-20) Glucose (70-99) mg/dl POC Glucose (70-99) mg/dl Osmolality 294 (280-300) mOsm/kg Lactate (0.4-2.0) mmol/L Calcium (8.5-10.1) mg/dl Magnesium (1.8-2.4) mg/dl Total Bilirubin (0.2-1) mg/dl AST (15-37) U/L ALT (12-78) U/L Alkaline Phosphatase (45-117) U/L Ammonia (11-32) umol/L Total Creatine Kinase (39-308) U/L Troponin I (0-0.045) ng/ml Total Protein (6.4-8.2) gm/dl Albumin (3.4-5.0) gm/dl Globulin (2.5-4.0) gm/dl Albumin/Globulin Ratio (0.9-2) Lipase (73-393) U/L Procalcitonin (0-0.5) ng/ml TSH (0.300-4.500) uIu/ml Free T4 (0.8-1.6) ng/dl Urine Color Urine Appearance (Clear) Urine pH (4.5-7.5) Ur Specific [place] (1.000-1.030) Urine Protein (Negative) Urine Glucose (UA) (Negative) Urine Ketones (Negative) Urine Blood (Negative) Urine Nitrite (Negative) Urine Bilirubin (Negative) Urine Urobilinogen (Negative) Ur Leukocyte Esterase (Negative) Urine WBC (Auto) (0-5) /hpf Urine RBC (Auto) (0-4) /hpf U Hyaline Cast (Auto) (0-5) /lpf U Epithel Cells (Auto) (0-5) /lpf Urine Bacteria (Auto) (Negative) Urine Osmolality (500-800) mOsm/kg Salicylates (2.8-20) mg/dl Urine Opiates Screen (Neg) Ur Methadone, Qual (Neg) Acetaminophen (10-30) ug/ml Urine Barbiturates (Neg) Ur Phencyclidine (PCP) (Neg) U Amphetamin/Meth Scrn (Neg) MDMA (Ecstasy) Screen (Neg) U Benzodiazepines Scrn (Neg) Ur Cocaine Metabolite (Neg) U Marijuana (THC) Screen (Neg) Ethyl Alcohol mg/dL (0-3) mg/dl COVID-19 Eval Order SARS-CoV-2 (PCR) (Negative) Blood Type A Negative Antibody Screen NEGATIVE Crossmatch See Detail 01/24/21 Range/Units 05:53 WBC (4.8-10.8) K/uL RBC (4.7-6.1) M/uL Hgb (14.0-18.0) g/dL Hct (42-52) % MCV (80-100) fL MCH (25-34) pg MCHC (32-36) g/dL RDW Std Deviation (36.4-46.3) fL RDW Coeff of Jarrell (11.5-14.5) % Plt Count (130-400) K/uL MPV (7.4-10.4) fL Absolute Nucleated RBC (0-0) K/uL Nucleated RBC % (auto) % Neutrophils % (Manual) % Lymphocytes % (Manual) % Monocytes % (Manual) % Myelocytes % (Man) % Neutrophils # (Manual) (1.4-6.5) K/uL Total Absolute Neuts (1.4-6.5) K/uL Lymphocytes # (Manual) (1.2-3.4) K/uL Total Abs Lymphocytes (1.2-3.4) K/uL Monocytes # (Manual) (0.11-0.59) K/uL Myelocytes # (Manual) (0-0) K/uL Toxic Vacuolation Platelet Estimate (Normal) PT (9.0-12.0) Seconds INR (0.9-1.1) APTT (21.0-31.0) Seconds PTT Ratio ABG pH (7.35-7.45) ABG pCO2 (35-46) mmHg ABG pO2 (80-95) mmHg ABG HCO3 (19-24) mmol/L ABG O2 Saturation (90-95) % ABG Base Excess (-9-1.8) mEq/L Jalil Test (Pos) Barometric Pressure mm/Hg Oxygen Given Sodium (136-145) mmol/L Potassium (3.5-5.1) mmol/L Chloride (98-107) mmol/L Carbon Dioxide (21-32) mmol/L Anion Gap (3-11) BUN (7-18) mg/dl Creatinine (0.6-1.4) mg/dl Est Cr Clr Drug Dosing ml/min Est GFR ( Amer) ml/min Est GFR (Non-Af Amer) ml/min BUN/Creatinine Ratio (10-20) Glucose (70-99) mg/dl POC Glucose (70-99) mg/dl Osmolality (280-300) mOsm/kg Lactate 6.4 H* (0.4-2.0) mmol/L Calcium (8.5-10.1) mg/dl Magnesium (1.8-2.4) mg/dl Total Bilirubin (0.2-1) mg/dl AST (15-37) U/L ALT (12-78) U/L Alkaline Phosphatase (45-117) U/L Ammonia (11-32) umol/L Total Creatine Kinase (39-308) U/L Troponin I (0-0.045) ng/ml Total Protein (6.4-8.2) gm/dl Albumin (3.4-5.0) gm/dl Globulin (2.5-4.0) gm/dl Albumin/Globulin Ratio (0.9-2) Lipase (73-393) U/L Procalcitonin (0-0.5) ng/ml TSH (0.300-4.500) uIu/ml Free T4 (0.8-1.6) ng/dl Urine Color Urine Appearance (Clear) Urine pH (4.5-7.5) Ur Specific [place] (1.000-1.030) Urine Protein (Negative) Urine Glucose (UA) (Negative) Urine Ketones (Negative) Urine Blood (Negative) Urine Nitrite (Negative) Urine Bilirubin (Negative) Urine Urobilinogen (Negative) Ur Leukocyte Esterase (Negative) Urine WBC (Auto) (0-5) /hpf Urine RBC (Auto) (0-4) /hpf U Hyaline Cast (Auto) (0-5) /lpf U Epithel Cells (Auto) (0-5) /lpf Urine Bacteria (Auto) (Negative) Urine Osmolality (500-800) mOsm/kg Salicylates (2.8-20) mg/dl Urine Opiates Screen (Neg) Ur Methadone, Qual (Neg) Acetaminophen (10-30) ug/ml Urine Barbiturates (Neg) Ur Phencyclidine (PCP) (Neg) U Amphetamin/Meth Scrn (Neg) MDMA (Ecstasy) Screen (Neg) U Benzodiazepines Scrn (Neg) Ur Cocaine Metabolite (Neg) U Marijuana (THC) Screen (Neg) Ethyl Alcohol mg/dL (0-3) mg/dl COVID-19 Eval Order SARS-CoV-2 (PCR) (Negative) Blood Type Antibody Screen Crossmatch Imaging Data Attestation: I personally reviewed and interpreted this imaging study as follows: MDM Narrative Prior records/ancillary studies reviewed and summarized above. Nursing notes reviewed. Additional history obtained from EMS. The patient's history was concerning for altered mental status. Differential diagnosis: Etiologies such as hepatic encephalopathy , GI bleed, metabolic, infection, hypoglycemia, electrolyte abnormalities, cardiac sources, intracerebral event, toxicologic, neurologic, as well as others were entertained. Physical examination: As above. ER treatment provided: IV Lock Normal saline bolus Octreotide with bolus Protonix, Pepcid Zosyn, vancomycin, banana bag An order was placed for continuous cardiac monitoring. The monitor shows a rate of 60-1 30 with a sinus rhythm. Mason catheter, 2 IV lines type and screen and consent form for blood transfusion. Permission was obtained from the brother who states the patient is a full code. We contacted the brother who states the patient is a full code. He gave permission for the blood transfusion. On reassessment the patients mental status is unchanged. Diagnostics interpretation by me: ECG: Ordered for altered mental status EKG: Poor baseline, normal sinus, normal intervals, no acute ST-T wave changes, rate of 123. Impression sinus tachycardia interpreted by myself I think arrhythmia is unlikely. EKG shows normal sinus rhythm with no interval abnormalities such as QT prolongation or WPW. There are no findings to suggest Brugada syndrome. Cardiac monitoring in the emergency department reveals no tachycardic or bradycardic dysrhythmia. Hypertrophic cardiomyopathy was considered but there are no clear historical elements pointing toward this. EKG is not suggestive. The QRS voltage is not extremely large and there are no suggestive Q waves. The labs revealed anemia Blood cultures pending Positive troponin, acute renal failure Imaging studies: Chest x-ray with no acute consolidation, pneumothorax or free air mitral rotation CT HEAD: Compared to 11/05/18. Motion artifact. No definite acute intracranial process. Involutional changes and small vessel disease. Mild sinus disease. Left mastoid and middle ear opacification. Radiologist: Annabelle Yang M.D. CT CHEST Without Contrast: Compared to 09/12/18. Limited study. Mild atelectasis or pneumonitis. No significant pleural effusion or pneumothorax. Gynecomastia and additional incidental findings. Radiologist: Annabelle Yang M.D CT ABDOMEN & PELVIS Without Contrast: Compared to 06/23/19. Limited study. Redemonstration of cirrhosiswith portal hypertension including splenomegalyand small ascites. Fluid and air in the small bowel, queryileus or enteritis. Areas of wall thickening of the GI tract, nonspecific in the setting of liver dysfunction. Small hyperdensity/calcification in the region of the pancreatic head. Ultrasound/MRCP can further evaluate if indicated Nonspecific mesenteric/retroperitoneal stranding. Correlate with biochemical markers if there is concern for pancreatitis. Nephrolithiasis. No hydronephrosis or ureteral stone. Foleycatheter in a mildlythickened decompressed bladder. Probable high riding left testicle. Additional incidental findings. Radiologist: Annabelle Yang M.D. Given the above diagnostic work-up and treatment, this episode appears to be consistent with acute GI bleed, hepatic encephalopathy, positive troponin. Further treatment will be required. Patient was started on broad-spectrum antibiotics. 3 lines are placed. He was given octreotide, Protonix, banana bag, 2 units of blood was typed and crossmatched. He was hydrated as above. Medicine was consulted. ICU was notified. Patient was admitted to the unit. Patient is a full code per brother. Patient is altered and unable to obtain history from patient. My attending was made aware. Patient was reassessed multiple times. Consultation: A consultation was placed with the hospitalist. The case was discussed and diagnostics were reviewed. The patient was evaluated in the ER for further treatment. The chart was completed utilizing [employer] AI Speech voice recognition software. Grammatical errors, random word insertions, pronoun errors, and incomplete sentences are an occassional consequence of this system due to software limitations, ambient noise, and hardware issues. Any formal questions or concerns about the content, text, or information contained within the body of this dictation should be directly addressed to the physician review assistant for clarification. Impression & Plan Acute GI bleeding, Sepsis, Acute hepatic encephalopathy, Anemia Discharge Plan Visit Data Chief Complaint: Altered Mental Status Stated Complaint: ALTERED MENTAL STATUS/FEVER ED Provider: Hank Shrestha ED Midlevel Provider: Rose Marquez Discharge Problem: Acute GI bleeding, Sepsis, Acute hepatic encephalopathy, Anemia Patient Disposition: Admitted As Inpatient Condition: Critical
[2021-01-24 04:40] LABS: ALC (manual) 0.66 K/uL (1.2-3.4); ANC (manual) 12.73 K/uL (1.4-6.5); Hematocrit (blood only) 23.5 % (42-52); Hemoglobin 7.6 g/dL (14.0-18.0); Lymphocytes # (manual) 0.66 K/uL (1.2-3.4); Lymphocytes % (manual) 4.3 %; Mean Corpuscular Hemoglobin 31.3 pg (25-34); Mean Corpuscular Hgb Conc 32.3 g/dL (32-36); Mean Corpuscular Volume 96.7 fL (80-100); Mean Platelet Volume 11.5 fL (7.4-10.4); Monocytes # (manual) 1.88 K/uL (0.11-0.59); Monocytes % (manual) 12.2 %; Myelocytes # (manual) 0.14 K/uL (0-0); Myelocytes % (manual) 0.9 %; Neutrophils # (manual) 12.73 K/uL (1.4-6.5); Neutrophils % (manual) 82.6 %; Nucleated RBC # (auto) 0.25 K/uL (0-0); Nucleated RBC % (auto) 1.6 %; Platelet Count 80 K/uL (130-400); Platelet Estimate Decreased (Normal); RDW Coefficient of Variation 22.5 % (11.5-14.5); RDW Standard Deviation 79.6 fL (36.4-46.3); Red Blood Count 2.43 M/uL (4.7-6.1); Toxic Vacuolation 1+; White Blood Count 15.41 K/uL (4.8-10.8)
[2021-01-24 04:41] LABS: Potassium 4.2 mmol/L (3.5-5.1)
[2021-01-24 04:42] LABS: Albumin Level 1.3 gm/dl (3.4-5.0); BUN Creatinine Ratio 27.8 (10-20); Creatinine Clr Calc Pharmacy 28.9 ml/min; Est GFR (African American) 30.8 ml/min; Est GFR (Non-African American) 26.6 ml/min; Magnesium 2.3 mg/dl (1.8-2.4)
[2021-01-24 04:44] LABS: INR 2.1 (0.9-1.1); Partial Thromboplastin Ratio 1.9; Prothrombin Time 19.8 Seconds (9.0-12.0)
[2021-01-24] MEDS ORDERED: SODIUM CHLORIDE 0.9% 250 ML IV PRN (04:45)
[2021-01-24 04:48] LABS: Amphetamines+Metham, Urine Neg (Neg); Barbiturates, Urine Neg (Neg); Benzodiazepine, Urine Neg (Neg); Cocaine, Urine Neg (Neg); MDMA (Ecstacy), Urine Neg (Neg); Methadone, Urine Neg (Neg); Opiate, Urine Neg (Neg); Phencyclidine, Urine Neg (Neg)
[2021-01-24] MEDS: OCTREOTIDE ACETATE 500 MCG in 0.9 % SODIUM CHLORIDE 100 ML IV SCH ×4 (04:55→23:10)
[2021-01-24] MEDS: VANCOMYCIN HCL 2,000 MG in SODIUM CHLORIDE 0.9% 500 ML IV ONE ×2 (04:55→07:06)
[2021-01-24 04:56] LABS: Albumin Globulin Ratio 0.3 (0.9-2); Bilirubin,Total 7.6 mg/dl (0.2-1); Globulin 4.9 gm/dl (2.5-4.0); Total Protein 6.2 gm/dl (6.4-8.2); Troponin I 0.14 ng/ml (0-0.045)
[2021-01-24 04:57] LABS: Thyroid Stimulating Hormone 0.212 uIu/ml (0.300-4.500)
[2021-01-24 05:14] LABS: Partial Thromboplastin Time 50.2 Seconds (21.0-31.0); T4 Free Thyroxine 1.13 ng/dl (0.8-1.6)
[2021-01-24 05:20] LABS: Base Excess ABG -2.8 mEq/L (-9-1.8); HCO3 ABG 21 mmol/L (19-24); PCO2 ABG 30 mmHg (35-46); PO2 ABG 74 mmHg (80-95); pH ABG 7.45 (7.35-7.45)
[2021-01-24 05:21] LABS: Allen Test POS (Pos)
--- NOTE | 2021-01-24 06:18 | Critical Care Consultation ---
Date of Consultation January 24, 2021 Assessment & Plan (1) Admitted to intensive care unit: Reason Critically Ill: 60-year-old male with liver failure in the setting of alcoholic cirrhosis and hepatitis C presenting with upper GI bleed and sepsis from possible urinary source requiring close hemodynamic monitoring in the setting of concurrent conditions. NEURO - * CAM ICU: POSITIVE * Altered mental status: * Likely secondary to acuity of illness and hyperammonemia. * CT head unremarkable. * Mental status has improved since hydration. CARDIAC/VASCULAR - * NSTEMI: * Likely demand ischemia in the setting of sepsis, hypovolemia, and MARINA. * Trend troponins. * EKG without acute findings otherwise. * Monitor on telemetry. RESPIRATORY - * Saturating well on room air. * Monitor closely for signs/symptoms of volume overload. GI/NUTRITION - * Acute upper GI bleed: * Coffee-ground emesis concerning in the cirrhotic patient. * Received appropriate management including octreotide, Protonix, and Zosyn for SBP coverage. * GI consulted and to see patient for emergent endoscopy. * Appreciate GI recommendations. * Prophylaxis: Protonix RENAL/LYTES - * Acute renal failure: * Likely secondary to hypovolemia. * Received appropriate fluid resuscitation in the emergency department. * Will hold on further crystalloid therapy in the cirrhotic patient with notable anasarca on exam. * Hyponatremia: * Likely secondary to hypovolemia. * Continue to trend status post fluid administration. - * Mason in place - Strict I&Os. ENDO - * No history of diabetes or thyroid disease. * BSGs per unit protocol. ISS --> gtt per unit policy. HEME - * Chronic anemia: * Patient presents with stable chronic anemia. * Concerning with coffee-ground emesis in the cirrhotic patient. * Patient received PRBCs per ED order. * Pending upper endoscopy evaluation, can likely hold after 1 unit. Patient baseline hemoglobin of 7. ID - * Sepsis: * Likely from urinary source. * Currently covered with Zosyn * Lactate/PCT elevated. * SBT coverage. LINES/IV ACCESS - * PIVs x2 * Mason DVT PROPHYLAXIS - * Hold in the setting of GIB * SCDs I have personally spent 35 minutes of critical care time in the direct management of this patient. This is a life/limb threatening event. This includes time spent evaluating patient, direct bedside care, chart review, placing orders, interpretation of diagnostic studies, discussion with consultants, patient, and family members, as well as other required patient management activities. This time is exclusive of all separately billable procedures, and teaching time and separate from and in addition to any other critical care service time. Thank you for allowing us to participate in the care of this patient. Please refer to my attending physician's documentation for any further recommendations. (2) Acute upper GI bleed: (3) Ascites: (4) Anemia: (5) Sepsis: (6) Anasarca: (7) Superior mesenteric vein thrombosis: Supervising Physician Co-Signing Physician Notes Patient separately seen and examined by me. He had difficulty post extubation in the OR and was reintubated by anesthesia. We will leave him intubated at this time and supported by mechanical ventilation due to his altered mental st atus. His blood cultures are growing gram-positive cocci in chains in 4 out of 4 bottles. He received vancomycin and Zosyn earlier. He is currently on Rocephin. He does have ascites we will consider paracentesis to evaluate for spontaneous bacterial peritonitis. No significant bleeding or varices were noted on the EGD from today. His son was updated over the phone. Consent was obtained for potential paracentesis. Additionally, he did receive 1u prbc. History of Present Illness History of Present Illness Patient is a 60-year-old male with a significant past medical history of cirrhosis, hepatitis C, alcohol abuse, hypertension, chronic anemia, and anasarca who presented to the emergency department via EMS for evaluation of altered mental status. Apparently, the patient was found on the floor with a liquor bottle next to him. Coffee-ground emesis was noted by EMS. Patient was initially hypotensive. He received IV fluids with resolved blood pressure. His H&H is stable at his baseline of approximately 7. Lactate greater than 7. Acute kidney injury with creatinine greater than 2.5. Patient covered with broad-spectrum antibiotics. He received 3 L normal saline. Per hospitalist, GI to evaluate morning for likely emergent endoscopy. Upon evaluation in the ICU, the patient is awake and alert. He is able to state his name and states that he is previously from [facility]. Otherwise, he is unable to contribute to history of present illness. Allergies Allergy/AdvReac Type Severity Reaction Status Date / Time No Known Allergies Allergy Unverified 06/20/20 11:11 Home Medications Medication Instructions Recorded Confirmed Type loperamide [Imodium A-D] 2 mg PO Q3H PRN 06/23/19 06/20/20 History multivitamin [Daily-Liliana] 1 tab PO QAM 06/23/19 06/20/20 History cyanocobalamin (vitamin B-12) 1,000 mcg PO QAM 06/20/20 06/20/20 History [Vitamin B-12] doxycycline hyclate 100 mg PO BID #14 cap 06/22/20 Rx folic acid 1 mg PO QAM #30 tab 06/22/20 Rx furosemide [Lasix] 40 mg PO QAM #30 tab 06/22/20 Rx magnesium oxide 400 mg PO QAM #60 tab 06/22/20 Rx nadolol 40 mg PO QAM #30 tab 06/22/20 Rx pantoprazole 40 mg PO QAM #30 tab 06/22/20 Rx potassium chloride 20 meq PO DAILY #30 tab 06/22/20 Rx spironolactone 100 mg PO QAM #30 tab 06/22/20 Rx Patient History Medical History Abdominal ascites Acute GI bleeding Acute hepatic encephalopathy Alcohol abuse Cirrhosis Decompensation of cirrhosis of liver Hepatitis C History of drug use HTN (hypertension) Hypomagnesemia Pancytopenia Symptomatic anemia Thrombocytopenia Tobacco abuse Surgical History History of chest tube placement History of ganglion cyst History of vasectomy Family History Brother HIV (human immunodeficiency virus infection) Brother Homicide Social History Smoking Status: Current every day smoker Tobacco Type: Cigarettes Cigarettes Per Day: 5; Hx Alcohol Use: Yes Alcohol type: beer and hard liquor Hx Substance Use: Yes Last Used Substance: Unknown Last Used Substance Other:: 2 yrs ago Preferred Language: Rwandan Communication Ability: Unable to Communication Ability Comment: Unable to obtain, Patient confused and disoriented. Landscape Gardener Required: No Beliefs That Will Affect Care: None marital status: Single Current Living Situation: Other Current Living Situation Comment: Unable to obtain, Patient confused and disoriented. Feels Safe at Home: Yes Assistive Devices: None Assistive Devices Comment: Unable to obtain, Patient confused and disoriented. Review of Systems Review of Systems: Unobtainable due to cognitive status Physical Exam 2 Physical Exam: VITAL SIGNS - Vital signs and nursing notes were reviewed. GENERAL - 60-year-old male appearing older than his stated age who is in no acute distress. HEAD - NC/AT. EYES - PERRL with EOMI bilaterally. Scleral icterus noted. EARS - No deformities of external structures noted on gross examination bilaterally. NOSE - Midline and without cyanosis. No epistaxis or purulent drainage noted. MOUTH/OROPHARYNX - Without perioral cyanosis. Buccal mucosa pink and moist and without leukoplakia. NECK - Neck with FROM. No nuchal rigidity. LUNGS - Chest wall symmetric without accessory muscle use, intercostals retractions, or central cyanosis. Normal vesicular breath sounds CTA B/L. No wheezes, rales, or rhonchi appreciated. CARDIAC - RRR with S1/S2. No murmur, rubs, or gallops appreciated. ABDOMEN - Abdominal contour protuberant without pulsations or visible masses. Negative Lapwai's or Zambrano Santana's Signs. BS hypoactive normoactive all four q uadrants. No tenderness to palpation appreciated throughout. No guarding. No Rebound Tenderness. Ascites noted. EXTREMITIES - No clubbing or peripheral cyanosis. No pretibial edema present. +3/5 radial and dorsalis pedis pulses palpated throughout. NEUROLOGIC -no focal neurological deficits. Unable to fully assess secondary to current level of consciousness. PSYCH -patient awake and alert to name. He mumbles and laughs. Otherwise, unable to contribute to physical exam. Results & Data Results & Data ([facility]) Vital Signs (Past 12 Hours) Vital Signs Temp Pulse Resp BP Pulse Ox 01/24/21 03:46 37.6 C H 126 H 26 H 128/62 98 Coding Level of Care Code Critical Care 1st 30-74 mins Diagnoses Admitted to intensive care unit Z78.9 Acute upper GI bleed K92.2 Ascites R18.8 Anemia D64.9 Sepsis A41.9 Anasarca R60.1 Superior mesenteric vein thrombosis K55.069 Time Spent (min) 35
[2021-01-24] MEDS ORDERED: LORazepam 1.5 MG/3 ML VIAL IV PRN (06:41)
[2021-01-24] MEDS ORDERED: ICU PROTOCOL FOR HYPERGLYCEMIA PRN (06:41)
--- NOTE | 2021-01-24 07:03 | Anesthesiology Consultation ---
Date of Service January 24, 2021 Assessment & Plan (1) Encounter for pre-operative examination: Chart Review Chart Review: Acceptable Risk for Surgery and Patient NOT seen in Pre Admission Testing Consults Requested none History Height/Weight Height: 5 ft 7 in Weight: 77 kg Allergies Allergy/AdvReac Type Severity Reaction Status Date / Time No Known Allergies Allergy Unverified 06/20/20 11:11 Medications Home Medications Medication Instructions Recorded Confirmed Last Taken loperamide [Imodium A-D] 2 mg PO Q3H PRN 06/23/19 06/20/20 06/22/19 multivitamin [Daily-Liliana] 1 tab PO QAM 06/23/19 06/20/20 06/20/20 cyanocobalamin (vitamin B-12) 1,000 mcg PO QAM 06/20/20 06/20/20 06/20/20 [Vitamin B-12] doxycycline hyclate 100 mg PO BID #14 cap 06/22/20 Unknown folic acid 1 mg PO QAM #30 tab 06/22/20 Unknown furosemide [Lasix] 40 mg PO QAM #30 tab 06/22/20 Unknown magnesium oxide 400 mg PO QAM #60 tab 06/22/20 Unknown nadolol 40 mg PO QAM #30 tab 06/22/20 Unknown pantoprazole 40 mg PO QAM #30 tab 06/22/20 Unknown potassium chloride 20 meq PO DAILY #30 tab 06/22/20 Unknown spironolactone 100 mg PO QAM #30 tab 06/22/20 Unknown Active Medications Generic Name Dose Route Start Last Admin Trade Name Freq PRN Reason Stop Dose Admin Octreotide Acetate 500 mcg/ 105 mls @ 10.5 mls/hr 01/24/21 04:00 01/24/21 05:09 Sodium Chloride IV 02/23/21 03:59 50 mcg/hr .Q10H CINDY 10.5 mls/hr Administration 50 MCG/HR Past Medical History Medical History (Updated 01/24/21 @ 07:03 by Prateek Roe MD) Abdominal ascites Acute GI bleeding Acute hepatic encephalopathy Alcohol abuse Cirrhosis Decompensation of cirrhosis of liver Hepatitis C History of drug use HTN (hypertension) Hypomagnesemia Pancytopenia Symptomatic anemia Thrombocytopenia Tobacco abuse Past Family History Family History Brother HIV (human immunodeficiency virus infection) Brother Homicide Past Surgical History Surgical History History of chest tube placement History of ganglion cyst History of vasectomy Social History Smoking Status: Current every day smoker tobacco type: cigarettes Smoking cigarettes per day: 5 Hx Alcohol Use: Yes Alcohol type: beer and hard liquor alcohol intake frequency: a few times a week Hx Substance Use: Yes substance use type: marijuana and IV drugs Last Used Substance: Unknown Last Used Substance Other:: 2 yrs ago Physical Exam Vital Signs Last Vital Signs Temp 37.6 C H 01/24/21 03:46 Pulse 119 H 01/24/21 06:18 Resp 26 H 01/24/21 06:18 BP 114/49 L 01/24/21 06:18 Pulse Ox 94 01/24/21 06:18 Testing Laboratory Results 01/24/21 04:03 01/24/21 04:03 PT 19.8 Seconds (9.0-12.0) H 01/24/21 04:03 INR 2.1 (0.9-1.1) H 01/24/21 04:03 APTT 50.2 Seconds (21.0-31.0) H* 01/24/21 04:03 Urine Color Dark Yellow 01/24/21 04:10 Urine Appearance Cloudy (Clear) A 01/24/21 04:10 Urine pH 5.0 (4.5-7.5) 01/24/21 04:10 Ur Specific [place] 1.016 (1.000-1.030) 01/24/21 04:10 Urine Protein 1+ (Negative) H 01/24/21 04:10 Urine Glucose (UA) Negative (Negative) 01/24/21 04:10 Urine Ketones Negative (Negative) 01/24/21 04:10 Urine Nitrite Positive (Negative) A 01/24/21 04:10 Ur Leukocyte Esterase Trace (Negative) H 01/24/21 04:10 Urine WBC (Auto) 10-30 /hpf (0-5) H 01/24/21 04:10 Urine RBC (Auto) 5-10 /hpf (0-4) H 01/24/21 04:10 U Hyaline Cast (Auto) 10-30 /lpf (0-5) H 01/24/21 04:10 U Epithel Cells (Auto) 20-30 /lpf (0-5) H 01/24/21 04:10 Urine Bacteria (Auto) Negative (Negative) 01/24/21 04:10 Blood Type A Negative 01/24/21 04:48 Antibody Screen NEGATIVE 01/24/21 04:48 01/24/21 03:54 POC Glucose 82 Lactate 6.4 COVID NEG 01/24/21 Electrocardiogram Date: 06/20/20 DICTATED BY: Zaid Piper MD Test Reason : Blood Pressure : / mmHG Vent. Rate : 108 BPM Atrial Rate : 108 BPM P-R Int : 190 ms QRS Dur : 086 ms QT Int : 360 ms P-R-T Axes : 058 020 054 degrees QTc Int : 482 ms Sinus tachycardia Prolonged QT When compared with ECG of 25-JUN-2019 06:44, Nonspecific T wave abnormality no longer evident in Anterolateral leads Confirmed by Zaid Piper ([id number]) on 06/21/2020 6:18:45 AM Echocardiogram Date: 06/23/19 Normal LV wall thickness No RWMA LV is hyperdynamic EF > 70% RV is normal in size and function No
--- NOTE | 2021-01-24 07:05 | History & Physical Report ---
Date of Service January 24, 2021 Assessment & Plan (1) Anemia: (2) Acute upper GI bleed: emergent EGD in the OR DANDRE Admission and Anticipated Discharge Date Admission Date: January 24, 2021 History of Present Illness Chief Complaint: hematemesis Primary Care Provider: Harrison Moore MD ETOH cirrhosis hematemesis Allergies Allergy/AdvReac Type Severity Reaction Status Date / Time No Known Allergies Allergy Unverified 06/20/20 11:11 Home Medications Medication Instructions Recorded Confirmed Type loperamide [Imodium A-D] 2 mg PO Q3H PRN 06/23/19 06/20/20 History multivitamin [Daily-Liliana] 1 tab PO QAM 06/23/19 06/20/20 History cyanocobalamin (vitamin B-12) 1,000 mcg PO QAM 06/20/20 06/20/20 History [Vitamin B-12] doxycycline hyclate 100 mg PO BID #14 cap 06/22/20 Rx folic acid 1 mg PO QAM #30 tab 06/22/20 Rx furosemide [Lasix] 40 mg PO QAM #30 tab 06/22/20 Rx magnesium oxide 400 mg PO QAM #60 tab 06/22/20 Rx nadolol 40 mg PO QAM #30 tab 06/22/20 Rx pantoprazole 40 mg PO QAM #30 tab 06/22/20 Rx potassium chloride 20 meq PO DAILY #30 tab 06/22/20 Rx spironolactone 100 mg PO QAM #30 tab 06/22/20 Rx Past Med/Surg History Medical History (Updated 01/24/21 @ 07:03 by Prateek Roe MD) Abdominal ascites Acute GI bleeding Acute hepatic encephalopathy Alcohol abuse Cirrhosis Decompensation of cirrhosis of liver Hepatitis C History of drug use HTN (hypertension) Hypomagnesemia Pancytopenia Symptomatic anemia Thrombocytopenia Tobacco abuse Surgical History History of chest tube placement History of ganglion cyst History of vasectomy Family History Brother HIV (human immunodeficiency virus infection) Brother Homicide Social History Smoking Status: Current every day smoker Tobacco Type: Cigarettes Cigarettes Per Day: 5; Hx Alcohol Use: Yes Alcohol type: beer and hard liquor Hx Substance Use: Yes Last Used Substance: Unknown Last Used Substance Other:: 2 yrs ago Preferred Language: Macedonian Communication Ability: Unable to Communication Ability Comment: Unable to obtain, Patient confused and disoriented. Laboratory Technical Specialist Required: No Beliefs That Will Affect Care: None marital status: Single Current Living Situation: Other Current Living Situation Comment: Unable to obtain, Patient confused and disoriented. Feels Safe at Home: Yes Assistive Devices: None Assistive Devices Comment: Unable to obtain, Patient confused and disoriented. Review of Systems Unobtainable due to cognitive status Physical Exam Constitutional: WD/WN, vitals as above Respiratory: normal respiratory effort, lungs clear to auscultation Cardiovascular: RRR, no murmur, no edema Gastrointestinal (Abdomen): Inspection/Auscultation: + abdomen distended Results & Data ([facility]) Vital Signs (Past 12 Hours) Vital Signs Temp Pulse Pulse Resp BP BP Pulse Ox 01/24/21 06:48 36.8 C 121 H 23 118/49 L 95 01/24/21 06:18 119 H 26 H 114/49 L 94 01/24/21 06:15 120 H 25 H 118/44 L 94 01/24/21 06:00 118 H 28 H 126/80 94 01/24/21 05:45 118 H 33 H 118/83 95 01/24/21 05:36 116 H 36 H 118/58 L 93 01/24/21 05:21 117 H 28 H 146/37 H 93 01/24/21 04:57 121 H 29 H 109/56 L 95 01/24/21 03:51 121 H 23 120/62 96 01/24/21 03:46 37.6 C H 126 H 26 H 128/62 98 Code Status & VTE Plan VTE Prophylaxis Plan VTE Prophylaxis will be ordered: Yes
[2021-01-24 07:07] LABS: Hematocrit (blood only) 22.6 % (42-52); Hemoglobin 7.3 g/dL (14.0-18.0); Mean Corpuscular Hemoglobin 31.3 pg (25-34); Mean Corpuscular Hgb Conc 32.3 g/dL (32-36); Nucleated RBC # (auto) 0.13 K/uL (0-0); Nucleated RBC % (auto) 1.4 %; RDW Coefficient of Variation 22.9 % (11.5-14.5); Red Blood Count 2.33 M/uL (4.7-6.1); White Blood Count 9.72 K/uL (4.8-10.8)
[2021-01-24] MEDS: SODIUM CHLORIDE 0.9% 1000ML 1,000 ML IV SCH ×2 (07:07→18:26)
--- NOTE | 2021-01-24 07:08 | Gastrointestinal Consultation ---
Date of Consultation January 24, 2021 Assessment & Plan (1) Fluid excess: (2) Sepsis: (3) Anemia: (4) Ascites: (5) Acute upper GI bleed: 60 yo male with hep C and ETOH cirrhosis admitted after being found confused with a bottle of ETOH and an episode of hematemesis. Elevated lactate. - Octreotide gtt - PPi gtt - Emergent EGD in the OR to elucidate cause of bleeding. Suspect varices. - Several attempts made to contact patient's son to obtain consent. Spoke with patient's brother. Decision made to proceed with emergent EGD secondary to medical necessity. History of Present Illness Reason for Consultation: Gi bleed altered mental status Attending Physician: Teresa Mcallister MD History of Present Illness 60 yo male with hep C, ETOH cirrhosis complicated by ascites and portal HTN with several hospitalizations in the past admitted after being found unresponsive and having had hematemesis. On arrival elevated lactate. Hgb at baseline but volume contracted. Hemodynamically stable though tachy. Last ETH unknown. Though found with a bottle of ETOH. Has been admitted in the past with altered mental status as well as volume overload after not taking his meds. Has required paracentesis in the past. no vomiting since arrival in the ED. Advised to stated PPI and octreotide gtt. Date of last EGD unknown. Patient confused. Spoke with patient's brother. Son called multiple times but not answering phone or returning calls. Allergies Allergy/AdvReac Type Severity Reaction Status Date / Time No Known Allergies Allergy Unverified 06/20/20 11:11 Home Medications Medication Instructions Recorded Confirmed Type loperamide [Imodium A-D] 2 mg PO Q3H PRN 06/23/19 06/20/20 History multivitamin [Daily-Liliana] 1 tab PO QAM 06/23/19 06/20/20 History cyanocobalamin (vitamin B-12) 1,000 mcg PO QAM 06/20/20 06/20/20 History [Vitamin B-12] doxycycline hyclate 100 mg PO BID #14 cap 06/22/20 Rx folic acid 1 mg PO QAM #30 tab 06/22/20 Rx furosemide [Lasix] 40 mg PO QAM #30 tab 06/22/20 Rx magnesium oxide 400 mg PO QAM #60 tab 06/22/20 Rx nadolol 40 mg PO QAM #30 tab 06/22/20 Rx pantoprazole 40 mg PO QAM #30 tab 06/22/20 Rx potassium chloride 20 meq PO DAILY #30 tab 06/22/20 Rx spironolactone 100 mg PO QAM #30 tab 06/22/20 Rx Patient History Medical History (Updated 01/24/21 @ 07:03 by Prateek Roe MD) Abdominal ascites Acute GI bleeding Acute hepatic encephalopathy Alcohol abuse Cirrhosis Decompensation of cirrhosis of liver Hepatitis C History of drug use HTN (hypertension) Hypomagnesemia Pancytopenia Symptomatic anemia Thrombocytopenia Tobacco abuse Surgical History History of chest tube placement History of ganglion cyst History of vasectomy Family History Brother HIV (human immunodeficiency virus infection) Brother Homicide Social History Smoking Status: Current every day smoker Tobacco Type: Cigarettes Cigarettes Per Day: 5; Hx Alcohol Use: Yes Alcohol type: beer and hard liquor Hx Substance Use: Yes Last Used Substance: Unknown Last Used Substance Other:: 2 yrs ago Preferred Language: Frisian Communication Ability: Unable to Communication Ability Comment: Unable to obtain, Patient confused and disoriented. 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 Feels Safe at Home: Yes Assistive Devices: None Assistive Devices Comment: Unable to obtain, Patient confused and disoriented. Review of Systems Review of Systems: Unobtainable due to cognitive status Physical Exam Constitutional: WD/WN, vitals as above Respiratory: normal respiratory effort, lungs clear to auscultation Cardiovascular: Rate/Rhythm: + tachycardic Extremities: + edema Gastrointestinal (Abdomen): Inspection/Auscultation: + abdomen distended Results & Data ([facility]) Vital Signs (Past 12 Hours) Vital Signs Temp Pulse Pulse Resp BP BP Pulse Ox 01/24/21 06:48 36.8 C 121 H 23 118/49 L 95 01/24/21 06:18 119 H 26 H 114/49 L 94 01/24/21 06:15 120 H 25 H 118/44 L 94 01/24/21 06:00 118 H 28 H 126/80 94 01/24/21 05:45 118 H 33 H 118/83 95 01/24/21 05:36 116 H 36 H 118/58 L 93 01/24/21 05:21 117 H 28 H 146/37 H 93 01/24/21 04:57 121 H 29 H 109/56 L 95 01/24/21 03:51 121 H 23 120/62 96 01/24/21 03:46 37.6 C H 126 H 26 H 128/62 98 (1) Fluid excess Hypervolemia type: other Qualified Code(s): E87.79 - Other fluid overload
[2021-01-24 07:12] LABS: Mean Platelet Volume 11.3 fL (7.4-10.4); Platelet Count 70 K/uL (130-400)
--- NOTE | 2021-01-24 07:14 | CT Scan Report ---
CT SCAN OF THE ABDOMEN AND PELVIS WITHOUT CONTRAST CLINICAL HISTORY: Fever, GI bleed, acute renal failure. Ethanol use. COMPARISON STUDY: No previous studies for comparison. TECHNIQUE: CT scan of the abdomen and pelvis was performed from the lung bases to the proximal femurs . Images are reviewed in the axial, sagittal, and coronal planes. IV contrast was not administered fo r this examination. A dose lowering technique was utilized adhering to the principles of ALARA. CT DOSE: FINDINGS: Lower chest: There is bilateral gynecomastia. There is respiratory motion artifact. There is no basil ar parenchymal consolidation. Liver: The liver has a cirrhotic morphology. No focal masses are visualized in this noncontrast study . Gallbladder: Unremarkable. Spleen: The spleen is enlarged measuring 17.4 cm. Pancreas: There are few pancreatic head calcifications. There are no suspicious pancreatic masses sakshi ntified on this noncontrast study. Adrenal glands: Unremarkable. Kidneys: There is a 3 mm nonobstructing lower pole left renal calculus. No ureteral or bladder calcul i are visualized. Bowel: There are no transition zones indicate bowel obstruction. There is no evidence of acute append icitis. There is no evidence of acute diverticulitis. Peritoneum: There is low volume ascites. No free air is visualized. There is a small amount of fluid within a left inguinal hernia versus [place] left testis.. Vasculature: There are aortoiliac atheromatous calcifications. There is no evidence of aneurysm. Esop hageal varices are suspected. Adenopathy: None. Pelvic viscera: There is an indwelling Mason catheter. There are prostatic calcifications. There is m ild bladder wall thickening Skeletal structures: No destructive osseous lesions are seen. IMPRESSION: 1. Cirrhotic morphology the liver 2. Low volume ascites 3. Splenomegaly 4. Suspected esophageal varices 5. Nonobstructing left renal calculus 6. No evidence of bowel obstruction. No evidence of free air 7. No evidence of acute diverticulitis. No evidence of acute appendicitis. 8. Motion compromised study ACT 112: Negative or not required by law. Electronically signed by: Pankaj Mccallum M.D. 01/24/2021 7:13 AM
[2021-01-24] MEDS ORDERED: ATROPINE SULFATE 0.1 MG/ML 10ML SYR IV PRN (07:23)
[2021-01-24] MEDS ORDERED: PHENYLEPHRINE 100MCG/ML 5ML SYR IV PRN (07:23)
[2021-01-24] MEDS ORDERED: ONDANSETRON INJ 2 MG/ML 2 ML VIAL IV PRN (07:23)
[2021-01-24] MEDS ORDERED: fentaNYL citrate 100 MCG/2 ML VIAL IV PRN (07:23)
[2021-01-24] MEDS ORDERED: ePHEDrine sulfate 50 MG/ML AMP IV PRN (07:23)
[2021-01-24 07:40] LABS: Anisocytosis Present; Basophils # (auto) 0.24 K/uL (0-0.2); Basophils % (auto) 2.5 %; Immature Granulocytes # (auto) 0.06 K/uL (0.00-0.02); Immature Granulocytes % (auto) 0.6 %; Lymphocytes # (auto) 1.11 K/uL (1.2-3.4); Lymphocytes % (auto) 11.4 %; Monocytes # (auto) 1.87 K/uL (0.11-0.59); Monocytes % (auto) 19.2 %; Neutrophils # (auto) 6.44 K/uL (1.4-6.5); Neutrophils % (auto) 66.3 %; Polychromasia 2+; Rouleaux 1+; Target Cells 1+; Toxic Granulation 2+; Toxic Vacuolation 2+
[2021-01-24] MEDS ORDERED: PROPOFOL IV EMULSION 10 MG/ML 20 ML VIAL IV ONE (07:43)
[2021-01-24] MEDS ORDERED: fentaNYL citrate 100 MCG/2 ML VIAL ONE (07:43)
[2021-01-24] MEDS ORDERED: LIDOCAINE 2% 2 ML VIAL/AMP(20MG/ML) INFIL ONE (07:43)
[2021-01-24] MEDS ORDERED: SUCCINYLCHOLINE CHLORIDE 20 MG/ML 10 ML VIAL IV ONE (07:43)
[2021-01-24] MEDS ORDERED: ETOMIDATE 2 MG/ML 20 ML VIAL IV ONE (07:43)
--- NOTE | 2021-01-24 07:46 | CT Scan Report ---
CT chest diagnostic wo con CLINICAL HISTORY: Fever, ethanol abuse, GI bleed, acute renal failure. COMPARISON STUDY: September 12, 2018 CT DOSE: 1821.22 mGy.cm TECHNIQUE: CT of the thorax was performed from the thoracic inlet to the lung bases. Images are revi ewed in the axial, sagittal, and coronal planes. IV contrast was not administered for this examinatio n. A dose lowering technique was utilized adhering to the principles of ALARA. FINDINGS: Thyroid: Imaged portions of the thyroid gland are normal in appearance. Thoracic aorta: The thoracic aorta is normal in course and caliber, noting standard 3 vessel arch ricardo che. Heart: There are coronary artery calcifications. There is no significant pericardial fluid. Lungs and pleural spaces: There is motion artifact. There is no focal pulmonary consolidation. There are no significant pleural effusions. Mediastinum: There is no evidence of pathologic mediastinal lymphadenopathy Lorena: There is no evidence of pathologic hilar adenopathy given the limitations of a noncontrast stud y Axilla: There is no evidence of pathologic axillary lymphadenopathy Upper abdomen: There is a cirrhotic morphology the liver. The spleen is enlarged. There are esophage al varices. Skeletal structures: There is bilateral gynecomastia. IMPRESSION: 1. No evidence of focal pulmonary consolidation 2. No evidence of pathologic adenopathy 3. Hepatic steatosis, splenomegaly, and esophageal varices. 4. Gynecomastia 5. Motion compromised study ACT 112: Negative or not required by law. Electronically signed by: Pankaj Mccallum M.D. 01/24/2021 7:44 AM
--- NOTE | 2021-01-24 07:50 | CT Scan Report ---
CT head/brain wo con CLINICAL HISTORY: Acute change in mental status. Cirrhosis. GI bleed. COMPARISON STUDY: 10/08/2018 TECHNIQUE: Axial CT of the brain is performed from the vertex to the skull base. IV contrast was not administered for this examination. A dose lowering technique was utilized adhering to the principles of ALARA. CT DOSE: FINDINGS: No intra or extra-axial mass lesions are visualized. There is no CT evidence of acute cortical infarc tion. There is no evidence of midline shift. There is no acute hemorrhage. No calvarial fractures ar e visualized. There are patchy white matter hypodensities likely on a small vessel basis. There is no evidence of pathologic ventricular dilatation. There is extensive left mastoid effusion. There is fluid within the left middle ear cavity. There is trace left temporal extra-axial fluid. IMPRESSION: 1. Left mastoiditis and left otitis media. Trace left temporal extra-axial fluid. 2. Otherwise no acute intracranial findings. 3. If there is clinical concern over the intracranial sequela of acute mastoiditis, then an MRI of th e brain without and with contrast would be considered the test of choice in follow-up. ACT 112: Negative or not required by law. Electronically signed by: Pankaj Mccallum M.D. 01/24/2021 7:49 AM
[2021-01-24 07:52] LABS: Calcium 6.6 mg/dl (8.5-10.1); Creatinine Clr Calc Pharmacy 35.9 ml/min; Est GFR (African American) 40.1 ml/min; Est GFR (Non-African American) 34.6 ml/min; Magnesium 2.1 mg/dl (1.8-2.4)
--- NOTE | 2021-01-24 08:04 | GI REPORT ---
Patient Name: Yamila Montero Procedure Date: 01/24/2021 7:33 AM Date of : 1960 Admit Type: Inpatient Age: 60 Gender: Male Attending MD: Jocelyn Holguin DO Procedure: Upper GI endoscopy Providers: Jocelyn Holguin DO Referring MD: Referred Self Indications: Hematemesis, Cirrhosis rule out esophageal varices Medicines: General Anesthesia Complications: No immediate complications. Estimated blood loss: None. Estimated Blood Loss: Estimated blood loss: none. Procedure: Pre-Anesthesia Assessment: - Prior to the procedure, a History and Physical was performed, and patient medications, allergies and sensitivities were reviewed. The patient's tolerance of previous anesthesia was reviewed. - The risks and benefits of the procedure and the sedation options and risks were discussed with the patient. All questions were answered and informed consent was obtained. - Patient identification and proposed procedure were verified prior to the procedure by the physician and the nurse. The procedure was verified in the pre-procedure area in the procedure room. - Mental Status Examination: obtunded. Airway Examination: normal oropharyngeal airway and neck mobility. Respiratory Examination: poor air movement. CV Examination: tachycardia noted. Abdominal Examination: abdomen distended. - ASA Grade Assessment: E - Emergency. After obtaining informed consent, the endoscope was passed under direct vision. Throughout the procedure, the patient's blood pressure, pulse, and oxygen saturations were monitored continuously. The Endoscope was introduced through the mouth, and advanced to the third part of duodenum. The upper GI endoscopy was accomplished without difficulty. The patient tolerated the procedure well. Findings: The esophagus was normal. Portal hypertensive gastropathy was found in the entire examined stomach. The examined duodenum was normal. Impression: - Normal esophagus. - Portal hypertensive gastropathy. - Normal examined duodenum. - No specimens collected. Recommendation: - Continue octreotide gtt today - No evidence of variceal bleed. No ulcers. No fresh or old blood in the stomach or small bowel. Small amount of old blood in the upper esophagus. Suctioned and no ulcer or varices seen. Suspect htis was swallowed blood. - Return patient to ICU for ongoing care. Sagar Montero DO 01/24/2021 8:03:23 AM This report has been signed electronically. Note Initiated On: 01/24/2021 7:33 AM Number of Addenda: 0 I attest to the content of the Intraoperative Record and orders documented therein, exceptions below {[id number]}
--- NOTE | 2021-01-24 08:17 | XRay Report ---
XR chest 1V portable CLINICAL HISTORY: SEPSIS COMPARISON STUDY: 06/20/2020 FINDINGS: The patient is rotated. The heart is normal in size. There is no failure. There is no focal pulmonary consolidation. There are no pleural effusions. There is minor left basilar atelectasis.[ IMPRESSION: No active disease in the chest. ACT 112: Negative or not required by law. Electronically signed by: Pankaj Mccallum M.D. 01/24/2021 8:16 AM
[2021-01-24] MEDS: FOLIC ACID 1 MG in SYRINGE 9.8 ML IV SCH (09:32)
[2021-01-24] MEDS: THIAMINE HCL 100 MG in SYRINGE 9 ML IV SCH (09:33)
--- NOTE | 2021-01-24 09:38 | XRay Report ---
XR chest 1V portable CLINICAL HISTORY: ETT placement RESPIRATORY FAILURE COMPARISON STUDY: 01/24/2021 FINDINGS: There is been interval placement of an endotracheal tube 6.3 cm above the ligia. The cardi ac and mediastinal contours remain stable. There is no focal pulmonary consolidation. There are low l cindy volumes with mild hypoventilatory changes.[ IMPRESSION: 1. Interval placement of an endotracheal tube 6.3 cm above the ligia ACT 112: Negative or not required by law. Electronically signed by: Pankaj Mccallum M.D. 01/24/2021 9:36 AM
--- NOTE | 2021-01-24 09:48 | History and Physical Report ---
DATE OF ADMISSION: 01/24/2021 CHIEF COMPLAINT: Altered mental status, GI bleed. HISTORY OF PRESENT ILLNESS: This is a 60-year-old male with past medical history significant for chronic hepatitis C with cirrhosis of liver, alcoholism, polyneuropathy, pancytopenia, tobacco use disorder, allergic rhinitis, hyperlipidemia, portal hypertension, essential hypertension, was brought in because his roommate called EMS as he was found him on the ground, confused in no coffee-ground emesis and empty bottle of alcohol next to him. Does not known how long he was down. The patient is somewhat shaky and can tell his name, can tell his date of , he says he drinks whenever he wants to drink. Could not get much history from the patient. Says pain all over. The abdomen is somewhat distended. He has a history of ascites. When he came in the ER, he was having temp spike and tachycardic, tachypneic, blood pressures were okay. White count is 15, hemoglobin 7.6, close to his baseline. INR is 2.1. ABGs are okay. Sodium is 129, creatinine is 2.5, glucose 67. Troponin I 0.14, total creatine kinase 667. Ammonia 62. Procalcitonin 27.5. TSH is 0.2. Urinalysis positive. Urine drug screen negative. Ethyl alcohol less than 3. SARS-CoV-2 PCR negative. IMAGING DATA: Chest CT preliminary report, possible mild pneumonitis. CT of abdomen and pelvis preliminary report small ascites, ileus or enteritis. CT of the head, no acute findings. Chest x-ray, no acute findings. ALLERGIES: No known drug allergies. PAST MEDICAL HISTORY: As mentioned above. PAST SURGICAL HISTORY: Collapsed left lung s/p chest tube, right wrist ganglion removal, vasectomy. MEDICATIONS: The patient is on magnesium oxide 400 mg p.o. daily, folic acid 1 mg p.o. daily, nadolol 40 mg p.o. daily, spironolactone 100 mg p.o. daily, Protonix 40 mg p.o. daily, potassium chloride 20 mEq p.o. daily, vitamin B12 1000 mcg p.o. daily, Lasix 40 mg p.o. daily, trazodone 50 mg p.o. at bedtime, multivitamins 1 tablet daily, lactulose 30 mL p.o. 3 times a day for 3 bowel movements a day. FAMILY HISTORY: Significant for aunt has diabetes. Father has diabetes. Mother has diabetes. Maternal grandmother has diabetes. SOCIAL HISTORY: , smoked one-third pack a day for 29 years. Drinks; ongoing alcoholism. History of IV drug use as per the report, last use was 2016. REVIEW OF SYSTEMS: I could not obtain at this time. The patient is confused. PHYSICAL EXAMINATION: GENERAL: The patient is somewhat alert and awake, oriented to name only, somewhat shaky. VITAL SIGNS: Temperature 37.6, pulse 126, respiratory rate 26, blood pressure 128/66, oxygen 98% room air. HEENT: Pupils equal, round, reactive to light. Icterus present. Oral mucosa is dry and stained with blood. NECK: No JVD, no neck masses. CARDIOVASCULAR: S1, S2 heard. Tachycardia. No murmur, no gallop. RESPIRATORY SYSTEM: Normal AP diameter. No accessory muscle use. No wheezing, no crackles. ABDOMEN: Soft, bowel sounds present. Mild distention. No tenderness. Mild guarding. CENTRAL NERVOUS SYSTEM: Alert and awake, oriented to name only, but obeys commands, confused. EXTREMITIES: No edema, no erythema. LABORATORY DATA: WBC 15.4, hemoglobin 7.6, hematocrit 23.5, platelets 80. PT 19.8, INR 2.1, APTT 25.2. ABG: pH of 7.4, pCO2 of 30, pO2 74, bicarbonate 21, oxygen 94%. Sodium 129, potassium 4.2, chloride 93, bicarbonate 22, BUN 70, creatinine 2.5, serum glucose 67. Osmolality 294, lactate 7.6, calcium 7, magnesium 2.3, total bilirubin 7.6, AST 214, ALT 54, alkaline phosphatase 145. Ammonia 62, total creatine kinase 667. Troponin I 0.14, lipase 149, procalcitonin 27. TSH 0.2, free T4 1.1. Urinalysis positive for +1 nitrite, trace leukocyte esterase. Urine drug screen negative. Ethyl alcohol less than 3. SARS-CoV-[address] chest preliminary report pneumonitis. CT of abdomen and pelvis, possible ileus or enteritis rule out pancreatitis. CT of the head, no acute findings. EKG: Sinus tachycardia, rate of 123, nonspecific ST abnormalities. ASSESSMENT AND PLAN: This is a 60-year-old female who presents with history of hepatitis C, alcoholism, alcoholic liver cirrhosis, presents with altered mental status and gastrointestinal bleed. 1. Altered mental status, sepsis with elevated lactic acid, tachycardia, temperature spike, elevated white count, elevated procalcitonin, could be urinary tract infection or pneumonia or SBP. In the ER, started with Zosyn and vancomycin, which we will continue. IV fluids 100 mL per hour. Follow the repeat lactic acid. Follow the cultures. Closely monitor in the ICU. 2. Gastrointestinal bleed with hematemesis and also lower gastrointestinal bleed. Hemoglobin is stable at 7.6, . Plan to transfuse PRBC. The patient was started on IV Protonix drip, IV Sandostatin drip and we will follow H and H q. 6 hours and transfuse if hemoglobin goes less than 7. Closely monitor in the ICU. GI consulted and notified. 3. History of liver cirrhosis. Mild ascites found on CAT scan .l Started on IV Zosyn and vancomycin for possible spontaneous bacterial peritonitis. Holding his home nadolol and diuretics. Monitor for any volume overload. 4. Hepatic encephalopathy ammonia of 60 . lactulose and follow the repeat ammonia levels. 5 Elevation of troponin, could be demand ischemia. We will follow the serial enzymes, Also follow repeat ck levels. 6.elevated LFTs from his alcoholism and liver cirrhosis. We will follow the repeat labs. 5. Possible enteritis on CT abdomen and pelvis. Will follow the official report. Getting antibiotics as above, currently n.p.o. 6. History of hypertension. Holding home med and diuretics as the patient is in sepsis. Monitor blood pressure. 7. History of gastroesophageal reflux disease, currently Protonix drip. 8. History of pancytopenia. We will follow the labs. Platelets are 80. 9. Alcoholism, somewhat shaky. Cannot do oral withdrawal protocol. We will give him IV Ativan p.r.n. Getting banana bag in the ER, he was given IV thiamine, IV folic acid. Closely monitor for withdrawal. 10. Zeferino Cr 2.5. Getting fluids. Follow repeat labs. 11. Hypoglycemia. Hypoglycemia protocol. will monitor. 12. Deep venous thrombosis prophylaxis, sequential compression devices for now. 13. Disposition: Closely monitor in the ICU. Level 1 full code. Social service to help with discharge planning. [facility]
[2021-01-24] MEDS ORDERED: Nursing to Pharmacy Communication SCH ×2 (10:00→14:14)
[2021-01-24] MEDS ORDERED: PIPERACILLIN/TAZOBACTAM 4.5 GM in DEXTROSE 5% 100 ML IV SCH (10:00)
--- NOTE | 2021-01-24 10:16 | Electrocardiogram Report ---
Test Reason : Blood Pressure : / mmHG Vent. Rate : 123 BPM Atrial Rate : 123 BPM P-R Int : 168 ms QRS Dur : 082 ms QT Int : 300 ms P-R-T Axes : 078 045 073 degrees QTc Int : 429 ms Poor data quality, interpretation may be adversely affected Sinus tachycardia Nonspecific T wave abnormality lvh Abnormal ECG When compared with ECG of 20-JUN-2020 09:49, Nonspecific T wave abnormality now evident in Anterior leads Confirmed by Otto Cowan ([id number]) on 01/24/2021 10:16:01 AM Referred By: REFERRED SELF Confirmed By:Otto Cowan
[2021-01-24] MEDS ORDERED: STAT IV Infusion **Titration per Protocol STA (10:43)
[2021-01-24] MEDS ORDERED: cefTRIAXone SODIUM 1,000 MG in DEXTROSE 5% 50 ML IV SCH (11:00)
[2021-01-24] MEDS: DEXMEDETOMIDINE HCL 200 MCG in SODIUM CHLORIDE 0.9% 48 ML IV SCH ×4 (11:15→21:21)
[2021-01-24] MEDS ORDERED: DEXTROSE 50% 50 ML SYRINGE IV ONE (12:08)
[2021-01-24 13:16] LABS: Hematocrit (blood only) 23.7 % (42-52); Hemoglobin 7.7 g/dL (14.0-18.0)
[2021-01-24] MEDS ORDERED: PHYTONADIONE 5 MG in SODIUM CHLORIDE 0.9% 50 ML IV ONE (13:25)
[2021-01-24] MEDS: PHENYLEPHRINE HCL 20 MG in DEXTROSE 5% 500 ML IV SCH ×2 (13:51→18:23)
--- NOTE | 2021-01-24 14:12 | Anesthesiology Progress Note ---
Date of Service January 24, 2021 Anesthesia Post Procedure Vital Signs Vital Signs: Temp Pulse Pulse Resp BP BP Pulse Ox 01/24/21 12:27 118 H 79/47 L 99 01/24/21 12:00 119 H 98 01/24/21 11:57 120 H 94/53 L 98 01/24/21 11:27 121 H 101/54 L 89 L 01/24/21 11:15 120 H 28 H 94 01/24/21 11:00 121 H 97 01/24/21 10:57 121 H 97/48 L 97 01/24/21 10:27 120 H 86/50 L 97 01/24/21 10:00 37.2 C 117 H 31 H 72/48 L 99 01/24/21 09:57 118 H 72/48 L 100 01/24/21 09:52 117 H 84/47 L 100 01/24/21 09:47 117 H 90/48 L 99 01/24/21 09:45 37 C 116 H 29 H 90/48 L 100 01/24/21 09:42 117 H 93/44 L 100 01/24/21 09:37 142 H 88/43 L 99 01/24/21 09:32 115 H 87/45 L 99 01/24/21 09:30 36.7 C 115 H 27 H 93/52 L 98 01/24/21 09:27 116 H 93/52 L 97 01/24/21 09:23 120 H 91/38 L 98 01/24/21 09:20 36.6 C 115 H 28 H 91/38 L 100 01/24/21 09:17 116 H 102/51 L 100 01/24/21 09:15 36.7 C 116 H 29 H 102/51 L 100 01/24/21 09:14 37.0 C 115 H 18 98/56 L 100 01/24/21 09:12 114 H 98/56 L 100 01/24/21 09:10 113 H 113 H 26 H 93/56 L 100 01/24/21 09:07 114 H 23 93/56 L 100 01/24/21 09:02 115 H 22 95/54 L 100 01/24/21 09:00 37.0 C 114 H 20 95/54 L 100 01/24/21 07:30 119 H 21 94 01/24/21 07:28 120 H 26 H 98/56 L 94 01/24/21 07:15 120 H 29 H 94 01/24/21 07:00 120 H 31 H 95 01/24/21 06:49 123 H 20 89/52 L 92 01/24/21 06:48 36.8 C 121 H 23 118/49 L 95 01/24/21 06:18 119 H 26 H 114/49 L 94 01/24/21 06:15 120 H 25 H 118/44 L 94 01/24/21 06:00 118 H 28 H 126/80 94 01/24/21 05:45 118 H 33 H 118/83 95 01/24/21 05:36 116 H 36 H 118/58 L 93 01/24/21 05:21 117 H 28 H 146/37 H 93 01/24/21 04:57 121 H 29 H 109/56 L 95 01/24/21 03:51 121 H 23 120/62 96 01/24/21 03:46 37.6 C H 126 H 26 H 128/62 98 Transfer of Care Handoff Completed per policy Notes Mental Status: see notes below Nausea / Vomiting: adequately controlled Pain: adequately controlled Airway Patency, RR, SpO2: see Notes below BP & HR: stable & adequate Hydration State: stable & adequate Notes: patient unable to maintain his airway and ventilate appropriately so left intubated - ICU plan to watch over night and work on extubation then. vitals stable though still tachycardic.
--- NOTE | 2021-01-24 15:32 | Communication Note ---
Date of Service: January 24, 2021 The patient was seen and examined in ICU. He is a 60-year-old male with significant past medical history of alcoholic cirrhosis ,hepatitis C and other significant medical conditions as mentioned in H&P was admitted with altered mental status and GI bleed. He remains intubated and has been requiring intravenous pressor support to maintain blood pressure. He has been receiving blood transfusion for low hemoglobin and has had EGD done today without any acute bleeding sites. He has been getting appropriate antibiotics for possible infection. Appreciate non profit financial controller and GI input and recommendation. Full progress note will be done tomorrow Dr Yousuf Mcallister
[2021-01-24 16:11] LABS: iSTAT Arterial Blood Gas HCO3 20 meg/L (19-24); iSTAT Arterial Blood Gas pCO2 34 mmHg (35-46); iSTAT Arterial Blood Gas pH 7.38 (7.35-7.45); iSTAT Arterial Blood Gas pO2 138 mmHg (80-95); iSTAT Carbon Dioxide 21 mmol/L (24-31)
[2021-01-24 19:07] LABS: Hematocrit (blood only) 24.7 % (42-52); Hemoglobin 7.9 g/dL (14.0-18.0)
[2021-01-24] MEDS ORDERED: DAPTOmycin 400 MG in SYRINGE 0 ML IV SCH (20:00)
[2021-01-24] MEDS: PHENYLEPHRINE HCL 20 MG in SODIUM CHLORIDE 0.9% 500 ML IV SCH (21:22)
--- NOTE | 2021-01-24 22:36 | Communication Note ---
Date of Service: January 24, 2021 Shortly after change of shift, I received a phone call from pharmacy regarding drips including Kurt-Synephrine drip and rate of IV fluid. Apparently, the Kurt- Synephrine drip has been titrated up and is running at a rate of approximately 200 mL/h. Additionally, the patient was receiving normal saline at a rate of 100 mL/h. Conversation was had with ICU pharmacist as well. Patient was evaluated at bedside. Per nursing staff, the patient does have moderate edema to the RIGHT upper extremity at the site where the Kurt-Synephrine is infusing. Verbal orders to change location of infusion and orders placed to discontinue IV saline. After the Kurt-Synephrine was changed to alternate IV site, the patient's blood pressure stabilized into the 1 teens. Nursing staff did remove IV from the RIGHT AC. At this point, copious amounts of clear fluid was milked from the wound. Nursing spent an extensive amount of time milking the arm of excess fluid. I did reach out to pharmacy. At this point, we do not have phentolamine available. Alternatively, topical agents including nitroglycerin are considered, however the patient is hemodynamically unstable and requiring pressors which would preclude the use of topical nitroglycerin paste. I did reach out to my attending provider to make them aware of situation as well. On reassessment, the patient does have some small blisters at the RIGHT AC site. Some mild ecchymosis noted distally. After the upper extremity was milked for a moderate amount of fluid, a warm dressing was placed on the entire RIGHT upper extremity. We will continue to recheck arm with ongoing pulse checks as well. Patient's infusion of Kurt-Synephrine has been able to be titrated down at this point. We will continue to reassess for hemodynamic stability and need for change in IV site/Central line placement. Currently, we are titrating down drips which is encouraging. We will continue to monitor the patient closely for possible extravasation associated ischemia. I have personally spent 35 minutes of critical care time in the direct management of this patient. This is a life/limb threatening event. This includes time spent evaluating patient, direct bedside care, chart review, placing orders, interpretation of diagnostic studies, discussion with consultants, patient, and family members, as well as other required patient management activities. This time is exclusive of all separately billable procedures, and teaching time and separate from and in addition to any other critical care service time. Coding Level of Care Code Critical Care 1st 30-74 mins Time Spent (min) 35
[2021-01-25] MEDS ORDERED: DEXMEDETOMIDINE HCL 400 MCG in 0.9 % SODIUM CHLORIDE 96 ML IV SCH
[2021-01-25] MEDS: DEXMEDETOMIDINE HCL 200 MCG in SODIUM CHLORIDE 0.9% 48 ML IV SCH ×3 (00:01→08:57)
[2021-01-25] MEDS ORDERED: SODIUM CHLORIDE 0.9% 1000ML 250 ML IV ONE ×2 (00:38→05:45)
[2021-01-25] MEDS: PHENYLEPHRINE HCL 20 MG in SODIUM CHLORIDE 0.9% 500 ML IV SCH ×5 (00:53→15:42)
[2021-01-25] MEDS: ALBUMIN 25% 12.5 GM/50 ML VIAL IV SCH ×4 (00:56→06:32)
[2021-01-25 01:17] LABS: Hematocrit (blood only) 26.8 % (42-52); Hemoglobin 8.8 g/dL (14.0-18.0)
[2021-01-25 04:41] LABS: INR 2.2 (0.9-1.1); Prothrombin Time 21.4 Seconds (9.0-12.0)
[2021-01-25 04:59] LABS: Albumin Level 1.5 gm/dl (3.4-5.0); BUN Creatinine Ratio 34.7 (10-20); Bilirubin Direct 7.6 mg/dl (0-0.2); Bilirubin,Total 10.1 mg/dl (0.2-1); Calcium 6.3 mg/dl (8.5-10.1); Creatinine Clr Calc Pharmacy 33.1 ml/min; Est GFR (African American) 36.3 ml/min; Est GFR (Non-African American) 31.3 ml/min; Magnesium 2.6 mg/dl (1.8-2.4); Phosphorus 6.5 mg/dl (2.5-4.9); Potassium 4.3 mmol/L (3.5-5.1)
[2021-01-25 05:09] LABS: Hematocrit (blood only) 24.3 % (42-52); Hemoglobin 7.8 g/dL (14.0-18.0); Mean Corpuscular Hemoglobin 31.2 pg (25-34); Mean Corpuscular Hgb Conc 32.1 g/dL (32-36); Mean Corpuscular Volume 97.2 fL (80-100); Mean Platelet Volume 11.2 fL (7.4-10.4); Nucleated RBC # (auto) 0.19 K/uL (0-0); Nucleated RBC % (auto) 0.9 %; Platelet Count 88 K/uL (130-400); RDW Coefficient of Variation 22.7 % (11.5-14.5); RDW Standard Deviation 80.6 fL (36.4-46.3); White Blood Count 21.02 K/uL (4.8-10.8)
[2021-01-25] MEDS ORDERED: CALCIUM GLUCONATE 10% 2,000 MG in 0.9 % SODIUM CHLORIDE 100 ML IV ONE (05:45)
[2021-01-25 06:38] LABS: ALC (manual) 1.66 K/uL (1.2-3.4); ANC (manual) 17.32 K/uL (1.4-6.5); Anisocytosis Present; Dohle Bodies 2+; Eosinophils # (manual) 0.19 K/uL (0-0.5); Eosinophils % (manual) 0.9 %; Lymphocytes # (manual) 1.28 K/uL (1.2-3.4); Lymphocytes % (manual) 6.1 %; Monocytes # (manual) 1.47 K/uL (0.11-0.59); Myelocytes # (manual) 0.38 K/uL (0-0); Myelocytes % (manual) 1.8 %; Neutrophils # (manual) 17.32 K/uL (1.4-6.5); Neutrophils % (manual) 82.4 %; Plasma Cells # (manual) 0.38 K/uL (0-0); Plasma Cells % (manual) 1.8 %; Polychromasia 1+; Toxic Granulation 1+; Toxic Vacuolation 1+
--- NOTE | 2021-01-25 08:33 | Critical Care Progress Note ---
Date of Service January 25, 2021 Assessment & Plan (1) Admitted to intensive care unit: Reason Critically Ill: 60-year-old male with liver failure in the setting of alcoholic cirrhosis and hepatitis C presenting with upper GI bleed and sepsis from possible urinary source requiring close hemodynamic monitoring in the setting of concurrent conditions. NEURO - * CAM ICU: POSITIVE * Altered mental status: * Likely secondary to acuity of illness and hyperammonemia. * Metabolic encephalopathy appears to be improving. CARDIAC/VASCULAR - * NSTEMI: * Likely demand ischemia in the setting of sepsis, hypovolemia, and MARINA. * Maintain mean arterial pressures above 65. Currently requiring low-dose of phenylephrine. RESPIRATORY - * Patient extubated 01/25/2021. He was intubated for EGD procedure and had difficulty status post extubation in the OR on 01/24/2021. GI/NUTRITION - * Acute upper GI bleed: * No obvious variceal bleeding seen. Octreotide discontinued. Continue Protonix. * Will need to institute lactulose for hyperammonemia RENAL/LYTES - * Acute renal failure: * Likely secondary to ischemic ATN from hypotension and possibly component of hepatorenal syndrome. * Will consult nephrology. - * Mason in place - Strict I&Os. ENDO - * No history of diabetes or thyroid disease. * BSGs per unit protocol. ISS --> gtt per unit policy. HEME - * Chronic anemia: * Received 1 unit of packed RBCs yesterday. No further bleeding noted. ID - * Sepsis: * Likely complicated UTI. Urine culture pending. * Blood cultures growing Streptococcus pneumonia in 4 out of 4 bottles. We will repeat blood cultures tomorrow. Continue ceftriaxone. LINES/IV ACCESS - * PIVs x2 * Mason * We will keep an eye on the right upper extremity given the extravasation of phenylephrine on 01/24/2021. DVT PROPHYLAXIS - * Hold in the setting of GIB * SCDs I have personally spent 32 minutes of critical care time in the direct management of this patient. This is a life/limb threatening event. This includes time spent evaluating patient, direct bedside care, chart review, placing orders, interpretation of diagnostic studies, discussion with consultants, patient, and family members, as well as other required patient management activities. This time is exclusive of all separately billable procedures, and teaching time and separate from and in addition to any other critical care service time. Thank you for allowing us to participate in the care of this patient. Please refer to my attending physician's documentation for any further recommendations. (2) Acute upper GI bleed: (3) Ascites: (4) Anemia: (5) Sepsis: (6) Anasarca: (7) Superior mesenteric vein thrombosis: Admission and Anticipated Discharge Date Admission Date: January 24, 2021 Subjective Patient seen and examined this morning. He is more awake and alert and currently on spontaneous breathing trials. He is receiving continuous Precedex. He has not required any blood transfusions overnight. Yesterday evening it was discovered that there was edema in the right upper extremity at the site of the phenylephrine infusion. The phenylephrine infusion likely extravasated and there is some swelling in the right upper extremity with tenderness. The site was changed and the patient's blood pressure improved. Review of Systems Review of Systems: Unobtainable due to cognitive status and Unobtainable due to endotracheal tube Physical Exam Physical Exam: VITAL SIGNS - Vital signs and nursing notes were reviewed. GENERAL - 60-year-old male appearing older than his stated age who is in no acute distress. HEAD - NC/AT. EYES - PERRL with EOMI bilaterally. Scleral icterus noted. EARS - No deformities of external structures noted on gross examination bilaterally. NOSE - Midline and without cyanosis. No epistaxis or purulent drainage noted. MOUTH/OROPHARYNX - Without perioral cyanosis. Buccal mucosa pink and moist and without leukoplakia. NECK - Neck with FROM. No nuchal rigidity. LUNGS - Chest wall symmetric without accessory muscle use, intercostals retractions, or central cyanosis. Normal vesicular breath sounds CTA B/L. No wheezes, rales, or rhonchi appreciated. CARDIAC - RRR with S1/S2. No murmur, rubs, or gallops appreciated. ABDOMEN - Abdominal contour protuberant without pulsations or visible masses. Negative [place]'s or Zambrano Santana's Signs. BS hypoactive normoactive all four quadrants. No tenderness to palpation appreciated throughout. No guarding. No Rebound Tenderness. Ascites noted. EXTREMITIES -swelling and tenderness in the right upper extremity. NEUROLOGIC -no focal neurological deficits. Unable to fully assess secondary to current level of consciousness. PSYCH -patient awake and alert to name. He mumbles and laughs. Otherwise, unable to contribute to physical exam. Results & Data Results & Data ([facility]) Vital Signs (Past 12 Hours) Vital Signs Temp Pulse Resp BP Pulse Ox 01/25/21 07:04 61 17 98 01/25/21 06:34 62 110/50 L 96 01/25/21 06:14 69 96/47 L 97 01/25/21 05:49 62 97/40 L 98 01/25/21 05:19 65 92/43 L 97 01/25/21 05:04 62 100/43 L 97 01/25/21 04:49 65 86/45 L 97 01/25/21 04:19 65 101/42 L 97 01/25/21 04:15 98.2 F 01/25/21 04:04 67 98/46 L 96 01/25/21 03:49 65 99/43 L 97 01/25/21 03:19 69 97/55 L 97 01/25/21 03:11 66 21 97 01/25/21 02:49 68 109/48 L 97 01/25/21 02:34 68 103/47 L 97 01/25/21 02:04 69 95/61 L 96 01/25/21 01:49 67 99/46 L 95 01/25/21 01:19 66 98/45 L 96 01/25/21 00:49 69 97/43 L 97 01/25/21 00:35 98.6 F 70 01/25/21 00:34 70 94/46 L 95 01/25/21 00:30 70 95 01/25/21 00:19 70 95/47 L 95 01/25/21 00:04 71 94/47 L 97 01/25/21 00:00 72 97 01/24/21 23:49 71 100/48 L 97 01/24/21 23:34 71 98/49 L 98 01/24/21 23:22 71 89/46 L 97 01/24/21 23:19 70 84/46 L 97 01/24/21 23:04 72 96/46 L 96 01/24/21 23:00 74 97 01/24/21 22:49 73 96/44 L 97 01/24/21 22:37 77 28 H 97 01/24/21 22:34 75 94/44 L 96 01/24/21 22:19 74 101/46 L 96 01/24/21 22:00 99.0 F 01/24/21 21:49 78 105/50 L 96 01/24/21 21:04 81 98/48 L 97 01/24/21 20:49 82 106/53 L 96 01/24/21 20:34 78 109/49 L 96 vital signs, lab and imaging reviewed Coding Level of Care Code Critical Care 1st 30-74 mins Diagnoses Admitted to intensive care unit Z78.9 Acute upper GI bleed K92.2 Ascites R18.8 Anemia D64.9 Sepsis A41.9 Anasarca R60.1 Superior mesenteric vein thrombosis K55.069 Time Spent (min) 32
--- NOTE | 2021-01-25 08:45 | Gastroenterology Progress Note ---
Date of Service January 25, 2021 Assessment & Plan (1) Anemia: 60 year old male w/ history of HCV and ETOH cirrhosis, actively drinking, MELD 32 admitted w/ alternated mental status report of hematemesis at home, who underwent EGD over the weekend without evidence of active or source of GI blood loss. He is admitted to the ICU w/ suspected urosepsis and remains intubated given difficulty extubating post EGD. He has rising MELD, 32 w/ high DF concerning for ETOH in the setting of suspected ETOH abuse. MELD 32 DF 51 , poor prognosis, not candidate for glucocorticoid therapy given urosepsis, rising WBC Can start NAC, assess daily for downtrending LFTs, if persistent or rising for 48 hours can D/C NAC Trend H&H Monitor and document GI blood loss Continue IV PPI, can convert to PO once extubated ETOH withdrawal protocol ETOH cessation Start Lactulose titrated to BMs 2-4 times daily Thank you for allowing us to participate in the care of this patient. Please call with any acute changes, questions or concerns. Please see addendum below with additional recommendation from my supervising physician. Admission and Anticipated Discharge Date Admission Date: January 24, 2021 Supervising Physician Co-Signing Physician Notes I saw and evaluated the patient. He is known to our service as result of a prior admission for alcoholic liver disease. He did have an upper endoscopy performed which showed no evidence of gastrointestinal bleeding. The patient does appear to have evidence of sepsis with an increasing white blood cell count. Recommendations Consider a right upper quadrant ultrasound to look for evidence of aspirated bowel ascites Consider chest x-ray to look for pneumonia Consider UA Continue empiric antibiotic coverage Consider nephrology consultation given rising creatinine Subjective Pt was seen and evaluated. Intubated in sedated in the ICU. EGD over weekend without obvious source of GI blood loss HGB stable, no documentation to support active GI bleeding WBC rising, lactate decreasing. LFTs uptrending. MARKER HAND stable. Review of Systems Review of Systems: Unobtainable due to cognitive status, Unobtainable due to endotracheal tube and Unobtainable due to reduced consciousness Physical Exam Constitutional: + ill appearing, + thin and + cachectic; no acute distress Neck: trachea midline Respiratory: + abnormal respiratory effort (intubated) Cardiovascular: Rate/Rhythm: regular rate and regular rhythm Gastrointestinal (Abdomen): Percussion/Palpation: abdomen soft; abdomen nontender, no guarding, abdomen not rigid, no abdominal mass and no ascites Skin: no rashes, warm and dry Results & Data ([facility]) Vital Signs (Past 12 Hours) Vital Signs Temp Pulse Resp BP Pulse Ox 01/25/21 07:04 61 17 98 01/25/21 06:34 62 110/50 L 96 01/25/21 06:14 69 96/47 L 97 01/25/21 05:49 62 97/40 L 98 01/25/21 05:19 65 92/43 L 97 01/25/21 05:04 62 100/43 L 97 01/25/21 04:49 65 86/45 L 97 01/25/21 04:19 65 101/42 L 97 01/25/21 04:15 36.8 C 01/25/21 04:04 67 98/46 L 96 01/25/21 03:49 65 99/43 L 97 01/25/21 03:19 69 97/55 L 97 01/25/21 03:11 66 21 97 01/25/21 02:49 68 109/48 L 97 01/25/21 02:34 68 103/47 L 97 01/25/21 02:04 69 95/61 L 96 01/25/21 01:49 67 99/46 L 95 01/25/21 01:19 66 98/45 L 96 01/25/21 00:49 69 97/43 L 97 01/25/21 00:35 37.0 C 70 01/25/21 00:34 70 94/46 L 95 01/25/21 00:30 70 95 01/25/21 00:19 70 95/47 L 95 01/25/21 00:04 71 94/47 L 97 01/25/21 00:00 72 97 01/24/21 23:49 71 100/48 L 97 01/24/21 23:34 71 98/49 L 98 01/24/21 23:22 71 89/46 L 97 01/24/21 23:19 70 84/46 L 97 01/24/21 23:04 72 96/46 L 96 01/24/21 23:00 74 97 01/24/21 22:49 73 96/44 L 97 01/24/21 22:37 77 28 H 97 01/24/21 22:34 75 94/44 L 96 01/24/21 22:19 74 101/46 L 96 01/24/21 22:00 37.2 C 01/24/21 21:49 78 105/50 L 96 01/24/21 21:04 81 98/48 L 97 01/24/21 20:49 82 106/53 L 96 Laboratory Results 01/25/21 01/25/21 01/25/21 Range/Units 04:20 04:20 04:20 WBC (4.8-10.8) K/uL RBC (4.7-6.1) M/uL Hgb (14.0-18.0) g/dL Hct (42-52) % MCV (80-100) fL MCH (25-34) pg MCHC (32-36) g/dL RDW Std Deviation (36.4-46.3) fL RDW Coeff of Jarrell (11.5-14.5) % Plt Count (130-400) K/uL MPV (7.4-10.4) fL Absolute Nucleated RBC (0-0) K/uL Nucleated RBC % (auto) % Neutrophils % (Manual) % Lymphocytes % (Manual) % Monocytes % (Manual) % Eosinophils % (Manual) % Myelocytes % (Man) % Plasma Cell % (Manual) % Neutrophils # (Manual) (1.4-6.5) K/uL Total Absolute Neuts (1.4-6.5) K/uL Lymphocytes # (Manual) (1.2-3.4) K/uL Total Abs Lymphocytes (1.2-3.4) K/uL Monocytes # (Manual) (0.11-0.59) K/uL Eosinophils # (Manual) (0-0.5) K/uL Myelocytes # (Manual) (0-0) K/uL Plasma Cell # (Manual) (0-0) K/uL Toxic Granulation Toxic Vacuolation Dohle Bodies Polychromasia Anisocytosis PT (9.0-12.0) Seconds INR (0.9-1.1) POC pH (7.35-7.45) POC pCO2 (35-46) mmHg POC pO2 (80-95) mmHg POC HCO3 (19-24) maira/L POC Total CO2 (24-31) mmol/L POC Base Excess (-9-1.8) maira/L POC ABG O2 Sat (90-95) % Sodium 132 L (136-145) mmol/L Potassium 4.3 (3.5-5.1) mmol/L Chloride 103 (98-107) mmol/L Carbon Dioxide 20 L (21-32) mmol/L Anion Gap 9.0 (3-11) BUN 76 H (7-18) mg/dl Creatinine 2.19 H (0.6-1.4) mg/dl Est Cr Clr Drug Dosing 33.1 ml/min Est GFR ( Amer) 36.3 ml/min Est GFR (Non-Af Amer) 31.3 ml/min BUN/Creatinine Ratio 34.7 H (10-20) Glucose 111 H (70-99) mg/dl POC Glucose (70-99) mg/dl Lactate 4.0 H* (0.4-2.0) mmol/L Calcium 6.3 L (8.5-10.1) mg/dl Phosphorus 6.5 H (2.5-4.9) mg/dl Magnesium 2.6 H (1.8-2.4) mg/dl Total Bilirubin 10.1 H (0.2-1) mg/dl Direct Bilirubin 7.6 H (0-0.2) mg/dl AST 230 H (15-37) U/L ALT 56 (12-78) U/L Alkaline Phosphatase 103 (45-117) U/L Ammonia 61.0 H (11-32) umol/L Troponin I (0-0.045) ng/ml Total Protein 6.0 L (6.4-8.2) gm/dl Albumin 1.5 L (3.4-5.0) gm/dl Nasal Screen MRSA (PCR) (Negative) Blood Type Antibody Screen Crossmatch 01/25/21 01/25/21 01/25/21 Range/Units 04:20 04:19 01:07 WBC 21.02 H D (4.8-10.8) K/uL RBC 2.50 L (4.7-6.1) M/uL Hgb 7.8 L 8.8 L (14.0-18.0) g/dL Hct 24.3 L 26.8 L (42-52) % MCV 97.2 (80-100) fL MCH 31.2 (25-34) pg MCHC 32.1 (32-36) g/dL RDW Std Deviation 80.6 H (36.4-46.3) fL RDW Coeff of Jarrell 22.7 H (11.5-14.5) % Plt Count 88 L (130-400) K/uL MPV 11.2 H (7.4-10.4) fL Absolute Nucleated RBC 0.19 H (0-0) K/uL Nucleated RBC % (auto) 0.9 % Neutrophils % (Manual) 82.4 % Lymphocytes % (Manual) 6.1 % Monocytes % (Manual) 7.0 % Eosinophils % (Manual) 0.9 % Myelocytes % (Man) 1.8 % Plasma Cell % (Manual) 1.8 % Neutrophils # (Manual) 17.32 H (1.4-6.5) K/uL Total Absolute Neuts 17.32 H (1.4-6.5) K/uL Lymphocytes # (Manual) 1.28 (1.2-3.4) K/uL Total Abs Lymphocytes 1.66 (1.2-3.4) K/uL Monocytes # (Manual) 1.47 H (0.11-0.59) K/uL Eosinophils # (Manual) 0.19 (0-0.5) K/uL Myelocytes # (Manual) 0.38 H (0-0) K/uL Plasma Cell # (Manual) 0.38 H (0-0) K/uL Toxic Granulation 1+ Toxic Vacuolation 1+ Dohle Bodies 2+ Polychromasia 1+ Anisocytosis Present PT 21.4 H (9.0-12.0) Seconds INR 2.2 H (0.9-1.1) POC pH (7.35-7.45) POC pCO2 (35-46) mmHg POC pO2 (80-95) mmHg POC HCO3 (19-24) maira/L POC Total CO2 (24-31) mmol/L POC Base Excess (-9-1.8) maira/L POC ABG O2 Sat (90-95) % Sodium (136-145) mmol/L Potassium (3.5-5.1) mmol/L Chloride (98-107) mmol/L Carbon Dioxide (21-32) mmol/L Anion Gap (3-11) BUN (7-18) mg/dl Creatinine (0.6-1.4) mg/dl Est Cr Clr Drug Dosing ml/min Est GFR ( Amer) ml/min Est GFR (Non-Af Amer) ml/min BUN/Creatinine Ratio (10-20) Glucose (70-99) mg/dl POC Glucose (70-99) mg/dl Lactate (0.4-2.0) mmol/L Calcium (8.5-10.1) mg/dl Phosphorus (2.5-4.9) mg/dl Magnesium (1.8-2.4) mg/dl Total Bilirubin (0.2-1) mg/dl Direct Bilirubin (0-0.2) mg/dl AST (15-37) U/L ALT (12-78) U/L Alkaline Phosphatase (45-117) U/L Ammonia (11-32) umol/L Troponin I (0-0.045) ng/ml Total Protein (6.4-8.2) gm/dl Albumin (3.4-5.0) gm/dl Nasal Screen MRSA (PCR) (Negative) Blood Type Antibody Screen Crossmatch 01/24/21 01/24/21 01/24/21 Range/Units 23:18 23:14 23:12 WBC (4.8-10.8) K/uL RBC (4.7-6.1) M/uL Hgb (14.0-18.0) g/dL Hct (42-52) % MCV (80-100) fL MCH (25-34) pg MCHC (32-36) g/dL RDW Std Deviation (36.4-46.3) fL RDW Coeff of Jarrell (11.5-14.5) % Plt Count (130-400) K/uL MPV (7.4-10.4) fL Absolute Nucleated RBC (0-0) K/uL Nucleated RBC % (auto) % Neutrophils % (Manual) % Lymphocytes % (Manual) % Monocytes % (Manual) % Eosinophils % (Manual) % Myelocytes % (Man) % Plasma Cell % (Manual) % Neutrophils # (Manual) (1.4-6.5) K/uL Total Absolute Neuts (1.4-6.5) K/uL Lymphocytes # (Manual) (1.2-3.4) K/uL Total Abs Lymphocytes (1.2-3.4) K/uL Monocytes # (Manual) (0.11-0.59) K/uL Eosinophils # (Manual) (0-0.5) K/uL Myelocytes # (Manual) (0-0) K/uL Plasma Cell # (Manual) (0-0) K/uL Toxic Granulation Toxic Vacuolation Dohle Bodies Polychromasia Anisocytosis PT (9.0-12.0) Seconds INR (0.9-1.1) POC pH (7.35-7.45) POC pCO2 (35-46) mmHg POC pO2 (80-95) mmHg POC HCO3 (19-24) maira/L POC Total CO2 (24-31) mmol/L POC Base Excess (-9-1.8) maira/L POC ABG O2 Sat (90-95) % Sodium (136-145) mmol/L Potassium (3.5-5.1) mmol/L Chloride (98-107) mmol/L Carbon Dioxide (21-32) mmol/L Anion Gap (3-11) BUN (7-18) mg/dl Creatinine (0.6-1.4) mg/dl Est Cr Clr Drug Dosing ml/min Est GFR ( Amer) ml/min Est GFR (Non-Af Amer) ml/min BUN/Creatinine Ratio (10-20) Glucose (70-99) mg/dl POC Glucose 148 H 138 H 172 H (70-99) mg/dl Lactate (0.4-2.0) mmol/L Calcium (8.5-10.1) mg/dl Phosphorus (2.5-4.9) mg/dl Magnesium (1.8-2.4) mg/dl Total Bilirubin (0.2-1) mg/dl Direct Bilirubin (0-0.2) mg/dl AST (15-37) U/L ALT (12-78) U/L Alkaline Phosphatase (45-117) U/L Ammonia (11-32) umol/L Troponin I (0-0.045) ng/ml Total Protein (6.4-8.2) gm/dl Albumin (3.4-5.0) gm/dl Nasal Screen MRSA (PCR) (Negative) Blood Type Antibody Screen Crossmatch 01/24/21 01/24/21 01/24/21 Range/Units 19:56 19:56 18:53 WBC (4.8-10.8) K/uL RBC (4.7-6.1) M/uL Hgb 7.9 L (14.0-18.0) g/dL Hct 24.7 L (42-52) % MCV (80-100) fL MCH (25-34) pg MCHC (32-36) g/dL RDW Std Deviation (36.4-46.3) fL RDW Coeff of Jarrell (11.5-14.5) % Plt Count (130-400) K/uL MPV (7.4-10.4) fL Absolute Nucleated RBC (0-0) K/uL Nucleated RBC % (auto) % Neutrophils % (Manual) % Lymphocytes % (Manual) % Monocytes % (Manual) % Eosinophils % (Manual) % Myelocytes % (Man) % Plasma Cell % (Manual) % Neutrophils # (Manual) (1.4-6.5) K/uL Total Absolute Neuts (1.4-6.5) K/uL Lymphocytes # (Manual) (1.2-3.4) K/uL Total Abs Lymphocytes (1.2-3.4) K/uL Monocytes # (Manual) (0.11-0.59) K/uL Eosinophils # (Manual) (0-0.5) K/uL Myelocytes # (Manual) (0-0) K/uL Plasma Cell # (Manual) (0-0) K/uL Toxic Granulation Toxic Vacuolation Dohle Bodies Polychromasia Anisocytosis PT (9.0-12.0) Seconds INR (0.9-1.1) POC pH (7.35-7.45) POC pCO2 (35-46) mmHg POC pO2 (80-95) mmHg POC HCO3 (19-24) maira/L POC Total CO2 (24-31) mmol/L POC Base Excess (-9-1.8) maira/L POC ABG O2 Sat (90-95) % Sodium (136-145) mmol/L Potassium (3.5-5.1) mmol/L Chloride (98-107) mmol/L Carbon Dioxide (21-32) mmol/L Anion Gap (3-11) BUN (7-18) mg/dl Creatinine (0.6-1.4) mg/dl Est Cr Clr Drug Dosing ml/min Est GFR ( Amer) ml/min Est GFR (Non-Af Amer) ml/min BUN/Creatinine Ratio (10-20) Glucose (70-99) mg/dl POC Glucose (70-99) mg/dl Lactate 7.3 H* (0.4-2.0) mmol/L Calcium (8.5-10.1) mg/dl Phosphorus (2.5-4.9) mg/dl Magnesium (1.8-2.4) mg/dl Total Bilirubin (0.2-1) mg/dl Direct Bilirubin (0-0.2) mg/dl AST (15-37) U/L ALT (12-78) U/L Alkaline Phosphatase (45-117) U/L Ammonia 65.0 H (11-32) umol/L Troponin I (0-0.045) ng/ml Total Protein (6.4-8.2) gm/dl Albumin (3.4-5.0) gm/dl Nasal Screen MRSA (PCR) (Negative) Blood Type Antibody Screen Crossmatch 01/24/21 01/24/21 01/24/21 Range/Units 18:29 15:54 13:04 WBC (4.8-10.8) K/uL RBC (4.7-6.1) M/uL Hgb 7.7 L (14.0-18.0) g/dL Hct 23.7 L (42-52) % MCV (80-100) fL MCH (25-34) pg MCHC (32-36) g/dL RDW Std Deviation (36.4-46.3) fL RDW Coeff of Jarrell (11.5-14.5) % Plt Count (130-400) K/uL MPV (7.4-10.4) fL Absolute Nucleated RBC (0-0) K/uL Nucleated RBC % (auto) % Neutrophils % (Manual) % Lymphocytes % (Manual) % Monocytes % (Manual) % Eosinophils % (Manual) % Myelocytes % (Man) % Plasma Cell % (Manual) % Neutrophils # (Manual) (1.4-6.5) K/uL Total Absolute Neuts (1.4-6.5) K/uL Lymphocytes # (Manual) (1.2-3.4) K/uL Total Abs Lymphocytes (1.2-3.4) K/uL Monocytes # (Manual) (0.11-0.59) K/uL Eosinophils # (Manual) (0-0.5) K/uL Myelocytes # (Manual) (0-0) K/uL Plasma Cell # (Manual) (0-0) K/uL Toxic Granulation Toxic Vacuolation Dohle Bodies Polychromasia Anisocytosis PT (9.0-12.0) Seconds INR (0.9-1.1) POC pH 7.38 (7.35-7.45) POC pCO2 34 L (35-46) mmHg POC pO2 138 H (80-95) mmHg POC HCO3 20 (19-24) maira/L POC Total CO2 21 L (24-31) mmol/L POC Base Excess -5.0 (-9-1.8) maira/L POC ABG O2 Sat 99.0 H (90-95) % Sodium (136-145) mmol/L Potassium (3.5-5.1) mmol/L Chloride (98-107) mmol/L Carbon Dioxide (21-32) mmol/L Anion Gap (3-11) BUN (7-18) mg/dl Creatinine (0.6-1.4) mg/dl Est Cr Clr Drug Dosing ml/min Est GFR ( Amer) ml/min Est GFR (Non-Af Amer) ml/min BUN/Creatinine Ratio (10-20) Glucose (70-99) mg/dl POC Glucose 79 (70-99) mg/dl Lactate (0.4-2.0) mmol/L Calcium (8.5-10.1) mg/dl Phosphorus (2.5-4.9) mg/dl Magnesium (1.8-2.4) mg/dl Total Bilirubin (0.2-1) mg/dl Direct Bilirubin (0-0.2) mg/dl AST (15-37) U/L ALT (12-78) U/L Alkaline Phosphatase (45-117) U/L Ammonia (11-32) umol/L Troponin I (0-0.045) ng/ml Total Protein (6.4-8.2) gm/dl Albumin (3.4-5.0) gm/dl Nasal Screen MRSA (PCR) (Negative) Blood Type Antibody Screen Crossmatch 01/24/21 01/24/2101/24/21 Range/Units 12:29 12:25 12:05 WBC (4.8-10.8) K/uL RBC (4.7-6.1) M/uL Hgb (14.0-18.0) g/dL Hct (42-52) % MCV (80-100) fL MCH (25-34) pg MCHC (32-36) g/dL RDW Std Deviation (36.4-46.3) fL RDW Coeff of Jarrell (11.5-14.5) % Plt Count (130-400) K/uL MPV (7.4-10.4) fL Absolute Nucleated RBC (0-0) K/uL Nucleated RBC % (auto) % Neutrophils % (Manual) % Lymphocytes % (Manual) % Monocytes % (Manual) % Eosinophils % (Manual) % Myelocytes % (Man) % Plasma Cell % (Manual) % Neutrophils # (Manual) (1.4-6.5) K/uL Total Absolute Neuts (1.4-6.5) K/uL Lymphocytes # (Manual) (1.2-3.4) K/uL Total Abs Lymphocytes (1.2-3.4) K/uL Monocytes # (Manual) (0.11-0.59) K/uL Eosinophils # (Manual) (0-0.5) K/uL Myelocytes # (Manual) (0-0) K/uL Plasma Cell # (Manual) (0-0) K/uL Toxic Granulation Toxic Vacuolation Dohle Bodies Polychromasia Anisocytosis PT (9.0-12.0) Seconds INR (0.9-1.1) POC pH (7.35-7.45) POC pCO2 (35-46) mmHg POC pO2 (80-95) mmHg POC HCO3 (19-24) maira/L POC Total CO2 (24-31) mmol/L POC Base Excess (-9-1.8) maira/L POC ABG O2 Sat (90-95) % Sodium (136-145) mmol/L Potassium (3.5-5.1) mmol/L Chloride (98-107) mmol/L Carbon Dioxide (21-32) mmol/L Anion Gap (3-11) BUN (7-18) mg/dl Creatinine (0.6-1.4) mg/dl Est Cr Clr Drug Dosing ml/min Est GFR ( Amer) ml/min Est GFR (Non-Af Amer) ml/min BUN/Creatinine Ratio (10-20) Glucose (70-99) mg/dl POC Glucose 108 H 64 L* (70-99) mg/dl Lactate (0.4-2.0) mmol/L Calcium (8.5-10.1) mg/dl Phosphorus (2.5-4.9) mg/dl Magnesium (1.8-2.4) mg/dl Total Bilirubin (0.2-1) mg/dl Direct Bilirubin (0-0.2) mg/dl AST (15-37) U/L ALT (12-78) U/L Alkaline Phosphatase (45-117) U/L Ammonia (11-32) umol/L Troponin I (0-0.045) ng/ml Total Protein (6.4-8.2) gm/dl Albumin (3.4-5.0) gm/dl Nasal Screen MRSA (PCR) Negative (Negative) Blood Type Antibody Screen Crossmatch 01/24/21 01/24/21 01/24/21 Range/Units 12:04 10:53 09:21 WBC (4.8-10.8) K/uL RBC (4.7-6.1) M/uL Hgb (14.0-18.0) g/dL Hct (42-52) % MCV (80-100) fL MCH (25-34) pg MCHC (32-36) g/dL RDW Std Deviation (36.4-46.3) fL RDW Coeff of Jarrell (11.5-14.5) % Plt Count (130-400) K/uL MPV (7.4-10.4) fL Absolute Nucleated RBC (0-0) K/uL Nucleated RBC % (auto) % Neutrophils % (Manual) % Lymphocytes % (Manual) % Monocytes % (Manual) % Eosinophils % (Manual) % Myelocytes % (Man) % Plasma Cell % (Manual) % Neutrophils # (Manual) (1.4-6.5) K/uL Total Absolute Neuts (1.4-6.5) K/uL Lymphocytes # (Manual) (1.2-3.4) K/uL Total Abs Lymphocytes (1.2-3.4) K/uL Monocytes # (Manual) (0.11-0.59) K/uL Eosinophils # (Manual) (0-0.5) K/uL Myelocytes # (Manual) (0-0) K/uL Plasma Cell # (Manual) (0-0) K/uL Toxic Granulation Toxic Vacuolation Dohle Bodies Polychromasia Anisocytosis PT (9.0-12.0) Seconds INR (0.9-1.1) POC pH (7.35-7.45) POC pCO2 (35-46) mmHg POC pO2 (80-95) mmHg POC HCO3 (19-24) maira/L POC Total CO2 (24-31) mmol/L POC Base Excess (-9-1.8) maira/L POC ABG O2 Sat (90-95) % Sodium (136-145) mmol/L Potassium (3.5-5.1) mmol/L Chloride (98-107) mmol/L Carbon Dioxide (21-32) mmol/L Anion Gap (3-11) BUN (7-18) mg/dl Creatinine (0.6-1.4) mg/dl Est Cr Clr Drug Dosing ml/min Est GFR ( Amer) ml/min Est GFR (Non-Af Amer) ml/min BUN/Creatinine Ratio (10-20) Glucose (70-99) mg/dl POC Glucose 66 L* (70-99) mg/dl Lactate 6.5 H* (0.4-2.0) mmol/L Calcium (8.5-10.1) mg/dl Phosphorus (2.5-4.9) mg/dl Magnesium (1.8-2.4) mg/dl Total Bilirubin (0.2-1) mg/dl Direct Bilirubin (0-0.2) mg/dl AST (15-37) U/L ALT (12-78) U/L Alkaline Phosphatase (45-117) U/L Ammonia (11-32) umol/L Troponin I 0.173 H* (0-0.045) ng/ml Total Protein (6.4-8.2) gm/dl Albumin (3.4-5.0) gm/dl Nasal Screen MRSA (PCR) (Negative) Blood Type Antibody Screen Crossmatch 01/24/21 Range/Units 04:48 WBC (4.8-10.8) K/uL RBC (4.7-6.1) M/uL Hgb (14.0-18.0) g/dL Hct (42-52) % MCV (80-100) fL MCH (25-34) pg MCHC (32-36) g/dL RDW Std Deviation (36.4-46.3) fL RDW Coeff of Jarrell (11.5-14.5) % Plt Count (130-400) K/uL MPV (7.4-10.4) fL Absolute Nucleated RBC (0-0) K/uL Nucleated RBC % (auto) % Neutrophils % (Manual) % Lymphocytes % (Manual) % Monocytes % (Manual) % Eosinophils % (Manual) % Myelocytes % (Man) % Plasma Cell % (Manual) % Neutrophils # (Manual) (1.4-6.5) K/uL Total Absolute Neuts (1.4-6.5) K/uL Lymphocytes # (Manual) (1.2-3.4) K/uL Total Abs Lymphocytes (1.2-3.4) K/uL Monocytes # (Manual) (0.11-0.59) K/uL Eosinophils # (Manual) (0-0.5) K/uL Myelocytes # (Manual) (0-0) K/uL Plasma Cell # (Manual) (0-0) K/uL Toxic Granulation Toxic Vacuolation Dohle Bodies Polychromasia Anisocytosis PT (9.0-12.0) Seconds INR (0.9-1.1) POC pH (7.35-7.45) POC pCO2 (35-46) mmHg POC pO2 (80-95) mmHg POC HCO3 (19-24) maira/L POC Total CO2 (24-31) mmol/L POC Base Excess (-9-1.8) maira/L POC ABG O2 Sat (90-95) % Sodium (136-145) mmol/L Potassium (3.5-5.1) mmol/L Chloride (98-107) mmol/L Carbon Dioxide (21-32) mmol/L Anion Gap (3-11) BUN (7-18) mg/dl Creatinine (0.6-1.4) mg/dl Est Cr Clr Drug Dosing ml/min Est GFR ( Amer) ml/min Est GFR (Non-Af Amer) ml/min BUN/Creatinine Ratio (10-20) Glucose (70-99) mg/dl POC Glucose (70-99) mg/dl Lactate (0.4-2.0) mmol/L Calcium (8.5-10.1) mg/dl Phosphorus (2.5-4.9) mg/dl Magnesium (1.8-2.4) mg/dl Total Bilirubin (0.2-1) mg/dl Direct Bilirubin (0-0.2) mg/dl AST (15-37) U/L ALT (12-78) U/L Alkaline Phosphatase (45-117) U/L Ammonia (11-32) umol/L Troponin I (0-0.045) ng/ml Total Protein (6.4-8.2) gm/dl Albumin (3.4-5.0) gm/dl Nasal Screen MRSA (PCR) (Negative) Blood Type A Negative Antibody Screen NEGATIVE Crossmatch See Detail
[2021-01-25] MEDS: THIAMINE HCL 100 MG in SYRINGE 9 ML IV SCH (10:12)
[2021-01-25] MEDS: FOLIC ACID 1 MG in SYRINGE 9.8 ML IV SCH (10:12)
[2021-01-25] MEDS: cefTRIAXone SODIUM 2,000 MG in DEXTROSE 5% 50 ML IV SCH (10:46)
--- NOTE | 2021-01-25 11:37 | XRay Report ---
XR chest 1V portable CLINICAL HISTORY: f/u COMPARISON STUDY: January 24, 2021 FINDINGS: No pneumothorax. Mild blunting of the left costophrenic angle could represent small pleural effusion. Small atelectasis/infiltrate is seen at the left base. Lung volumes are decreased with crowded lung markings. Evaluation of pulmonary parenchyma is limited due to numerous overlying wires. Cardiomediastinal silhouette is within normal limits in size. Pulmonary vasculature is indistinct.. Osseous structures: Mild diffuse osteopenia. Tip of endotracheal tube is seen projecting 5.0 cm above ligia. IMPRESSION: 1. Small left pleural effusion associated with atelectasis/infiltrate at the left base. 2. Long lung volumes with crowded lung markings. 3. Tip of endotracheal tube is projected 5.0 cm above ligia. ACT 112: Negative or not required by law. The above report was generated using voice recognition software. It may contain grammatical, syntax o r spelling errors. Electronically signed by: Kindra Chisholm DO 01/25/2021 11:36 AM
--- NOTE | 2021-01-25 13:15 | Hospitalist Progress Note ---
Date of Service January 25, 2021 Assessment & Plan (1) Change in mental status: Patient's roommate called EMS as the patient was found on floor very confused with an empty bottle of alcohol next to him Was very somnolent on admission Likely secondary to hepatic and colopathy with increasing ammonia and abnormal liver function test Complicated by sepsis Required intubation and now extubated on 01/25/2021 Remains pleasantly confused as of today (2) Decompensated hepatic cirrhosis: History of alcoholic cirrhosis Has decompensated cirrhotic state with incompatibility Appreciate GI input and recommendation He is meld score is 32 and DF is 51 and has a poor prognosis (3) Alcohol abuse: Ongoing alcohol abuse Has been on withdrawal protocol Has been getting intravenous thiamine and folic acid (4) Acute upper GI bleed: Came in with upper GI bleed Status post EGD which showed no acute bleeding sites Has been on Protonix intravenously twice a day (5) Sepsis: Presented with sepsis with high lactic acid Likely secondary to left lower lobe infiltration Has been getting intravenous fluid Has been requiring intravenous pressors to maintain blood pressure Received intravenous vancomycin and ceftriaxone on admission Blood cultures grew streptococcal pneumoniae Antibiotics have been changed to intravenous ciprofloxacin only White count remains elevated but not febrile (6) MARINA (acute kidney injury): Creatinine was noted to be very high at 2.51 on admission Has been getting intravenous fluid Creatinine remains elevated at 2.19 (7) HTN (hypertension): Has history of hypertension Presented with hypotension likely secondary to sepsis with septic shock Has been requiring intravenous pressor resents to maintain blood pressure Has thrombocytopenia Likely secondary to alcohol abuse Elevated LFTs Secondary to alcoholic cirrhosis cirrhosis Mild elevation of troponin Could be stress-induced and is complicated by acute renal failure Doubt any AMS DVT prophylaxis SCDs for now Admission and Anticipated Discharge Date Admission Date: January 24, 2021 Subjective 01/25/2021 The patient was seen and examined in ICU He was admitted yesterday with change in mental status and GI bleed with a history of chronic hepatitis C with cirrhosis of liver, alcoholism, portal hypertension and hypertension He required intubation but has been extubated this morning He remains very lethargic and is still requiring pressor resents to maintain blood pressure Review of Systems Review of Systems: Unobtainable due to cognitive status Physical Exam Physical Exam: Lying in bed comfortably Constitutional: well developed, well nourished, + ill appearing and + obese Eyes: sclerae not anicteric ENMT: external ear and nose normal, oropharynx normal Neck: trachea midline, no thyromegaly Respiratory: no respiratory distress Auscultation: + diminished lung sounds and + crackles (Minimal crackles left base) Cardiovascular: Rate/Rhythm: regular rate and regular rhythm Heart Sounds: no murmur Extremities: no edema Gastrointestinal (Abdomen): Inspection/Auscultation: normal bowel sounds; abdomen not distended Percussion/Palpation: abdomen soft; abdomen nontender Musculoskeletal: No acute arthritis in any joint Neurologic: Alert and awake. Pleasantly confused, generally weak and lethargic Lymphatic: no cervical or axillary lymphadenopathy Results & Data Results & [facility] ([facility]) Vital Signs (Past 12 Hours) Vital Signs Temp Pulse Resp BP Pulse Ox 01/25/21 08:00 61 01/25/21 07:04 61 17 98 01/25/21 06:34 62 110/50 L 96 01/25/21 06:14 69 96/47 L 97 01/25/21 05:49 62 97/40 L 98 01/25/21 05:19 65 92/43 L 97 01/25/21 05:04 62 100/43 L 97 01/25/21 04:49 65 86/45 L 97 01/25/21 04:19 65 101/42 L 97 01/25/21 04:15 36.8 C 01/25/21 04:04 67 98/46 L 96 01/25/21 03:49 65 99/43 L 97 01/25/21 03:19 69 97/55 L 97 01/25/21 03:11 66 21 97 01/25/21 02:49 68 109/48 L 97 01/25/21 02:34 68 103/47 L 97 01/25/21 02:04 69 95/61 L 96 01/25/21 01:49 67 99/46 L 95 01/25/21 01:19 66 98/45 L 96 Laboratory Results Short CBC 01/24/21 01/24/21 01/25/21 Range/Units 13:04 18:53 01:07 WBC (4.8-10.8) K/uL Hgb 7.7 L 7.9 L 8.8 L (14.0-18.0) g/dL Hct 23.7 L 24.7 L 26.8 L (42-52) % Plt Count (130-400) K/uL 01/25/21 Range/Units 04:20 WBC 21.02 H D (4.8-10.8) K/uL Hgb 7.8 L (14.0-18.0) g/dL Hct 24.3 L (42-52) % Plt Count 88 L (130-400) K/uL BMP 01/25/21 04:20 Sodium 132 L Potassium 4.3 Chloride 103 Carbon Dioxide 20 L BUN 76 H Creatinine 2.19 H Glucose 111 H Calcium 6.3 L Cardiac Enzymes 01/25/21 Range/Units 09:02 Troponin I 0.111 H* (0-0.045) ng/ml Liver Function 01/25/21 Range/Units 04:20 Total Bilirubin 10.1 H (0.2-1) mg/dl Direct Bilirubin 7.6 H (0-0.2) mg/dl AST 230 H (15-37) U/L ALT 56 (12-78) U/L Alkaline Phosphatase 103 (45-117) U/L Albumin 1.5 L (3.4-5.0) gm/dl Medications Administered Current Inpatient Medications Lorazepam (Ativan) 1.5 mg in 3 mls @ 3 mls/min IV Q3H PRN PRN Reason: Anxiety/Agitation Stop: 02/23/21 06:40 Thiamine HCl 100 mg/ Syringe 10 mls @ 2 mls/[facility] Stop: 02/23/21 08:59 Last Admin: 01/25/21 10:12 Dose: 2 mls/min Documented by: Folic Acid 1 mg/ Syringe 10 mls @ 5 mls/min [facility] Stop: 02/23/21 08:59 Last Admin: 01/25/21 10:12 Dose: 5 mls/min Documented by: Phenylephrine HCl 20 mg/ (Sodium Chloride) 502 mls @ 57.981 mls/hr IV .[id number] [facility]; Protocol Stop: 02/23/21 20:14 Last Admin: 01/25/21 10:13 Dose: 0.5 mcg/kg/min, 58 mls/hr Documented by: Pantoprazole Sodium 40 mg/ (Syringe) 10 mls @ 5 mls/min IV BID [facility] Stop: 02/24/21 20:59 Ceftriaxone Sodium 2,000 mg/ (Dextrose) 70 mls @ 140 mls/hr IV TODAY@1100 [facility] Stop: 02/08/21 10:59 Last Infusion: 01/25/21 11:23 Dose: Infused Documented by: Lactulose (Lactulose Syrup 20 Gm/30 Ml Udc) 20 gm PO TID [facility] Stop: 02/24/21 13:59 Miscellaneous (Icu Protocol For Hyperglycemia) 1 ea N/A PRN PRN; Protocol PRN Reason: Hyperglycemia Protocol Stop: 01/26/21 06:40
[2021-01-25] MEDS: LACTULOSE SYRUP 20 GM/30 ML UDC PO SCH ×4 (13:31→20:52)
--- NOTE | 2021-01-25 14:00 | Consultation Report ---
DATE OF CONSULTATION: 01/25/2021 NEPHROLOGY CONSULTATION NOTE REASON FOR CONSULT: Acute renal failure. HISTORY OF PRESENT ILLNESS: The patient is a 60-year-old white male who has chronic hepatitis C with cirrhosis of liver, alcoholism, polyneuropathy, pancytopenia, portal hypertension, who was brought to the Emergency Department yesterday because of increased confusion as well as coffee-ground emesis and an empty bottle of alcohol next to him. The patient does not remember how long he was down and even now he does not answer to any of my questions. The patient was found to be very sick and very hypotensive and even now he is requiring Kurt-Synephrine. He was found to have acute renal failure as well as elevated ammonia. Creatinine at baseline is completely normal at 0.5; yesterday, it was 2.51, but is now trending down. Sodium was also slightly low. Lactic acid is high, but is trending down. Liver function test is very abnormal. The patient is making urine, and in the last 3 hours, he has made about 75-100 mL per hour of urine. Blood pressure is better on support. He was intubated yesterday briefly, but now he has already been extubated. His white count is also elevated and he is being treated as having sepsis with broad spectrum antibiotics. PAST MEDICAL HISTORY AND PAST SURGICAL HISTORY: Includes chronic hepatitis C, cirrhosis of liver, alcoholism, alcoholic cirrhosis with associated complications, collapsed left lung, status post chest tube, right wrist ganglion removal, vasectomy. MEDICATIONS: At home include magnesium, folic acid, nadolol, spironolactone, Protonix, potassium supplement, B12, Lasix 40 daily, trazodone, multivitamins, lactulose. FAMILY HISTORY: Significant for diabetes in aunt, father has diabetes. No renal disease or dialysis. SOCIAL HISTORY: He is . Smoked 1 pack a day for 29 years, ongoing alcoholism, history of IV drug use in the past, last use was in 2017. REVIEW OF SYSTEMS: Unable to obtain as no family member at the bedside. The patient is confused and does not answer any questions. PHYSICAL EXAMINATION: GENERAL: A middle-aged white male who looks chronically ill. He has eyes awake and alert, but does not answer any questions. VITAL SIGNS: Most recent vital signs include blood pressure 110/50, pulse rate 61, temperature 36.8, 98% on CPAP. HEENT: Mucous membrane appears dry. NECK: Supple. CHEST: Bilaterally decreased breath sounds, but very poor inspiratory effort limiting the quality of the exam. CARDIOVASCULAR: S1, S2 regular. ABDOMEN: Soft, nontender. No major ascites noted. EXTREMITIES: Show no edema, but has signs of poor circulation. LABORATORY TESTS: Creatinine is trending down, but is still significantly higher than his baseline of 0.54. Most recent creatinine 2.19, BUN 76. Sodium 132, potassium 4.3. Lactic acid is trending down and is down to 4.0. White cell count is trending up and is 21,000, hemoglobin 7.8, platelet count 88,000. ASSESSMENT AND PLAN: A 60-year-old male with end-stage liver disease with alcoholic cirrhosis as well as chronic hepatitis C, now admitted with confusion, possible sepsis, acute renal failure secondary to acute tubular necrosis and worsening liver function. His prognosis has been labeled as very poor as his current MELD score is extremely high. I have been consulted for acute renal failure. Acute renal failure: His baseline creatinine 0.5 and it is 2.2 at this time. Etiology of acute renal failure is almost certainly acute tubular necrosis with or without hepatorenal syndrome. Given that he had severe lactic acidosis as well as rising white count, it is quite possible he has evidence of sepsis. It could also be hepatorenal syndrome given very abnormal liver function test. At this time, I will defer the treatment for liver failure to gastrointestinal. Fortunately, creatinine is trending down and his urine output is actually holding steady at 75 mL to 100 mL per hour. So at least from renal standpoint, he is not in imminent danger, but his overall prognosis is very poor. Continue to do input/output charting, daily laboratories.
[2021-01-25] MEDS ORDERED: LACTULOSE 200 GM, WATER, STERILE IRRIG 700 ML, BARCODE IDENTIFIER 1 EA PR SCH (15:00)
[2021-01-25] MEDS: PANTOprazole 40 MG in SYRINGE 0 ML IV SCH (20:52)
[2021-01-26] MEDS: PHENYLEPHRINE HCL 20 MG in SODIUM CHLORIDE 0.9% 500 ML IV SCH ×3 (00:02→18:18)
[2021-01-26 05:09] LABS: Hematocrit (blood only) 22.2 % (42-52); Hemoglobin 7.2 g/dL (14.0-18.0); Mean Corpuscular Hemoglobin 30.8 pg (25-34); Mean Corpuscular Hgb Conc 32.4 g/dL (32-36); Mean Corpuscular Volume 94.9 fL (80-100); Nucleated RBC # (auto) 0.07 K/uL (0-0); Nucleated RBC % (auto) 0.4 %; RDW Coefficient of Variation 22.1 % (11.5-14.5); RDW Standard Deviation 77.3 fL (36.4-46.3); Red Blood Count 2.34 M/uL (4.7-6.1)
[2021-01-26 05:19] LABS: INR 2.1 (0.9-1.1); Prothrombin Time 19.8 Seconds (9.0-12.0)
[2021-01-26 05:23] LABS: Mean Platelet Volume 10.1 fL (7.4-10.4); Platelet Count 46 K/uL (130-400)
[2021-01-26 05:32] LABS: ALC (manual) 0.58 K/uL (1.2-3.4); ANC (manual) 14.72 K/uL (1.4-6.5); Anisocytosis Present; Echinocytes 1+; Eosinophils # (manual) 0.58 K/uL (0-0.5); Eosinophils % (manual) 3.5 %; Lymphocytes # (manual) 0.43 K/uL (1.2-3.4); Lymphocytes % (manual) 2.6 %; Monocytes # (manual) 0.71 K/uL (0.11-0.59); Monocytes % (manual) 4.3 %; Neutrophils # (manual) 14.72 K/uL (1.4-6.5); Neutrophils % (manual) 88.7 %; Plasma Cells # (manual) 0.15 K/uL (0-0); Plasma Cells % (manual) 0.9 %; Polychromasia 1+
[2021-01-26 05:48] LABS: Albumin Level 1.4 gm/dl (3.4-5.0); BUN Creatinine Ratio 46.1 (10-20); Bilirubin Direct 8.2 mg/dl (0-0.2); Calcium 6.2 mg/dl (8.5-10.1); Creatinine Clr Calc Pharmacy 45.2 ml/min; Est GFR (African American) 46.1 ml/min; Est GFR (Non-African American) 39.7 ml/min; Magnesium 2.5 mg/dl (1.8-2.4); Total Protein 5.8 gm/dl (6.4-8.2)
[2021-01-26] MEDS: FOLIC ACID 1 MG in SYRINGE 9.8 ML IV SCH (08:06)
[2021-01-26] MEDS: PANTOprazole 40 MG in SYRINGE 0 ML IV SCH ×2 (08:09→20:15)
[2021-01-26] MEDS: THIAMINE HCL 100 MG in SYRINGE 9 ML IV SCH (08:10)
[2021-01-26] MEDS: LACTULOSE SYRUP 20 GM/30 ML UDC PO SCH ×3 (08:10→20:15)
[2021-01-26] MEDS ORDERED: PHYTONADIONE 10 MG in SODIUM CHLORIDE 0.9% 50 ML IV ONE (08:22)
--- NOTE | 2021-01-26 08:24 | Critical Care Progress Note ---
Date of Service January 26, 2021 Assessment & Plan (1) Admitted to intensive care unit: Reason Critically Ill: 60-year-old male with liver failure in the setting of alcoholic cirrhosis and hepatitis C presenting with upper GI bleed and sepsis from possible urinary source requiring close hemodynamic monitoring in the setting of concurrent conditions. NEURO - * CAM ICU: POSITIVE * Altered mental status: * Likely secondary to acuity of illness and hyperammonemia. * Metabolic encephalopathy appears to be improving. * Continue thiamine and folic acid given history of alcoholism CARDIAC/VASCULAR - * NSTEMI: * Likely demand ischemia in the setting of sepsis, hypovolemia, and MARINA. * Maintain mean arterial pressures above 65. Currently requiring low-dose of phenylephrine. Currently being given phenylephrine via peripheral IV. We are attempting to wean this off. RESPIRATORY - * Patient extubated 01/25/2021. He was intubated for EGD procedure and had difficulty status post extubation in the OR on 01/24/2021. GI/NUTRITION - * Acute upper GI bleed: * No obvious variceal bleeding seen. Octreotide discontinued. Continue Protonix 40 mg twice daily. * Continue lactulose * Likely alcoholic hepatitis. Total bilirubin 11.0. AST 240. GI following. Poor candidate for prednisone at this time given active infection. Moderate discriminant function score elevated. INR 2.1. Will give a dose of IV vitamin K. Platelet count trended down to 46,000. RENAL/LYTES - * Acute renal failure: * Renal failure is improving and was likely secondary to ATN. Nephrology consult appreciated. - * Mason in place - Strict I&Os. ENDO - * No history of diabetes or thyroid disease. * BSGs per unit protocol. ISS --> gtt per unit policy. HEME - * Chronic anemia: * Received 1 unit of packed RBCs this admission. No further bleeding noted. * Platelet count 46,000. INR 2.1. Vitamin K will be given. ID - * Sepsis: * Likely complicated UTI. Urine culture with less than 1000 colonies of growth * Blood cultures growing Streptococcus pneumonia in 4 out of 4 bottles. Continue ceftriaxone. Repeat blood cultures to ensure clearance. LINES/IV ACCESS - * PIVs x2 * Mason * We will keep an eye on the right upper extremity given the extravasation of phenylephrine on 01/24/2021. DVT PROPHYLAXIS - * Hold in the setting of GIB * SCDs I have personally spent 35 minutes of critical care time in the direct management of this patient. This is a life/limb threatening event. This includes time spent evaluating patient, direct bedside care, chart review, placing orders, interpretation of diagnostic studies, discussion with consultants, patient, and family members, as well as other required patient management activities. This time is exclusive of all separately billable procedures, and teaching time and separate from and in addition to any other critical care service time. Thank you for allowing us to participate in the care of this patient. Please refer to my attending physician's documentation for any further recommendations. (2) Acute upper GI bleed: (3) Ascites: (4) Anemia: (5) Sepsis: (6) Anasarca: (7) Superior mesenteric vein thrombosis: Admission and Anticipated Discharge Date Admission Date: January 24, 2021 Subjective Patient seen and examined this morning. He is requiring low doses of phenylephrine to maintain mean arterial pressures above 65. He is mentating well. No significant overnight events. Review of Systems Review of Systems: All systems reviewed & are unremarkable except as noted in HPI & below Physical Exam Physical Exam: VITAL SIGNS - Vital signs and nursing notes were reviewed. GENERAL - 60-year-old male appearing older than his stated age who is in no acute distress. HEAD - NC/AT. EYES - PERRL with EOMI bilaterally. Scleral icterus noted. EARS - No deformities of external structures noted on gross examination bilaterally. NOSE - Midline and without cyanosis. No epistaxis or purulent drainage noted. MOUTH/OROPHARYNX - Without perioral cyanosis. Buccal mucosa pink and moist and without leukoplakia. NECK - Neck with FROM. No nuchal rigidity. LUNGS - Chest wall symmetric without accessory muscle use, intercostals retractions, or central cyanosis. Normal vesicular breath sounds CTA B/L. No wheezes, rales, or rhonchi appreciated. CARDIAC - RRR with S1/S2. No murmur, rubs, or gallops appreciated. ABDOMEN - Abdominal contour protuberant without pulsations or visible masses. BS hypoactive normoactive all four quadrants. No tenderness to palpation appreciated throughout. No guarding. Ascites noted. EXTREMITIES -swelling and tenderness in the right upper extremity. NEUROLOGIC -no focal neurological deficits. PSYCH -alert and oriented x3. Results & Data Results & Data ([facility]) Vital Signs (Past 12 Hours) Vital Signs Temp Pulse Resp BP Pulse Ox 01/26/21 06:30 82 19 108/42 L 94 01/26/21 06:00 78 20 88/46 L 94 01/26/21 05:30 81 20 104/54 L 93 01/26/21 05:00 80 17 97/47 L 94 01/26/21 04:30 77 22 97/54 L 95 01/26/21 04:00 97.7 F 78 16 104/52 L 96 01/26/21 03:30 79 14 97 01/26/21 03:00 74 20 107/43 L 97 01/26/21 02:30 73 18 86/46 L 97 01/26/21 02:00 66 19 91/53 L 95 01/26/21 01:30 66 20 110/51 L 94 01/26/21 01:00 72 21 94/52 L 98 01/26/21 00:30 68 21 101/47 L 97 01/26/21 00:00 97.5 F L 67 17 113/45 L 97 01/25/21 23:30 60 18 99/49 L 96 01/25/21 23:00 67 19 108/43 L 96 01/25/21 22:30 60 15 112/71 98 01/25/21 22:00 68 19 92/49 L 97 01/25/21 21:30 66 17 95 01/25/21 21:00 63 17 101/47 L 96 01/25/21 20:30 62 18 113/51 L 95 Vital signs, labs and imaging reviewed Coding Level of Care Code Critical Care 1st 30-74 mins Diagnoses Admitted to intensive care unit Z78.9 Acute upper GI bleed K92.2 Ascites R18.8 Anemia D64.9 Sepsis A41.9 Anasarca R60.1 Superior mesenteric vein thrombosis K55.069 Time Spent (min) 35
--- NOTE | 2021-01-26 09:10 | Gastroenterology Progress Note ---
Date of Service January 26, 2021 Assessment & Plan (1) Anemia: 60 year old male w/ history of HCV and ETOH cirrhosis, actively drinking, MELD 32 admitted w/ alternated mental status report of hematemesis at home, who underwent EGD over the weekend without evidence of active or source of GI blood loss. He is admitted to the ICU w/ suspected urosepsis, he was extubated, awake and alert to self, he has mild asterixis. He has rising MELD, 32 w/ high DF concerning for ETOH in the setting of suspected ETOH abuse. MELD 32 DF 51 , poor prognosis, not candidate for glucocorticoid therapy given urosepsis, rising WBC Can start NAC, assess daily for downtrending LFTs, if persistent or rising for 48 hours can D/C NAC Trend H&H Monitor and document GI blood loss Continue IV PPI, can convert to PO once extubated ETOH withdrawal protocol ETOH cessation discussed at bedside Start Lactulose titrated to BMs 2-4 times daily Thank you for allowing us to participate in the care of this patient. Please call with any acute changes, questions or concerns. Please see addendum below with additional recommendation from my supervising physician. Admission and Anticipated Discharge Date Admission Date: January 24, 2021 Supervising Physician Co-Signing Physician Notes I saw and evaluated the patient with Ms. Bentley. Unfortunately the patient has continued to drink as an outpatient despite several admissions in the past. This will likely be a more to an early demise given his lack of sobriety. Given the patient's mental status this could be related to his intubation and sedation required. Perhaps it would be helpful to start the patient on rifaximin 550 mg twice daily. Subjective pt extubated, awake, oriented to self but not place/time. unable to provide a meaningful past medical history denies abd pain no nausea/vomiting no black or bloody stools reported per documentation Review of Systems Review of Systems: All systems reviewed & are unremarkable except as noted in HPI & below Physical Exam Constitutional: + ill appearing, + thin and + cachectic; no acute distress Neck: trachea midline Respiratory: + abnormal respiratory effort (intubated) Cardiovascular: Rate/Rhythm: regular rate and regular rhythm Gastrointestinal (Abdomen): Percussion/Palpation: abdomen soft; abdomen nontender, no guarding, abdomen not rigid, no abdominal mass and no ascites Skin: no rashes, warm and dry Results & Data ([facility]) Vital Signs (Past 12 Hours) Vital Signs Temp Pulse Resp BP Pulse Ox 01/26/21 08:49 96 H 16 100/61 93 01/26/21 08:30 93 H 20 93 01/26/21 08:19 91 H 25 H 111/52 L 94 01/26/21 08:00 89 17 94 01/26/21 07:49 88 17 112/53 L 94 01/26/21 07:30 36.8 C 86 22 94 01/26/21 07:20 87 25 H 104/51 L 94 01/26/21 07:00 88 17 94 01/26/21 06:50 87 20 108/50 L 93 01/26/21 06:30 82 19 108/42 L 94 01/26/21 06:00 78 20 88/46 L 94 01/26/21 05:30 81 20 104/54 L 93 01/26/21 05:00 80 17 97/47 L 94 01/26/21 04:30 77 22 97/54 L 95 01/26/21 04:00 36.5 C 78 16 104/52 L 96 01/26/21 03:30 79 14 97 01/26/21 03:00 74 20 107/43 L 97 01/26/21 02:30 73 18 86/46 L 97 01/26/21 02:00 66 19 91/53 L 95 01/26/21 01:30 66 20 110/51 L 94 01/26/21 01:00 72 21 94/52 L 98 01/26/21 00:30 68 21 101/47 L 97 01/26/21 00:00 36.4 C L 67 17 113/45 L 97 01/25/21 23:30 60 18 99/49 L 96 01/25/21 23:00 67 19 108/43 L 96 01/25/21 22:30 60 15 112/71 98 01/25/21 22:00 68 19 92/49 L 97 01/25/21 21:30 66 17 95
--- NOTE | 2021-01-26 11:09 | Nephrology Progress Note ---
Date of Service January 26, 2021 Assessment & Plan Admission and Anticipated Discharge Date Admission Date: January 24, 2021 Subjective Overall seems to be better. Urine 1850 ml. PHYSICAL EXAMINATION: GENERAL: A middle-aged white male who looks chronically ill. He has eyes awake and alert, but does not answer any questions. HEENT: Mucous membrane appears dry. NECK: Supple. CHEST: Bilaterally decreased breath sounds, but very poor inspiratory effort limiting the quality of the exam. CARDIOVASCULAR: S1, S2 regular. ABDOMEN: Soft, nontender. No major ascites noted. EXTREMITIES: 1+ edema, but has signs of poor circulation. LABORATORY TESTS: Creatinine is trending down, Lactic Acid Normal. ASSESSMENT AND PLAN: A 60-year-old male with end-stage liver disease with alcoholic cirrhosis as well as chronic hepatitis C, now admitted with confusion, possible sepsis, acute renal failure secondary to acute tubular necrosis and worsening liver function. His prognosis has been labeled as very poor as his current MELD score is extremely high. I have been consulted for acute renal failure. Acute renal failure: His baseline creatinine 0.5 and it was 2.2 but now trending down with increased urine output. Etiology of acute renal failure is almost certainly acute tubular necrosis with or without hepatorenal syndrome. Fortunately, creatinine is trending down and his urine output is improving. So at least from renal standpoint, he is not in imminent danger, but his overall prognosis is very poor. Continue to do input/output charting, daily laboratories. No fluid. may need some lasix as he is starting to get fluid overload. Results & Data ([facility]) Vital Signs (Past 12 Hours) Vital Signs Temp Pulse Resp BP Pulse Ox 01/26/21 08:49 96 H 16 100/61 93 01/26/21 08:30 93 H 20 93 01/26/21 08:19 91 H 25 H 111/52 L 94 01/26/21 08:00 89 17 94 01/26/21 07:49 88 17 112/53 L 94 01/26/21 07:30 36.8 C 86 22 94 01/26/21 07:20 87 25 H 104/51 L 94 01/26/21 07:00 88 17 94 01/26/21 06:50 87 20 108/50 L 93 01/26/21 06:30 82 19 108/42 L 94 01/26/21 06:00 78 20 88/46 L 94 06/02/21 05:30 81 20 104/54 L 93 01/26/21 05:00 80 17 97/47 L 94 01/26/21 04:30 77 22 97/54 L 95 01/26/21 04:00 36.5 C 78 16 104/52 L 96 01/26/21 03:30 79 14 97 01/26/21 03:00 74 20 107/43 L 97 01/26/21 02:30 73 18 86/46 L 97 01/26/21 02:00 66 19 91/53 L 95 01/26/21 01:30 66 20 110/51 L 94 01/26/21 01:00 72 21 94/52 L 98 01/26/21 00:30 68 21 101/47 L 97 01/26/21 00:00 36.4 C L 67 17 113/45 L 97 01/25/21 23:30 60 18 99/49 L 96
[2021-01-26] MEDS: cefTRIAXone SODIUM 2,000 MG in DEXTROSE 5% 50 ML IV SCH (12:28)
--- NOTE | 2021-01-26 15:21 | Hospitalist Progress Note ---
Date of Service January 26, 2021 Assessment & Plan (1) Change in mental status: Altered mental status Multifactorial Metabolic encephalopathy secondary to hyperammonemia, infection, alcohol use -CT Head:Left mastoiditis and left otitis media. Trace left temporal extra-axial fluid. Otherwise no acute intracranial findings. If there is clinical concern over the intracranial sequela of acute mastoiditis, then an MRI of the brain without and with contrast would be considered the test of choice in follow-up. -Very somnolent on admission -Extubated on 01/25/2021 -Oriented to person and place -Reorient frequently (2) Decompensated hepatic cirrhosis: H/O Alcoholic cirrhosis, HCV Decompensated cirrhosis MELD 32 DF 51 Poor prognosis Appreciate GI input Alcohol cessation counseling Continue lactulose Monitor LFTs (3) Alcohol abuse: Ongoing alcohol abuse Continue thiamine, folic acid Counseled to quit alcohol use Monitor (4) Acute upper GI bleed: S/P EGD:Normal esophagus. Portal hypertensive gastropathy. Normal examined duodenum. No specimens collected. S/P 1 unit PRBCs Octreotide discontinued Continue Protonix Monitor H&H (5) Sepsis: Septic Shock Streptococcal bacteremia Left lower lobe Pneumonia vancomycin discontinued Continue ceftriaxone Repeat Blood Cx pending Off pressors today (6) MARINA (acute kidney injury): Likely ATN Suspected hepatorenal syndrome Baseline Cr:0.5 Cr:1.80 Appreciate nephrology input Avoid nephrotoxic agents as able Monitor renal function (7) HTN (hypertension): Presented with septic shock Bp better Monitor Thrombocytopenia secondary to alcohol abuse Monitor Coagulopathy Secondary to liver disease INR:2.1 Received VIt K Monitor Mild elevation of troponin Likely due to Type II MA, acute renal failure DVT Px: SCDs Re: Thrombocytopenia, GI bleed Admission and Anticipated Discharge Date Admission Date: January 24, 2021 Subjective Patient is seen and examined at bedside Poor historian secondary to mental status Currently off pressors Remains in ICU Sinus tachycardia on monitor Afebrile Denies chest pain, dyspnea Review of Systems Review of Systems: All systems reviewed & are unremarkable except as noted in HPI & below Physical Exam Physical Exam: Physical Exam: Vitals signs as noted above General Appearance:Ill appearing, mild distress Head: normocephalic, Atraumatic Eyes: normal inspection, EOMI Neck: supple, Trachea midline Respiratory/Chest: Normal breath sounds, CTA Cardiovascular: S1, S2, No murmur, +Tachycardia Abdomen/GI:Soft, Non tender, Bowel sounds present Extremities/Musculoskeletal:normal inspection, 2+B/L LE edema, RUE erythema Neurologic/Psych: Moves all extremities Skin: normal color, warm Results & Data Results & Data ([facility]) Vital Signs (Past 12 Hours) Vital Signs Temp Pulse Resp BP Pulse Ox 01/26/21 14:30 109 H 24 94 01/26/21 14:19 103 H 29 H 129/53 L 95 01/26/21 14:00 103 H 25 H 94 01/26/21 13:49 110 H 23 95 01/26/21 13:30 107 H 16 96 01/26/21 13:19 108 H 22 109/58 L 95 01/26/21 13:00 113 H 26 H 92 01/26/21 12:49 109 H 22 108/53 L 92 01/26/21 12:30 107 H 19 92 01/26/21 12:19 102 H 18 112/55 L 93 01/26/21 12:00 36.8 C 105 H 31 H 94 01/26/21 11:49 106 H 32 H 126/58 L 94 01/26/21 11:30 110 H 17 94 01/26/21 11:19 103 H 22 114/53 L 94 01/26/21 11:00 105 H 19 92 01/26/21 10:49 103 H 28 H 124/64 94 01/26/21 10:30 100 H 25 H 91 01/26/21 10:19 101 H 30 H 129/56 L 93 01/26/21 10:00 98 H 21 95 01/26/21 09:49 100 H 20 120/64 92 01/26/21 09:30 99 H 23 93 01/26/21 09:19 100 H 22 122/55 L 94 01/26/21 09:00 96 H 24 93 01/26/21 08:49 96 H 16 100/61 93 01/26/21 08:30 93 H 20 93 01/26/21 08:19 91 H 25 H 111/52 L 94 01/26/21 08:00 89 17 94 01/26/21 07:49 88 17 112/53 L 94 01/26/21 07:30 36.8 C 86 22 94 01/26/21 07:20 87 25 H 104/51 L 94 01/26/21 07:00 88 17 94 01/26/21 06:50 87 20 108/50 L 93 01/26/21 06:30 82 19 108/42 L 94 01/26/21 06:00 78 20 88/46 L 94 01/26/21 05:30 81 20 104/54 L 93 01/26/21 05:00 80 17 97/47 L 94 01/26/21 04:30 77 22 97/54 L 95 01/26/21 04:00 36.5 C 78 16 104/52 L 96 01/26/21 03:30 79 14 97 Laboratory Results Short CBC 01/26/21 Range/Units 04:51 WBC 16.60 H (4.8-10.8) K/uL Hgb 7.2 L (14.0-18.0) g/dL Hct 22.2 L (42-52) % Plt Count 46 L (130-400) K/uL BMP 01/26/21 04:51 Sodium 135 L Potassium 4.0 Chloride 105 Carbon Dioxide 22 BUN 83 H Creatinine 1.80 H D Glucose 109 H Calcium 6.2 L Liver Function 01/26/21 Range/Units 04:51 Total Bilirubin 11.0 H (0.2-1) mg/dl Direct Bilirubin 8.2 H (0-0.2) mg/dl AST 240 H (15-37) U/L ALT 61 (12-78) U/L Alkaline Phosphatase 81 (45-117) U/L Albumin 1.4 L (3.4-5.0) gm/dl
[2021-01-27 05:27] LABS: Prothrombin Time 18.9 Seconds (9.0-12.0)
[2021-01-27 05:49] LABS: Albumin Level 1.4 gm/dl (3.4-5.0); BUN Creatinine Ratio 48.5 (10-20); Bilirubin Direct 9.4 mg/dl (0-0.2); Est GFR (African American) 62.9 ml/min; Est GFR (Non-African American) 54.3 ml/min; Hematocrit (blood only) 21.3 % (42-52); Hemoglobin 7.1 g/dL (14.0-18.0); Magnesium 2.5 mg/dl (1.8-2.4); Mean Corpuscular Hemoglobin 31.1 pg (25-34); Mean Corpuscular Hgb Conc 33.3 g/dL (32-36); Mean Corpuscular Volume 93.4 fL (80-100); Mean Platelet Volume 9.8 fL (7.4-10.4); Nucleated RBC # (auto) 0.03 K/uL (0-0); Nucleated RBC % (auto) 0.4 %; Platelet Count 28 K/uL (130-400); Potassium 3.5 mmol/L (3.5-5.1); RDW Coefficient of Variation 22.1 % (11.5-14.5); RDW Standard Deviation 75.4 fL (36.4-46.3); Red Blood Count 2.28 M/uL (4.7-6.1); White Blood Count 9.54 K/uL (4.8-10.8)
[2021-01-27 05:50] LABS: Bilirubin,Total 12.5 mg/dl (0.2-1); Phosphorus 3.1 mg/dl (2.5-4.9); Total Protein 6.6 gm/dl (6.4-8.2)
[2021-01-27 06:14] LABS: Anisocytosis Present; Basophils # (auto) 0.02 K/uL (0-0.2); Basophils % (auto) 0.2 %; Echinocytes 1+; Eosinophils # (auto) 0.04 K/uL (0-0.5); Eosinophils % (auto) 0.4 %; Lymphocytes # (auto) 0.91 K/uL (1.2-3.4); Lymphocytes % (auto) 9.5 %; Monocytes # (auto) 0.83 K/uL (0.11-0.59); Monocytes % (auto) 8.7 %; Neutrophils # (auto) 7.64 K/uL (1.4-6.5); Neutrophils % (auto) 80.2 %
[2021-01-27] MEDS: FOLIC ACID 1 MG in SYRINGE 9.8 ML IV SCH (07:53)
[2021-01-27] MEDS: THIAMINE HCL 100 MG in SYRINGE 9 ML IV SCH (07:58)
[2021-01-27] MEDS: PANTOprazole 40 MG in SYRINGE 0 ML IV SCH ×2 (07:59→20:39)
--- NOTE | 2021-01-27 08:35 | Gastroenterology Progress Note ---
Date of Service January 27, 2021 Assessment & Plan (1) Anemia: 60 year old male w/ history of HCV and ETOH cirrhosis, actively drinking, MELD 32 admitted w/ alternated mental status report of hematemesis at home, + blood cultures, who underwent EGD over the weekend without evidence of active or source of GI blood loss. He is admitted to the ICU w/ suspected urosepsis, he was extubated, awake and alert to self, he has mild asterixis. He has rising MELD, 33 w/ high DF concerning for ETOH in the setting of suspected ETOH abuse. MELD 33 DF 51 , poor prognosis, not candidate for glucocorticoid therapy given urosepsis, rising WBC Can start NAC, assess daily for downtrending LFTs, if persistent or rising for 48 hours can D/C NAC Trend H&H Monitor and document GI blood loss Continue IV PPI, can convert to PO once extubated ETOH withdrawal protocol ETOH cessation discussed at bedside Start Lactulose titrated to BMs 2-4 times daily Add xifaxan 550 BID Recall as needed. Can consider transfer for transplant evaluation but likely a candidate as he is actively drinking and infected w/ positive blood cultures. Thank you for allowing us to participate in the care of this patient. Please call with any acute changes, questions or concerns. Please see addendum below with additional recommendation from my supervising physician. Admission and Anticipated Discharge Date Admission Date: January 24, 2021 Supervising Physician Co-Signing Physician Notes I saw and evaluated the patient this afternoon. Overall he seems to be worsening overall. We would recommend initiation of therapy with rifaximin to see if this might help with his encephalopathy. Given the overall worsening condition of his liver function I think it would be prudent to try and refer the patient to a transplant center to see if he may be a candidate for liver transplantation. As the patient does have a long history of alcohol abuse and has been resistant to abstinence programs in the past despite prior admissions he is not likely to be a good transplant candidate. Subjective Pt was seen and evaluated, chart reviewed. Awake, extubated but less responsive on my evaluation this AM. Getting skin care done. Review of Systems Review of Systems: Unobtainable due to cognitive status Physical Exam Constitutional: + ill appearing, + thin, + frail appearing and + disheveled; + not well nourished, no acute distress and + not healthy appearing Neck: trachea midline, no thyromegaly Respiratory: normal respiratory effort; no respiratory distress Cardiovascular: Rate/Rhythm: regular rate Gastrointestinal (Abdomen): Percussion/Palpation: abdomen soft; abdomen nontender, no guarding and abdomen not rigid Skin: no rashes, warm and dry Results & Data ([facility]) Vital Signs (Past 12 Hours) Vital Signs Temp Pulse Resp BP Pulse Ox 01/27/21 08:27 36.7 C 01/27/21 06:30 116 H 24 99 01/27/21 06:19 114 H 30 H 119/70 81 L 01/27/21 06:00 113 H 22 100 01/27/21 05:49 115 H 29 H 111/61 100 01/27/21 05:30 113 H 23 100 01/27/21 05:19 114 H 22 118/57 L 98 01/27/21 05:00 112 H 23 100 01/27/21 04:49 113 H 21 108/61 98 01/27/21 04:30 112 H 24 94 01/27/21 04:19 109 H 23 107/60 99 01/27/21 04:00 111 H 22 100 01/27/21 03:49 112 H 21 119/76 100 01/27/21 03:30 36.4 C L 111 H 20 98 01/27/21 03:19 111 H 25 H 121/50 L 97 01/27/21 03:00 110 H 26 H 87 L 01/27/21 02:49 110 H 26 H 99/70 L 90 01/27/21 02:30 113 H 25 H 95 01/27/21 02:20 113 H 19 114/50 L 95 01/27/21 02:00 109 H 22 97 01/27/21 01:49 108 H 22 126/76 97 01/27/21 01:30 110 H 20 95 01/27/21 01:19 112 H 17 130/65 96 01/27/21 01:00 113 H 23 98 01/27/21 00:49 110 H 25 H 124/77 96 01/27/21 00:30 109 H 20 98 01/27/21 00:19 109 H 30 H 112/84 86 L 01/27/21 00:00 108 H 27 H 97 01/26/21 23:59 110 H 01/26/21 23:49 36.5 C 112 H 19 103/77 97 01/26/21 23:30 108 H 22 96 01/26/21 23:19 109 H 28 H 125/79 94 01/26/21 23:00 110 H 21 95 01/26/21 22:49 105 H 31 H 120/75 01/26/21 22:30 111 H 27 H 95 01/26/21 22:19 108 H 27 H 128/70 96 01/26/21 22:00 109 H 21 95 01/26/21 21:49 108 H 27 H 119/86 96 01/26/21 21:30 108 H 25 H 95 01/26/21 21:19 108 H 24 118/72 95 01/26/21 21:00 106 H 21 94 01/26/21 20:58 108 H 18 104/47 L 97
[2021-01-27] MEDS ORDERED: ATIVAN IV ALCOHOL WITHDRAWL IV PRN (09:29)
[2021-01-27] MEDS ORDERED: LORazepam 1 MG TAB PO PRN (09:29)
[2021-01-27] MEDS ORDERED: LORazepam 2 MG/4 ML VIAL IV PRN (09:29)
[2021-01-27] MEDS ORDERED: LORazepam 3 MG/6 ML VIAL IV PRN (09:29)
[2021-01-27] MEDS ORDERED: LORazepam 1 MG/2 ML VIAL IV PRN ×3 (09:29→23:07)
--- NOTE | 2021-01-27 10:33 | Critical Care Progress Note ---
Date of Service January 27, 2021 Assessment & Plan (1) Sepsis: Admitted to intensive care unit: Reason Critically Ill: 60-year-old male with liver failure in the setting of alcoholic cirrhosis and hepatitis C presenting with upper GI bleed and bacteremia with Streptococcus pneumonia NEURO - CAM ICU: POSITIVE Worsening altered mental status today likely due to developing alcohol withdrawal. Alcohol withdrawal protocol in place. Metabolic derangements, sepsis and hyperammonemia likely playing a role as well. Continue lactulose. Continue thiamine and folic acid given history of alcoholism CARDIAC/VASCULAR - NSTEMI: Likely demand ischemia in the setting of sepsis, hypovolemia, and MARINA. Maintain mean arterial pressures above 65. Off of phenylephrine at this time. RESPIRATORY - Patient extubated 01/25/2021. He was intubated for EGD procedure and had difficulty status post extubation in the OR on 01/24/2021. GI/NUTRITION - Acute upper GI bleed: No obvious variceal bleeding seen. Octreotide discontinued. Continue Protonix 40 mg twice daily. Continue lactulose for history of cirrhosis. We will add rifaximin. Likely alcoholic hepatitis. Total bilirubin continues to trend upwards. AST is stabilized. Not a candidate for prednisone due to sepsis. INR elevated and did not respond to vitamin K infusion. RENAL/LYTES - Acute kidney injury is resolving and most likely secondary to ischemic ATN. BUN elevated to 67 which is also likely contributing to his altered mental status. - Mason in place - Strict I&Os. ENDO - No history of diabetes or thyroid disease. BSGs per unit protocol. ISS --> gtt per unit policy. HEME - Chronic anemia: Received 1 unit of packed RBCs this admission. No further bleeding noted. Platelet count is downtrending along with hemoglobin. No obvious signs of bleeding at this time. Transfuse for hemoglobin less than 7. We will check a peripheral smear. ID - Sepsis: Blood cultures growing Streptococcus pneumonia in 4 out of 4 bottles. Continue ceftriaxone. Repeat blood cultures to ensure clearance are negative to date. LINES/IV ACCESS - PIVs x2 Mason. DVT PROPHYLAXIS - Hold in the setting of severe thrombocytopenia. SCDs (2) Change in mental status: (3) MARINA (acute kidney injury): (4) Alcohol withdrawal delirium: (5) Thrombocytopenia: (6) Cirrhosis: (7) Hepatitis C: Admission and Anticipated Discharge Date Admission Date: January 24, 2021 Subjective Patient is moving all of his limbs spontaneously, but not responding to commands. He was apparently able to eat some breakfast. He appears delirious at present. Unable to obtain review of systems. Physical Exam Physical Exam: VITAL SIGNS - Vital signs and nursing notes were reviewed. GENERAL -appears confused.. HEAD - NC/AT. EYES - PERRL with EOMI bilaterally. Scleral icterus noted. EARS - No deformities of external structures noted on gross examination bilaterally. NOSE - Midline and without cyanosis. No epistaxis or purulent drainage noted. MOUTH/OROPHARYNX - Without perioral cyanosis. Buccal mucosa pink and moist and without leukoplakia. NECK - Neck with FROM. No nuchal rigidity. LUNGS - Chest wall symmetric without accessory muscle use, intercostals retractions, or central cyanosis. Normal vesicular breath sounds CTA B/L. No wheezes, rales, or rhonchi appreciated. CARDIAC - RRR with S1/S2. No murmur, rubs, or gallops appreciated. ABDOMEN - Abdominal contour protuberant without pulsations or visible masses. BS hypoactive normoactive all four quadrants. No tenderness to palpation appreciated throughout. No guarding. Ascites noted. EXTREMITIES -swelling and tenderness in the right upper extremity. NEUROLOGIC -no focal neurological deficits. PSYCH -confused and agitated. Results & Data Results & Data ([facility]) Vital Signs (Past 12 Hours) Vital Signs Temp Pulse Resp BP Pulse Ox 01/27/21 08:27 98.1 F 01/27/21 06:30 116 H 24 99 01/27/21 06:19 114 H 30 H 119/70 81 L 01/27/21 06:00 113 H 22 100 01/27/21 05:49 115 H 29 H 111/61 100 01/27/21 05:30 113 H 23 100 01/27/21 05:19 114 H 22 118/57 L 98 01/27/21 05:00 112 H 23 100 01/27/21 04:49 113 H 21 108/61 98 01/27/21 04:30 112 H 24 94 01/27/21 04:19 109 H 23 107/60 99 01/27/21 04:00 111 H 22 100 01/27/21 03:49 112 H 21 119/76 100 01/27/21 03:30 97.5 F L 111 H 20 98 01/27/21 03:19 111 H 25 H 121/50 L 97 01/27/21 03:00 110 H 26 H 87 L 01/27/21 02:49 110 H 26 H 99/70 L 90 01/27/21 02:30 113 H 25 H 95 01/27/21 02:20 113 H 19 114/50 L 95 01/27/21 02:00 109 H 22 97 01/27/21 01:49 108 H 22 126/76 97 01/27/21 01:30 110 H 20 95 01/27/21 01:19 112 H 17 130/65 96 01/27/21 01:00 113 H 23 98 01/27/21 00:49 110 H 25 H 124/77 96 01/27/21 00:30 109 H 20 98 01/27/21 00:19 109 H 30 H 112/84 86 L 01/27/21 00:00 108 H 27 H 97 01/26/21 23:59 110 H 01/26/21 23:49 97.7 F 112 H 19 103/77 97 01/26/21 23:30 108 H 22 96 01/26/21 23:19 109 H 28 H 125/79 94 01/26/21 23:00 110 H 21 95 01/26/21 22:49 105 H 31 H 120/75 01/26/21 22:30 111 H 27 H 95 vital signs, labs and imaging reviewed Coding Level of Care Code 46458 Subseq Hosp Care Lvl 3 Diagnoses Sepsis A41.9 Sepsis type: Streptococcus, unspecified Sepsis acute organ dysfunction status: with acute organ dysfunction Change in mental status R41.0 Altered mental status type: disorientation MARINA (acute kidney injury) N17.9 Alcohol withdrawal delirium F10.231 Thrombocytopenia D69.6 Cirrhosis K74.60 Hepatitis C B18.2 Hepatic coma status: without hepatic coma Viral hepatitis chronicity: chronic (1) Change in mental status Altered mental status type: disorientation Qualified Code(s): R41.0 - Disorientation, unspecified (2) Sepsis Sepsis type: Streptococcus, unspecified Sepsis acute organ dysfunction status: with acute organ dysfunction (3) Hepatitis C Hepatic coma status: without hepatic coma Viral hepatitis chronicity: chronic Qualified Code(s): B18.2 - Chronic viral hepatitis C
[2021-01-27] MEDS: rifAXIMin 550 MG TABLET PO SCH ×3 (10:39→20:42)
[2021-01-27] MEDS: cefTRIAXone SODIUM 2,000 MG in DEXTROSE 5% 50 ML IV SCH (10:40)
[2021-01-27] MEDS: LACTULOSE SYRUP 20 GM/30 ML UDC PO SCH ×3 (11:28→20:52)
[2021-01-27] MEDS ORDERED: METOPROLOL TARTRATE 1 MG/ML VIAL IV STA (14:18)
--- NOTE | 2021-01-27 15:00 | XRay Report ---
KUB HISTORY: ngt placement COMPARISON: None. FINDINGS: Nasogastric tube terminates in the distal stomach. The bowel gas pattern is unremarkable. T here are no dilated loops of small bowel to suggest an obstruction. No renal calculi. No ureteral ca lculi. No pneumoperitoneum or pneumatosis. IMPRESSION: Nasogastric tube terminates in the distal stomach. ACT 112: Negative or not required by law. Electronically signed by: Paul Fox M.D. 01/27/2021 2:59 PM
--- NOTE | 2021-01-27 15:27 | Palliative Care Consultation ---
Date of Consultation January 27, 2021 Assessment & Plan (1) Palliative care encounter: This is an unfortunate 60 year old who presented to the [facility] with altered mental status and hematemesis at home. Upon arrival, he was noted to have positive blood cultures and an upper GIB. He underwent an EGD over the weekend with no active GIB or actively bleeding varies. He does have an unfortunate PMH that includes: HCV, alcohol cirrhosis, is an active drinker with a MELD score of 32. Upon admission, he was found to have suspected urosepsis. After the EGD it was difficult to extubate him; however, he was extubated on 01/25. Post extubation, his ammonia levels have been high and he required inotropic medications for a short amount of time. Unfortunately, Ms. Montero has been resistant to abstinence programs in the past and has to this time, not been a candidate for a liver transplant due to his active drinking and non compliance with abstinence. Today, it appears he is in alcohol withdrawal and is on appropriate regimen for such. He has become tachycardic and tachypnic and appears uncomfortable. Palliative Medicine was consulted to discuss overall goals of care and code status. The patient is fully obtunded and unable to participate in any conversation. I called his son Jassi and his brother Hank and left voicemail messages. I was able to talk with Jassi as he called back and together, with Dr. Montiel, we provided a medical update. Jassi said that his father has struggled with alco holism for years and just recently he has had a conversation with him regarding what his wishes would be and he has stated that he would not want to be on a ventilator and would not want CPR or shocking in the event of cardiac or respiratory arrest. Even with heroic treatment, he understands this would not fix the underlying medical condition that his father is experiencing. At this time, Jassi has decided to come to the hospital and when he arrives, transition to full comfort measures. For now, we will start Precedex to see if this will help alleviate some of his tachypnea and air hunger, with a goal to keep him comfortable and alive until his son arrives to say goodbye to him. Comfort measures will be fully in place when his son arrives and is comfortable with the transition. Once this occurs, I anticipate he will pass away within hours to a day or so. Thanks for involving Palliative Medicine with this unfortunate individual. (2) Alcohol withdrawal delirium: (3) Dyspnea: (4) Altered mental status: (5) Sepsis: History of Present Illness Reason for Consultation: goals of care Requesting Physician: Dr. Montiel Attending Physician: Philip Wellington MD History of Present Illness This is an unfortunate 60 year old who presented to the [facility] with altered mental status and hematemesis at home. Upon arrival, he was noted to have positive blood cultures and an upper GIB. He underwent an EGD over the weekend with no active GIB or actively bleeding varies. He does have an unfortunate PMH that includes: HCV, alcohol cirrhosis, is an active drinker with a MELD score of 32. Upon admission, he was found to have suspected urosepsis. After the EGD it was difficult to extubate him; however, he was extubated on 01/25. Post extubation, his ammonia levels have been high and he required inotropic medications for a short amount of time. Unfortunately, Ms. Montero has been resistant to abstinence programs in the past and has to this time, not been a candidate for a liver transplant due to his active drinking and non compliance with abstinence. Today, it appears he is in alcohol withdrawal and is on appropriate regimen for such. He has become tachycardic and tachypnic and appears uncomfortable. Palliative Medicine was consulted to discuss overall goals of care and code status. Please see A/P for further details. Thanks for involving Palliative Medicine with this unfortunate patient. Allergies Allergy/AdvReac Type Severity Reaction Status Date / Time No Known Allergies Allergy Unverified 06/20/20 11:11 Home Medications Medication Instructions Recorded Confirmed Type loperamide [Imodium A-D] 2 mg PO Q3H PRN 06/23/19 06/20/20 History multivitamin [Daily-Liliana] 1 tab PO QAM 06/23/19 06/20/20 History cyanocobalamin (vitamin B-12) 1,000 mcg PO QAM 06/20/20 06/20/20 History [Vitamin B-12] doxycycline hyclate 100 mg PO BID #14 cap 06/22/20 Rx folic acid 1 mg PO QAM #30 tab 06/22/20 Rx furosemide [Lasix] 40 mg PO QAM #30 tab 06/22/20 Rx magnesium oxide 400 mg PO QAM #60 tab 06/22/20 Rx nadolol 40 mg PO QAM #30 tab 06/22/20 Rx pantoprazole 40 mg PO QAM #30 tab 06/22/20 Rx potassium chloride 20 meq PO DAILY #30 tab 06/22/20 Rx spironolactone 100 mg PO QAM #30 tab 06/22/20 Rx Patient History Medical History Abdominal ascites Acute GI bleeding Acute hepatic encephalopathy Alcohol abuse Alcohol withdrawal delirium Cirrhosis Decompensation of cirrhosis of liver Hepatitis C History of drug use HTN (hypertension) Hypomagnesemia Pancytopenia Symptomatic anemia Thrombocytopenia Thrombocytopenia Tobacco abuse Surgical History History of chest tube placement History of ganglion cyst History of vasectomy Family History Brother HIV (human immunodeficiency virus infection) Brother Homicide Social History Smoking Status: Current every day smoker Tobacco Type: Cigarettes Cigarettes Per Day: 5; Hx Alcohol Use: Yes Alcohol type: beer and hard liquor Hx Substance Use: Yes Last Used Substance: Unknown Last Used Substance Other:: 2 yrs ago Preferred Language: Kittitian Communication Ability: Impaired Communication Ability Comment: Unable to obtain, Patient confused and disoriented. Geosciences Faculty Member Required: No Beliefs That Will Affect Care: None marital status: Single Current Living Situation: Other Current Living Situation Comment: Unable to obtain, Patient confused and disoriented. Feels Safe at Home: Yes Assistive Devices: None Assistive Devices Comment: Unable to obtain, Patient confused and disoriented. Review of Systems Review of Systems: Unobtainable due to cognitive status Physical Exam Constitutional: + acute distress, + ill appearing and + frail appearing ENMT: Nose: + dry nasal mucous membranes Respiratory: + respiratory distress, + labored breathing and + uses accessory muscles Auscultation: + diminished lung sounds Cardiovascular: Rate/Rhythm: + tachycardic Heart Sounds: normal S1 and normal S2 Extremities: normal capillary refill; no edema Gastrointestinal (Abdomen): normal bowel sounds, soft, nontender, no hepatosplenomegaly Skin: + dry skin; + abnormal skin elasticity Neurologic: + obtunded Results & Data ([facility] [place]) Vital Signs (Past 12 Hours) Vital Signs Temp Pulse Resp BP Pulse Ox 01/27/21 15:01 122 H 108/38 L 01/27/21 15:00 120 H 39 H 99 01/27/21 14:49 120 H 40 H 108/38 L 98 01/27/21 14:30 122 H 36 H 98 01/27/21 14:19 123 H 42 H 115/47 L 99 01/27/21 14:00 127 H 35 H 98 01/27/21 13:49 127 H 42 H 118/58 L 97 01/27/21 13:30 130 H 42 H 99 01/27/21 13:19 128 H 42 H 117/55 L 98 01/27/21 13:00 129 H 42 H 98 01/27/21 12:49 127 H 35 H 131/64 98 01/27/21 12:30 120 H 36 H 97 01/27/21 12:19 124 H 37 H 115/60 98 01/27/21 12:00 121 H 37 H 98 01/27/21 11:49 120 H 38 H 103/58 L 96 01/27/21 11:30 121 H 28 H 98 01/27/21 11:19 125 H 40 H 112/85 95 01/27/21 11:00 121 H 35 H 93 01/27/21 10:49 115 H 34 H 114/49 L 89 L 01/27/21 10:20 120 H 22 113/62 88 L 01/27/21 10:00 119 H 24 92 01/27/21 09:20 118 H 25 H 128/54 L 92 01/27/21 09:00 116 H 31 H 93 01/27/21 08:50 120 H 22 89/66 L 99 01/27/21 08:27 36.7 C 01/27/21 08:19 118 H 22 111/66 92 01/27/21 08:00 118 H 25 H 95 01/27/21 07:49 117 H 31 H 123/61 97 01/27/21 07:19 119 H 30 H 129/64 93 01/27/21 07:00 115 H 31 H 99 01/27/21 06:30 116 H 24 99 01/27/21 06:19 114 H 30 H 119/70 81 L 01/27/21 06:00 113 H 22 100 01/27/21 05:49 115 H 29 H 111/61 100 01/27/21 05:30 113 H 23 100 01/27/21 05:19 114 H 22 118/57 L 98 01/27/21 05:00 112 H 23 100 01/27/21 04:49 113 H 21 108/61 98 01/27/21 04:30 112 H 24 94 01/27/21 04:19 109 H 23 107/60 99 01/27/21 04:00 111 H 22 100 01/27/21 03:49 112 H 21 119/76 100 01/27/21 03:30 36.4 C L 111 H 20 98 PG Care Time/CCT Total # of Minutes Spent Total Time Spent with Patient: Total time spent is greater than 50% in coordi nation of care (as documented) at patient's floor/unit and/or counseling patient: 100 minutes with > 50% of that time spent assessing the patient, discussing goals of care and collaborating with IDT Coding Level of Care Code 58414 Inpt Consult Level 4 Diagnoses Palliative care encounter Z51.5 Alcohol withdrawal delirium F10.231 Dyspnea R06.00 Altered mental status R41.82 Sepsis A41.9 Time Spent (min) 100
--- NOTE | 2021-01-27 16:19 | CT Scan Report ---
CT OF THE HEAD WITHOUT CONTRAST CLINICAL HISTORY: Altered mental status. COMPARISON STUDY: Head CT January 24, 2021. CT DOSE: 821.00 mGycm TECHNIQUE: Helical axial images of the head were obtained without IV contrast. Automated exposure con trol was utilized for the study. A dose lowering technique was utilized adhering to the principles o f ALARA. FINDINGS: This exam is moderately compromised by motion artifact. No acute intracranial hemorrhage is identified. The ventricular system is unremarkable. Basal cisterns are patent. A small subdural all ection overlying the left temporal lobe has increased in size since CT of January 24, 2021, now measuring 5 mm in thickness. This is predominantly hypodense. There may be slight increased attenuation within the posterior, dependent aspect of this subdural collection. There are no findings to suggest acute dural sinus thrombosis or acute territorial infarct. As before, the left mastoid air cells are nearly entirely opacified. There is fluid within the left middle ear as well. IMPRESSION: Increase in size of a small subdural collection overlying the left temporal lobe since CT of January 24, 2021. This collection is nonspecific and could reflect a small hypodense subdural hematoma or subdura l hygroma although density is less than expected for a hematoma given increase in size. A subdural co llection, such as an empyema, is also within the differential given left-sided otomastoiditis. MRI of the brain with and without contrast is recommended for further evaluation. This finding will be call ed/faxed to the ordering provider at time of dictation. ACT 112: Negative or not required by law. Electronically signed by: Abraham Mar M.D. 01/27/2021 4:18 PM
--- NOTE | 2021-01-27 17:14 | Hospitalist Progress Note ---
Date of Service January 27, 2021 Assessment & Plan (1) Change in mental status: Altered mental status Multifactorial Metabolic encephalopathy secondary to hyperammonemia, infection, alcohol use -CT Head:Left mastoiditis and left otitis media. Trace left temporal extra-axial fluid. Otherwise no acute intracranial findings. If there is clinical concern over the intracranial sequela of acute mastoiditis, then an MRI of the brain without and with contrast would be considered the test of choice in follow-up. -Repeat CT head:Increase in size of a small subdural collection overlying the left temporal lobe since CT of January 24, 2021. This collection is nonspecific and could reflect a small hypodense subdural hematoma or subdural hygroma although density is less than expected for a hematoma given increase in size. A subdural collection, such as an empyema, is also within the differential given left-sided otomastoiditis. -Very somnolent on admission -Extubated on 01/25/2021 -Remains Critical -Very Poor Prognosis -Palliative care involved to address goals of care (2) Decompensated hepatic cirrhosis: H/O Alcoholic cirrhosis, HCV Decompensated cirrhosis MELD 32 DF 51 Poor prognosis Appreciate GI input Alcohol cessation counseling Continue lactulose Monitor LFTs Ammonia level:46 Rifaximin added (3) Alcohol abuse: Ongoing alcohol abuse Continue thiamine, folic acid Counseled to quit alcohol use On Alcohol withdrawal protocol Monitor (4) Acute upper GI bleed: S/P EGD:Normal esophagus. Portal hypertensive gastropathy. Normal examined duodenum. No specimens collected. S/P 1 unit PRBCs Octreotide discontinued Continue Protonix Monitor H&H (5) Sepsis: Septic Shock Streptococcal bacteremia Left lower lobe Pneumonia vancomycin discontinued Continue ceftriaxone Repeat Blood Cx No growth to date Off pressors Appreciate Critical Care help (6) MARINA (acute kidney injury): Likely ATN Suspected hepatorenal syndrome Baseline Cr:0.5 Cr:2.5>1.80>1.39 Appreciate nephrology input Avoid nephrotoxic agents as able Monitor renal function (7) HTN (hypertension): Presented with septic shock Bp better Monitor Thrombocytopenia secondary to alcohol abuse Monitor Coagulopathy Secondary to liver disease INR:2.1>2.0 Received VIt K Monitor Mild elevation of troponin Likely due to Type II AR, acute renal failure DVT Px: SCDs Re: Thrombocytopenia, GI bleed Admission and Anticipated Discharge Date Admission Date: January 24, 2021 Subjective Patient is seen and examined at bedside Obtunded during my encounter today Unable to obtain history Patient received Ativan for alcohol withdrawal earlier Remains critical Sinus tachycardia on monitor CT Head showed small subdural collection Palliative care is consulted Review of Systems Review of Systems: Unobtainable due to reduced consciousness Physical Exam Physical Exam: Physical Exam: Vitals signs as noted above General Appearance:Ill appearing, no distress, obtunded Head: normocephalic, Atraumatic Eyes: normal inspection Neck: supple, Trachea midline Respiratory/Chest: Normal breath sounds, CTA Cardiovascular: S1, S2, No murmur, +Tachycardia Abdomen/GI:Soft, Non tender, Bowel sounds present Extremities/Musculoskeletal:normal inspection, 2+B/L LE edema, RUE erythema Neurologic/Psych: Moves all extremities Skin: normal color, warm Results & Data Results & Data ([facility]) Vital Signs (Past 12 Hours) Vital Signs Temp Pulse Resp BP Pulse Ox 01/27/21 15:01 122 H 108/38 L 01/27/21 15:00 120 H 39 H 99 01/27/21 14:49 120 H 40 H 108/38 L 98 01/27/21 14:30 122 H 36 H 98 01/27/21 14:19 123 H 42 H 115/47 L 99 01/27/21 14:00 127 H 35 H 98 01/27/21 13:49 127 H 42 H 118/58 L 97 01/27/21 13:30 130 H 42 H 99 01/27/21 13:19 128 H 42 H 117/55 L 98 01/27/21 13:00 129 H 42 H 98 01/27/21 12:49 127 H 35 H 131/64 98 01/27/21 12:30 120 H 36 H 97 01/27/21 12:19 124 H 37 H 115/60 98 01/27/21 12:00 121 H 37 H 98 01/27/21 11:49 120 H 38 H 103/58 L 96 01/27/21 11:30 121 H 28 H 98 01/27/21 11:19 125 H 40 H 112/85 95 01/27/21 11:00 121 H 35 H 93 01/27/21 10:49 115 H 34 H 114/49 L 89 L 01/27/21 10:20 120 H 22 113/62 88 L 01/27/21 10:00 119 H 24 92 01/27/21 09:20 118 H 25 H 128/54 L 92 01/27/21 09:00 116 H 31 H 93 01/27/21 08:50 120 H 22 89/66 L 99 01/27/21 08:27 36.7 C 01/27/21 08:19 118 H 22 111/66 92 01/27/21 08:00 118 H 25 H 95 01/27/21 07:49 117 H 31 H 123/61 97 01/27/21 07:19 119 H 30 H 129/64 93 01/27/21 07:00 115 H 31 H 99 01/27/21 06:30 116 H 24 99 01/27/21 06:19 114 H 30 H 119/70 81 L 01/27/21 06:00 113 H 22 100 01/27/21 05:49 115 H 29 H 111/61 100 01/27/21 05:30 113 H 23 100 01/27/21 05:19 114 H 22 118/57 L 98 Laboratory Results Short CBC 01/27/21 Range/Units 04:59 WBC 9.54 (4.8-10.8) K/uL Hgb 7.1 L (14.0-18.0) g/dL Hct 21.3 L (42-52) % Plt Count 28 L* (130-400) K/uL BMP 01/27/21 04:59 Sodium 142 D Potassium 3.5 Chloride 112 H Carbon Dioxide 23 BUN 67 H Creatinine 1.39 D Glucose 106 H Calcium 7.0 L Liver Function 01/27/21 Range/Units 04:59 Total Bilirubin 12.5 H (0.2-1) mg/dl Direct Bilirubin 9.4 H (0-0.2) mg/dl AST 233 H (15-37) U/L ALT 74 (12-78) U/L Alkaline Phosphatase 83 (45-117) U/L Albumin 1.4 L (3.4-5.0) gm/dl (1) Change in mental status Altered mental status type: disorientation Qualified Code(s): R41.0 - Disorientation, unspecified (2) Sepsis Sepsis acute organ dysfunction status: with acute organ dysfunction Sepsis type: Streptococcus, unspecified
[2021-01-27] MEDS: PHENYLEPHRINE HCL 20 MG in SODIUM CHLORIDE 0.9% 500 ML IV SCH ×2 (19:15→19:16)
[2021-01-27] MEDS ORDERED: ONDANSETRON INJ 2 MG/ML 2 ML VIAL IV PRN (20:02)
[2021-01-27] MEDS ORDERED: ONDANSETRON 4 MG OD TAB SL PRN (20:02)
[2021-01-27] MEDS ORDERED: MoRPHine SULFATE 2 MG/ML CARP IV PRN (20:02)
--- NOTE | 2021-01-27 20:09 | Communication Note ---
Date of Service: January 27, 2021 Spoke with the patient's son who has now arrived at the bedside. He is aware that his Father who is now obtunded has a poor prognosis and would not want aggr essive medical measures. He had a previous conversation with palliative care and Dr. Montiel earlier today. Per family wishes, will now transition to comfort measures. Patient may transfer to palliative unit at this time. Coding Level of Care Code None
[2021-01-27] MEDS ORDERED: METOPROLOL TARTRATE 25 MG TAB PO SCH (21:00)
--- NOTE | 2021-01-28 09:14 | Communication Note ---
Date of Service: January 28, 2021 Pt transferred out of ICU, made comfort measures. Pt was seen this morning, obtunded. Did not awake to name. No family at bedside. In light of ETOH hepatitis, ETOH cirrhosis with rising MELD, ongoing ETOH use, he has a poor prognosis. Agree with family meeting, discuss goals of care. Recall GI if needed. I visited the patient room this afternoon. He does appear to have agonal breathing and appears to be in the latter stages of liver disease. Unfortunately the patient had been counseled about alcohol abstinence many times over his multiple presentations in the last year. Unfortunately he has never been interested in abstinence nor treatment. Given the severity of his disease we would typically recommend referral to a tertiary center with expertise in advanced liver disease. It appears that the patient and family have elected to do palliative care at the present time. Please call our service should it be continue additional questions or concerns during the remainder of the hospital admission.
[2021-01-28] MEDS ORDERED: STAT IV Infusion **Titration per Protocol STA (14:32)
[2021-01-28] MEDS ORDERED: GLYCOPYRROLATE 0.2 MG/ML VIAL IV PRN (14:33)
--- NOTE | 2021-01-28 14:34 | Palliative Care Progress Note ---
Date of Service January 28, 2021 Assessment & Plan (1) Palliative care encounter: The patient remains fully obtunded and was transitioned to comfort measures overnight. He has only received one dose of IV medication for pain. When I evaluated him, he was tachypnic, had audible secretions, and was restless. He is unable to participate in any conversation. I called his son Jassi and left a voicemail message.I started a Morphine infusion at 2 mg/hour and it is to be titrated for comfort focus which would include further tachypnia, labored breathing, restlessness, grimacing, furrowed brow or any other indications that would make you question his comfort. I anticipate he will pass away within hours to a day or so. Thanks for involving Palliative Medicine with this unfortunate individual. (2) Alcohol withdrawal delirium: (3) Dyspnea: (4) Altered mental status: (5) Sepsis: Admission and Anticipated Discharge Date Admission Date: January 24, 2021 Subjective Patient is seen and examined at bedside pt obtunded, restless, tachypnic, and has audible secretions Review of Systems Review of Systems: Unobtainable due to cognitive status Physical Exam Constitutional: + acute distress, + ill appearing and + frail appearing ENMT: Nose: + dry nasal mucous membranes Respiratory: + respiratory distress, + labored breathing and + uses accessory muscles Auscultation: + diminished lung sounds Cardiovascular: Rate/Rhythm: + tachycardic Heart Sounds: normal S1 and normal S2 Extremities: normal capillary refill; no edema Gastrointestinal (Abdomen): normal bowel sounds, soft, nontender, no hepatosplenomegaly Skin: + dry skin; + abnormal skin elasticity Neurologic: + obtunded PG Care Time/CCT Total # of Minutes Spent Total Time Spent with Patient: Total time spent is greater than 50% in coordination of care (as documented) at patient's floor/unit and/or counseling patient: 35 mintues with > 50% of that time spent assessing the patient, discu ssing goals of care with family, providing symptom management, and collaborating with IDT Coding Level of Care Code 27112 Subseq Hosp Care Lvl 3 Diagnoses Palliative care encounter Z51.5 Alcohol withdrawal delirium F10.231 Dyspnea R06.00 Altered mental status R41.82 Sepsis A41.9 Time Spent (min) 35
[2021-01-28] MEDS ORDERED: MoRPHine SULF/SW 240 MG/240 ML BTL IV SCH (15:00)
--- NOTE | 2021-01-28 18:51 | Hospitalist Progress Note ---
Date of Service January 28, 2021 Assessment & Plan (1) Change in mental status: Altered mental status Multifactorial Metabolic encephalopathy secondary to hyperammonemia, infection, alcohol use -CT Head:Left mastoiditis and left otitis media. Trace left temporal extra-axial fluid. Otherwise no acute intracranial findings. If there is clinical concern over the intracranial sequela of acute mastoiditis, then an MRI of the brain without and with contrast would be considered the test of choice in follow-up. -Repeat CT head:Increase in size of a small subdural collection overlying the left temporal lobe since CT of January 24, 2021. This collection is nonspecific and could reflect a small hypodense subdural hematoma or subdural hygroma although density is less than expected for a hematoma given increase in size. A subdural collection, such as an empyema, is also within the differential given left-sided otomastoiditis. -Very somnolent on admission -Extubated on 01/25/2021 -Remains Critical -Very Poor Prognosis -Appreciate palliative care input On comfort measures (2) Decompensated hepatic cirrhosis: H/O Alcoholic cirrhosis, HCV Decompensated cirrhosis MELD 32 DF 51 Poor prognosis Appreciate GI input Alcohol cessation counseling Continue lactulose Monitor LFTs Ammonia level:46 Currently on comfort measures only (3) Alcohol abuse: Ongoing alcohol abuse Continue thiamine, folic acid Counseled to quit alcohol use (4) Acute upper GI bleed: S/P EGD:Normal esophagus. Portal hypertensive gastropathy. Normal examined duodenum. No specimens collected. S/P 1 unit PRBCs Octreotide, PPI discontinued (5) Sepsis: Septic Shock Streptococcal bacteremia Left lower lobe Pneumonia vancomycin, ceftriaxone discontinued Off pressors Appreciate critical care input (6) MARINA (acute kidney injury): Likely ATN Suspected hepatorenal syndrome Baseline Cr:0.5 Cr:2.5>1.80>1.39 (7) HTN (hypertension): Presented with septic shock Thrombocytopenia secondary to alcohol abuse Coagulopathy Secondary to liver disease INR:2.1>2.0 Received VIt K Mild elevation of troponin Likely due to Type II NE, acute renal failure DVT Px: SCDs Re: Thrombocytopenia, GI bleed Disposition On comfort measures only Poor prognosis Palliative care following next Admission and Anticipated Discharge Date Admission Date: January 24, 2021 Subjective Patient seen and examined at bedside Patient is obtunded during my encounter Unable to provide any history Palliative care following Mild distress during my exam On comfort measures only Review of Systems Review of Systems: Unobtainable due to reduced consciousness Physical Exam Physical Exam: Physical Exam: Vitals signs as noted above General Appearance:Ill appearing, mild distress, obtunded Head: normocephalic, Atraumatic Eyes: normal inspection Neck: supple, Trachea midline Respiratory/Chest: Decreased breath sounds, CTA, +Resp distress Cardiovascular: S1, S2, No murmur, +Tachycardia Abdomen/GI:Soft, Non tender, Bowel sounds present Extremities/Musculoskeletal:normal inspection, 2+B/L LE edema, RUE erythema Neurologic/Psych:Obtunded Skin: normal color, warm (1) Change in mental status Altered mental status type: disorientation Qualified Code(s): R41.0 - Disorientation, unspecified (2) Sepsis Sepsis acute organ dysfunction status: with acute organ dysfunction Sepsis type: Streptococcus, unspecified
--- NOTE | 2021-01-29 11:08 | Palliative Care Progress Note ---
Date of Service January 29, 2021 Assessment & Plan (1) Palliative care encounter: The patient remains fully obtunded and was transitioned to comfort measures yesterday. He was started on a Morphine infusion at 2mg/hour and there has been no titration. During my visit today the patient has shown some breathing pattern changes, more irregular and also having some periods of apnea. His son, Jassi, was at his bedside and updated. Based on his progression and symptoms that I notice, encouraged nursing via tiger text to increase Morphine infusion to 4 mg/hour in conjunction with their protocol paramenters. Morphine infusion to be titrated for further tachypnia, labored breathing, restlessness, grimacing, furrowed brow or any other indications that would make you question his comfort. I anticipate he will pass away within hours to a day or so. Palliative will follow as necessary. (2) Alcohol withdrawal delirium: (3) Dyspnea: (4) Altered mental status: (5) Sepsis: Admission and Anticipated Discharge Date Admission Date: January 24, 2021 Subjective Pt obtunded. Some irregular breathing noted. some periods of apnea. Some moaning intermittently. Son by bedside and updated. See A/P for further details. Review of Systems Review of Systems: Unobtainable due to cognitive status Physical Exam Constitutional: + acute distress, + ill appearing and + frail appearing ENMT: Nose: + dry nasal mucous membranes Respiratory: + respiratory distress, + labored breathing and + uses accessory muscles Auscultation: + diminished lung sounds Cardiovascular: Rate/Rhythm: + tachycardic Heart Sounds: normal S1 and normal S2 Extremities: normal capillary refill; no edema Gastrointestinal (Abdomen): normal bowel sounds, soft, nontender, no hepato splenomegaly Skin: + dry skin; + abnormal skin elasticity Neurologic: + obtunded Results & Data ([facility]) Vital Signs (Past 12 Hours) Vital Signs Resp 01/29/21 08:42 12 PG Care Time/CCT Total # of Minutes Spent Total Time Spent with Patient: Total time spent is greater than 50% in coordination of care (as documented) at patient's floor/unit and/or counseling patient: 35 mintues with > 50% of that time spent assessing the patient, discussing symptom management, collaborating with IDT Coding Level of Care Code 76524 Subseq Hosp Care Lvl 3 Diagnoses Palliative care encounter Z51.5 Alcohol withdrawal delirium F10.231 Dyspnea R06.00 Altered mental status R41.82 Sepsis A41.9 Time Spent (min) 35
--- NOTE | 2021-01-29 16:26 | Discharge Summary ---
Date of Service January 29, 2021 Admission HPI Per Admitting Provider ETOH cirrhosis hematemesis Admission Exam Per Admitting Provider CHIEF COMPLAINT: Altered mental status, GI bleed. HISTORY OF PRESENT ILLNESS: This is a 60-year-old male with past medical history significant for chronic hepatitis C with cirrhosis of liver, alcoholism, polyneuropathy, pancytopenia, tobacco use disorder, allergic rhinitis, hyperlipidemia, portal hypertension, essential hypertension, was brought in because his roommate called EMS as he was found him on the ground, confused in no coffee-ground emesis and empty bottle of alcohol next to him. Does not known how long he was down. The patient is somewhat shaky and can tell his name, can tell his date of , he says he drinks whenever he wants to drink. Could not get much history from the patient. Says pain all over. The abdomen is somewhat distended. He has a history of ascites. When he came in the ER, he was having temp spike and tachycardic, tachypneic, blood pressures were okay. White count is 15, hemoglobin 7.6, close to his baseline. INR is 2.1. ABGs are okay. Sodium is 129, creatinine is 2.5, glucose 67. Troponin I 0.14, total creatine kinase 667. Ammonia 62. Procalcitonin 27.5. TSH is 0.2. Urinalysis positive. Urine drug screen negative. Ethyl alcohol less than 3. SARS-CoV-2 PCR negative. Principal Diagnosis PHYSICAL EXAMINATION: GENERAL: The patient is somewhat alert and awake, oriented to name only, somewhat shaky. VITAL SIGNS: Temperature 37.6, pulse 126, respiratory rate 26, blood pressure 128/66, oxygen 98% room air. HEENT: Pupils equal, round, reactive to light. Icterus present. Oral mucosa is dry and stained with blood. NECK: No JVD, no neck masses. CARDIOVASCULAR: S1, S2 heard. Tachycardia. No murmur, no gallop. RESPIRATORY SYSTEM: Normal AP diameter. No accessory muscle use. No wheezing, no crackles. ABDOMEN: Soft, bowel sounds present. Mild distention. No tenderness. Mild guarding. CENTRAL NERVOUS SYSTEM: Alert and awake, oriented to name only, but obeys commands, confused. EXTREMITIES: No edema, no erythema. Discharge Data Allergies Allergy/AdvReac Type Severity Reaction Status Date / Time No Known Allergies Allergy Unverified 10/25/20 11:11 Consultations 01/24/21 04:45 ED Decision to Admit Stat 01/24/21 06:41 Consult Firewood Cutter Routine 01/24/21 07:00 Consult Gastroenterology Routine 01/25/21 08:29 Consult Nephrology Routine 01/27/21 15:02 Consult Palliative Care Routine Procedures Performed Operation Date: 01/24/21 07:05 Actual Procedures p Esophagogastroduodenoscopy(Not Applicable) - Jocelyn oHlguin DO Ordered Studies 01/24/21 03:53 CT head/brain wo con Urgent 01/24/21 04:10 CT abd pelvis wo con Urgent CT chest diagnostic wo con Urgent 01/27/21 15:02 CT head/brain wo con Stat Hospital Course (1) Change in mental status: Altered mental status Multifactorial Metabolic encephalopathy secondary to hyperammonemia, infection, alcohol use -CT Head:Left mastoiditis and left otitis media. Trace left temporal extra-axial fluid. Otherwise no acute intracranial findings. If there is clinical concern over the intracranial sequela of acute mastoiditis, then an MRI of the brain without and with contrast would be considered the test of choice in follow-up. -Repeat CT head:Increase in size of a small subdural collection overlying the left temporal lobe since CT of January 24, 2021. This collection is nonspecific and could reflect a small hypodense subdural hematoma or subdural hygroma although density is less than expected for a hematoma given increase in size. A subdural collection, such as an empyema, is also within the differential given left-sided otomastoiditis. -Very somnolent on admission -Extubated on 01/25/2021 -Remains Critical -Very Poor Prognosis -Appreciate palliative care input On comfort measures Patient at 1535 while on comfort measures. (2) Decompensated hepatic cirrhosis: H/O Alcoholic cirrhosis, HCV Decompensated cirrhosis MELD 32 DF 51 Poor prognosis Appreciate GI input Alcohol cessation counseling Continue lactulose Monitor LFTs Ammonia level:46 Currently on comfort measures only (3) Alcohol abuse: Ongoing alcohol abuse Continue thiamine, folic acid Counseled to quit alcohol use (4) Acute upper GI bleed: S/P EGD:Normal esophagus. Portal hypertensive gastropathy. Normal examined duodenum. No specimens collected. S/P 1 unit PRBCs Octreotide, PPI discontinued (5) Sepsis: Septic Shock Streptococcal bacteremia Left lower lobe Pneumonia vancomycin, ceftriaxone discontinued Off pressors Appreciate critical care input (6) MARINA (acute kidney injury): Likely ATN Suspected hepatorenal syndrome Baseline Cr:0.5 Cr:2.5>1.80>1.39 (7) HTN (hypertension): Presented with septic shock Thrombocytopenia secondary to alcohol abuse Coagulopathy Secondary to liver disease INR:2.1>2.0 Received VIt K Mild elevation of troponin Likely due to Type II [place], acute renal failure DVT Px: SCDs Re: Thrombocytopenia, GI bleed Disposition Patient at 1535 while on comfort measures. Total Time Total Time Spent Total Time Spent (In Minutes): 25 minutes Discharge Plan Discharge Items Patient Disposition: Discharge Diagnosis: Hepatic cirrhosis Septic shock Streptococcus bacteremia Acute kidney injury Acute Metabolic encephalopathy Alcohol use disorder HCV Addtl Attending Provider Instructions: None
--- NOTE | 2021-01-29 16:31 | Communication Note ---
Date of Service: January 29, 2021 Patient was seen and examined this morning. Agonal breathing on exam. On IV morphine drip. No distress on exam. On comfort measures only. Palliative care following. Notified by RN at 1535 and that patient had no pulse, pupils dilated and fixed. Patient was noted to have no breath sounds, no pulse felt, no response to painful stimulus, pupils dilated and fixed, no response to sternal rub. Patient was pronounced to be at 1535. Family was notified by RN.
== END 2021-01-29 17:40 | disposition expired | DRG 871 ==
LOC: ED 03:42 → SUATTDRO 05:59 → 1E 05:59 → 3W 01-27 22:54